=== PATIENT | male | born 1985 | race Caucasian/White ===

== ENCOUNTER → 2017-01-15 | Outpatient (CLI) | payer OTHER ==
[~2017-01-15] MED LIST: /MOXI40TA OR; /PANT40TA OR; IBUP600T OR; LEVO25TABR OR; LORA2TAB OR; NICO21DI4 TD; TUMS500C OR
[2017-01-15 19:06] LABS: BASO # 0.1 10^3/uL (0.0-0.2); BASO % 0.5 % (0.0-1.0); EOS # 0.1 10^3/uL (0.0-0.50); EOS % 0.6 % (0.0-3.0); IMMATURE GRANULOCYTE % 0.8 % (0-0); LYMPH # 3.1 10^3/uL (1.5-4.5); MEAN CORPUSCULAR HEMOGLOBIN 31.5 pg (27.0-33.0); MEAN CORPUSCULAR HGB CONC 33.8 g/dl (32.0-36.5); MEAN CORPUSCULAR VOLUME 93.2 fl (80.0-96.0); MONO % 7.2 % (0.0-5.0); NEUTROPHILS # 9.6 10^3/uL (1.8-7.7); NEUTROPHILS % 68.9 % (36.0-66.0); PLATELET COUNT, AUTOMATED 272 10^3/uL (150-450); RED CELL DISTRIBUTION WIDTH 13.1 % (11.5-14.5)
[2017-01-15 21:06] LABS: ALBUMIN 4.2 GM/DL (3.2-5.2); ALBUMIN/GLOBULIN RATIO 1.11 (1.00-1.93); ALKALINE PHOSPHATASE 78 U/L (45-117); ALT/SGPT 65 U/L (12-78); ANION GAP 7 MEQ/L (8-16); AST/SGOT 39 U/L (15-37); BILIRUBIN,TOTAL 0.3 MG/DL (0.2-1.0); BLOOD UREA NITROGEN 15 MG/DL (7-18); CALCIUM LEVEL 9.7 MG/DL (8.5-10.1); CARBON DIOXIDE LEVEL 31 MEQ/L (21-32); CHLORIDE LEVEL 100 MEQ/L (98-107); CREATININE FOR GFR 0.66 MG/DL (0.70-1.30); GLOMERULAR FILTRATION RATE > 60.0 (>60); GLUCOSE, FASTING 79 MG/DL (70-105); POTASSIUM SERUM 5.1 MEQ/L (3.5-5.1); SODIUM LEVEL 138 MEQ/L (136-145)
== END ==
LOC: M SMT 15:23
PROVIDERS: ATTEND Physician Assistant Medical
DX: Z13.0 Encounter for screening for diseases of the blood and blood-forming organs and certain disorders involving the immune mechanism (principal); Z13.29 Encounter for screening for other suspected endocrine disorder; F41.1 Generalized anxiety disorder

== ENCOUNTER 2017-08-29 17:10 | Emergency (ER) | payer OTHER | END 2017-08-29 20:15 | disposition left against medical advice (07) | LOC: M ED 17:10 | DX: R07.9 Chest pain, unspecified (principal); Z53.29 Procedure and treatment not carried out because of patient's decision for other reasons (principal); F41.9 Anxiety disorder, unspecified ==

== ENCOUNTER 2017-10-22 11:48 | Emergency (ER) | payer OTHER ==
[2017-10-22 14:22] LABS: BASO # 0.1 10^3/uL (0.0-0.2); BASO % 0.6 % (0.0-1.0); EOS # 0.1 10^3/uL (0.0-0.50); EOS % 0.5 % (0.0-3.0); HEMOGLOBIN 18.7 g/dl (13.5-17.5); IMMATURE GRANULOCYTE % 0.6 % (0-3.0); LYMPH # 2.4 10^3/uL (1.5-4.5); LYMPH % 22.8 % (24.0-44.0); MEAN CORPUSCULAR HEMOGLOBIN 32.7 pg (27.0-33.0); MEAN CORPUSCULAR VOLUME 91.1 fl (80.0-96.0); MONO # 0.7 10^3/uL (0.0-0.8); MONO % 6.9 % (0.0-5.0); NEUTROPHILS # 7.3 10^3/uL (1.8-7.7); NEUTROPHILS % 68.6 % (36.0-66.0); PLATELET COUNT, AUTOMATED 235 10^3/uL (150-450); RED BLOOD COUNT 5.71 10^6/uL (4.30-6.10); WHITE BLOOD COUNT 10.7 10^3/uL (4.0-10.0)
[2017-10-22 15:03] LABS: ALBUMIN 4.1 GM/DL (3.2-5.2); ALBUMIN/GLOBULIN RATIO 1.14 (1.00-1.93); ALKALINE PHOSPHATASE 71 U/L (45-117); ALT/SGPT 61 U/L (12-78); ANION GAP 9 MEQ/L (8-16); AST/SGOT 62 U/L (7-37); BILIRUBIN,DIRECT 0.3 MG/DL (0.0-0.2); BILIRUBIN,TOTAL 0.8 MG/DL (0.2-1.0); BLOOD UREA NITROGEN 9 MG/DL (7-18); CALCIUM LEVEL 9.6 MG/DL (8.5-10.1); CARBON DIOXIDE LEVEL 29 MEQ/L (21-32); CHLORIDE LEVEL 97 MEQ/L (98-107); CPK CREATINE PHOSPHOKINASE 201 U/L (39-308); CREATININE FOR GFR 0.79 MG/DL (0.70-1.30); FREE T4 0.95 NG/DL (0.76-1.46); GLOMERULAR FILTRATION RATE > 60.0 (>60); GLUCOSE, FASTING 90 MG/DL (70-100); POTASSIUM SERUM 4.2 MEQ/L (3.5-5.1); SODIUM LEVEL 135 MEQ/L (136-145); TOTAL PROTEIN 7.7 GM/DL (6.4-8.2); TROPONIN I < 0.02 NG/ML (< 0.10)
[2017-10-22 15:09] LABS: CK-MB VALUE MASS 1.5 NG/ML (<3.6); MB/CK RELATIVE INDEX 0.74 (< OR =4)
[2017-10-22] MEDS ORDERED: ISOVUE-370 76% 100ML VIAL (Q9967) As Ordered (15:10)
== END 2017-10-22 16:58 | disposition home or self-care (01) ==
LOC: M ED 11:48
DX: F41.9 Anxiety disorder, unspecified (principal); R07.9 Chest pain, unspecified; R06.02 Shortness of breath; R53.1 Weakness; I10 Essential (primary) hypertension; F17.210 Nicotine dependence, cigarettes, uncomplicated; Z79.899 Other long term (current) drug therapy
CPT/HCPCS: Q9967

== ENCOUNTER → 2017-10-24 | Outpatient (REF) | payer OTHER | LOC: M LAB REF 16:46 | DX: F41.1 Generalized anxiety disorder (principal) ==

== ENCOUNTER 2017-11-03 14:13 | Emergency (ER) | payer OTHER, BC ==
[2017-11-03 15:48] LABS: BASO # 0.1 10^3/uL (0.0-0.2); BASO % 0.7 % (0.0-1.0); EOS % 0.3 % (0.0-3.0); HEMATOCRIT 56.3 % (42.0-52.0); HEMOGLOBIN 19.8 g/dl (13.5-17.5); IMMATURE GRANULOCYTE % 0.6 % (0-3.0); LYMPH # 2.6 10^3/uL (1.5-4.5); LYMPH % 21.8 % (24.0-44.0); MEAN CORPUSCULAR HEMOGLOBIN 32.7 pg (27.0-33.0); MEAN CORPUSCULAR HGB CONC 35.2 g/dl (32.0-36.5); MEAN CORPUSCULAR VOLUME 92.9 fl (80.0-96.0); MONO # 0.9 10^3/uL (0.0-0.8); MONO % 7.4 % (0.0-5.0); NEUTROPHILS # 8.2 10^3/uL (1.8-7.7); NEUTROPHILS % 69.2 % (36.0-66.0); PLATELET COUNT, AUTOMATED 246 10^3/uL (150-450); RED BLOOD COUNT 6.06 10^6/uL (4.30-6.10); RED CELL DISTRIBUTION WIDTH 13.4 % (11.5-14.5); WHITE BLOOD COUNT 11.8 10^3/uL (4.0-10.0)
[2017-11-03 16:06] LABS: ALBUMIN 4.2 GM/DL (3.2-5.2); ALBUMIN/GLOBULIN RATIO 1.17 (1.00-1.93); ALKALINE PHOSPHATASE 72 U/L (45-117); ALT/SGPT 52 U/L (12-78); ANION GAP 9 MEQ/L (8-16); AST/SGOT 49 U/L (7-37); BILIRUBIN,DIRECT 0.2 MG/DL (0.0-0.2); BILIRUBIN,TOTAL 0.8 MG/DL (0.2-1.0); BLOOD UREA NITROGEN 10 MG/DL (7-18); CALCIUM LEVEL 9.6 MG/DL (8.5-10.1); CARBON DIOXIDE LEVEL 26 MEQ/L (21-32); CHLORIDE LEVEL 101 MEQ/L (98-107); CPK CREATINE PHOSPHOKINASE 103 U/L (39-308); CREATININE FOR GFR 0.77 MG/DL (0.70-1.30); GLOMERULAR FILTRATION RATE > 60.0 (>60); GLUCOSE, FASTING 91 MG/DL (70-100); LIPASE 196 U/L (73-393); POTASSIUM SERUM 4.1 MEQ/L (3.5-5.1); SODIUM LEVEL 136 MEQ/L (136-145); TOTAL PROTEIN 7.8 GM/DL (6.4-8.2); TROPONIN I < 0.02 NG/ML (< 0.10)
[2017-11-03 16:12] LABS: CK-MB VALUE MASS < 1.0 NG/ML (<3.6); MB/CK RELATIVE INDEX 0.97 (< OR =4)
[2017-11-05 11:09] LABS: VITAMIN B12 LEVEL 320 PG/ML (247-911)
[2017-11-05 11:09] LABS: FOLATE 9.3 NG/ML (>5.4)
== END 2017-11-03 17:10 | disposition home or self-care (01) ==
LOC: M ED 14:13
DX: F10.10 Alcohol abuse, uncomplicated (principal); F43.9 Reaction to severe stress, unspecified; I10 Essential (primary) hypertension; Z79.899 Other long term (current) drug therapy; F17.210 Nicotine dependence, cigarettes, uncomplicated
CPT/HCPCS: 93005

== ENCOUNTER → 2017-12-18 | Outpatient (REF) | payer OTHER ==
[2017-12-18 14:21] LABS: BASO # 0.1 10^3/uL (0.0-0.2); BASO % 0.7 % (0.0-1.0); EOS # 0.1 10^3/uL (0.0-0.50); EOS % 1.1 % (0.0-3.0); HEMATOCRIT 51.6 % (42.0-52.0); HEMOGLOBIN 17.4 g/dl (13.5-17.5); IMMATURE GRANULOCYTE % 0.5 % (0-3.0); LYMPH # 2.4 10^3/uL (1.5-4.5); LYMPH % 27.1 % (24.0-44.0); MEAN CORPUSCULAR HEMOGLOBIN 32.8 pg (27.0-33.0); MEAN CORPUSCULAR HGB CONC 33.7 g/dl (32.0-36.5); MEAN CORPUSCULAR VOLUME 97.4 fl (80.0-96.0); MONO # 0.7 10^3/uL (0.0-0.8); MONO % 8.3 % (0.0-5.0); NEUTROPHILS # 5.5 10^3/uL (1.8-7.7); NEUTROPHILS % 62.3 % (36.0-66.0); PLATELET COUNT, AUTOMATED 245 10^3/uL (150-450); RED CELL DISTRIBUTION WIDTH 13.6 % (11.5-14.5); WHITE BLOOD COUNT 8.8 10^3/uL (4.0-10.0)
[2017-12-18 14:47] LABS: ERYTHROCYTE SEDIMENTATION RATE 1 mm/hr (0-15)
[2017-12-18 15:02] LABS: ALBUMIN 3.8 GM/DL (3.2-5.2); ALBUMIN/GLOBULIN RATIO 0.97 (1.00-1.93); ALKALINE PHOSPHATASE 77 U/L (45-117); ALT/SGPT 37 U/L (12-78); ANION GAP 10 MEQ/L (8-16); AST/SGOT 47 U/L (7-37); BILIRUBIN,TOTAL 0.6 MG/DL (0.2-1.0); BLOOD UREA NITROGEN 19 MG/DL (7-18); CALCIUM LEVEL 10.4 MG/DL (8.5-10.1); CARBON DIOXIDE LEVEL 27 MEQ/L (21-32); CHLORIDE LEVEL 99 MEQ/L (98-107); CREATININE FOR GFR 1.51 MG/DL (0.70-1.30); FOLATE 4.9 NG/ML; FREE T4 0.87 NG/DL (0.76-1.46); GLOMERULAR FILTRATION RATE 56.6 (>60); GLUCOSE, FASTING 85 MG/DL (70-100); POTASSIUM SERUM 5.4 MEQ/L (3.5-5.1); RHEUMATOID FACTOR QUANT < 10.0 IU/ML (<15.0); SODIUM LEVEL 136 MEQ/L (136-145); TOTAL PROTEIN 7.7 GM/DL (6.4-8.2)
== END ==
LOC: M LABNEURO 13:20
DX: R41.82 Altered mental status, unspecified (principal); E07.9 Disorder of thyroid, unspecified

== ENCOUNTER → 2017-12-21 | Outpatient (REF) | payer OTHER | LOC: M LABNEURO 10:58 | DX: E07.9 Disorder of thyroid, unspecified (principal); R20.0 Anesthesia of skin; R41.82 Altered mental status, unspecified ==

== ENCOUNTER → 2018-02-07 | Outpatient (CLI) | payer OTHER | LOC: M WUC 17:22 | DX: M79.671 Pain in right foot (principal) | CPT/HCPCS: 73630 ==

== ENCOUNTER 2018-02-12 10:25 | Emergency (ER) | payer OTHER ==
[2018-02-12 11:27] LABS: BASO # 0.1 10^3/uL (0.0-0.2); BASO % 0.9 % (0.0-1.0); EOS # 0.1 10^3/uL (0.0-0.50); EOS % 0.8 % (0.0-3.0); HEMATOCRIT 49.3 % (42.0-52.0); HEMOGLOBIN 17.2 g/dl (13.5-17.5); IMMATURE GRANULOCYTE % 0.5 % (0-3.0); LYMPH # 1.7 10^3/uL (1.5-4.5); LYMPH % 21.8 % (24.0-44.0); MEAN CORPUSCULAR HEMOGLOBIN 32.5 pg (27.0-33.0); MEAN CORPUSCULAR HGB CONC 34.9 g/dl (32.0-36.5); MONO # 0.6 10^3/uL (0.0-0.8); MONO % 7.2 % (0.0-5.0); NEUTROPHILS # 5.5 10^3/uL (1.8-7.7); NEUTROPHILS % 68.8 % (36.0-66.0); WHITE BLOOD COUNT 7.9 10^3/uL (4.0-10.0)
[2018-02-12 11:47] LABS: POS COUNT POS FLAG
[2018-02-12 11:58] LABS: AMPHETAMINES LEVEL URINE NEGATIVE (NEGATIVE); BARBITURATES URINE NEGATIVE (NEGATIVE); BENZODIAZEPINES URINE NEGATIVE (NEGATIVE); CANNABINOIDS URINE NEGATIVE (NEGATIVE); COCAINE METABOLITE URINE NEGATIVE (NEGATIVE); METHADONE URINE NEGATIVE (NEGATIVE); OPIATES URINE NEGATIVE (NEGATIVE); PHENCYCLIDINE URINE NEGATIVE (NEGATIVE)
[2018-02-12 13:02] LABS: ALBUMIN 4.2 GM/DL (3.2-5.2); ALBUMIN/GLOBULIN RATIO 1.31 (1.00-1.93); ALKALINE PHOSPHATASE 72 U/L (45-117); ALT/SGPT 40 U/L (12-78); ANION GAP 7 MEQ/L (8-16); AST/SGOT 45 U/L (7-37); BILIRUBIN,TOTAL 0.5 MG/DL (0.2-1.0); BLOOD UREA NITROGEN 13 MG/DL (7-18); CALCIUM LEVEL 9.7 MG/DL (8.5-10.1); CARBON DIOXIDE LEVEL 30 MEQ/L (21-32); CHLORIDE LEVEL 97 MEQ/L (98-107); CK-MB VALUE MASS < 1.0 NG/ML (<3.6); CPK CREATINE PHOSPHOKINASE 144 U/L (39-308); ETHYL ALCOHOL (ETHANOL) < 0.003 % (0.000-0.010); GLOMERULAR FILTRATION RATE > 60.0 (>60); GLUCOSE, FASTING 99 MG/DL (70-100); LIPASE 315 U/L (73-393); MAGNESIUM LEVEL 1.9 MG/DL (1.8-2.4); MB/CK RELATIVE INDEX 0.69 (< OR =4); POTASSIUM SERUM 4.4 MEQ/L (3.5-5.1); SODIUM LEVEL 134 MEQ/L (136-145); TOTAL PROTEIN 7.4 GM/DL (6.4-8.2); TROPONIN I < 0.02 NG/ML (< 0.10)
[2018-02-12 13:04] LABS: AMMONIA 29 uMOL/L (<32)
[2018-02-12 14:42] LABS: BEDSIDE GLUCOSE 99 MG/DL (70-105)
== END 2018-02-12 13:49 | disposition home or self-care (01) ==
LOC: M ED 10:25
DX: F41.9 Anxiety disorder, unspecified (principal); R42 Dizziness and giddiness; H53.8 Other visual disturbances; I10 Essential (primary) hypertension; F10.10 Alcohol abuse, uncomplicated; Z87.442 Personal history of urinary calculi; Z79.899 Other long term (current) drug therapy
CPT/HCPCS: 71046

== ENCOUNTER 2018-08-26 20:51 | Emergency (ER) | payer OTHER ==
[~2018-08-26] VITALS: Ht 172.7 cm; Wt 81.8 kg
[~2018-08-26 20:51] MED LIST changes: -/MOXI40TA OR; -/PANT40TA OR; +AVEL1TAB2 OR; +CLON1TAB8 PO; +GABA-843; +LISI20TA PO; +POTA1TAB23; +PROT1TAB2 OR
[2018-08-26 22:02] LABS: AMPHETAMINES LEVEL URINE NEGATIVE (NEGATIVE); BARBITURATES URINE NEGATIVE (NEGATIVE); BENZODIAZEPINES URINE NEGATIVE (NEGATIVE); CANNABINOIDS URINE NEGATIVE (NEGATIVE); COCAINE METABOLITE URINE NEGATIVE (NEGATIVE); METHADONE URINE NEGATIVE (NEGATIVE); OPIATES URINE NEGATIVE (NEGATIVE); PHENCYCLIDINE URINE NEGATIVE (NEGATIVE)
[2018-08-26 22:05] LABS: HEMATOCRIT 51.4 % (42.0-52.0); HEMOGLOBIN 17.8 g/dl (13.5-17.5); MEAN CORPUSCULAR HGB CONC 34.6 g/dl (32.0-36.5); MEAN CORPUSCULAR VOLUME 98.1 fl (80.0-96.0); PLATELET COUNT, AUTOMATED 230 10^3/uL (150-450); RED BLOOD COUNT 5.24 10^6/uL (4.30-6.10); WHITE BLOOD COUNT 10.4 10^3/uL (4.0-10.0)
[2018-08-26] MEDS ORDERED: NICOTINE 21MG/24HR 1 EA TRANSDERMAL TD ONE (22:30)
[2018-08-26 22:46] LABS: ACETAMINOPHEN LEVEL < 2.0 UG/ML (10.0-30.0); ALT/SGPT 33 U/L (12-78); BILIRUBIN,DIRECT < 0.1 MG/DL (0.0-0.2); BILIRUBIN,TOTAL 0.3 MG/DL (0.2-1.0); BLOOD UREA NITROGEN 29 MG/DL (7-18); CALCIUM LEVEL 9.2 MG/DL (8.5-10.1); CARBON DIOXIDE LEVEL 24 MEQ/L (21-32); CHLORIDE LEVEL 102 MEQ/L (98-107); CREATININE FOR GFR 1.69 MG/DL (0.70-1.30); ETHYL ALCOHOL (ETHANOL) 0.371 % (0.000-0.010); GLOMERULAR FILTRATION RATE 49.4 (>60); GLUCOSE, FASTING 93 MG/DL (70-100); POTASSIUM SERUM 4.1 MEQ/L (3.5-5.1); SALICYLATE LEVEL 2.4 MG/DL (5.0-30.0); SODIUM LEVEL 135 MEQ/L (136-145); TOTAL PROTEIN 7.7 GM/DL (6.4-8.2)
[2018-08-26] MEDS ORDERED: LORazepam 2 MG TAB PO PRN (23:00)
[2018-08-26] MEDS: THIAMINE 100 MG TAB PO SCH (23:19)
[2018-08-26] MEDS ORDERED: NS 2,450 ML in APPROPRIATE DILUENT 1 EA IV ONE (23:45)
[2018-08-27 06:53] LABS: BLOOD UREA NITROGEN 24 MG/DL (7-18); CALCIUM LEVEL 7.7 MG/DL (8.5-10.1); CARBON DIOXIDE LEVEL 24 MEQ/L (21-32); CHLORIDE LEVEL 107 MEQ/L (98-107); CREATININE FOR GFR 1.41 MG/DL (0.70-1.30); GLOMERULAR FILTRATION RATE > 60.0 (>60); GLUCOSE, FASTING 87 MG/DL (70-100); POTASSIUM SERUM 4.5 MEQ/L (3.5-5.1); SODIUM LEVEL 141 MEQ/L (136-145)
[2018-08-27] MEDS ORDERED: NS 1,000 ML IV ONE (08:30)
[2018-08-27] MEDS ORDERED: MULTIVITAMINS/MINERALS THERAP 1 TAB PO SCH (09:00)
[2018-08-27] MEDS ORDERED: FOLIC ACID 1 MG TAB PO SCH (09:00)
[2018-08-27] MEDS: THIAMINE 100 MG TAB PO SCH (09:55)
[2018-08-27 12:22] VITALS: BP 113/77
== END 2018-08-27 12:28 | disposition home or self-care (01) ==
LOC: M ED 20:51
DX: F10.229 Alcohol dependence with intoxication, unspecified (principal); S00.81XA Abrasion of other part of head, initial encounter; W26.8XXA Contact with other sharp object(s), not elsewhere classified, initial encounter; Y92.89 Other specified places as the place of occurrence of the external cause; I10 Essential (primary) hypertension; F41.1 Generalized anxiety disorder; Z79.899 Other long term (current) drug therapy; F17.210 Nicotine dependence, cigarettes, uncomplicated
CPT/HCPCS: 36415; 80048; 80076; 80307; 84443; 85027; 99285; G0480

== ENCOUNTER 2019-10-13 15:05 | Inpatient (IN) | payer OTHER ==
[~2019-10-13] VITALS: Ht 172.7 cm; Wt 97.3 kg
[2019-10-13] MEDS: predniSONE 20 MG TAB PO SCH (09:00)
[~2019-10-13 15:05] MED LIST changes: -LISI20TA PO; +LISI20TA35 PO
[2019-10-13] MEDS ORDERED: MULTIVITAMIN -ADULT INJECTION 10 ML, THIAMINE INJection 100 MG, FOLIC ACID 1 MG in NS 1... IV ONE (16:00)
[2019-10-13] MEDS ORDERED: NS 1,000 ML IV ONE (16:30)
[2019-10-13 16:54] LABS: ACETAMINOPHEN LEVEL < 2.0 UG/ML (10.0-30.0); ALBUMIN 2.3 GM/DL (3.2-5.2); ALT/SGPT 56 U/L (12-78); BILIRUBIN,DIRECT 20.8 MG/DL (0.0-0.2); BILIRUBIN,TOTAL 24.5 MG/DL (0.2-1.0); BLOOD UREA NITROGEN 10 MG/DL (7-18); CALCIUM LEVEL 8.3 MG/DL (8.5-10.1); CARBON DIOXIDE LEVEL 32 MEQ/L (21-32); CHLORIDE LEVEL 85 MEQ/L (98-107); CREATININE FOR GFR 1.12 MG/DL (0.70-1.30); ETHYL ALCOHOL (ETHANOL) 0.067 % (0.000-0.010); GLOMERULAR FILTRATION RATE > 60.0 (>60); GLUCOSE, FASTING 108 MG/DL (70-100); POTASSIUM SERUM 2.1 MEQ/L (3.5-5.1); SALICYLATE LEVEL < 1.7 MG/DL (5.0-30.0); SODIUM LEVEL 131 MEQ/L (136-145); TOTAL PROTEIN 6.5 GM/DL (6.4-8.2)
[2019-10-13 16:57] LABS: HEMATOCRIT 38.6 % (42.0-52.0); HEMOGLOBIN 14.2 g/dl (13.5-17.5); MEAN CORPUSCULAR HEMOGLOBIN 35.8 pg (27.0-33.0); MEAN CORPUSCULAR HGB CONC 36.8 g/dl (32.0-36.5); MEAN CORPUSCULAR VOLUME 97.2 fl (80.0-96.0); PLATELET COUNT, AUTOMATED 138 10^3/uL (150-450); RED BLOOD COUNT 3.97 10^6/uL (4.30-6.10)
[2019-10-13 16:58] LABS: WHITE BLOOD COUNT 13.2 10^3/uL (4.0-10.0)
[2019-10-13] MEDS ORDERED: KCL 10MEQ/100ML SWI (KRUN) 10 MEQ in IV 1 EA IV ONE (17:00)
[2019-10-13 17:06] LABS: MAGNESIUM LEVEL 1.5 MG/DL (1.8-2.4)
[2019-10-13 17:18] LABS: LIPASE 851 U/L (73-393)
[2019-10-13] MEDS ORDERED: MAG SULF 1GM/100ML (MAG RUN) 1 GM in IV 1 EA IV ONE ×3 (17:30→23:30)
[2019-10-13 17:41] LABS: INR 1.41
[2019-10-13] MEDS ORDERED: MAGNESIUM CHLORIDE 64 MG TABCR (SLO MAG) PO ONE (18:15)
[2019-10-13] MEDS: POTASSIUM CHLORIDE 10 MEQ SR TABLET PO SCH ×2 (18:15→19:15)
[2019-10-13] MEDS: LORazepam 2 MG TAB PO PRN (18:28)
--- NOTE | 2019-10-13 18:50 | REPVR ---
PROCEDURE INFORMATION: Exam: US Abdomen, Limited; Right Upper Quadrant Exam date and time: 10/13/2019 5:58 PM Age: 34 years old Clinical indication: Abdominal tenderness and bloating; Additional info: Obstructive jaundice TECHNIQUE: Imaging protocol: US abdomen. Real time ultrasound with image documentation. Limited exam focused on the right upper quadrant. COMPARISON: No relevant prior studies available. FINDINGS: Liver: There is increased echogenicity of the liver consistent with moderate fatty infiltration. Gallbladder: There is a moderate amount of echogenic sludge in the dependent portion of the gallbladder. There is a small amount of fluid along the margin of the gallbladder and there may be some edema of the gallbladder wall. Common bile duct: There is no evidence of intrahepatic biliary dilatation. Common bile duct measures 6 mm and top-normal in size. Pancreas: The pancreas is obscured by bowel gas and cannot be evaluated Right kidney: The right kidney measures 13 cm in length with no evidence of hydronephrosis. Other findings: If there are continued symptoms suggest correlation with a HIDA scan and CT. IMPRESSION: 1. Moderate fatty infiltration of the liver. 2. There is a moderate amount of sludge in the dependent portion of the gallbladder. 3. Small amount of fluid along the margin of the gallbladder or within the gallbladder wall. If there are continued symptoms suggest correlation with a HIDA scan and CT. Electronically signed by: Abhijit Nuno On 10/13/2019 18:50:10 PM
[2019-10-13] MEDS: NS 1,000 ML IV SCH (19:00)
[2019-10-13] MEDS ORDERED: NICOTINE POLACRILEX 2 MG GUM PO ONE (19:45)
[2019-10-13] MEDS ORDERED: NICOTINE POLACRILEX 2 MG GUM PO PRN (19:45)
[2019-10-13] MEDS ORDERED: NS 1,000 ML IV SCH (19:45)
[2019-10-13] MEDS: OXAZEPAM 10 MG CAP PO PRN (20:14)
[2019-10-13 20:37] VITALS: BP 142/84
[2019-10-13 20:44] LABS: BLOOD UREA NITROGEN 9 MG/DL (7-18); CALCIUM LEVEL 7.1 MG/DL (8.5-10.1); CARBON DIOXIDE LEVEL 28 MEQ/L (21-32); CHLORIDE LEVEL 90 MEQ/L (98-107); CREATININE FOR GFR 0.94 MG/DL (0.70-1.30); GLOMERULAR FILTRATION RATE > 60.0 (>60); GLUCOSE, FASTING 108 MG/DL (70-100); MAGNESIUM LEVEL 1.7 MG/DL (1.8-2.4); POTASSIUM SERUM 2.4 MEQ/L (3.5-5.1); SODIUM LEVEL 133 MEQ/L (136-145)
[2019-10-13 21:02] LABS: IRON (FE) 86 UG/DL (65-175); PERCENT SATURATION 81.1 % (19.7-50.0); TOTAL IRON BINDING CAPACITY 106 UG/DL (250-450)
[2019-10-13 22:00] VITALS: BP 142/84
[2019-10-13] MEDS: PIPERACILLIN/TAZOBACTAM SOD 3.375 GM in D5W MINI-BAG PLUS 50 ML IV SCH (22:06)
[2019-10-13] MEDS: PANTOPRAZOLE SODIUM 40 MG in D5W 50 ML IV SCH (22:06)
[2019-10-13] MEDS: NICOTINE 14 MG/24 HR TRANSDERMAL TD SCH (22:07)
[2019-10-13] MEDS ORDERED: POTASSIUM CHLORIDE 10 MEQ SR TABLET PO ONE (23:30)
[2019-10-14] VITALS (10 sets, daily range): BP systolic 111–138; BP diastolic 70–92
[2019-10-14] MEDS: THIAMINE 100 MG TAB PO SCH ×3 (01:57→22:43)
[2019-10-14 02:55] LABS: MAGNESIUM LEVEL 1.9 MG/DL (1.8-2.4); POTASSIUM SERUM 2.2 MEQ/L (3.5-5.1)
[2019-10-14] MEDS ORDERED: POTASSIUM CHLORIDE 10 MEQ SR TABLET PO ONE (03:45)
[2019-10-14] MEDS: KCL 40MEQ in NS 1000ML 1,000 ML IV SCH ×4 (04:07→18:40)
[2019-10-14] MEDS: PIPERACILLIN/TAZOBACTAM SOD 3.375 GM in D5W MINI-BAG PLUS 50 ML IV SCH ×4 (04:07→22:42)
[2019-10-14] MEDS: PANTOPRAZOLE SODIUM 40 MG in D5W 50 ML IV SCH ×2 (05:24→05:45)
[2019-10-14 06:16] LABS: BASO # 0.1 10^3/uL (0.0-0.2); BASO % 0.6 % (0.0-1.0); EOS % 0.4 % (0.0-3.0); HEMATOCRIT 34.6 % (42.0-52.0); HEMOGLOBIN 12.6 g/dl (13.5-17.5); LYMPH # 1.5 10^3/uL (1.5-5.0); MEAN CORPUSCULAR HEMOGLOBIN 35.6 pg (27.0-33.0); MEAN CORPUSCULAR HGB CONC 36.4 g/dl (32.0-36.5); MEAN CORPUSCULAR VOLUME 97.7 fl (80.0-96.0); MONO # 0.9 10^3/uL (0.0-0.8); MONO % 7.7 % (0.0-5.0); NEUTROPHILS # 8.7 10^3/uL (1.5-8.5); NEUTROPHILS % 77.3 % (36.0-66.0); PLATELET COUNT, AUTOMATED 113 10^3/uL (150-450); RED BLOOD COUNT 3.54 10^6/uL (4.30-6.10); WHITE BLOOD COUNT 11.2 10^3/uL (4.0-10.0)
[2019-10-14 06:30] LABS: INR 1.62
[2019-10-14 06:31] LABS: PARTIAL THROMBOPLASTIN TIME 51.7 SECONDS (25.0-38.4)
[2019-10-14 06:37] LABS: ALBUMIN 1.9 GM/DL (3.2-5.2); ALT/SGPT 45 U/L (12-78); BILIRUBIN,TOTAL 21.8 MG/DL (0.2-1.0); BLOOD UREA NITROGEN 8 MG/DL (7-18); CARBON DIOXIDE LEVEL 30 MEQ/L (21-32); CHLORIDE LEVEL 92 MEQ/L (98-107); CREATININE FOR GFR 0.92 MG/DL (0.70-1.30); GLOMERULAR FILTRATION RATE > 60.0 (>60); GLUCOSE, FASTING 91 MG/DL (70-100); MAGNESIUM LEVEL 2.3 MG/DL (1.8-2.4); POTASSIUM SERUM 2.7 MEQ/L (3.5-5.1); SODIUM LEVEL 132 MEQ/L (136-145); TOTAL PROTEIN 5.4 GM/DL (6.4-8.2)
--- NOTE | 2019-10-14 08:15 | ECGEPIP ---
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
[2019-10-14] MEDS: MULTIVITAMINS/MINERALS THERAP 1 TAB PO SCH (08:52)
[2019-10-14] MEDS: NICOTINE 14 MG/24 HR TRANSDERMAL TD SCH (08:52)
[2019-10-14] MEDS: FOLIC ACID 1 MG TAB PO SCH (08:53)
[2019-10-14] MEDS: predniSONE 20 MG TAB PO SCH (08:53)
[2019-10-14] MEDS ORDERED: PANTOPRAZOLE 40MG TAB (PROTONIX) PO SCH (09:00)
[2019-10-14] MEDS: OXAZEPAM 10 MG CAP PO PRN ×4 (09:04→22:43)
[2019-10-14] MEDS ORDERED: IPRATROPIUM 0.5MG/ALBUTEROL 2.5MG INH SOL UD 3ML (DUONEB) NEB PRN (09:15)
[2019-10-14] MEDS ORDERED: PANTOPRAZOLE 40MG VIAL (C9113 PER 1) IV SCH (10:00)
--- NOTE | 2019-10-14 12:14 | HPE ---
DATE OF ADMISSION: 10/13/2019 CHIEF COMPLAINT: Abdominal pain, jaundice. HISTORY OF PRESENT ILLNESS: This is a 34-year-old male with history of alcohol abuse dating back since the age of 13. He usually drinks hard liquor with Vodka, four to five beers, a day. He presented to the emergency room with three day history of worsening jaundice, abdominal distention and pain with one episode of hematemesis without bright red blood per rectum, melena or black tarry stools. He complained of dizziness without shortness of breath, palpitations or chest pain. He had been burping significantly. He decided to come into the hospital for evaluation with stopping his alcohol use yesterday. The patient denies any Tylenol use or NSAID use recently. He has had some nausea without vomiting. No prior episode in the past. He has a known history of heavy alcohol abuse, hepatic steatosis, fatty liver, Benadryl overdose and suicide attempt in the past. He does have a history of chronic obstructive pulmonary disease (COPD) and depression. In the emergency room (ER), he was noted to be overtly jaundiced with bilirubin level of 24.5, discriminant function of 22 with persistent hypokalemia and hypomagnesemia. The patient complains of generalized weakness, paresthesias and admitted for alcoholic hepatitis. His abdominal pain is diffuse, no rebound or guarding, worse when he was vomiting, currently resolved. No Tylenol use or any other medication use for pain or vomiting at home. PAST MEDICAL HISTORY: 1. Alcohol abuse. 2. Chronic obstructive pulmonary disease. 3. Depression. 4. Suicidal ideation. 5. Fatty liver. 6. No history of cirrhosis or esophageal varices documented. PAST SURGICAL HISTORY: None. ALLERGIES: No known drug allergies. SOCIAL HISTORY: Smokes a half a pack a day since the age of 13. 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 Uses hard liquor such as Vodka, four to five beers every day. Health care proxy is his chel Carreno, phone number . The patient is a full code. FAMILY HISTORY: Father alcoholic. Mother at age 45. Two brothers, one 32 years of age and another 36 years of age. REVIEW OF SYSTEMS: Per history of present illness (HPI). 12 point system otherwise negative. PHYSICAL EXAMINATION: Temperature 99.7, pulse 136, sinus rhythm, with PACs, respiratory rate 17, blood pressure 115/80, 98% on room air. Generally, the patient is overtly jaundiced and icteric. No pallor. No jugular venous distention or thyromegaly. The patient answers questions appropriately. Awake, alert and oriented times three. No lethargy or obtundation. No jugular venous distention or thyromegaly. Lungs are clear to auscultation. No wheezing, rales or rhonchi. Heart: S1, S2. Tachycardiac. Irregular. Abdomen is distended. Tender right upper quadrant. No rebound or guarding. Positive hepatosplenomegaly. No fluid wave. Extremities: Positive edema. Multiple tattoos bilateral upper and lower extremities. LABORATORY DATA: White count 13.2, hemoglobin 14, hematocrit 38 and platelet count 138. Sodium 131, potassium 2.1, chloride 85, bicarbonate 32, BUN 10, creatinine 1.12, glucose 108, lactic acid 6.6, magnesium 1.7, lipase 851, direct bilirubin 20.8, total bilirubin 24.5, AST 46, ALT 56, alkaline phosphatase 262. Hepatitis serology is pending. KRISTINA anti-centromere, anti-mitochondrial and anti-smooth muscle antibodies are pending. Acetaminophen is less than 2. Blood cultures are negative. Urinalysis is still pending. Ultrasound of the gallbladder - liver is consistent with moderate fatty infiltration, moderate amount of echogenic sludge dependent portion of the gallbladder, small amount of fluid along the margin. There may be some edema of gallbladder wall. No evidence of intrahepatic biliary dilatation. Common bile duct 6 mm, top normal size. Pancreas is obscured and cannot be evaluated. Right kidney measures 13 cm. No evidence of hydronephrosis. Moderately fatty liver. Moderate amount of sludge in dependent portion of the gallbladder. Small amount of fluid along the margin of the gallbladder within the gallbladder wall. ASSESSMENT AND PLAN: This is a 34-year-old male with history of alcohol abuse who presented with abdominal pain, nausea, vomiting, hematemesis and three day history of worsening jaundice found to have bilirubin of 24. Ultrasound shows moderate sludge in the dependent portion of the gallbladder and fatty liver. IMPRESSION: 1. Alcoholic hepatitis with nonobstructive jaundice. At this time, the patient is still awake, alert and oriented times three. He is not lethargic or obtunded with no signs of encephalopathy. The patient's jaundice is thought to be secondary to alcoholic hepatitis and therefore he has been given prednisone. Due to lactic acidosis he has been given a banana bag. IV fluids are continued and patient had been given boluses of normal saline. He is given Zosyn 3.375 grams intravenously every 6 hours with full supportive care, multivitamin, thiamine, folate, and Protonix drip due to recent hematemesis. Upholstery Sewer has been consulted, Dr. Richmond, who agrees with current management for now. Gallbladder ultrasound showed sludging, but no significant dilatation of the duct. 2. Alcohol withdrawal. The patient is currently on oxazepam 10 mg every 4, CIWA protocol. He is kept on thiamine, multivitamin and folate. IV fluids are continued. 3. Tobacco abuse. Tobacco cessation counseling has been provided. He has been given nicotine gum along with nicotine patch. 4. History of depression with suicidal attempt. Currently has no homicidal or suicidal tendency. 5. Abnormal EKG due to tachycardia with PACs. Continue on telemetry monitoring. 6. Code status. Full code.
[2019-10-14 16:55] LABS: BLOOD UREA NITROGEN 9 MG/DL (7-18); CALCIUM LEVEL 6.9 MG/DL (8.5-10.1); CARBON DIOXIDE LEVEL 27 MEQ/L (21-32); CHLORIDE LEVEL 98 MEQ/L (98-107); CREATININE FOR GFR 0.98 MG/DL (0.70-1.30); GLOMERULAR FILTRATION RATE > 60.0 (>60); GLUCOSE, FASTING 140 MG/DL (70-100); POTASSIUM SERUM 3.3 MEQ/L (3.5-5.1); SODIUM LEVEL 134 MEQ/L (136-145)
--- NOTE | 2019-10-14 17:40 | CR.PDOC ---
General Date of Consultation: Oct 14, 2019 Referring Provider: LAZARUS KINGSTON MD Attending Physician: FILIPPO RIVERA MD Consultation Primary physician/ hospitalist: Dr. Kingston Reason for consult: Abnormal liver panel. HPI: 34-year-old male patient with COPD, depression, history of heavy alcohol use for a long time, (drinks hard liquor with Vodka, four to five beers, a day), presented to ER for worsening jaundice, abdominal distention and pain with one episode of vomiting. Patient was noted to have abnormal liver tests and GI was consulted for the same. When examined patient is alert and awake and able to answer questions appropriately. He reports drinking heavily for the past few months and for the past few days noticing jaundice and abdominal bloating. He also have few episodes of vomiting of darker material and dark stools. He denies any Tylenol use or NSAID use recently. He has had some nausea without vomiting. He also complains of generalized weakness, and some tremulousness. He reports getting withdrawal symptoms of shaking if he stops alcohol for even 1 day. He denies any fever, chest pain, cough or burning micturition.. Pertinent negative GI symptoms: Patient denies fever, sick contacts, recent travel, loss of appetite, early s atiety or unintentional weight loss. No history of hematemesis, melena or hematochezia. Patient reports regular bowel movements. Review of Systems: GI: as stated above CVS: No chest pain, No palpitations, No leg swelling. RS: No Shortness of breath, No Wheezing, no cough SUPERVISOR BAKING: No dizziness, No motor weakness, No sensory problems Hematology: No bruising, No gum bleeding, Musculoskeletal: No joint pain, ambulating well. Skin: No rash : No hematuria, No burning sensation of the urine ENT: No ear discharge/ pain, No dysphagia. Eyes: No photophobia. Jaundice Home medications: reviewed. Antithrombotic agents - None Medical h/o: As above. Surgical h/o: None on abdomen. Social h/o: Alcohol : as above. , smoking : active smoker , IVDA/ drugs - no other drug use. . Family h/o of GI cancers - None Prior Endoscopies: None Prior GI evaluations: none Exam: Vitals: reviewed General: Alert and oriented x 3, not in distress HEENT: NO pallor, no icterus. Normal oropharynx, NO cervical lymph nodes. Chest: symmetric with bilateral clear air entry, CVS: S1, S2 heard, normal, no murmurs . Abdomen: non-distended, no surgical scars, soft, non-tender, no palpable masses, normal bowel sounds heard. Rectal exam: Patient refused / Deferred at this time in view of scheduled colonoscopy. Extremities: no pedal edema, pulses palpable. SUPERVISOR BAKING: no focal motor or sensory deficits. Moves all extremities Skin: no rash. Labs: reviewed. Imaging: reviewed. Impression: - Abdominal bloating, nausea and vomiting with Abnormal liver panel in patient with heavy alcohol use and ultrasound abdomen showing fatty liver with no gallstones and normal CBD -- DDx-- Alcoholic hepatitis vs liver cirrhosis vs r/o acute viral hepatitis. Nausea and vomiting could be related to alcohol use it self. No Overt active bleeding at this time. Recommendations: - Patient educated about the test results, possible differential diagnoses and All questions answered. - Septic work up. - Steroid therapy for alcoholic hepatitis. discussed the risks , benefits and a lternatives with patient. ( prefer prednisolone). - Monitor for alcohol withdrawal / DT. - Alcohol rehabilitation if patient agrees. - Prognosis guarded educated patient. - Continue with Thiamine and folic acid - Supportive care and high protein diet. - Recall GI if any acute change in status. - As there is no evidence of active Gi bleeding and also considering the risks and benefits of endoscopic evaluation in active alcholic hepatitis, as per discussion with patient, no endoscopic procedures planned at this time. - Patient to follow up with PCP upon discharge and if persistent GI symptoms then to follow with GI. Plan of care discussed with patient and primary team. Patient verbalized un derstanding and agreed with the plan. Vital Signs/I&O Vital Signs Date Time Temp Pulse Resp B/P (MAP) Pulse Ox O2 Delivery O2 Flow Rate FiO2 10/14/19 16:00 97.6 99 22 111/78 (89) 96 Room Air I&O- Last 24 Hours up to 6 AM 10/14/19 05:59 Intake Total 2860 ml Output Total 0 ml Balance 2860 ml Laboratory Data Labs 24H Laboratory Tests 2 10/13/19 19:55: Anion Gap 15, Glomerular Filtration Rate > 60.0, Calcium Level 7.1L, Magnesium Level 1.7L, Iron Level 86, Total Iron Binding Capacity 106L, Transferrin % Saturation 81.1H 10/13/19 22:55: Lactic Acid Followup at 4 Hours 5.1*H 10/14/19 02:05: Magnesium Level 1.9 10/14/19 05:50: Anion Gap 10, Glomerular Filtration Rate > 60.0, Calcium Level 7.0L, Magnesium Level 2.3, Immature Granulocyte % (Auto) 1.0, Neutrophils (%) (Auto) 77.3H, Lymphocytes (%) (Auto) 13.0L, Monocytes (%) (Auto) 7.7H, Eosinophils (%) (Auto) 0.4, Basophils (%) (Auto) 0.6, Neutrophils # (Auto) 8.7H, Lymphocytes # (Auto) 1.5, Monocytes # (Auto) 0.9H, Eosinophils # (Auto) 0.0, Basophils # (Auto) 0.1, Nucleated Red Blood Cells % (auto) 0.2H, Prothrombin Time 19.0H, Prothromb Time International Ratio 1.62, Activated Partial Thromboplast Time 51.7H, Total Bilirubin 21.8*H, Aspartate Amino Transf (AST/SGOT) 397H, Alanine Aminotransferase (ALT/SGPT) 45, Alkaline Phosphatase 201H, Total Protein 5.4L, Albumin 1.9L, Albumin/Globulin Ratio 0.5 10/14/19 09:36: Lactic Acid Level 4.1*H 10/14/19 14:44: Lactic Acid Followup at 4 Hours 4.2*H 10/14/19 16:13: Lactic Acid Level 3.8*H, Anion Gap 9, Glomerular Filtration Rate > 60.0, Calcium Level 6.9L CBC/BMP Laboratory Tests 10/13/19 19:55 10/14/19 02:05 10/14/19 05:50 10/14/19 16:13 Microbiology Microbiology 10/13/19 Blood Culture, Received Pending 10/13/19 Blood Culture, Received Pending Allergies Coded Allergies: No Known Drug Allergies (Verified Allergy, Unknown, 08/26/18) Home Medications No Active Prescriptions or Reported Meds FILIPPO RIVERA MD Oct 14, 2019 17:40
--- NOTE | 2019-10-14 18:23 | IPNPDOC ---
Date Seen The patient was seen on 10/14/19. Progress Note 34 y/o M with h/o alcohol abuse initially came c/o abdominal pain, one episode of ? hemetemesis; was admitted for suspected alcoholic hepatitis. Pt was seen and examined at bedside. Pt c/o generalized weakness. Denied any other associated symptom. PHYSICAL EXAMINATION: GENERAL: comfortable HEENT: oral mucosa moist CARDIOVASCULAR: regular rate and rhythm RESPIRATORY: clear to auscultation, ABDOMINAL: soft,non tender EXTREMITIES: no edema NEUROLOGICAL: no focal deficit PSYCHOLOGICAL: mood normal LABORATORY DATA, IMAGING STUDIES, MICROBIOLOGY: reviewed ASSESSMENT AND PLAN: 1. Suspected alcoholic hepatitis with non obstructive jaundice will continue prednisone will f/u hepatitis panel GI recommendations appreciated 2. h/o alcohol abuse will monitor for withdrawal 3. Lactic acid acidosis improving ivf 4. Hypokalemia will replete as needed VS, I&O, 24H, Fishbone Vital Signs/I&O Vital Signs Date Time Temp Pulse Resp B/P (MAP) Pulse Ox O2 Delivery O2 Flow Rate FiO2 10/14/19 16:00 97.6 99 22 111/78 (89) 96 Room Air I&O- Last 24 Hours up to 6 AM 10/14/19 06:00 Intake Total 2860 ml Output Total 0 ml Balance 2860 ml Laboratory Data 24H LABS Laboratory Tests 2 10/13/19 19:55: Anion Gap 15, Glomerular Filtration Rate > 60.0, Calcium Level 7.1L, Magnesium Level 1.7L, Iron Level 86, Total Iron Binding Capacity 106L, Transferrin % Saturation 81.1H 10/13/19 22:55: Lactic Acid Followup at 4 Hours 5.1*H 10/14/19 02:05: Magnesium Level 1.9 10/14/19 05:50: Anion Gap 10, Glomerular Filtration Rate > 60.0, Calcium Level 7.0L, Magnesium Level 2.3, Immature Granulocyte % (Auto) 1.0, Neutrophils (%) (Auto) 77.3H, Lymphocytes (%) (Auto) 13.0L, Monocytes (%) (Auto) 7.7H, Eosinophils (%) (Auto) 0.4, Basophils (%) (Auto) 0.6, Neutrophils # (Auto) 8.7H, Lymphocytes # (Auto) 1.5, Monocytes # (Auto) 0.9H, Eosinophils # (Auto) 0.0, Basophils # (Auto) 0.1, Nucleated Red Blood Cells % (auto) 0.2H, Prothrombin Time 19.0H, Prothromb Time International Ratio 1.62, Activated Partial Thromboplast Time 51.7H, Total Bilirubin 21.8*H, Aspartate Amino Transf (AST/SGOT) 397H, Alanine Aminotransferase (ALT/SGPT) 45, Alkaline Phosphatase 201H, Total Protein 5.4L, Albumin 1.9L, Albumin/Globulin Ratio 0.5 10/14/19 09:36: Lactic Acid Level 4.1*H 10/14/19 14:44: Lactic Acid Followup at 4 Hours 4.2*H 10/14/19 16:13: Lactic Acid Level 3.8*H, Anion Gap 9, Glomerular Filtration Rate > 60.0, Calcium Level 6.9L CBC/BMP Laboratory Tests 10/13/19 19:55 10/14/19 02:05 10/14/19 05:50 10/14/19 16:13 Microbiology Microbiology 10/13/19 Blood Culture, Received Pending 10/13/19 Blood Culture, Received Pending MARILEE RUELAS MD Oct 14, 2019 18:23
[2019-10-14] MEDS: NS 1,000 ML IV SCH (18:41)
[2019-10-15] VITALS (10 sets, daily range): BP systolic 103–142; BP diastolic 67–92
[2019-10-15] MEDS: KCL 40MEQ in NS 1000ML 1,000 ML IV SCH (02:42)
[2019-10-15] MEDS: PIPERACILLIN/TAZOBACTAM SOD 3.375 GM in D5W MINI-BAG PLUS 50 ML IV SCH (04:10)
[2019-10-15 05:55] LABS: BASO % 0.3 % (0.0-1.0); EOS % 0.1 % (0.0-3.0); HEMATOCRIT 36.8 % (42.0-52.0); HEMOGLOBIN 13.1 g/dl (13.5-17.5); LYMPH # 1.1 10^3/uL (1.5-5.0); MEAN CORPUSCULAR HEMOGLOBIN 35.9 pg (27.0-33.0); MEAN CORPUSCULAR HGB CONC 35.6 g/dl (32.0-36.5); MEAN CORPUSCULAR VOLUME 100.8 fl (80.0-96.0); MONO # 0.9 10^3/uL (0.0-0.8); MONO % 6.9 % (0.0-5.0); NEUTROPHILS # 10.9 10^3/uL (1.5-8.5); NEUTROPHILS % 82.4 % (36.0-66.0); PLATELET COUNT, AUTOMATED 115 10^3/uL (150-450); RED BLOOD COUNT 3.65 10^6/uL (4.30-6.10); WHITE BLOOD COUNT 13.3 10^3/uL (4.0-10.0)
[2019-10-15 06:21] LABS: ALBUMIN 1.9 GM/DL (3.2-5.2); ALT/SGPT 42 U/L (12-78); BILIRUBIN,TOTAL 23.3 MG/DL (0.2-1.0); BLOOD UREA NITROGEN 7 MG/DL (7-18); CALCIUM LEVEL 6.9 MG/DL (8.5-10.1); CARBON DIOXIDE LEVEL 25 MEQ/L (21-32); CHLORIDE LEVEL 102 MEQ/L (98-107); CREATININE FOR GFR 0.83 MG/DL (0.70-1.30); GLOMERULAR FILTRATION RATE > 60.0 (>60); GLUCOSE, FASTING 89 MG/DL (70-100); MAGNESIUM LEVEL 2.2 MG/DL (1.8-2.4); POTASSIUM SERUM 3.5 MEQ/L (3.5-5.1); SODIUM LEVEL 135 MEQ/L (136-145); TOTAL PROTEIN 5.2 GM/DL (6.4-8.2)
[2019-10-15] MEDS ORDERED: KCL 10MEQ/100ML SWI (KRUN) 10 MEQ in IV 1 EA IV ONE (08:00)
[2019-10-15] MEDS: NICOTINE 14 MG/24 HR TRANSDERMAL TD SCH (09:12)
[2019-10-15] MEDS: FOLIC ACID 1 MG TAB PO SCH (09:13)
[2019-10-15] MEDS: predniSONE 20 MG TAB PO SCH (09:13)
[2019-10-15] MEDS: PANTOPRAZOLE 40MG VIAL (C9113 PER 1) IV SCH (09:13)
[2019-10-15] MEDS: THIAMINE 100 MG TAB PO SCH ×2 (09:13→20:29)
[2019-10-15] MEDS: MULTIVITAMINS/MINERALS THERAP 1 TAB PO SCH (09:13)
[2019-10-15] MEDS: OXAZEPAM 10 MG CAP PO PRN ×2 (09:14→23:28)
[2019-10-15 11:24] LABS: HEPATITIS B SURFACE ANTIGEN NEGATIVE (NEGATIVE)
[2019-10-15 11:51] LABS: HEPATITIS C VIRUS ABY INDEX 0.1 INDEX (<0.8)
[2019-10-15 11:52] LABS: HEPATITIS B CORE ANTIBODY IGM NEGATIVE (NEGATIVE)
[2019-10-15 11:53] LABS: HEPATITIS A ANTIBODY IGM NEGATIVE (NEGATIVE)
[2019-10-15 13:03] LABS: FERRITIN 15208 NG/ML (26-388)
[2019-10-15] MEDS: LORazepam 2 MG TAB PO PRN ×2 (14:28→21:49)
--- NOTE | 2019-10-15 15:49 | IPNPDOC ---
Date Seen The patient was seen on 10/15/19. Progress Note 34 y/o M with h/o alcohol abuse initially came c/o abdominal pain, one episode of ? hemetemesis; was admitted for suspected alcoholic hepatitis. Pt was seen and examined at bedside. Over the night pt required iv ativan Pt c/o generalized weakness. Denied any other associated symptom. No new complaint PHYSICAL EXAMINATION: GENERAL: comfortable HEENT: oral mucosa moist CARDIOVASCULAR: regular rate and rhythm RESPIRATORY: clear to auscultation, ABDOMINAL: soft,non tender EXTREMITIES: mild b/l lower extremities pitting pedal edema NEUROLOGICAL: no focal deficit PSYCHOLOGICAL: mood normal LABORATORY DATA, IMAGING STUDIES, MICROBIOLOGY: reviewed ASSESSMENT AND PLAN: 1. Suspected alcoholic hepatitis with non obstructive jaundice will continue prednisone will f/u hepatitis panel GI recommendations appreciated LFTs has mildly worsened compared to yesterday iv zosyn was discontinued There are no sign and symptoms suggestive of active infection 2. h/o alcohol abuse will monitor for withdrawal 3. Lactic acid acidosis improved lactic acid might not come back to normal limit completely in view of liver pathology. Pt started to develop edema so IV fluids were discontinued. 4. Hypokalemia resolved 5. leg edema will get ECHO to eval for ? alcoholic cardiomyopathy VS, I&O, 24H, Fishbone Vital Signs/I&O Vital Signs Date Time Temp Pulse Resp B/P (MAP) Pulse Ox O2 Delivery O2 Flow Rate FiO2 10/15/19 12:00 111 117/85 10/15/19 12:00 98.0 16 100 Room Air I&O- Last 24 Hours up to 6 AM 10/15/19 06:00 Intake Total 1810 ml Output Total 0 ml Balance 1810 ml Laboratory Data 24H LABS Laboratory Tests 2 10/14/19 16:13: Anion Gap 9, Glomerular Filtration Rate > 60.0, Lactic Acid Level 3.8*H, Calcium Level 6.9L 10/14/19 21:05: Lactic Acid Followup at 4 Hours 3.0*H 10/14/19 22:51: Magnesium Level 2.1 10/15/19 00:47: Lactic Acid Level 2.2*H 10/15/19 05:16: Immature Granulocyte % (Auto) 2.3, Neutrophils (%) (Auto) 82.4H, Lymphocytes (%) (Auto) 8.0L, Monocytes (%) (Auto) 6.9H, Eosinophils (%) (Auto) 0.1, Basophils (%) (Auto) 0.3, Neutrophils # (Auto) 10.9H, Lymphocytes # (Auto) 1.1L, Monocytes # (Auto) 0.9H, Eosinophils # (Auto) 0.0, Basophils # (Auto) 0.0, Nucleated Red Blood Cells % (auto) 0.3H, Anion Gap 8, Glomerular Filtration Rate > 60.0, Lactic Acid Followup at 4 Hours 2.1*H, Calcium Level 6.9L, Magnesium Level 2.2, Total Bilirubin 23.3*H, Aspartate Amino Transf (AST/SGOT) 328H, Alanine Aminotransferase (ALT/SGPT) 42, Alkaline Phosphatase 199H, Total Protein 5.2L, Albumin 1.9L, Albumin/Globulin Ratio 0.6 10/15/19 09:36: Methicillin-Resist S.aureus DNA PCR NOT DETECTED CBC/BMP Laboratory Tests 10/14/19 16:13 10/15/19 05:16 Microbiology Microbiology 10/13/19 Blood Culture - Preliminary, Resulted No growth after 24 hours . All specim... 10/13/19 Blood Culture - Preliminary, Resulted No growth after 24 hours . All specim... MARILEE RUELAS MD Oct 15, 2019 15:49
[2019-10-16] MEDS ORDERED: SLF 3 ML SYR IV PRN (01:45)
[2019-10-16] MEDS: LORazepam 2 MG TAB PO PRN ×6 (02:47→17:24)
[2019-10-16 05:00] VITALS: BP 126/94
[2019-10-16] MEDS: SLF 3 ML SYR IV SCH ×3 (05:22→20:36)
[2019-10-16] MEDS: OXAZEPAM 10 MG CAP PO PRN ×3 (05:22→15:28)
[2019-10-16 05:52] LABS: BASO # 0.1 10^3/uL (0.0-0.2); BASO % 0.4 % (0.0-1.0); EOS % 0.1 % (0.0-3.0); HEMATOCRIT 37.9 % (42.0-52.0); HEMOGLOBIN 13.4 g/dl (13.5-17.5); LYMPH # 1.6 10^3/uL (1.5-5.0); MEAN CORPUSCULAR HEMOGLOBIN 36.1 pg (27.0-33.0); MEAN CORPUSCULAR HGB CONC 35.4 g/dl (32.0-36.5); MEAN CORPUSCULAR VOLUME 102.2 fl (80.0-96.0); MONO # 0.7 10^3/uL (0.0-0.8); MONO % 5.1 % (0.0-5.0); NEUTROPHILS # 11.4 10^3/uL (1.5-8.5); NEUTROPHILS % 78.8 % (36.0-66.0); PLATELET COUNT, AUTOMATED 133 10^3/uL (150-450); RED BLOOD COUNT 3.71 10^6/uL (4.30-6.10); WHITE BLOOD COUNT 14.5 10^3/uL (4.0-10.0)
[2019-10-16 06:28] LABS: ALBUMIN 1.9 GM/DL (3.2-5.2); ALT/SGPT 45 U/L (12-78); BILIRUBIN,TOTAL 22.5 MG/DL (0.2-1.0); BLOOD UREA NITROGEN 8 MG/DL (7-18); CALCIUM LEVEL 7.2 MG/DL (8.5-10.1); CARBON DIOXIDE LEVEL 25 MEQ/L (21-32); CHLORIDE LEVEL 103 MEQ/L (98-107); CREATININE FOR GFR 0.86 MG/DL (0.70-1.30); GLOMERULAR FILTRATION RATE > 60.0 (>60); GLUCOSE, FASTING 94 MG/DL (70-100); POTASSIUM SERUM 3.8 MEQ/L (3.5-5.1); SODIUM LEVEL 134 MEQ/L (136-145); TOTAL PROTEIN 5.4 GM/DL (6.4-8.2)
[2019-10-16] MEDS: NICOTINE 14 MG/24 HR TRANSDERMAL TD SCH (06:34)
[2019-10-16 08:00] VITALS: BP 113/80
[2019-10-16 08:12] LABS: ANTI CENTROMERE ANTIBODY <0.2 AI (0.0-0.9); ANTI-MITOCHONDRIAL ANTIBODY <20.0 Units (0.0-20.0); ANTI-SMOOTH MUSCLE ANTIBODY 5 Units (0-19); ANTINUCLEAR ANTIBODIES DIRECT Negative (Negative); CERULOPLASMIN 23.7 mg/dL (16.0-31.0)
[2019-10-16] MEDS: prednisoLONE (PRELONE) 15MG/5ML SYRUP UDC PO SCH (09:23)
[2019-10-16] MEDS: MULTIVITAMINS/MINERALS THERAP 1 TAB PO SCH (09:23)
[2019-10-16] MEDS: PANTOPRAZOLE 40MG VIAL (C9113 PER 1) IV SCH (09:23)
[2019-10-16] MEDS: THIAMINE 100 MG TAB PO SCH ×2 (09:23→20:36)
[2019-10-16] MEDS: FOLIC ACID 1 MG TAB PO SCH (09:23)
--- NOTE | 2019-10-16 09:31 | ECHO ---
DATE OF SERVICE: 10/15/2019 REFERRING PROVIDER: Sydnie Kingston MD PATIENT LOCATION: Room 3229. REASON FOR THE STUDY: Edema. 2D MEASUREMENTS: IVS: 0.9 cm LV: 5.2 cm LVPW: 1.1 cm LA: 4.3 Aorta: 3.4 cm DOPPLER MEASUREMENTS: Peak velocity across the aortic valve: 0.93 m/s Peak velocity across the LVOT: 0.54 m/s Mitral E: 0.78 Mitral A: 0.54 with a ratio of 1.5 2D COMMENTS: 1. Normal left ventricular size, wall thickness, and low normal global left ventricular systolic function. The estimated left ventricular systolic ejection fraction is 50% to 55%. 2. Mildly enlarged left atrium. Normal right atrium and right ventricle. 3. The atrial septum appeared to be normal without evidence of defect or shunt. 4. Normal aortic root. 5. No pericardial effusion seen. 6. Aortic valve, mitral valve, and tricuspid valve appear to be normal. The pulmonic valve and proximal pulmonary artery branches were not well visualized. 7. The inferior vena cava was not well visualized. DOPPLER: It detects trace mitral regurgitation. Abnormal relaxation pattern was noted across the mitral valve annulus consistent with features of grade 2 left ventricular diastolic dysfunction, left ventricular end-diastolic pressure might be elevated. IMPRESSION: 1. Low normal global left ventricular systolic function. There are some features of grade 2 left ventricular diastolic dysfunction. 2. Mildly enlarged left atrium with trace mitral regurgitation. 3. The study was technically limited due to poor acoustic window. 4. The patient during the test was noted to be mildly tachycardiac with a heart rate around 110 beats per minute. [facility]
[2019-10-16 12:00] VITALS: BP 124/82
--- NOTE | 2019-10-16 12:41 | IPNPDOC ---
Date Seen The patient was seen on 10/16/19. Progress Note 34 y/o M with h/o alcohol abuse initially came c/o abdominal pain, one episode of ? hemetemesis; was admitted for suspected alcoholic hepatitis. Pt was seen and examined at bedside. Over the night pt required iv ativan Pt c/o generalized weakness. No new complaint PHYSICAL EXAMINATION: GENERAL: comfortable HEENT: oral mucosa moist CARDIOVASCULAR: regular rate and rhythm RESPIRATORY: clear to auscultation, ABDOMINAL: soft,non tender EXTREMITIES: mild b/l lower extremities pitting pedal edema NEUROLOGICAL: no focal deficit, mild b/l hand tremors PSYCHOLOGICAL: mood normal LABORATORY DATA, IMAGING STUDIES, MICROBIOLOGY: reviewed ASSESSMENT AND PLAN: 1. Suspected alcoholic hepatitis with non obstructive jaundice will continue prednisone will f/u hepatitis panel LFTs has mildly worsened compared to yesterday iv zosyn was discontinued There are no sign and symptoms suggestive of active infection GI recommendations appreciated 2. h/o alcohol abuse requiring IV ativan will continue to monitor for withdrawal 3. Lactic acid acidosis improved lactic acid might not come back to normal limit completely in view of liver pathology. Pt started to develop edema so IV fluids were discontinued. 4. Hypokalemia resolved 5. leg edema will get ECHO to eval for ? alcoholic cardiomyopathy 6. Weakness PT eval VS, I&O, 24H, Fishbone Vital Signs/I&O Vital Signs Date Time Temp Pulse Resp B/P (MAP) Pulse Ox O2 Delivery O2 Flow Rate FiO2 10/16/19 08:00 98.4 112 18 113/80 (91) 99 Room Air I&O- Last 24 Hours up to 6 AM 10/16/19 06:00 Intake Total 1080 ml Balance 1080 ml Laboratory Data 24H LABS Laboratory Tests 2 10/16/19 05:25: Immature Granulocyte % (Auto) 4.6H, Neutrophils (%) (Auto) 78.8H, Lymphocytes (%) (Auto) 11.0L, Monocytes (%) (Auto) 5.1H, Eosinophils (%) (Auto) 0.1, Basophils (%) (Auto) 0.4, Neutrophils # (Auto) 11.4H, Lymphocytes # (Auto) 1.6, Monocytes # (Auto) 0.7, Eosinophils # (Auto) 0.0, Basophils # (Auto) 0.1, Nucleated Red Blood Cells % (auto) 0.5H, Anion Gap 6L, Glomerular Filtration Rate > 60.0, Calcium Level 7.2L, Magnesium Level 2.0, Total Bilirubin 22.5*H, Aspartate Amino Transf (AST/SGOT) 263H, Alanine Aminotransferase (ALT/SGPT) 45, Alkaline Phosphatase 203H, Total Protein 5.4L, Albumin 1.9L, Albumin/Globulin Ratio 0.5 CBC/BMP Laboratory Tests 10/16/19 05:25 Microbiology Microbiology 10/13/19 Blood Culture - Preliminary, Resulted No Growth after 48 hours. All Specime... 10/13/19 Blood Culture - Preliminary, Resulted No Growth after 48 hours. All Specime... MARILEE RUELAS MD Oct 16, 2019 12:41
[2019-10-16 16:00] VITALS: BP 124/86
[2019-10-16] MEDS ORDERED: OXAZEPAM 15 MG CAP PO SCH (18:00)
[2019-10-16] MEDS ORDERED: LORazepam 2 MG/ML VIAL IV PRN (18:30)
[2019-10-16] MEDS: LORazepam 2 MG/ML VIAL IV PRN ×3 (18:35→23:46)
--- NOTE | 2019-10-16 18:44 | IPNPDOC ---
Date Seen The patient was seen on 10/16/19. Progress Note SUBJECTIVE: I was called to evaluate patient today, after patient's attending had already left for the day. Patient was actively withdrawing throughout the day, requiring 2 mg PO ativan Q1-3 hrs along with having serax PRN. Patient's nurse stated that he had been increasingly agitated, at times not knowing where he was and trying to get out of bed throughout the day. 1:1 sitter was asked to be assigned;however, nursing staff was unable to find anyone who could come in to sit with him. On evaluation, patient was hemodynamically stable, had tremoring but was able to tell me where he was, was unable to tell me what for. He was obviously jaundiced (not new). I asked ICU if they could take the patient or had suggestions on management for the floor, given that the room the patient was in did not have capability of doing Q1hr VS per CIWA protocol. They suggested switching to room with monitor where VS could be cycled. Decision was made to keep on floor with trying to still get someone in for sitter. I changed serax to 15 mg PO Q6hrs and switched ativan to 2mg IV per CIWA protocol. This will be passed on to team to be aware of this evening in the event that he worsens and may need ICU care. VS, I&O, 24H, Lamine Vital Signs/I&O Vital Signs Date Time Temp Pulse Resp B/P (MAP) Pulse Ox O2 Delivery O2 Flow Rate FiO2 10/16/19 12:00 98.7 111 18 124/82 (96) 99 Room Air I&O- Last 24 Hours up to 6 AM 10/16/19 06:00 Intake Total 1080 ml Balance 1080 ml Laboratory Data 24H LABS Laboratory Tests 2 10/16/19 05:25: Immature Granulocyte % (Auto) 4.6H, Neutrophils (%) (Auto) 78.8H, Lymphocytes (%) (Auto) 11.0L, Monocytes (%) (Auto) 5.1H, Eosinophils (%) (Auto) 0.1, Basophils (%) (Auto) 0.4, Neutrophils # (Auto) 11.4H, Lymphocytes # (Auto) 1.6, Monocytes # (Auto) 0.7, Eosinophils # (Auto) 0.0, Basophils # (Auto) 0.1, Nucleated Red Blood Cells % (auto) 0.5H, Anion Gap 6L, Glomerular Filtration Rate > 60.0, Calcium Level 7.2L, Magnesium Level 2.0, Total Bilirubin 22.5*H, Aspartate Amino Transf (AST/SGOT) 263H, Alanine Aminotransferase (ALT/SGPT) 45, Alkaline Phosphatase 203H, Total Protein 5.4L, Albumin 1.9L, Albumin/Globulin Ratio 0.5 CBC/BMP Laboratory Tests 10/16/19 05:25 Microbiology Microbiology 10/13/19 Blood Culture - Preliminary, Resulted No Growth after 48 hours. All Specime... 10/13/19 Blood Culture - Preliminary, Resulted No Growth after 48 hours. All Specime... Margo Zambrano MD Oct 16, 2019 18:43
[2019-10-16] MEDS: OXAZEPAM 15 MG CAP PO SCH ×2 (20:00→21:17)
[2019-10-16 21:09] VITALS: BP 129/96
[2019-10-16 23:40] VITALS: BP 119/85
[2019-10-17] VITALS (15 sets, daily range): BP systolic 100–124; BP diastolic 60–92
[2019-10-17] MEDS: OXAZEPAM 15 MG CAP PO SCH ×4 (05:00→23:14)
[2019-10-17] MEDS: SLF 3 ML SYR IV SCH ×3 (05:06→23:15)
[2019-10-17 06:10] LABS: BASO % 0.3 % (0.0-1.0); EOS % 0.1 % (0.0-3.0); HEMATOCRIT 34.7 % (42.0-52.0); HEMOGLOBIN 12.3 g/dl (13.5-17.5); LYMPH # 1.9 10^3/uL (1.5-5.0); LYMPH % 12.4 % (24.0-44.0); MEAN CORPUSCULAR HEMOGLOBIN 35.9 pg (27.0-33.0); MEAN CORPUSCULAR HGB CONC 35.4 g/dl (32.0-36.5); MEAN CORPUSCULAR VOLUME 101.2 fl (80.0-96.0); MONO # 1.2 10^3/uL (0.0-0.8); MONO % 7.9 % (0.0-5.0); NEUTROPHILS # 11.2 10^3/uL (1.5-8.5); PLATELET COUNT, AUTOMATED 125 10^3/uL (150-450); RED BLOOD COUNT 3.43 10^6/uL (4.30-6.10); WHITE BLOOD COUNT 14.9 10^3/uL (4.0-10.0)
[2019-10-17] MEDS: LORazepam 2 MG/ML VIAL IV PRN ×7 (06:44→23:15)
[2019-10-17 07:01] LABS: ALBUMIN 1.7 GM/DL (3.2-5.2); ALT/SGPT 41 U/L (12-78); BILIRUBIN,TOTAL 22.2 MG/DL (0.2-1.0); BLOOD UREA NITROGEN 11 MG/DL (7-18); CALCIUM LEVEL 7.1 MG/DL (8.5-10.1); CARBON DIOXIDE LEVEL 26 MEQ/L (21-32); CHLORIDE LEVEL 102 MEQ/L (98-107); CREATININE FOR GFR 0.69 MG/DL (0.70-1.30); GLOMERULAR FILTRATION RATE > 60.0 (>60); GLUCOSE, FASTING 72 MG/DL (70-100); MAGNESIUM LEVEL 1.9 MG/DL (1.8-2.4); POTASSIUM SERUM 3.9 MEQ/L (3.5-5.1); SODIUM LEVEL 136 MEQ/L (136-145); TOTAL PROTEIN 4.8 GM/DL (6.4-8.2)
[2019-10-17] MEDS: PANTOPRAZOLE 40MG VIAL (C9113 PER 1) IV SCH (08:01)
[2019-10-17] MEDS: prednisoLONE (PRELONE) 15MG/5ML SYRUP UDC PO SCH (08:01)
[2019-10-17] MEDS: THIAMINE 100 MG TAB PO SCH ×2 (08:02→23:14)
[2019-10-17] MEDS: NICOTINE 14 MG/24 HR TRANSDERMAL TD SCH (08:02)
[2019-10-17] MEDS: MULTIVITAMINS/MINERALS THERAP 1 TAB PO SCH (08:02)
[2019-10-17] MEDS: FOLIC ACID 1 MG TAB PO SCH (08:02)
[2019-10-17] MEDS ORDERED: OXAZEPAM 10 MG CAP PO ONE (08:30)
[2019-10-17 08:40] LABS: C REACTIVE PROTEIN QUANTITATIV 2.98 MG/DL (0.00-0.30)
[2019-10-17 09:14] LABS: ERYTHROCYTE SEDIMENTATION RATE 11 mm/hr (0-15)
[2019-10-17 09:36] LABS: BILIRUBIN, URINE MANUAL OBSCURED (NEGATIVE); GLUCOSE, URINE (UA) MANUAL OBSCURED mg/dL (NEGATIVE); KETONE, URINE MANUAL OBSCURED mg/dL (NEGATIVE); UROBILINOGEN, URINE MANUAL OBSCURED mg/dl (NORMAL)
[2019-10-17 09:54] LABS: OTHER CRYSTALS, URINE BILIRUBIN /hpf
[2019-10-17 09:56] LABS: AMORPHOUS SEDIMENT, URINE SMALL AMOUNT (NEGATIVE); BACTERIA, URINE NONE SEEN; HYALINE CAST, URINE NONE SEEN /lpf (0-1); RBC, URINE 0-1 /hpf (0-3); RENAL EPITHELIAL CELLS, URINE SMALL AMOUNT /hpf; SQUAMOUS EPITHELIAL CELL URINE SMALL AMOUNT /hpf (SMALL AMT)
[2019-10-17 10:31] LABS: PROLACTIN 6.7 NG/ML (2.1-17.7)
[2019-10-17] MEDS ORDERED: OXAZEPAM 10 MG CAP PO SCH (12:00)
--- NOTE | 2019-10-17 12:27 | IPN ---
DATE OF SERVICE: 10/17/2019 SUBJECTIVE: Patient is currently being fed by nursing staff. He continues to be tremulous undergoing alcohol withdrawal on Serax every 6 hours as needed. He remains tachycardic, overtly jaundiced. He denies any nausea, vomiting or abdominal pain. Patient says that he is at [facility], the date today is 2019. Appears to be appropriate. Patient has no complaints of nausea or vomiting. No recurrent episodes of gastrointestinal (GI) bleed. He had acholic small loose stools yesterday montano in color. White count is increasing to 14.9. Remains tachycardic, sinus rhythm. PHYSICAL EXAMINATION: Vital Signs: Temperature 97.4, pulse 126, sinus tachycardic, respiratory rate 20, blood pressure 113/67, 97% on room air. Generally, patient is awake, alert, oriented to person, place and time. Able to speak in full sentenced. He has resting tremors, currently with mitts. He is overtly jaundiced with significant icterus. No jugular venous distention (JVD) or thyromegaly. Lungs: Diminished but clear to auscultation. No wheezing or rales. Heart: S1, S2. Sinus tachycardia. No murmurs, rubs or gallops. Abdomen is distended, dull in appearance. Positive bowel sounds times four quadrants. No abdominal bruit. No hepatosplenomegaly. Extremities: 1+ pitting edema bilateral lower extremities. Multiple tattoos. LABORATORY DATA: White count 14.9, hemoglobin 12, hematocrit 34, platelet count of 125, previous platelet count of 133. Sodium 136, potassium 3.9, chloride 102, bicarbonate 26, BUN 11, creatinine 0.69, glucose of 72, total bilirubin of 22.2, AST 211, ALT 41, alkaline phosphatase 186, albumin of 4.7. Serology: Hepatitis serology is negative. MRSA is negative. KRISTINA negative. Anti-mitochondrial and anti-smooth muscle antibody and anti-centromere are all negative. Salicylate negative. Alcohol is 0.067 on arrival. Blood culture two sets are negative. Gallbladder Ultrasound: Gallbladder sludging. Pancreas is obscured. Consider HIDA scan. ASSESSMENT AND PLAN: This is a 34-year-old male alcoholic dating back to the age of 13 drinks hard liquor with vodka, 4-5 beers a day, hepatic steatosis, suicide attempt in the past, history of chronic obstructive pulmonary disease (COPD) and depression presented due to jaundice found to have a bilirubin of 24.5. Patient was admitted for alcoholic hepatitis with nonobstructing jaundice. CURRENT ISSUES: 1. Alcoholic hepatitis with nonobstructive jaundice. The patient has been seen Dr. Richmond, who agreed with prednisone for now, supportive care. No other acute indication for intervention. 2. Alcohol withdrawal. Currently on Serax, clinical institute withdrawal assessment for alcohol (CIWA) protolcol, thiamine, multivitamin, and folate. 3. Gallbladder sludging. Rule out obstruction. Obtain an magnetic resonance cholangiopancreatography (MRCP) today off telemetry. 4. Tobacco abuse. Tobacco cessation counseling has been provided. 5. Debility. Currently two person max assist to the bedside commode. Needs a sitter. Currently with mitts. 6. History of depression with suicide attempt. No homicidal or suicidal tendency. 7. Abnormal EKG. Sinus tachycardia with premature atrial contractions (PACs). MTDD
[2019-10-17] MEDS ORDERED: NS 500 ML IV ONE (19:30)
[2019-10-18] VITALS (9 sets, daily range): BP systolic 100–134; BP diastolic 62–87
[2019-10-18] MEDS: OXAZEPAM 15 MG CAP PO SCH (05:13)
[2019-10-18] MEDS: LORazepam 2 MG/ML VIAL IV PRN ×5 (05:13→19:58)
[2019-10-18] MEDS: SLF 3 ML SYR IV SCH ×3 (05:13→22:00)
[2019-10-18 05:44] LABS: BASO # 0.1 10^3/uL (0.0-0.2); BASO % 0.4 % (0.0-1.0); EOS % 0.2 % (0.0-3.0); HEMATOCRIT 36.6 % (42.0-52.0); HEMOGLOBIN 12.7 g/dl (13.5-17.5); LYMPH # 2.7 10^3/uL (1.5-5.0); MEAN CORPUSCULAR HGB CONC 34.7 g/dl (32.0-36.5); MEAN CORPUSCULAR VOLUME 103.7 fl (80.0-96.0); MONO # 1.3 10^3/uL (0.0-0.8); MONO % 7.3 % (0.0-5.0); NEUTROPHILS % 72.5 % (36.0-66.0); PLATELET COUNT, AUTOMATED 128 10^3/uL (150-450); RED BLOOD COUNT 3.53 10^6/uL (4.30-6.10); WHITE BLOOD COUNT 17.8 10^3/uL (4.0-10.0)
[2019-10-18 06:11] LABS: ALBUMIN 1.7 GM/DL (3.2-5.2); ALT/SGPT 45 U/L (12-78); BILIRUBIN,TOTAL 23.4 MG/DL (0.2-1.0); BLOOD UREA NITROGEN 14 MG/DL (7-18); CALCIUM LEVEL 7.3 MG/DL (8.5-10.1); CARBON DIOXIDE LEVEL 26 MEQ/L (21-32); CHLORIDE LEVEL 104 MEQ/L (98-107); CREATININE FOR GFR 0.73 MG/DL (0.70-1.30); GLOMERULAR FILTRATION RATE > 60.0 (>60); GLUCOSE, FASTING 66 MG/DL (70-100); MAGNESIUM LEVEL 2.2 MG/DL (1.8-2.4); POTASSIUM SERUM 4.5 MEQ/L (3.5-5.1); SODIUM LEVEL 136 MEQ/L (136-145)
[2019-10-18] MEDS: PANTOPRAZOLE 40MG VIAL (C9113 PER 1) IV SCH (08:15)
[2019-10-18] MEDS: NICOTINE 14 MG/24 HR TRANSDERMAL TD SCH (08:16)
[2019-10-18] MEDS: MULTIVITAMINS/MINERALS THERAP 1 TAB PO SCH (08:18)
[2019-10-18] MEDS: THIAMINE 100 MG TAB PO SCH (08:18)
[2019-10-18] MEDS: FOLIC ACID 1 MG TAB PO SCH (08:18)
[2019-10-18] MEDS: prednisoLONE (PRELONE) 15MG/5ML SYRUP UDC PO SCH (08:18)
[2019-10-18] MEDS ORDERED: methylPREDNISolone 40MG 1ML VIAL IV SCH (09:00)
[2019-10-18] MEDS ORDERED: DEXTROSE 50% 50 ML SYRINGE IV STA (09:43)
[2019-10-18] MEDS: THIAMINE 200MG/2ML VIAL (J3411 PER 100MG) IV SCH ×2 (09:51→20:11)
[2019-10-18] MEDS: cefTRIAXone SOD 1 GM in D5W MINI-BAG PLUS 50 ML IV SCH (11:22)
[2019-10-18] MEDS ORDERED: FOLIC ACID 1 MG in NS 50 ML IV SCH (12:00)
[2019-10-18] MEDS: diazePAM 10MG/2ML SYRINGE (J3360 PER 5MG) IV SCH ×2 (12:18→22:06)
[2019-10-18] MEDS ORDERED: DEXTROSE 50% 50 ML SYRINGE IV PRN ×2 (13:15→16:30)
[2019-10-18] MEDS ORDERED: GLUCAGON INJ 1MG VIAL SC PRN (13:15)
[2019-10-18] MEDS ORDERED: GLUCOSE 4GM CHEW TABLET PO PRN (13:15)
--- NOTE | 2019-10-18 14:33 | CR ---
DATE OF CONSULTATION: 10/18/2019 CHIEF COMPLAINT: Alcohol withdrawal. HISTORY OF PRESENT ILLNESS: History was obtained from the chart and from other collateral information, as the patient is altered and unable to write a history. The patient is a 34-year-old male with a past medical history of chronic obstructive pulmonary disease (COPD), depression, alcohol abuse with previous history of alcohol withdrawal, who presented to the emergency room with worsening abdominal distension, pain, as well as a jaundice. The patient reports a heavy drinking history of hard liquor, usually vodka as well as beer, four or five a day. He reportedly had a last drink on Sunday, the day prior to his presentation to the hospital, on October 12. The patient was noted on this admission to have significantly elevated liver function tests (LFTs) with some transaminitis but very significantly elevated bilirubin. He was thought to have possible alcoholic hepatitis or possible due to an underlying cirrhosis. The patient was started on prednisone by gastrointestinal (GI) for alcoholic hepatitis. He did have an elevated Maddrey discriminate function score. The patient was also started on thiamine and folate supplementation as well as Serax for alcohol withdrawal. Initially the patient had reported improvement in his nausea and vomiting. He had not had any further episodes and denied any significant abdominal pain. 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 Initially he was oriented, and he is now not oriented to person, place, or time. He has also been increasingly agitated as well. Overnight he had been spit up the dose of Serax that was given by his nurse; however, this morning he did take his 5 a.m. dose of Serax. He has also been continuing to get Ativan 2 mg every 3-4 hours. The patient initially had been tolerating some diet; however, with his worsening mental status, he has been nothing by mouth and not eating. This morning he is intermittently agitated and delirious and is not following commands or responding appropriately. The patient is occasionally grunting or making other vocalization and occasionally speaking in somewhat garbled speech. PAST MEDICAL AND SURGICAL HISTORY: 1. Alcohol abuse. 2. COPD. 3. Depression. 4. Suicidal ideation with previous suicide attempt. 5. Hepatic steatosis. ALLERGIES: None listed. SOCIAL HISTORY: The patient smokes half pack a day since age of 13. Is a current active drinker. Drinks vodka and beers daily. 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 FAMILY HISTORY: Father has a history of alcoholism. REVIEW OF SYSTEMS: Unable to be obtained due to the patient's altered mental status. PHYSICAL EXAMINATION: Temperature 97.8, pulse 126, respirations 21, blood pressure 105/74, oxygen saturation 99% on room air. Input 920, output 555. GENERAL: The patient is lying in bed, intermittently agitated. He is delirious and is not oriented. HEENT: Normocephalic, atraumatic. Pupils are reactive to light bilaterally. There is scleral icterus noted. Neck is supple. Trachea is midline. There is no palpable cervical adenopathy. CARDIAC: Tachycardic, regular rate and rhythm with normal S1, S2. Unable appreciate any murmurs. PULMONARY: Some occasional rhonchi but no significant wheezing or rales noted. The patient is not using any accessory muscles for respiration. ABDOMEN: Appears distended. Is soft. Does not appear tender to palpation. There is questionable of fluid wave. EXTREMITIES: There is significant +2 pitting edema in the bilateral lower extremities, which is reportedly increased from admission. The patient is also clearly jaundiced on exam. LABORATORY DATA: WBC increased to 17.8, hemoglobin 12.7, platelets 128. Chemistry: Sodium is 136, potassium 4.5, chloride is 104, bicarbonate 26, BUN 14, creatinine 0.73, glucose is 66, lactate 2.1, calcium 7.3, magnesium 2.2. Total bilirubin 23.4, albumin 1.7, alkaline phosphatase 181, AST 216, ALT 45. Ammonia 52. INR increased to 1.62. KRISTINA smooth muscle antibodies negative. IMAGING STUDIES: Ultrasound gallbladder initially showed fatty liver and some gallbladder sludge. Echo on admission showed a low normal ejection fraction (EF) with grade 2 diastolic dysfunction and some a mild mitral regurgitation (MR) ASSESSMENT AND PLAN: The patient is a 34-year-old male with a history of COPD, depression, and alcohol abuse, who presented with abdominal pain, nausea, vomiting, and worsening jaundice. The patient was thought to have possible alcoholic hepatitis initially with his elevated transaminitis and bilirubin. He was evaluated by gastrointestinal (GI) and started on prednisolone. The patient's transaminitis has improved; however, his bilirubin remains persistently elevated. He also was started on Serax for alcohol withdrawal protocol as well as thiamine and folate but has continued to have worsening mental status and delirium with periods of agitation. - The patient's last drink was about a week ago. He is likely in worsening alcohol withdrawal and possible delirium tremens (DTs). He had has been having difficulty taking oral intake and taking his oral meds with the Serax. Will switch and then to IV Valium 10 mg every 6 and continue with Ativan as needed based on the Clinical [place] Withdrawal Assessment (CIWA) score. - Would consider discontinuing his steroids, as it has been almost a week now and has not appeared to have significant improvement in his Maddrey discriminate function score. Would consider reconsulting GI for further recommendations. His initial ultrasound did show some biliary sludge, and so would repeat imaging perhaps with an magnetic resonance cholangiopancreatography (MRCP). - Continue with thiamine and folate for repletion. - The patient has increased and leukocytosis as well as lower extremity edema. It is unclear if he may have increased abdominal distension and ascites. Given concern for infection as well, would start him on ceftriaxone for spontaneous bacterial peritonitis (SBP) prophylaxis. - Patient's glucose on the chemistry was 66. He has been nothing by mouth due to his altered mental status. Would start fingerstick glucose every 6 hours and will give D50 as needed. If he is persistently hypoglycemic, then he may require D5 fluids but would be cautious about fluid overload. May need to consider gentle diuresis at some point. Suspect he does have third spacing, given his hypoalbuminemia. - The patient has some mild thrombocytopenia, likely in the setting of his chronic alcohol abuse but no signs of active bleeding. Will continue to monitor to him. Deep vein thrombosis (DVT) prophylaxis. Will start heparin. GI prophylaxis. Pantoprazole CODE STATUS: Full code. Total critical care time spent, not including procedures, approximately 1 hour and 45 minutes.
--- NOTE | 2019-10-18 15:20 | IPN ---
DATE: 10/18/2019 Patient has been increasingly agitated, requiring every 1 hour redirection and Ativan per Clinical [place] Withdrawal Assessment (CIWA) protocol. Patient has been refusing to take his oral medications, including his prednisone and Serax. This morning he is awake, alert, oriented to himself. Refused to open his eyes. Appeared to be more lethargic. He did have Ativan at 7:30 in the morning. Exam was performed at 9 a.m. Per nursing, patient has had no fevers. Has been refusing to take his medications. Temperature 97.8, pulse 126, respiratory rate 20, blood pressure 105/74, 99% on room air. GENERAL: Patient has icterus, jaundice. Awake, alert, oriented to himself only, not following commands. Mitts on. Does not appear to be tremulous. LUNGS: Diminished but clear to auscultation bilaterally. HEART: S1, S2, sinus tachycardia. No murmurs, rubs, or gallops. ABDOMEN: Distended. Positive bowel sounds. Jaundice with negative rebound or guarding. EXTREMITIES: Positive trace edema. Emmanuel catheter with concentrated brownish urine. White count 17.8, hemoglobin 12, hematocrit 36, platelet count 128, previous platelet count of 125. Sodium 135, potassium 4.5, chloride 104, bicarbonate 26, BUN 14, creatinine 0.73, glucose of 66, calcium 7.3. Total bilirubin 23.4, AST 216, ALT 45, alkaline phosphatase 181. Ammonia level 35. Albumin of 1.7. Two sets of blood cultures negative after 72 hours. Urine culture is pending. ASSESSMENT AND PLAN: This is a 34-year-old male with a history of heavy alcohol abuse who presented with one episode of hematemesis, found to have alcoholic hepatitis with nonobstructive jaundice. CURRENT ISSUES: 1. Alcohol withdrawal. Patient is requiring multiple doses of Ativan. Currently aspiration risk with altered mental status. Patient is currently given intravenous (IV) Ativan via Clinical [place] Withdrawal Assessment (CIWA) protocol with sitter and frequent reorientation. No signs of acute infection despite elevated white count. Has remained afebrile. Urinalysis (UA) has been sent. Unable to obtain a review of systems. Blood culture ordered. Chest x-ray unremarkable. Unable to perform magnetic resonance cholangiopancreatography (MRCP) due to altered mental status and restlessness. 2. Alcoholic hepatitis. Unable to take his oral prednisone. Changed to Solu-Medrol 40 IV daily. Most likely with subsequent leukocytosis due to steroids. No acute infectious process has been noted. 3. Acute metabolic encephalopathy due to alcohol withdrawal. Patient has had elevated ammonia level, possible hepatic encephalopathy but returned with 37 this morning without any intervention. Full supportive care for now. Rule out infection. No empiric antibiotics. Continue with steroids for alcoholic pancreatitis. 4. Acute gastrointestinal (GI) bleed, resolved. Had one episode of hematemesis at home but none since. Hemoglobin and hematocrit remain stable. Continue on proton pump inhibitor (PPI). Unable to give orally, therefore will change to Protonix 40 IV twice a day. Unable to give Carafate due to altered mental status and risk of aspiration. 5. Gallbladder sludging with no improvement in the bilirubin level. Thought to be secondary to alcoholic hepatitis. Despite prednisone, patient has had no significant improvement. Unable to obtain an MRCP due to patient's altered mental status. 6. Tobacco abuse. Cessation counseling was provided. 7. History of depression with suicide attempt. No active issues. 8. Abnormal EKG with premature atrial contractions (PACs), stable. MTDD
--- NOTE | 2019-10-18 16:21 | IPNPDOC ---
Date Seen The patient was seen on 10/18/19. Progress Note Per GI, Dr. Richmond: -orogastric tube for tube feedings. -continue steroids for 6weeks, bili expected to improve after one week -xifaxan bid -lactulose x1 -repeat us abdomen to rule out ascites. -no concern for varices and ok to put orogastric tube in. -not a candidate for liver transplant due to active etoh use. -poor overall prognosis since no response to steroids. -monitor for hepatorenal syndrome and seizures. -supportive care VS, I&O, 24H, Fishbone Vital Signs/I&O Vital Signs Date Time Temp Pulse Resp B/P (MAP) Pulse Ox O2 Delivery O2 Flow Rate FiO2 10/18/19 12:00 129 100/62 10/18/19 08:00 97.8 20 Room Air 10/18/19 04:00 99 I&O- Last 24 Hours up to 6 AM 10/18/19 05:59 Intake Total 980 ml Output Total 555 ml Balance 425 ml Laboratory Data 24H LABS Laboratory Tests 2 10/18/19 05:10: Immature Granulocyte % (Auto) 4.6H, Neutrophils (%) (Auto) 72.5H, Lymphocytes (%) (Auto) 15.0L, Monocytes (%) (Auto) 7.3H, Eosinophils (%) (Auto) 0.2, Basophils (%) (Auto) 0.4, Neutrophils # (Auto) 13.0H, Lymphocytes # (Auto) 2.7, Monocytes # (Auto) 1.3H, Eosinophils # (Auto) 0.0, Basophils # (Auto) 0.1, Nucleated Red Blood Cells % (auto) 0.7H, Anion Gap 6L, Glomerular Filtration Rate > 60.0, Calcium Level 7.3L, Magnesium Level 2.2, Total Bilirubin 23.4*H, Aspartate Amino Transf (AST/SGOT) 216H, Alanine Aminotransferase (ALT/SGPT) 45, Alkaline Phosphatase 181H, Total Protein 5.0L, Albumin 1.7L, Albumin/Globulin Ratio 0.5 10/18/19 09:47: Ammonia 35H 10/18/19 12:30: Bedside Glucose (Misc Panel) 94 CBC/BMP Laboratory Tests 10/18/19 05:10 Microbiology Microbiology 10/17/19 Urine Culture, Received Pending 10/13/19 Blood Culture - Preliminary, Resulted No Growth after 72 hours. All specime... 10/13/19 Blood Culture - Preliminary, Resulted No Growth after 72 hours. All specime... LAZARUS EMMANUEL MD Oct 18, 2019 16:21
[2019-10-18] MEDS ORDERED: D5W/0.45% SODIUM CHLORIDE 1,000 ML IV SCH (17:00)
[2019-10-18] MEDS: HEPARIN SOD (PORCINE) 5000UNITS/ML 1ML VIAL/SYRINGE SQ SCH (21:00)
[2019-10-18] MEDS ORDERED: PANTOPRAZOLE 40MG VIAL (C9113 PER 1) IV SCH (21:00)
[2019-10-18] MEDS: D5W 1,000 ML IV SCH (22:06)
[2019-10-19] VITALS (10 sets, daily range): BP systolic 112–140; BP diastolic 64–94; O2SAT 92–96
[2019-10-19] MEDS: diazePAM 10MG/2ML SYRINGE (J3360 PER 5MG) IV SCH ×4 (00:04→18:28)
[2019-10-19] MEDS: LORazepam 2 MG/ML VIAL IV PRN ×4 (00:55→16:20)
[2019-10-19] MEDS: SLF 3 ML SYR IV SCH ×3 (05:31→20:50)
[2019-10-19] MEDS: NICOTINE 14 MG/24 HR TRANSDERMAL TD SCH (08:33)
[2019-10-19] MEDS: HEPARIN SOD (PORCINE) 5000UNITS/ML 1ML VIAL/SYRINGE SQ SCH ×2 (08:34→20:49)
[2019-10-19 08:35] LABS: HEMATOCRIT 39.1 % (42.0-52.0); HEMOGLOBIN 13.4 g/dl (13.5-17.5); MEAN CORPUSCULAR HEMOGLOBIN 36.1 pg (27.0-33.0); MEAN CORPUSCULAR HGB CONC 34.3 g/dl (32.0-36.5); MEAN CORPUSCULAR VOLUME 105.4 fl (80.0-96.0); PLATELET COUNT, AUTOMATED 104 10^3/uL (150-450); RED BLOOD COUNT 3.71 10^6/uL (4.30-6.10); WHITE BLOOD COUNT 16.4 10^3/uL (4.0-10.0)
[2019-10-19] MEDS: FOLIC ACID 1 MG TAB NG SCH (08:36)
[2019-10-19] MEDS: PANTOPRAZOLE 40MG TAB (PROTONIX) PO SCH ×2 (08:36→20:49)
[2019-10-19] MEDS: MULTIVITAMINS/MINERALS THERAP 1 TAB NG SCH (08:36)
[2019-10-19] MEDS: predniSONE 20 MG TAB NG SCH (08:36)
[2019-10-19] MEDS: THIAMINE 100 MG TAB NG SCH ×2 (08:37→20:50)
[2019-10-19 08:58] LABS: ATYPICAL LYMPH 1 % (0-5); LYMPHOCYTES 16 % (16-44); METAMYELOCYTES 3 % (0-0); MONOCYTES 5 % (0-5); MYELOCYTES 1 % (0-0); NEUTROPHILS 66 % (28-66); PLATELET ESTIMATE DECREASED (NORMAL)
[2019-10-19 08:59] LABS: TARGET CELLS 1+
[2019-10-19 09:08] LABS: ALBUMIN 1.7 GM/DL (3.2-5.2); ALT/SGPT 54 U/L (12-78); BILIRUBIN,TOTAL 23.5 MG/DL (0.2-1.0); BLOOD UREA NITROGEN 17 MG/DL (7-18); CALCIUM LEVEL 7.8 MG/DL (8.5-10.1); CARBON DIOXIDE LEVEL 27 MEQ/L (21-32); CHLORIDE LEVEL 104 MEQ/L (98-107); CREATININE FOR GFR 0.78 MG/DL (0.70-1.30); GLOMERULAR FILTRATION RATE > 60.0 (>60); GLUCOSE, FASTING 76 MG/DL (70-100); MAGNESIUM LEVEL 2.3 MG/DL (1.8-2.4); NT-PRO BNP 1142 PG/ML (<125); POTASSIUM SERUM 3.8 MEQ/L (3.5-5.1); SODIUM LEVEL 139 MEQ/L (136-145); TOTAL PROTEIN 5.2 GM/DL (6.4-8.2)
[2019-10-19 09:20] LABS: ERYTHROCYTE SEDIMENTATION RATE 19 mm/hr (0-15)
--- NOTE | 2019-10-19 09:25 | REP ---
FOUR QUADRANT ULTRASOUND: REASON: Assess for ascites. Ascites is seen in all four quadrants. Electronically Signed by Anthony Hernandez DO 10/19/2019 09:38 A
--- NOTE | 2019-10-19 09:47 | REP ---
REASON: Assess tip of a recently placed nasogastric tube. A single semiupright portable AP view of the lower chest and upper abdomen was obtained for the purpose stated above. The distal aspect of a nasogastric tube is seen, the tip of which is beyond the diaphragmatic surface of the left lung in the left upper quadrant, presumably within the stomach fundal region. Electronically Signed by Anthony Hernandez DO 10/19/2019 09:51 A
[2019-10-19] MEDS: cefTRIAXone SOD 1 GM in D5W MINI-BAG PLUS 50 ML IV SCH (11:20)
[2019-10-19] MEDS: FUROSEMIDE 20 MG TAB PO SCH (12:39)
[2019-10-19] MEDS: SPIRONOLACTONE 12.5MG PER 1/2 TABLET PO SCH (12:39)
--- NOTE | 2019-10-19 14:31 | CCN ---
DATE: 10/19/2019 The patient was seen and examined this morning during bedside rounds. Yesterday, the patient was changed from Serax to IV Valium 10 mg every 6 hours. With the Valium, he did have improvement in his tachycardia as well as in the previous agitation and alcohol withdrawal symptoms. He has also required less frequent Ativan p.r.n. and has been more responsive and cooperative. Overnight, he was able to state his name and where he was, but was not oriented to time. This is an improvement from previous, however, when he was not oriented at all. The patient had an NG tube placed yesterday and was attempted to be started on tube feeds; however, he was not tolerating due to residuals. He was started on IV fluids initially with D5 1/2 NS which were discontinued and he was placed on D5W instead for some mild hypoglycemia. The patient has had some improved urine output noted overnight. He was also started on rifaximin via his NG tube. PHYSICAL EXAMINATION: Temperature 97.5, pulse 97, respirations 20, blood pressure 137/84, O2 sat 95% on room air. Ins 450, outs approximately 450. General: The patient is lying in bed, is sleeping currently. He does appear to be more responsive and cooperative today. He is not answering questions currently, but previously was following commands. HEENT: Normocephalic, atraumatic. Pupils are reactive to light bilaterally. There is scleral icterus noted. Neck is supple. Trachea is midline. There is no palpable cervical adenopathy. Cardiac: Regular rate and rhythm. Normal S1, S2. Unable to appreciate any murmurs. Pulmonary: There are some coarse breath sounds bilaterally and possible decreased breath sounds at the bases, but no significant wheezing or rhonchi noted. Abdomen appears distended and soft. It does not appear tender to palpation with a possible fluid wave. Extremities: There is significant +2 pitting edema in the bilateral lower extremities which has increased from his initial on admission. The patient is also clearly jaundiced on exam. LABORATORY DATA: WBC 16.4, hemoglobin 13.4, and platelets are 104. Chemistry: Sodium is 139, potassium 3.8, chloride is 104, bicarb 27, BUN 17, creatinine 0.78, glucose is 76, total bilirubin 23.5. Magnesium 2.3, AST and ALT 235 and 54, albumin is 1.7, ammonia level is less than 10. IMAGING STUDIES: Abdominal ultrasound yesterday showed ascites in all four quadrants. ASSESSMENT/PLAN: The patient is a 34-year-old male with a history of chronic obstructive pulmonary disease (COPD), depression and alcohol abuse who presented with abdominal pain, nausea, vomiting and worsening jaundice. The patient was thought to have possible alcoholic hepatitis with his elevated transaminitis and bilirubin. He was evaluated by GI and initially started on prednisolone. The patient's transaminitis has improved. However, his bilirubin remains persistently elevated. The patient was also started on Serax protocol initially for alcohol withdrawal as well as thiamine and folate, but was noted to have worsening mental status and delirium concerning for possible delirium tremens (DTs). - The patient was changed from Serax to IV Valium 10 mg every 6 hours for possible DTs. He has had improvement with the Valium in his mental status as well as with his vital signs. He is also on Ativan as needed based on his CIWA score. Would continue with the Valium IV 10 mg every 6 today and consider weaning to every 8 hours tomorrow if he is continuing to improve. - GI has been consulted. They recommend continuing with his IV steroids, although he has not had an improvement in almost a week now of being on steroids in his Maddrey discriminant function score which will tend for a worse prognosis. There is possibility for liver transplant, however, given his ongoing alcohol use the patient may not be a possible candidate. Can consider consultation with [facility] and their liver department for possible transfer. - The patient is ordered for MRCP which was on hold given his agitation. Would plan for MRCP with followup as he did have some biliary sludge noted initially. - The patient had increased leukocytosis and increased lower extremity edema. There was concern for ascites with his abdominal distention and he was start ceftriaxone for subacute bacterial peritonitis (SBP) prophylaxis. His ultrasound did confirm ascites in all four quadrants. - The patient's blood pressure has improved and given his ascites and lower extremity edema would start him with gentle diuresis with Lasix 20 mg by mouth and Aldactone 12.5 mg daily. - The patient was started on rifaximin for hepatic encephalopathy. His ammonia level has improved. - Continue with thiamine and folate for repletion. - The patient was started on D5W for hypoglycemia. Will increase D5 fluids to 50 mL an hour and continue monitoring ins and outs. He does have some third spacing and fluid overload with possible contribution from his hypoalbuminemia. The patient has mild thrombocytopenia likely in setting of chronic alcohol abuse. Does not appear to have any active signs of bleeding. Will continue monitor his hemoglobin/hematocrit (H/H) and transfuse as needed. Deep vein thrombosis (DVT) prophylaxis. Heparin twice a day. Gastrointestinal (GI) prophylaxis. Pantoprazole Code Status: Full code. Total critical care time spent not including procedures approximately 35 minutes. Please do not hesitate to call if any further questions or concerns MTDD
[2019-10-20] VITALS (21 sets, daily range): BP systolic 107–134; BP diastolic 63–95; O2SAT 91–97
[2019-10-20] MEDS: diazePAM 10MG/2ML SYRINGE (J3360 PER 5MG) IV SCH ×4 (00:43→18:37)
[2019-10-20] MEDS: D5W 1,000 ML IV SCH ×2 (00:43→18:38)
[2019-10-20] MEDS: SLF 3 ML SYR IV SCH ×3 (06:10→21:56)
[2019-10-20 06:40] LABS: HEMOGLOBIN 13.5 g/dl (13.5-17.5); MEAN CORPUSCULAR HEMOGLOBIN 36.4 pg (27.0-33.0); MEAN CORPUSCULAR HGB CONC 35.5 g/dl (32.0-36.5); MEAN CORPUSCULAR VOLUME 102.4 fl (80.0-96.0); PLATELET COUNT, AUTOMATED 114 10^3/uL (150-450); RED BLOOD COUNT 3.71 10^6/uL (4.30-6.10); WHITE BLOOD COUNT 14.7 10^3/uL (4.0-10.0)
[2019-10-20 07:02] LABS: ALBUMIN 1.7 GM/DL (3.2-5.2); ALT/SGPT 58 U/L (12-78); BILIRUBIN,TOTAL 22.6 MG/DL (0.2-1.0); BLOOD UREA NITROGEN 14 MG/DL (7-18); CARBON DIOXIDE LEVEL 27 MEQ/L (21-32); CHLORIDE LEVEL 102 MEQ/L (98-107); CREATININE FOR GFR 0.69 MG/DL (0.70-1.30); GLOMERULAR FILTRATION RATE > 60.0 (>60); GLUCOSE, FASTING 74 MG/DL (70-100); MAGNESIUM LEVEL 2.3 MG/DL (1.8-2.4); POTASSIUM SERUM 3.5 MEQ/L (3.5-5.1); SODIUM LEVEL 135 MEQ/L (136-145); TOTAL PROTEIN 5.4 GM/DL (6.4-8.2)
[2019-10-20 07:08] LABS: ATYPICAL LYMPH 1 % (0-5); LYMPHOCYTES 12 % (16-44); MONOCYTES 11 % (0-5); MYELOCYTES 2 % (0-0); NEUTROPHILS 73 % (28-66)
[2019-10-20 07:09] LABS: PLATELET ESTIMATE DECREASED (NORMAL); SMUDGE CELLS 1+; TARGET CELLS 1+
--- NOTE | 2019-10-20 08:43 | IPN ---
DATE: 10/19/2019 The patient remains obtunded. Received Valium 10 mg IV at 6 a.m. On scheduled Valium every 6 hours. Patient is at risk of aspiration. Nasogastric tube has been placed for medications yesterday, as well as feedings did not tolerate with 20 mL residual. IV fluids have been decreased due to third spacing. Bread Room Hand consulted for the morning. Despite steroids, patient's liver function tests remain unchanged. Ultrasound of the abdomen yesterday shows ascites in all four quadrants. Paracentesis in the morning for diagnostic purposes. Patient remained tachycardic, started on Cardizem. PHYSICAL EXAMINATION: Vital signs: Temperature 96.8, pulse 106, respiratory rate 17, blood pressure 116/74, 94% on room air. Generally: Patient is obtunded, not arousable, no purposeful movements, mittens on. Overtly jaundiced. Positive icterus. No jugular venous distention (JVD), thyromegaly, or cervical lymphadenopathy. Lungs: Diminished with bibasilar crackles. Heart: S1, S2, sinus tachycardia. Abdomen: Distended, positive fluid wave, jaundice. Multiple tattoos bilateral upper and lower extremities. Has 3+ pitting edema to the sacrum. LABORATORY DATA: White count 16.4, hemoglobin 13, hematocrit 39, platelet count 104, sodium 139, potassium 3.8, chloride 104, bicarbonate 27, BUN 17, creatinine 0.78, glucose of 79, magnesium 2.3, total bilirubin 23.5, AST 233, ALT 54, alkaline phosphatase 195, ammonia less than 10, BNP 1142. Urine culture negative. Blood cultures negative. Chest x-ray: Nasogastric tube at the tip presumably in the stomach fundus. Abdominal ultrasound: Ascites in all four quadrants. ASSESSMENT AND PLAN: This is a 34-year-old male with history of heavy alcohol abuse presented with one episode of hematemesis at home, presented with jaundice, admitted for the followin. Alcoholic hepatitis with nonobstructive jaundice. Unable to take oral prednisone. Nasogastric tube placed yesterday. Had one dose of IV Solu-Medrol. Patient has not had any improvement after 1 week of steroids. Gastroenterology says that there is no change in management. 2. Nonobstructive jaundice secondary to alcoholic hepatitis. Hepatitis serology has been negative. Other etiologies have been checked and so far negative. Per Dr. Richmond, continue with prednisone for now. Nasogastric tube has been placed yesterday for nutrition and medication administration. The patient is sedated. Will obtain an MRCP on Sunday to rule out obstructive cause for patient's jaundice. 3. Acute metabolic encephalopathy due to alcohol withdrawal. Ammonia level is normal. He is currently on IV Valium every [address] Schmitt. 4. Fluid overload. Currently third spacing. Tube feedings have been held by aquatics coordinator and IV fluids decreased. Bread Room Hand in the morning. Currently on IV ceftriaxone. Obtain a paracentesis in the morning to rule out spontaneous bacterial peritonitis but patient has been on antibiotics for three days. 5. Gallbladder sludging. No improvement bilirubin level. Thought to be secondary to alcoholic hepatitis. Despite penicillin no significant improvement. Patient had altered mental status and was thrashing about on Sunday, unable to obtain an MRCP. MRCP in the morning since the patient is sedated on IV Valium. 6. Abnormal EKG with premature atrial contractions (PACs). No acute issues. 7. History of depression with suicide attempt. No active issues. 8. Tobacco abuse. Cessation counseling has been provided.
[2019-10-20] MEDS: THIAMINE 100 MG TAB NG SCH ×2 (08:51→21:56)
[2019-10-20] MEDS: PANTOPRAZOLE 40MG TAB (PROTONIX) PO SCH ×2 (08:51→21:56)
[2019-10-20] MEDS: FOLIC ACID 1 MG TAB NG SCH (08:51)
[2019-10-20] MEDS: predniSONE 20 MG TAB NG SCH (08:51)
[2019-10-20] MEDS: SPIRONOLACTONE 12.5MG PER 1/2 TABLET PO SCH (08:52)
[2019-10-20] MEDS: MULTIVITAMINS/MINERALS THERAP 1 TAB NG SCH (08:52)
[2019-10-20] MEDS: FUROSEMIDE 20 MG TAB PO SCH (08:52)
[2019-10-20] MEDS: NICOTINE 14 MG/24 HR TRANSDERMAL TD SCH (08:53)
[2019-10-20 08:54] LABS: INR 1.36; PROTHROMBIN TIME 16.5 SECONDS (11.8-14.0)
[2019-10-20 08:55] LABS: PARTIAL THROMBOPLASTIN TIME 39.8 SECONDS (25.0-38.4)
[2019-10-20] MEDS: HEPARIN SOD (PORCINE) 5000UNITS/ML 1ML VIAL/SYRINGE SQ SCH ×2 (09:00→21:56)
[2019-10-20] MEDS: cefTRIAXone SOD 1 GM in D5W MINI-BAG PLUS 50 ML IV SCH (11:39)
--- NOTE | 2019-10-20 11:55 | IPN ---
DATE: 10/20/2019 SUBJECTIVE: Per nursing overnight, the patient awoke around midnight, asked to go to the bathroom, was able to say his name, and date of . He thought that it was Jono Lilly that was the president. He then asked the sitter if he could go to [employer] to eat, [facility] withdrawal assessment (CIWA) was due at 11. He did receive his scheduled doses of valium. Patient's glucose was 77. Tube feedings have been held due to fluid retention and third spacing, currently on Lasix 20 mg daily and spironolactone 12.5 daily. Still on D5 at 50 mL/hour awaiting MRCP to be done. Patient has significant ascites in the abdomen with decreasing white count on ceftriaxone and prednisone via nasogastric tube. Patient's bilirubin has been slowly decreasing to 22 today from up a peak bilirubin of 24.5 on admission. He remains encephalopathic. PHYSICAL EXAMINATION: Vital Signs: Temperature 97.3, pulse 107, respiratory 16, blood pressure 117/76, 97% on room air. Generally, patient is sedated, not following commands, not responsive still with mitts on, overtly jaundice and icteric, dilated pupils. No jugular venous distention (JVD) or thyromegaly. Lungs: Diminished with basilar crackles. Heart: S1, S2, sinus tachycardia. Abdomen is distended. Positive fluid wave. Extremities: 2+ pitting edema to the sacrum. LABORATORY DATA: Reviewed. ASSESSMENT/PLAN: This is a 34-year-old male with alcohol abuse, had one episode of hematemesis prior to admission. Presented due to nonobstructive jaundice and alcoholic hepatitis. IMPRESSION: 1. Jaundice: MRCP is pending. Patient was unable to get this done due to agitation and restlessness, currently on valium IV every 6 hours. He had initially been treated with antibiotics, discontinues as the patient did not appear to have any infection. However, with increasing white count, patient had been placed back on ceftriaxone for possible peritonitis. 2. Alcohol withdrawal: CIWA is still 11, so on valium every 6 hours, will time MRCP to rule out obstructive cause for patient's jaundice. 3. Acute encephalopathy secondary to alcohol withdrawal, possible peritonitis, no fever but with white count and tachycardia and sepsis. Will obtain paracentesis today is possible. However, INR is increased. May need to transfuse fresh frozen plasma (FFP) if needed. 4. Acute gastrointestinal bleed as outpatient. Resolved. No recurrent episodes during this admission. Most likely the etiology of patient's acute decompensation . 5. Gallbladder sludging: MRCP is to be done today while the patient is on valium and sedated. 6. Tobacco abuse: Cessation counseling has bee provided. 7. Depression and suicide attempt in the past: No active issues. 8. Abnormal EKG with PACS: Stable time spent: 40minutes of this time, >50% was spent on speaking with family, coordinating care, and counselling family on supportive care, recommending outpatient alcohol rehab. MTDD
[2019-10-20] MEDS ORDERED: SODIUM BICARBONATE 8.4% INJ 50MEQ 50 ML VIAL As Ordered ONE (13:02)
[2019-10-20 14:25] LABS: SPEC. GRAVITY BODY FLUIDS 1.008 (NOT ESTABLISHED)
[2019-10-20 14:32] LABS: APPEARANCE, BODY FLUID CLEAR (CLEAR); PERITONEAL FL COLOR YELLOW (COLORLESS); SOURCE, BODY FLUID PERITONEAL
[2019-10-20 14:48] LABS: SOURCE, BODY FLUID ALBUMIN PERITONEAL; SOURCE, BODY FLUID GLUCOSE PERITONEAL; SOURCE, BODY FLUID TOT PROTEIN PERITONEAL; TOTAL PROTEIN, BODY FLUID 0.6 G/DL (NOT ESTABLISHED)
[2019-10-20] MEDS ORDERED: oxyCODONE 5MG TAB PO ONE (16:15)
[2019-10-20] MEDS ORDERED: oxyCODONE 5MG TAB PO PRN (16:15)
[2019-10-20] MEDS: LORazepam 2 MG/ML VIAL IV PRN (16:20)
--- NOTE | 2019-10-20 18:42 | REP ---
Ultrasound-guided paracentesis The procedure was performed by MEAGAN Mas, under the direct supervision of Dr. Gupta. The risks and benefits of the procedure were explained to the patient and informed consent was obtained both verbally and written. Directly prior to the start of the procedure, a formal timeout was completed in the procedure room. Under ultrasound guidance, the largest pocket of fluid in the right flank was localized and skin was marked. The skin was then prepped and draped in a sterile fashion. 11 ml of buffered lidocaine 10 mg/ml was used as a local anesthetic. Using ultrasound guidance, an 8-Georgian multi side-hole catheter was inserted using trocar technique. 400 mL of dark yellow colored fluid was withdrawn, 200 ml were to the lab for further analysis, and the rest was discarded. The patient tolerated the procedure well and there were no immediate complications. After the appropriate monitored convalescence the patient was discharged from the department. Reviewed by MEAGAN Rivas 10/20/2019 05:08 P Electronically Signed by Ian Gupta MD 10/20/2019 06:34 P
[2019-10-20] MEDS ORDERED: FUROSEMIDE 20MG/2ML VIAL (J1940) IV ONE (19:00)
[2019-10-21] VITALS (25 sets, daily range): BP systolic 96–127; BP diastolic 59–82; O2SAT 89–99
[2019-10-21 05:59] LABS: HEMATOCRIT 35.9 % (42.0-52.0); HEMOGLOBIN 12.7 g/dl (13.5-17.5); MEAN CORPUSCULAR HGB CONC 35.4 g/dl (32.0-36.5); MEAN CORPUSCULAR VOLUME 101.7 fl (80.0-96.0); RED BLOOD COUNT 3.53 10^6/uL (4.30-6.10); WHITE BLOOD COUNT 13.7 10^3/uL (4.0-10.0)
[2019-10-21] MEDS: diazePAM 10MG/2ML SYRINGE (J3360 PER 5MG) IV SCH ×4 (06:00→17:42)
[2019-10-21] MEDS: SLF 3 ML SYR IV SCH ×3 (06:02→20:42)
[2019-10-21 06:05] LABS: PLATELET COUNT, AUTOMATED 91 10^3/uL (150-450)
[2019-10-21 06:26] LABS: ALBUMIN 1.5 GM/DL (3.2-5.2); ALT/SGPT 65 U/L (12-78); BLOOD UREA NITROGEN 15 MG/DL (7-18); CALCIUM LEVEL 7.8 MG/DL (8.5-10.1); CARBON DIOXIDE LEVEL 28 MEQ/L (21-32); CHLORIDE LEVEL 100 MEQ/L (98-107); CREATININE FOR GFR 0.69 MG/DL (0.70-1.30); GLOMERULAR FILTRATION RATE > 60.0 (>60); GLUCOSE, FASTING 105 MG/DL (70-100); LIPASE 1292 U/L (73-393); MAGNESIUM LEVEL 2.1 MG/DL (1.8-2.4); POTASSIUM SERUM 3.5 MEQ/L (3.5-5.1); SODIUM LEVEL 136 MEQ/L (136-145); TOTAL PROTEIN 4.8 GM/DL (6.4-8.2)
[2019-10-21 06:36] LABS: ANISOCYTOSIS 1+; LYMPHOCYTES 21 % (16-44); MONOCYTES 4 % (0-5); NEUTROPHILS 74 % (28-66); PLATELET ESTIMATE DECREASED (NORMAL); POLYCHROMASIA 1+; TARGET CELLS 1+
[2019-10-21] MEDS ORDERED: LACTULOSE 20 GM/30 ML SYRUP UD PO ONE (08:00)
[2019-10-21] MEDS ORDERED: FUROSEMIDE 20MG/2ML VIAL (J1940) IV ONE (08:00)
[2019-10-21] MEDS: NICOTINE 14 MG/24 HR TRANSDERMAL TD SCH (08:11)
[2019-10-21] MEDS: predniSONE 20 MG TAB NG SCH (08:12)
[2019-10-21] MEDS: HEPARIN SOD (PORCINE) 5000UNITS/ML 1ML VIAL/SYRINGE SQ SCH (08:12)
[2019-10-21] MEDS: MULTIVITAMINS/MINERALS THERAP 1 TAB NG SCH (08:12)
[2019-10-21] MEDS: FOLIC ACID 1 MG TAB NG SCH (08:12)
[2019-10-21] MEDS: THIAMINE 100 MG TAB NG SCH ×2 (08:13→20:41)
[2019-10-21] MEDS: SPIRONOLACTONE 12.5MG PER 1/2 TABLET PO SCH (08:13)
[2019-10-21] MEDS: PANTOPRAZOLE 40MG TAB (PROTONIX) PO SCH (08:14)
[2019-10-21] MEDS: cefTRIAXone SOD 1 GM in D5W MINI-BAG PLUS 50 ML IV SCH (10:34)
[2019-10-21] MEDS: PANTOPRAZOLE 40MG VIAL (C9113 PER 1) IV SCH ×2 (10:34→20:41)
[2019-10-21] MEDS: D5W 1,000 ML IV SCH (12:31)
--- NOTE | 2019-10-21 17:33 | IPN ---
DATE: 10/21/2019 SUBJECTIVE: Patient remains afebrile overnight, no chills, remains encephalopathic without any purposeful conversations, movements, or actions. He remains on Valium intravenously. Patient's bilirubin is slowly declining from a peak of 24.5 to 20. OBJECTIVE: PHYSICAL EXAMINATION: Vital signs: Temperature 97.5, pulse 95, respiratory rate 16, blood pressure 112/79, 99% on room air. Generally: Jaundice, encephalopathic, unresponsive, no purposeful movement, mittens on. Opens his eyes but closes and does not interact. Icterus, dry mucous membranes. No jugular venous distention (JVD) or thyromegaly. Lungs: Diminished basilar crackles. Heart: S1, S2, sinus tachycardia. Abdomen: Distended. Positive bowel sounds times four quadrants. Extremities: Trace edema bilaterally. LABORATORY DATA: White count 13.7, hemoglobin 12, hematocrit 35, platelet count of 91, sodium 136, potassium 3.5, chloride 100, bicarbonate 28, BUN 15, creatinine 0.69, glucose of 105. Ethyl alcohol on 10/13/2019 - 0.067. KRISTINA, anticentromere, antimitochondrial, anti-Smooth muscle antibody negative. Hepatitis serology negative. Hepatitis antibody index 0.1. Microbiology: Blood culture, urine culture negative. Gram stain 10/20/2019 - No organism seen. Paracentesis 10/20/2019, 400 mL of dark yellow fluid, 200 mL sent to the lab, rest was discarded. CURRENT MEDICATIONS: - lactulose - Protonix - oxycodone - folic acid - multivitamin - thiamine - prednisone - spironolactone - dextrose 5% in water (D5W) - heparin subcutaneous - AtivanTRIXIEWA protocol - nicotine patch - nicotine gum - Oxy IR as needed - rifaximin 400 twice a day ASSESSMENT AND PLAN: This is a 34-year-old alcoholic with history of pancreatitis presented with one episode of hematemesis prior to admission at home, was found to be overtly jaundiced and presented to the emergency room with jaundice and abdominal distention. IMPRESSION: 1. Alcoholic hepatitis. Currently on prednisone with decreasing bilirubin from 24.[address] Richmond, to continue on Xifaxan and lactulose and prednisone. 2. Jaundice, thought to be secondary to alcoholic hepatitis but patient did have gallbladder sludging with an elevated white count when he presented, therefore he is currently on antibiotics, awaiting MRCP to be done to rule out obstructive causes of jaundice. 3. Alcohol withdrawal requiring Valium every 6 hours at 10 mg. Currently nothing by mouth status with tube feedings managed by baker apprentice which has been restarted today. 4. Acute encephalopathy secondary to alcohol withdrawal, alcoholic hepatitis, peritonitis. Patient is covered with IV antibiotics. Nasogastric tube feeding. Is still extremely encephalopathic and given lactulose for elevated ammonia level. 5. Gallbladder sludging with jaundice. Rule out obstruction. Obtain MRCP if possible. 6. Tobacco abuse. Nicotine patch given. 7. History of depression and suicide attempt. Patient is currently encephalopathic. 8. Abnormal EKG with premature atrial contractions (PACs). No acute issues. 9. Diet. Patient is on nasogastric tube feedings per baker apprentice. Jevity 1.5, goal of 70 mL/hour with free water through the nasogastric tube. Monitor for fluid overload and as needed Lasix to keep fluid balance. Avoid acute kidney injury by overdiuresis. 10. Thrombocytopenia. In light of significant decrease, most likely due to sepsis, from 138 on arrival to 91, heparin subcutaneous has been discontinued. We will provide with compression stockings. Patient's INR was elevated due to liver disease. Will also check liver ultrasound with Doppler to rule out portal vein thrombosis. Hold tube feedings overnight. Nothing by mouth after midnight. MTDD
--- NOTE | 2019-10-21 19:51 | REPVR ---
PROCEDURE INFORMATION: Exam: MR Abdomen Without Contrast, MRCP Exam date and time: 10/20/2019 5:20 PM Age: 34 years old Clinical indication: Jaundice, R/O biliary obstruction TECHNIQUE: Imaging protocol: MR of the abdomen without contrast. Exam focused on the bile ducts and pancreatic ducts. 3D MRCP images were acquired and processed without radiologist supervision. 3D rendering (Not supervised by radiologist): MIP and/or 3D reconstructed images were created by the technologist. COMPARISON: 1. PARACENTESIS NEEDLE PLACE US 10/20/2019 1:06 PM 2. GALLBLADDER US 10/13/2019 5:40:27 PM 3. [facility] CT ANGIO CHEST 10/22/2017 3:10:06 PM FINDINGS: Limitations: Motion artifact degrades the image quality of several sequences obtained. Liver: The liver is enlarged and measures 16.6 cm in craniocaudal dimension at the level of the right midclavicular line. No liver lesion is identified. The contour of the liver is smooth. Gallbladder and bile ducts: There is biliary sludge in the gallbladder, thickening of the wall of the gallbladder, and pericholecystic fluid. No gallstones are seen in the gallbladder. No intrahepatic or extrahepatic biliary ductal dilation is noted. The common bile duct measures 3 mm in diameter at the level of the jonah hepatis and head of the pancreas. There is no choledocholithiasis. Pancreas: Normal. No mass. No dilation of the main pancreatic duct is noted. Spleen: Normal. No splenomegaly is noted. The spleen measures 12.2 cm in length. Adrenals: Normal. No adrenal mass is noted. Kidneys and ureters: There is an 8 mm benign-appearing cyst in the medial aspect of the midpole of the left kidney for which follow-up is not necessary. There is no hydronephrosis. Stomach and bowel: No bowel obstruction is noted. The bowel was not fully imaged. Retroperitoneal space: No fluid collection. No mass. Intraperitoneal space: There is a small amount of ascites in the upper abdomen. Arteries: The abdominal aorta is normal in caliber. Lymph nodes: No lymphadenopathy. Bones/joints: Unremarkable. Soft tissues: Unremarkable. IMPRESSION: 1. No evidence for a biliary tract obstruction. No intrahepatic or extrahepatic biliary ductal dilation. No choledocholithiasis. 2. Biliary sludge in the gallbladder, thickening of the wall of the gallbladder, and pericholecystic fluid. 3. Hepatomegaly. 4. Small amount of ascites. COMMENTS: Consistent with the [employer]'s Incidental Findings Committee white paper (J Am Christiano Radiol 2018): Any incidental renal lesion less than 1.0 cm or classified as too small to characterize, or any incidental cystic renal lesion characterized as simple-appearing, is likely benign. No follow-up imaging is recommended for these lesions per consensus recommendations based on imaging criteria. Electronically signed by: Venkatesh Cisneros On 10/21/2019 19:51:07 PM
[2019-10-21] MEDS: LACTULOSE 20 GM/30 ML SYRUP UD NG SCH (20:41)
[2019-10-22] VITALS (24 sets, daily range): BP systolic 101–121; BP diastolic 66–82; O2SAT 89–99
[2019-10-22] MEDS: SLF 3 ML SYR IV SCH ×3 (05:52→22:25)
[2019-10-22] MEDS: diazePAM 10MG/2ML SYRINGE (J3360 PER 5MG) IV SCH ×4 (05:52→16:37)
[2019-10-22 06:25] LABS: HEMATOCRIT 34.4 % (42.0-52.0); HEMOGLOBIN 12.2 g/dl (13.5-17.5); MEAN CORPUSCULAR HGB CONC 35.5 g/dl (32.0-36.5); MEAN CORPUSCULAR VOLUME 101.5 fl (80.0-96.0); RED BLOOD COUNT 3.39 10^6/uL (4.30-6.10); WHITE BLOOD COUNT 13.6 10^3/uL (4.0-10.0)
[2019-10-22 06:33] LABS: INR 1.39; PROTHROMBIN TIME 16.8 SECONDS (11.8-14.0)
[2019-10-22 06:34] LABS: FIBRINOGEN 198 MG/DL (221-452); PARTIAL THROMBOPLASTIN TIME 40.9 SECONDS (25.0-38.4)
[2019-10-22 06:40] LABS: ALBUMIN 1.5 GM/DL (3.2-5.2); ALT/SGPT 64 U/L (12-78); BILIRUBIN,TOTAL 17.5 MG/DL (0.2-1.0); BLOOD UREA NITROGEN 13 MG/DL (7-18); CALCIUM LEVEL 7.7 MG/DL (8.5-10.1); CARBON DIOXIDE LEVEL 31 MEQ/L (21-32); CHLORIDE LEVEL 98 MEQ/L (98-107); CREATININE FOR GFR 0.62 MG/DL (0.70-1.30); GLOMERULAR FILTRATION RATE > 60.0 (>60); GLUCOSE, FASTING 87 MG/DL (70-100); LIPASE 1211 U/L (73-393); MAGNESIUM LEVEL 2.2 MG/DL (1.8-2.4); POTASSIUM SERUM 2.9 MEQ/L (3.5-5.1); SODIUM LEVEL 133 MEQ/L (136-145); TOTAL PROTEIN 4.9 GM/DL (6.4-8.2)
[2019-10-22 07:01] LABS: PLATELET COUNT, AUTOMATED 82 10^3/uL (150-450)
[2019-10-22 07:04] LABS: ANISOCYTOSIS 2+; ATYPICAL LYMPH 1 % (0-5); LYMPHOCYTES 15 % (16-44); METAMYELOCYTES 1 % (0-0); MONOCYTES 6 % (0-5); NEUTROPHILS 75 % (28-66); PLATELET ESTIMATE DECREASED (NORMAL)
[2019-10-22 07:05] LABS: TARGET CELLS 1+
[2019-10-22 07:13] LABS: D-DIMER QUANT > 4000 ng/ml (<500)
[2019-10-22] MEDS: POTASSIUM CHLORIDE 10% LIQ 20 MEQ/15 ML UDC NG SCH ×4 (09:00→11:28)
[2019-10-22] MEDS ORDERED: POTASSIUM CHLORIDE 10% LIQ 20 MEQ/15 ML UDC PO SCH (09:00)
[2019-10-22] MEDS: FOLIC ACID 1 MG TAB NG SCH (09:15)
[2019-10-22] MEDS: NICOTINE 14 MG/24 HR TRANSDERMAL TD SCH (09:15)
[2019-10-22] MEDS: PANTOPRAZOLE 40MG VIAL (C9113 PER 1) IV SCH ×2 (09:15→22:24)
[2019-10-22] MEDS: KCL 10MEQ/100ML SWI (KRUN) 10 MEQ in IV 1 EA IV SCH ×3 (09:15→11:28)
[2019-10-22] MEDS: predniSONE 20 MG TAB NG SCH (09:16)
[2019-10-22] MEDS: SPIRONOLACTONE 12.5MG PER 1/2 TABLET PO SCH (09:16)
[2019-10-22] MEDS: THIAMINE 100 MG TAB NG SCH ×2 (09:16→22:24)
[2019-10-22] MEDS: MULTIVITAMINS/MINERALS THERAP 1 TAB NG SCH (09:16)
[2019-10-22] MEDS: LACTULOSE 20 GM/30 ML SYRUP UD NG SCH ×2 (09:17→22:24)
[2019-10-22] MEDS: D5W 1,000 ML IV SCH (09:18)
--- NOTE | 2019-10-22 09:28 | REP ---
COMPLETE ABDOMINAL SONOGRAPHY WITH HEPATIC DOPPLER: HISTORY: Question portal thrombosis. SONOGRAPHIC FINDINGS: Exam quality is quite limited due to inability to breath hold. Scanning of the right upper quadrant of the abdomen demonstrates thickening of the gallbladder wall up to 4.9 mm. Some sludge is seen in the gallbladder. No stone is seen. Common bile duct is normal measuring 0.5 cm in greatest diameter. There is evidence of fatty infiltration of the liver with poor insonation of the hepatic parenchyma. Main portal vein is 16 mm in diameter which is near the upper range of normal. It is patent. No focal liver mass lesion is seen. The spleen is of borderline enlarged measuring 12.4 x 12.5 x 3.4 cm. No focal splenic lesion is seen. Renal cortical echogenicity pattern is normal and contours are smooth bilaterally. Right kidney measures 13.7 x 5.4 x 5.1 cm left renal dimensions of 13.0 x 4.5 x 6.7 cm. No evidence of hydronephrosis or renal mass lesion is seen on either side. There is a trace of ascites in the right upper and left upper quadrants of the abdomen. Portal venous Doppler assessment demonstrates very poor insonation in the region of the portal vein. We were unable to confirm portal venous flow in the extrahepatic segment portal vein. Partial flow visualization was seen in the portal vein at its bifurcation into left and right main portal vein segments. 6 cm/s flow velocity was observed here. 8.2 cm/s flow velocity was visualized and recorded in the left main portal vein. The right portal venous radicles could not be assessed. The central splenic vein could not be assessed. The peripheral splenic vein near the splenic hilus showed 20.5 cm/s. The superior mesenteric vein could not be seen. IMPRESSION: There is a trace of ascites. There is gallbladder wall thickening and sludge. There is evidence of fatty infiltration of the liver and a mildly enlarged spleen. The sonographic visualization is less than optimal and quite limited in regard to portal venous Doppler. I cannot exclude thrombosis in the extrahepatic segment of the portal vein by ultrasound. Electronically Signed by Ian Gupta MD 10/22/2019 12:49 P
[2019-10-22] MEDS: cefTRIAXone SOD 1 GM in D5W MINI-BAG PLUS 50 ML IV SCH (12:36)
--- NOTE | 2019-10-22 15:22 | IPN ---
DATE OF SERVICE: 10/22/2019 Generally, patient is jaundiced. He is a little bit more alert, able to say his name but does not converse appropriately and often times with garbled speech. He remains icteric and jaundiced. No fever or chills overnight. Patient remains on IV Valium for withdrawal and nasogastric tube feedings due to nothing by mouth status from risk of aspiration due to mental status changes. PHYSICAL EXAMINATION: Temperature 97.4, pulse 82, respiratory rate 18, blood pressure 13241, 96% on room air. Generally, patient is awake, alert, oriented to himself only. He does not answer or follow commands. He has garbled speech most of the time. He is icteric with overt jaundice. Nasogastric tube in place with mitts on bilaterally. No jugular venous distention (JVD) or thyromegaly. Lungs: Diminished but clear to auscultation. No wheezing or rales. Heart: S1, S2, sinus tachycardia. Abdomen is distended. Positive bowel sounds. No rebound, guarding. Extremities: Warm, dry, well perfused. LABORATORY DATA: White count 13. Hemoglobin 12. Hematocrit 34. Platelet count of 82, prior platelet count was 91 yesterday. Sodium 133. Potassium 2.9. Chloride 98. Bicarbonate 31. BUN 13, creatinine 0.62. Glucose of 87. Calcium 7.7. Magnesium 2.2. Total bilirubin 17.5. AST 186, ALT 64. Alkaline phosphatase 193. Ammonia level 54. Albumin of 1.5. MICROBIOLOGY: Body fluid cultures no growth, no organisms are seen. MRCP negative. ASSESSMENT AND PLAN: This is a 34-year-old male with history of heavy alcohol abuse had one episode of hematemesis at home presented with jaundice and altered mental status due to alcohol withdrawal. CURRENT ISSUES: 1. Alcoholic hepatitis. Currently on prednisone, decreasing bilirubin. Per Dr. Richmond, patient is to continue on Xifaxan and lactulose as well as prednisone for a total of 6 weeks. 2. Jaundice due to alcoholic hepatitis. MRCP was negative. No obstructive stones on imaging. 3. Alcohol withdrawal requiring Valium every 6 hours at 10 mg IV. Nothing by mouth status due to altered mental status and risk of aspiration. 4. Acute metabolic encephalopathy due to alcohol withdrawal, alcoholic hepatitis, sepsis, and possible peritonitis. Patient was empirically covered with IV antibiotics but fluid cultures remaining negative. 5. Gallbladder sludge. No obvious obstruction according to the MRCP done yesterday. 6. Tobacco abuse. Nicotine patch. 7. History of depression and suicide attempt. Currently encephalopathic, unable to provide review of systems. 8. Abnormal EKG with premature atrial contractions (PACs). No acute issues. 9. Diet. Nasogastric tube feedings per natural resources engineer. Jevity 1.5. Goal of 70 mL/h. Free water through the nasogastric tube. Patient had 100 mL residual and therefore, currently holding tube feedings due to risk of aspiration. 10. Thrombocytopenia due to alcoholic liver disease . Patient has no active signs of bleeding. Continue to monitor. Heparin subcu has been discontinued.
[2019-10-22 20:42] LABS: BLOOD UREA NITROGEN 12 MG/DL (7-18); CALCIUM LEVEL 7.9 MG/DL (8.5-10.1); CARBON DIOXIDE LEVEL 28 MEQ/L (21-32); CHLORIDE LEVEL 100 MEQ/L (98-107); GLOMERULAR FILTRATION RATE > 60.0 (>60); GLUCOSE, FASTING 126 MG/DL (70-100); MAGNESIUM LEVEL 2.3 MG/DL (1.8-2.4); POTASSIUM SERUM 5.1 MEQ/L (3.5-5.1); SODIUM LEVEL 133 MEQ/L (136-145)
[2019-10-23] VITALS (7 sets, daily range): BP systolic 104–135; BP diastolic 63–86; O2SAT 93–96
[2019-10-23] MEDS: D5W 1,000 ML IV SCH (05:30)
[2019-10-23 05:36] LABS: BASO # 0.1 10^3/uL (0.0-0.2); BASO % 0.4 % (0.0-1.0); EOS # 0.1 10^3/uL (0.0-0.5); EOS % 0.4 % (0.0-3.0); HEMATOCRIT 34.8 % (42.0-52.0); HEMOGLOBIN 12.3 g/dl (13.5-17.5); LYMPH # 1.9 10^3/uL (1.5-5.0); LYMPH % 12.3 % (24.0-44.0); MEAN CORPUSCULAR HEMOGLOBIN 36.2 pg (27.0-33.0); MEAN CORPUSCULAR HGB CONC 35.3 g/dl (32.0-36.5); MEAN CORPUSCULAR VOLUME 102.4 fl (80.0-96.0); MONO # 1.1 10^3/uL (0.0-0.8); MONO % 6.9 % (0.0-5.0); NEUTROPHILS # 11.7 10^3/uL (1.5-8.5); NEUTROPHILS % 75.1 % (36.0-66.0); WHITE BLOOD COUNT 15.6 10^3/uL (4.0-10.0)
[2019-10-23 05:37] LABS: PLATELET COUNT, AUTOMATED 77 10^3/uL (150-450)
[2019-10-23] MEDS: diazePAM 10MG/2ML SYRINGE (J3360 PER 5MG) IV SCH ×3 (06:00→11:34)
[2019-10-23 06:03] LABS: ALBUMIN 1.5 GM/DL (3.2-5.2); ALT/SGPT 61 U/L (12-78); BLOOD UREA NITROGEN 13 MG/DL (7-18); CALCIUM LEVEL 7.8 MG/DL (8.5-10.1); CARBON DIOXIDE LEVEL 29 MEQ/L (21-32); CHLORIDE LEVEL 99 MEQ/L (98-107); CREATININE FOR GFR 0.63 MG/DL (0.70-1.30); GLOMERULAR FILTRATION RATE > 60.0 (>60); GLUCOSE, FASTING 122 MG/DL (70-100); LIPASE 1173 U/L (73-393); MAGNESIUM LEVEL 2.3 MG/DL (1.8-2.4); POTASSIUM SERUM 4.4 MEQ/L (3.5-5.1); SODIUM LEVEL 130 MEQ/L (136-145); TOTAL PROTEIN 4.9 GM/DL (6.4-8.2)
[2019-10-23] MEDS: SLF 3 ML SYR IV SCH (06:49)
[2019-10-23] MEDS: LACTULOSE 20 GM/30 ML SYRUP UD NG SCH (09:47)
[2019-10-23] MEDS: FOLIC ACID 1 MG TAB NG SCH (09:48)
[2019-10-23] MEDS: THIAMINE 100 MG TAB NG SCH (09:48)
[2019-10-23] MEDS: SPIRONOLACTONE 12.5MG PER 1/2 TABLET PO SCH (09:48)
[2019-10-23] MEDS: predniSONE 20 MG TAB NG SCH (09:48)
[2019-10-23] MEDS: NICOTINE 14 MG/24 HR TRANSDERMAL TD SCH (09:48)
[2019-10-23] MEDS: MULTIVITAMINS/MINERALS THERAP 1 TAB NG SCH (09:48)
[2019-10-23] MEDS: PANTOPRAZOLE 40MG VIAL (C9113 PER 1) IV SCH (09:49)
[2019-10-23] MEDS: cefTRIAXone SOD 1 GM in D5W MINI-BAG PLUS 50 ML IV SCH (11:50)
[2019-10-25] MEDS ORDERED: FUROSEMIDE 20MG/2ML VIAL (J1940) ONE ×3 (05:44→21:36)
[2019-10-25] MEDS ORDERED: LACTULOSE 20 GM/30 ML SYRUP UD ONE ×2 (09:18→21:36)
[2019-10-25] MEDS ORDERED: PANTOPRAZOLE 40MG VIAL (C9113 PER 1) ONE ×2 (09:18→21:36)
[2019-10-25] MEDS ORDERED: SUCRALFATE 1 GM TAB ONE (09:19)
[2019-10-25] MEDS ORDERED: SUCRALFATE SUSP 1GM/10ML UD As Ordered ONE ×4 (09:19→21:36)
[2019-10-25] MEDS ORDERED: MULTIVITAMINS/MINERALS THERAP 1 TAB ONE (09:19)
[2019-10-25] MEDS ORDERED: NICOTINE 14 MG/24 HR TRANSDERMAL ONE (09:19)
[2019-10-25] MEDS ORDERED: SPIRONOLACTONE 12.5MG PER 1/2 TABLET ONE (09:19)
[2019-10-25] MEDS ORDERED: THIAMINE 100 MG TAB ONE ×2 (09:20→21:37)
[2019-10-25] MEDS ORDERED: predniSONE 20 MG TAB ONE (09:20)
[2019-10-25] MEDS ORDERED: FOLIC ACID 1 MG TAB ONE (09:20)
[2019-10-25] MEDS ORDERED: FUROSEMIDE 20MG/2ML VIAL (J1940) As Ordered ONE ×2 (12:50→21:36)
[2019-10-25] MEDS ORDERED: SUCRALFATE SUSP 1GM/10ML UD ONE ×3 (12:50→21:36)
[2019-10-26] MEDS ORDERED: FUROSEMIDE 20MG/2ML VIAL (J1940) As Ordered ONE ×4 (05:48→21:17)
[2019-10-26] MEDS ORDERED: NICOTINE 14 MG/24 HR TRANSDERMAL ONE (08:30)
[2019-10-26] MEDS ORDERED: MULTIVITAMINS/MINERALS THERAP 1 TAB ONE (08:30)
[2019-10-26] MEDS ORDERED: PANTOPRAZOLE 40MG VIAL (C9113 PER 1) ONE ×2 (08:30→21:16)
[2019-10-26] MEDS ORDERED: THIAMINE 100 MG TAB ONE ×2 (08:30→21:16)
[2019-10-26] MEDS ORDERED: FOLIC ACID 1 MG TAB ONE (08:30)
[2019-10-26] MEDS ORDERED: SPIRONOLACTONE 12.5MG PER 1/2 TABLET ONE (08:30)
[2019-10-26] MEDS ORDERED: predniSONE 20 MG TAB ONE (08:30)
[2019-10-26] MEDS ORDERED: LACTULOSE 20 GM/30 ML SYRUP UD ONE ×2 (08:30→21:16)
[2019-10-26] MEDS ORDERED: OXAZEPAM 15 MG CAP As Ordered ONE ×2 (11:18→18:10)
[2019-10-26] MEDS ORDERED: LORazepam 2 MG/ML VIAL As Ordered ONE ×2 (11:19→17:13)
[2019-10-26] MEDS ORDERED: cefTRIAXone SOD 1GM VIAL (J0696 PER 250MG) ONE (12:22)
[2019-10-26] MEDS ORDERED: SUCRALFATE SUSP 1GM/10ML UD As Ordered ONE ×3 (13:48→21:16)
[2019-10-27] MEDS ORDERED: OXAZEPAM 15 MG CAP As Ordered ONE (05:46)
[2019-10-27] MEDS ORDERED: FUROSEMIDE 20MG/2ML VIAL (J1940) As Ordered ONE (05:46)
[2019-10-27] MEDS ORDERED: FOLIC ACID 1 MG TAB ONE (08:46)
[2019-10-27] MEDS ORDERED: MULTIVITAMINS/MINERALS THERAP 1 TAB ONE (08:46)
[2019-10-27] MEDS ORDERED: LACTULOSE 20 GM/30 ML SYRUP UD ONE (08:46)
[2019-10-27] MEDS ORDERED: THIAMINE 100 MG TAB ONE ×2 (08:46→22:28)
[2019-10-27] MEDS ORDERED: SPIRONOLACTONE 12.5MG PER 1/2 TABLET ONE (08:46)
[2019-10-27] MEDS ORDERED: predniSONE 20 MG TAB ONE (08:46)
[2019-10-27] MEDS ORDERED: PANTOPRAZOLE 40MG VIAL (C9113 PER 1) ONE (08:46)
[2019-10-27] MEDS ORDERED: NICOTINE 14 MG/24 HR TRANSDERMAL ONE (08:46)
[2019-10-27] MEDS ORDERED: SUCRALFATE SUSP 1GM/10ML UD As Ordered ONE ×2 (13:01→18:05)
[2019-10-27] MEDS ORDERED: PANTOPRAZOLE 40MG TAB (PROTONIX) As Ordered ONE (22:44)
[2019-10-28] MEDS ORDERED: SUCRALFATE SUSP 1GM/10ML UD As Ordered ONE ×4 (00:17→21:22)
[2019-10-28] MEDS ORDERED: NICOTINE 14 MG/24 HR TRANSDERMAL ONE (08:49)
[2019-10-28] MEDS ORDERED: THIAMINE 100 MG TAB ONE ×2 (08:49→21:21)
[2019-10-28] MEDS ORDERED: SPIRONOLACTONE 12.5MG PER 1/2 TABLET ONE (08:49)
[2019-10-28] MEDS ORDERED: MULTIVITAMINS/MINERALS THERAP 1 TAB ONE (08:49)
[2019-10-28] MEDS ORDERED: LACTULOSE 20 GM/30 ML SYRUP UD ONE ×2 (08:49→21:21)
[2019-10-28] MEDS ORDERED: FOLIC ACID 1 MG TAB ONE (08:49)
[2019-10-28] MEDS ORDERED: predniSONE 20 MG TAB ONE (08:49)
[2019-10-28] MEDS ORDERED: PANTOPRAZOLE 40MG TAB (PROTONIX) As Ordered ONE (08:50)
[2019-10-28] MEDS ORDERED: FUROSEMIDE 40 MG TAB As Ordered ONE (08:51)
[2019-10-28] MEDS ORDERED: LORazepam 2 MG/ML VIAL As Ordered ONE (09:06)
[2019-10-28] MEDS ORDERED: PROPRANOLOL 10 MG TAB ONE (13:25)
[2019-10-28] MEDS ORDERED: rifAXIMin 550 MG TAB (XIFAXAN) ONE (13:25)
[2019-10-28] MEDS ORDERED: FUROSEMIDE 20 MG TAB As Ordered ONE (17:00)
[2019-10-28] MEDS ORDERED: PANTOPRAZOLE 40MG VIAL (C9113 PER 1) ONE (21:21)
[2019-10-28] MEDS ORDERED: PROPRANOLOL 20 MG TAB As Ordered ONE (21:22)
[2019-10-28] MEDS ORDERED: FUROSEMIDE 20MG/2ML VIAL (J1940) As Ordered ONE (21:22)
[2019-10-29] MEDS ORDERED: LACTULOSE 20 GM/30 ML SYRUP UD ONE ×2 (10:21→22:27)
[2019-10-29] MEDS ORDERED: MULTIVITAMINS/MINERALS THERAP 1 TAB ONE (10:21)
[2019-10-29] MEDS ORDERED: FOLIC ACID 1 MG TAB ONE (10:21)
[2019-10-29] MEDS ORDERED: THIAMINE 100 MG TAB ONE ×2 (10:21→22:27)
[2019-10-29] MEDS ORDERED: predniSONE 20 MG TAB ONE (10:21)
[2019-10-29] MEDS ORDERED: NICOTINE 14 MG/24 HR TRANSDERMAL ONE (10:21)
[2019-10-29] MEDS ORDERED: PANTOPRAZOLE 40MG TAB (PROTONIX) As Ordered ONE ×2 (10:22→22:38)
[2019-10-29] MEDS ORDERED: FUROSEMIDE 20 MG TAB As Ordered ONE (10:23)
[2019-10-29] MEDS ORDERED: SUCRALFATE 1 GM TAB As Ordered ONE (10:23)
[2019-10-29] MEDS ORDERED: PROPRANOLOL 20 MG TAB As Ordered ONE (10:23)
[2019-10-29] MEDS ORDERED: SUCRALFATE SUSP 1GM/10ML UD As Ordered ONE ×3 (11:36→22:27)
[2019-10-29] MEDS ORDERED: OXAZEPAM 15 MG CAP As Ordered ONE ×2 (11:36→17:15)
[2019-10-29] MEDS ORDERED: POTASSIUM CHLORIDE 10 MEQ SR TABLET As Ordered ONE (17:33)
[2019-10-29] MEDS ORDERED: MAGNESIUM SULFATE 1GM/100ML D5W BAG (10MG/ML) As Ordered ONE (17:33)
[2019-10-29] MEDS ORDERED: FUROSEMIDE 40MG/4ML VIAL (J1940) As Ordered ONE (22:32)
[2019-10-30] MEDS ORDERED: OXAZEPAM 15 MG CAP As Ordered ONE ×4 (00:55→18:02)
[2019-10-30] MEDS ORDERED: SUCRALFATE SUSP 1GM/10ML UD As Ordered ONE ×4 (08:32→21:04)
[2019-10-30] MEDS ORDERED: MULTIVITAMINS/MINERALS THERAP 1 TAB ONE (08:32)
[2019-10-30] MEDS ORDERED: LACTULOSE 20 GM/30 ML SYRUP UD ONE ×2 (08:32→14:04)
[2019-10-30] MEDS ORDERED: THIAMINE 100 MG TAB ONE ×2 (08:32→21:04)
[2019-10-30] MEDS ORDERED: NICOTINE 14 MG/24 HR TRANSDERMAL ONE (08:32)
[2019-10-30] MEDS ORDERED: SPIRONOLACTONE 12.5MG PER 1/2 TABLET ONE (08:32)
[2019-10-30] MEDS ORDERED: FOLIC ACID 1 MG TAB ONE (08:32)
[2019-10-30] MEDS ORDERED: predniSONE 20 MG TAB ONE (08:32)
[2019-10-30] MEDS ORDERED: PROPRANOLOL 20 MG TAB As Ordered ONE (08:33)
[2019-10-30] MEDS ORDERED: PANTOPRAZOLE 40MG TAB (PROTONIX) As Ordered ONE (08:33)
[2019-10-30] MEDS ORDERED: FUROSEMIDE 40MG/4ML VIAL (J1940) As Ordered ONE ×2 (08:34→18:02)
[2019-10-30] MEDS ORDERED: MEROPENEM 1GM IN NACL 0.9% 50ML IVBAG (J2185 PER 100MG) As Ordered ONE ×2 (13:26→21:59)
[2019-10-30] MEDS ORDERED: POTASSIUM CHLORIDE 10 MEQ SR TABLET As Ordered ONE (13:26)
[2019-10-30] MEDS ORDERED: PANTOPRAZOLE 40MG VIAL (C9113 PER 1) ONE ×2 (21:02→21:04)
[2019-10-31] MEDS ORDERED: FUROSEMIDE 40MG/4ML VIAL (J1940) As Ordered ONE ×2 (00:29→16:32)
[2019-10-31] MEDS ORDERED: OXAZEPAM 15 MG CAP As Ordered ONE ×4 (00:29→16:47)
[2019-10-31] MEDS ORDERED: LACTULOSE 20 GM/30 ML SYRUP UD ONE ×4 (03:09→20:49)
[2019-10-31] MEDS ORDERED: MEROPENEM 1GM IN NACL 0.9% 50ML IVBAG (J2185 PER 100MG) As Ordered ONE ×3 (06:04→21:43)
[2019-10-31] MEDS ORDERED: predniSONE 20 MG TAB ONE (10:10)
[2019-10-31] MEDS ORDERED: MULTIVITAMINS/MINERALS THERAP 1 TAB ONE (10:10)
[2019-10-31] MEDS ORDERED: THIAMINE 100 MG TAB ONE ×2 (10:10→20:49)
[2019-10-31] MEDS ORDERED: SPIRONOLACTONE 12.5MG PER 1/2 TABLET ONE (10:10)
[2019-10-31] MEDS ORDERED: FOLIC ACID 1 MG TAB ONE (10:10)
[2019-10-31] MEDS ORDERED: PANTOPRAZOLE 40MG VIAL (C9113 PER 1) ONE (10:10)
[2019-10-31] MEDS ORDERED: NICOTINE 14 MG/24 HR TRANSDERMAL ONE (10:10)
[2019-10-31] MEDS ORDERED: SUCRALFATE SUSP 1GM/10ML UD As Ordered ONE ×4 (10:11→20:49)
[2019-10-31] MEDS ORDERED: FUROSEMIDE 20MG/2ML VIAL (J1940) As Ordered ONE (10:11)
[2019-10-31] MEDS ORDERED: POTASSIUM CHLORIDE 10 MEQ SR TABLET As Ordered ONE (13:26)
[2019-10-31] MEDS ORDERED: PANTOPRAZOLE 40MG TAB (PROTONIX) As Ordered ONE (20:49)
[2019-11-01] MEDS ORDERED: FUROSEMIDE 40MG/4ML VIAL (J1940) As Ordered ONE ×3 (00:48→17:07)
[2019-11-01] MEDS ORDERED: OXAZEPAM 15 MG CAP As Ordered ONE ×4 (00:48→18:04)
[2019-11-01] MEDS ORDERED: LACTULOSE 20 GM/30 ML SYRUP UD ONE ×2 (03:49→08:22)
[2019-11-01] MEDS ORDERED: MEROPENEM 1GM IN NACL 0.9% 50ML IVBAG (J2185 PER 100MG) As Ordered ONE ×3 (05:44→21:07)
[2019-11-01] MEDS ORDERED: NICOTINE 14 MG/24 HR TRANSDERMAL ONE (08:22)
[2019-11-01] MEDS ORDERED: MULTIVITAMINS/MINERALS THERAP 1 TAB ONE (08:22)
[2019-11-01] MEDS ORDERED: SPIRONOLACTONE 12.5MG PER 1/2 TABLET ONE (08:22)
[2019-11-01] MEDS ORDERED: SUCRALFATE SUSP 1GM/10ML UD As Ordered ONE ×4 (08:22→21:07)
[2019-11-01] MEDS ORDERED: FOLIC ACID 1 MG TAB ONE (08:22)
[2019-11-01] MEDS ORDERED: predniSONE 20 MG TAB ONE (08:22)
[2019-11-01] MEDS ORDERED: THIAMINE 100 MG TAB ONE ×2 (08:22→21:07)
[2019-11-01] MEDS ORDERED: PANTOPRAZOLE 40MG TAB (PROTONIX) As Ordered ONE ×2 (08:23→21:07)
[2019-11-01] MEDS ORDERED: POTASSIUM CHLORIDE 10 MEQ SR TABLET As Ordered ONE (14:12)
[2019-11-01] MEDS ORDERED: MAGNESIUM SULFATE 1GM/100ML D5W BAG (10MG/ML) As Ordered ONE (18:47)
[2019-11-02] MEDS ORDERED: OXAZEPAM 15 MG CAP As Ordered ONE ×4 (00:09→21:46)
[2019-11-02] MEDS ORDERED: FUROSEMIDE 40MG/4ML VIAL (J1940) As Ordered ONE ×3 (00:09→17:17)
[2019-11-02] MEDS ORDERED: LACTULOSE 20 GM/30 ML SYRUP UD ONE (03:22)
[2019-11-02] MEDS ORDERED: MEROPENEM 1GM IN NACL 0.9% 50ML IVBAG (J2185 PER 100MG) As Ordered ONE ×2 (05:57→14:23)
[2019-11-02] MEDS ORDERED: FOLIC ACID 1 MG TAB ONE (08:43)
[2019-11-02] MEDS ORDERED: SUCRALFATE SUSP 1GM/10ML UD As Ordered ONE ×4 (08:43→21:47)
[2019-11-02] MEDS ORDERED: MULTIVITAMINS/MINERALS THERAP 1 TAB ONE (08:43)
[2019-11-02] MEDS ORDERED: predniSONE 20 MG TAB ONE (08:43)
[2019-11-02] MEDS ORDERED: THIAMINE 100 MG TAB ONE (08:43)
[2019-11-02] MEDS ORDERED: NICOTINE 14 MG/24 HR TRANSDERMAL ONE (08:43)
[2019-11-02] MEDS ORDERED: SPIRONOLACTONE 12.5MG PER 1/2 TABLET ONE (08:43)
[2019-11-02] MEDS ORDERED: PANTOPRAZOLE 40MG TAB (PROTONIX) As Ordered ONE (08:44)
[2019-11-02] MEDS ORDERED: PANTOPRAZOLE 40MG VIAL (C9113 PER 1) ONE (21:47)
[2019-11-02] MEDS ORDERED: MOXIFLOXACIN 400 MG TAB As Ordered ONE (21:47)
[2019-11-03] MEDS ORDERED: FUROSEMIDE 40MG/4ML VIAL (J1940) As Ordered ONE ×3 (01:06→16:28)
[2019-11-03] MEDS ORDERED: LACTULOSE 20 GM/30 ML SYRUP UD ONE ×3 (03:09→14:31)
[2019-11-03] MEDS ORDERED: OXAZEPAM 15 MG CAP As Ordered ONE ×3 (06:08→21:47)
[2019-11-03] MEDS ORDERED: SUCRALFATE SUSP 1GM/10ML UD As Ordered ONE ×4 (07:42→21:43)
[2019-11-03] MEDS ORDERED: predniSONE 20 MG TAB ONE (09:15)
[2019-11-03] MEDS ORDERED: FOLIC ACID 1 MG TAB ONE (09:15)
[2019-11-03] MEDS ORDERED: MULTIVITAMINS/MINERALS THERAP 1 TAB ONE (09:15)
[2019-11-03] MEDS ORDERED: THIAMINE 100 MG TAB ONE ×2 (09:15→21:43)
[2019-11-03] MEDS ORDERED: NICOTINE 14 MG/24 HR TRANSDERMAL ONE (09:15)
[2019-11-03] MEDS ORDERED: SPIRONOLACTONE 12.5MG PER 1/2 TABLET ONE (09:15)
[2019-11-03] MEDS ORDERED: PANTOPRAZOLE 40MG TAB (PROTONIX) As Ordered ONE (09:19)
[2019-11-03] MEDS ORDERED: COMBIVENT RESPIMAT 100-20MCG INHALER 4GM ONE (10:00)
[2019-11-03] MEDS ORDERED: POTASSIUM CHLORIDE 10 MEQ SR TABLET As Ordered ONE (11:33)
[2019-11-03] MEDS ORDERED: PANTOPRAZOLE 40MG VIAL (C9113 PER 1) ONE (21:43)
[2019-11-03] MEDS ORDERED: MOXIFLOXACIN 400 MG TAB As Ordered ONE (21:47)
[2019-11-04] MEDS ORDERED: FUROSEMIDE 40MG/4ML VIAL (J1940) As Ordered ONE ×3 (01:14→16:52)
[2019-11-04] MEDS ORDERED: LACTULOSE 20 GM/30 ML SYRUP UD ONE ×4 (03:55→20:47)
[2019-11-04] MEDS ORDERED: OXAZEPAM 15 MG CAP As Ordered ONE ×2 (05:49→14:46)
[2019-11-04] MEDS ORDERED: SUCRALFATE SUSP 1GM/10ML UD As Ordered ONE ×4 (07:31→20:47)
[2019-11-04] MEDS ORDERED: NICOTINE 14 MG/24 HR TRANSDERMAL ONE (08:44)
[2019-11-04] MEDS ORDERED: MULTIVITAMINS/MINERALS THERAP 1 TAB ONE (08:44)
[2019-11-04] MEDS ORDERED: predniSONE 20 MG TAB ONE (08:44)
[2019-11-04] MEDS ORDERED: THIAMINE 100 MG TAB ONE ×2 (08:44→20:47)
[2019-11-04] MEDS ORDERED: SPIRONOLACTONE 12.5MG PER 1/2 TABLET ONE (08:44)
[2019-11-04] MEDS ORDERED: FOLIC ACID 1 MG TAB ONE (08:44)
[2019-11-04] MEDS ORDERED: PANTOPRAZOLE 40MG TAB (PROTONIX) As Ordered ONE ×2 (08:45→20:47)
[2019-11-04] MEDS ORDERED: COMBIVENT RESPIMAT 100-20MCG INHALER 4GM ONE (10:00)
[2019-11-04] MEDS ORDERED: MOXIFLOXACIN 400 MG TAB As Ordered ONE (20:47)
[2019-11-05] MEDS ORDERED: FUROSEMIDE 40MG/4ML VIAL (J1940) As Ordered ONE ×3 (02:35→17:06)
[2019-11-05] MEDS ORDERED: LACTULOSE 20 GM/30 ML SYRUP UD ONE ×4 (02:35→20:31)
[2019-11-05] MEDS ORDERED: OXAZEPAM 15 MG CAP As Ordered ONE ×2 (02:38→13:20)
[2019-11-05] MEDS ORDERED: HEPARIN SOD (PORCINE) 5000UNITS/ML 1ML VIAL/SYRINGE As Ordered ONE (06:13)
[2019-11-05] MEDS ORDERED: COMBIVENT RESPIMAT 100-20MCG INHALER 4GM ONE (10:00)
[2019-11-05] MEDS ORDERED: MULTIVITAMINS/MINERALS THERAP 1 TAB ONE (10:01)
[2019-11-05] MEDS ORDERED: THIAMINE 100 MG TAB ONE (10:01)
[2019-11-05] MEDS ORDERED: FOLIC ACID 1 MG TAB ONE (10:01)
[2019-11-05] MEDS ORDERED: predniSONE 20 MG TAB ONE (10:01)
[2019-11-05] MEDS ORDERED: SPIRONOLACTONE 12.5MG PER 1/2 TABLET ONE (10:01)
[2019-11-05] MEDS ORDERED: NICOTINE 14 MG/24 HR TRANSDERMAL ONE (10:01)
[2019-11-05] MEDS ORDERED: PANTOPRAZOLE 40MG TAB (PROTONIX) As Ordered ONE ×2 (10:14→20:32)
[2019-11-05] MEDS ORDERED: SUCRALFATE SUSP 1GM/10ML UD As Ordered ONE ×2 (13:20→20:31)
[2019-11-05] MEDS ORDERED: MAGNESIUM SULFATE 1GM/100ML D5W BAG (10MG/ML) As Ordered ONE ×2 (16:19→17:29)
[2019-11-05] MEDS ORDERED: MOXIFLOXACIN 400 MG TAB As Ordered ONE (20:32)
[2019-11-06] MEDS ORDERED: FUROSEMIDE 40MG/4ML VIAL (J1940) As Ordered ONE ×3 (00:33→17:53)
[2019-11-06] MEDS ORDERED: LACTULOSE 20 GM/30 ML SYRUP UD ONE ×3 (02:40→21:07)
[2019-11-06] MEDS ORDERED: OXAZEPAM 15 MG CAP As Ordered ONE ×2 (02:40→21:07)
[2019-11-06] MEDS ORDERED: THIAMINE 100 MG TAB ONE ×3 (03:24→21:07)
[2019-11-06] MEDS ORDERED: predniSONE 20 MG TAB ONE (08:22)
[2019-11-06] MEDS ORDERED: SUCRALFATE SUSP 1GM/10ML UD As Ordered ONE ×4 (08:22→21:07)
[2019-11-06] MEDS ORDERED: FOLIC ACID 1 MG TAB ONE (08:22)
[2019-11-06] MEDS ORDERED: NICOTINE 14 MG/24 HR TRANSDERMAL ONE (08:22)
[2019-11-06] MEDS ORDERED: SPIRONOLACTONE 12.5MG PER 1/2 TABLET ONE (08:22)
[2019-11-06] MEDS ORDERED: MULTIVITAMINS/MINERALS THERAP 1 TAB ONE (08:22)
[2019-11-06] MEDS ORDERED: PANTOPRAZOLE 40MG TAB (PROTONIX) As Ordered ONE ×2 (08:23→21:08)
[2019-11-06] MEDS ORDERED: COMBIVENT RESPIMAT 100-20MCG INHALER 4GM ONE (10:00)
[2019-11-06] MEDS ORDERED: MOXIFLOXACIN 400 MG TAB As Ordered ONE (21:08)
[2019-11-07] MEDS ORDERED: FUROSEMIDE 40MG/4ML VIAL (J1940) As Ordered ONE ×2 (01:50→09:01)
[2019-11-07] MEDS ORDERED: COMBIVENT RESPIMAT 100-20MCG INHALER 4GM ONE (07:00)
[2019-11-07] MEDS ORDERED: NICOTINE 14 MG/24 HR TRANSDERMAL ONE (08:58)
[2019-11-07] MEDS ORDERED: oxyCODONE 5MG TAB ONE (08:58)
[2019-11-07] MEDS ORDERED: LACTULOSE 20 GM/30 ML SYRUP UD ONE (08:58)
[2019-11-07] MEDS ORDERED: PANTOPRAZOLE 40MG TAB (PROTONIX) As Ordered ONE (08:58)
[2019-11-07] MEDS ORDERED: MULTIVITAMINS/MINERALS THERAP 1 TAB ONE (08:58)
[2019-11-07] MEDS ORDERED: FOLIC ACID 1 MG TAB ONE (08:58)
[2019-11-07] MEDS ORDERED: SPIRONOLACTONE 12.5MG PER 1/2 TABLET ONE (08:58)
[2019-11-07] MEDS ORDERED: SUCRALFATE SUSP 1GM/10ML UD As Ordered ONE ×2 (08:58→11:43)
[2019-11-07] MEDS ORDERED: THIAMINE 100 MG TAB ONE (08:58)
[2019-11-07] MEDS ORDERED: MOXIFLOXACIN 400 MG TAB As Ordered ONE (09:00)
[2019-11-07] MEDS ORDERED: predniSONE 10 MG TAB As Ordered ONE (09:00)
[2019-12-03 11:50] LABS: BASO # 0.1 10^3/uL (0.0-0.2); BASO % 0.3 % (0.0-1.0); EOS % 0.2 % (0.0-3.0); HEMATOCRIT 39.6 % (42.0-52.0); HEMOGLOBIN 13.6 g/dl (13.5-17.5); LYMPH # 2.8 10^3/uL (1.5-5.0); LYMPH % 13.7 % (24.0-44.0); MEAN CORPUSCULAR HGB CONC 34.3 g/dl (32.0-36.5); MEAN CORPUSCULAR VOLUME 104.8 fl (80.0-96.0); MONO % 4.8 % (0.0-5.0); NEUTROPHILS # 15.4 10^3/uL (1.5-8.5); NEUTROPHILS % 76.3 % (36.0-66.0); PLATELET COUNT, AUTOMATED 92 10^3/uL (150-450); RED BLOOD COUNT 3.78 10^6/uL (4.30-6.10); WHITE BLOOD COUNT 20.2 10^3/uL (4.0-10.0)
[2019-12-04 06:50] LABS: BASO % 0.2 % (0.0-1.0); EOS # 0.1 10^3/uL (0.0-0.5); EOS % 0.3 % (0.0-3.0); HEMATOCRIT 37.7 % (42.0-52.0); LYMPH # 2.4 10^3/uL (1.5-5.0); LYMPH % 11.1 % (24.0-44.0); MEAN CORPUSCULAR HEMOGLOBIN 36.1 pg (27.0-33.0); MEAN CORPUSCULAR HGB CONC 34.5 g/dl (32.0-36.5); MEAN CORPUSCULAR VOLUME 104.7 fl (80.0-96.0); MONO % 4.7 % (0.0-5.0); NEUTROPHILS # 17.6 10^3/uL (1.5-8.5); NEUTROPHILS % 80.1 % (36.0-66.0); PLATELET COUNT, AUTOMATED 114 10^3/uL (150-450); WHITE BLOOD COUNT 21.9 10^3/uL (4.0-10.0)
[2019-12-09 00:04] LABS: INR 1.11; PARTIAL THROMBOPLASTIN TIME 35.8 SECONDS (25.0-38.4); PROTHROMBIN TIME 14.5 SECONDS (11.8-14.0)
[2019-12-09 00:07] LABS: BASO % 0.1 % (0.0-1.0); EOS % 0.2 % (0.0-3.0); HEMATOCRIT 35.3 % (42.0-52.0); LYMPH # 1.8 10^3/uL (1.5-5.0); LYMPH % 8.8 % (24.0-44.0); MEAN CORPUSCULAR HEMOGLOBIN 35.7 pg (27.0-33.0); MEAN CORPUSCULAR VOLUME 105.1 fl (80.0-96.0); NEUTROPHILS % 83.1 % (36.0-66.0); PLATELET COUNT, AUTOMATED 116 10^3/uL (150-450); RED BLOOD COUNT 3.36 10^6/uL (4.30-6.10); WHITE BLOOD COUNT 20.5 10^3/uL (4.0-10.0)
[2019-12-09 00:09] LABS: HEMATOCRIT 37.2 % (42.0-52.0); HEMOGLOBIN 12.6 g/dl (13.5-17.5); MEAN CORPUSCULAR HEMOGLOBIN 36.1 pg (27.0-33.0); MEAN CORPUSCULAR HGB CONC 33.9 g/dl (32.0-36.5); MEAN CORPUSCULAR VOLUME 106.6 fl (80.0-96.0); PLATELET COUNT, AUTOMATED 121 10^3/uL (150-450); RED BLOOD COUNT 3.49 10^6/uL (4.30-6.10); WHITE BLOOD COUNT 19.5 10^3/uL (4.0-10.0)
[2019-12-09 13:06] LABS: BLOOD UREA NITROGEN 18 MG/DL (7-18); GLOMERULAR FILTRATION RATE > 60.0 (>60); GLUCOSE, FASTING 82 MG/DL (70-100); SODIUM LEVEL 135 MEQ/L (136-145)
[2019-12-09 13:07] LABS: CARBON DIOXIDE LEVEL 34 mmol/L (20-29); CHLORIDE LEVEL 93 MEQ/L (98-107); POTASSIUM SERUM 3.1 MEQ/L (3.5-5.1)
[2019-12-11 19:07] LABS: ALBUMIN 1.7 GM/DL (3.2-5.2); ALT/SGPT 71 U/L (12-78); BILIRUBIN,TOTAL 5.8 MG/DL (0.2-1.0); BLOOD UREA NITROGEN 19 MG/DL (7-18); C REACTIVE PROTEIN QUANTITATIV 2.15 MG/DL (0.00-0.30); CALCIUM LEVEL 8.1 MG/DL (8.5-10.1); CARBON DIOXIDE LEVEL 33 MEQ/L (21-32); CHLORIDE LEVEL 96 MEQ/L (98-107); CREATININE FOR GFR 0.62 MG/DL (0.70-1.30); GLOMERULAR FILTRATION RATE > 60.0 (>60); GLUCOSE, FASTING 103 MG/DL (70-100); MAGNESIUM LEVEL 1.8 MG/DL (1.8-2.4); NT-PRO BNP 360 PG/ML (<125); POTASSIUM SERUM 3.5 MEQ/L (3.5-5.1); SODIUM LEVEL 135 MEQ/L (136-145); TOTAL PROTEIN 5.2 GM/DL (6.4-8.2)
[2019-12-19 01:12] LABS: HEMATOCRIT 31.3 % (42.0-52.0); HEMOGLOBIN 10.8 g/dl (13.5-17.5); MEAN CORPUSCULAR HEMOGLOBIN 36.2 pg (27.0-33.0); MEAN CORPUSCULAR HGB CONC 34.5 g/dl (32.0-36.5); PLATELET COUNT, AUTOMATED 113 10^3/uL (150-450); RED BLOOD COUNT 2.98 10^6/uL (4.30-6.10); WHITE BLOOD COUNT 17.9 10^3/uL (4.0-10.0)
[2019-12-19 01:12] LABS: MEAN CORPUSCULAR HGB CONC 35.1 g/dl (32.0-36.5); MEAN CORPUSCULAR VOLUME 102.4 fl (80.0-96.0); RED BLOOD COUNT 5.78 10^6/uL (4.30-6.10); WHITE BLOOD COUNT 8.1 10^3/uL (4.0-10.0)
--- NOTE | 2019-12-19 11:51 | REP ---
ABDOMINAL ULTRASOUND: HISTORY: Rule out ascites. FINDINGS: Four quadrant abdominal survey sonography shows no evidence of abdominal ascites. Some edema of the abdominal wall soft tissues is noted. IMPRESSION: No evidence of abdominal ascites. MTDD
[2019-12-20 15:42] LABS: HEMATOCRIT 31.8 % (42.0-52.0); HEMOGLOBIN 10.8 g/dl (13.5-17.5); MEAN CORPUSCULAR HEMOGLOBIN 36.5 pg (27.0-33.0); MEAN CORPUSCULAR VOLUME 107.4 fl (80.0-96.0); PLATELET COUNT, AUTOMATED 124 10^3/uL (150-450); RED BLOOD COUNT 2.96 10^6/uL (4.30-6.10)
[2019-12-22 20:27] LABS: HEMATOCRIT 32.2 % (42.0-52.0); HEMOGLOBIN 10.7 g/dl (13.5-17.5); MEAN CORPUSCULAR HEMOGLOBIN 36.4 pg (27.0-33.0); MEAN CORPUSCULAR HGB CONC 33.2 g/dl (32.0-36.5); MEAN CORPUSCULAR VOLUME 109.5 fl (80.0-96.0); PLATELET COUNT, AUTOMATED 136 10^3/uL (150-450); RED BLOOD COUNT 2.94 10^6/uL (4.30-6.10); WHITE BLOOD COUNT 16.7 10^3/uL (4.0-10.0)
[2019-12-24 10:31] LABS: HEMATOCRIT 32.1 % (42.0-52.0); HEMOGLOBIN 10.9 g/dl (13.5-17.5); MEAN CORPUSCULAR HEMOGLOBIN 36.2 pg (27.0-33.0); MEAN CORPUSCULAR VOLUME 106.6 fl (80.0-96.0); PLATELET COUNT, AUTOMATED 131 10^3/uL (150-450); RED BLOOD COUNT 3.01 10^6/uL (4.30-6.10); WHITE BLOOD COUNT 15.5 10^3/uL (4.0-10.0)
[2019-12-24 10:59] LABS: HEMATOCRIT 31.2 % (42.0-52.0); HEMOGLOBIN 10.6 g/dl (13.5-17.5); MEAN CORPUSCULAR HEMOGLOBIN 36.2 pg (27.0-33.0); MEAN CORPUSCULAR VOLUME 106.5 fl (80.0-96.0); PLATELET COUNT, AUTOMATED 137 10^3/uL (150-450); RED BLOOD COUNT 2.93 10^6/uL (4.30-6.10); WHITE BLOOD COUNT 14.3 10^3/uL (4.0-10.0)
[2019-12-24 20:14] LABS: HEMATOCRIT 35.4 % (42.0-52.0); HEMOGLOBIN 11.7 g/dl (13.5-17.5); MEAN CORPUSCULAR HEMOGLOBIN 35.8 pg (27.0-33.0); MEAN CORPUSCULAR HGB CONC 33.1 g/dl (32.0-36.5); MEAN CORPUSCULAR VOLUME 108.3 fl (80.0-96.0); PLATELET COUNT, AUTOMATED 191 10^3/uL (150-450); RED BLOOD COUNT 3.27 10^6/uL (4.30-6.10); WHITE BLOOD COUNT 12.3 10^3/uL (4.0-10.0)
[2020-01-03 09:07] LABS: HEMATOCRIT 34.8 % (42.0-52.0); HEMOGLOBIN 11.5 g/dl (13.5-17.5); MEAN CORPUSCULAR HEMOGLOBIN 36.1 pg (27.0-33.0); MEAN CORPUSCULAR VOLUME 109.1 fl (80.0-96.0); PLATELET COUNT, AUTOMATED 174 10^3/uL (150-450); RED BLOOD COUNT 3.19 10^6/uL (4.30-6.10); WHITE BLOOD COUNT 14.6 10^3/uL (4.0-10.0)
[2020-01-03 11:11] LABS: HEMATOCRIT 35.2 % (42.0-52.0); HEMOGLOBIN 11.9 g/dl (13.5-17.5); MEAN CORPUSCULAR HEMOGLOBIN 37.4 pg (27.0-33.0); MEAN CORPUSCULAR HGB CONC 33.8 g/dl (32.0-36.5); MEAN CORPUSCULAR VOLUME 110.7 fl (80.0-96.0); PLATELET COUNT, AUTOMATED 165 10^3/uL (150-450); RED BLOOD COUNT 3.18 10^6/uL (4.30-6.10); WHITE BLOOD COUNT 13.4 10^3/uL (4.0-10.0)
[2020-01-11 14:09] LABS: HEMATOCRIT 34.6 % (42.0-52.0); HEMOGLOBIN 11.2 g/dl (13.5-17.5); MEAN CORPUSCULAR HEMOGLOBIN 35.4 pg (27.0-33.0); MEAN CORPUSCULAR HGB CONC 32.4 g/dl (32.0-36.5); MEAN CORPUSCULAR VOLUME 109.5 fl (80.0-96.0); PLATELET COUNT, AUTOMATED 146 10^3/uL (150-450); RED BLOOD COUNT 3.16 10^6/uL (4.30-6.10)
[2020-01-19 13:38] LABS: BLOOD UREA NITROGEN 18 MG/DL (7-18); CALCIUM LEVEL 7.9 MG/DL (8.5-10.1); CARBON DIOXIDE LEVEL 29 MEQ/L (21-32); CHLORIDE LEVEL 97 MEQ/L (98-107); CREATININE FOR GFR 0.66 MG/DL (0.70-1.30); GLOMERULAR FILTRATION RATE > 60.0 (>60); GLUCOSE, FASTING 136 MG/DL (70-100); MAGNESIUM LEVEL 1.6 MG/DL (1.8-2.4); POTASSIUM SERUM 3.4 MEQ/L (3.5-5.1); SODIUM LEVEL 134 MEQ/L (136-145)
[2020-01-19 13:40] LABS: ALBUMIN 1.7 GM/DL (3.2-5.2); ALT/SGPT 74 U/L (12-78); BILIRUBIN,TOTAL 4.9 MG/DL (0.2-1.0); BLOOD UREA NITROGEN 17 MG/DL (7-18); CALCIUM LEVEL 7.8 MG/DL (8.5-10.1); CARBON DIOXIDE LEVEL 30 MEQ/L (21-32); CHLORIDE LEVEL 97 MEQ/L (98-107); CREATININE FOR GFR 0.57 MG/DL (0.70-1.30); GLOMERULAR FILTRATION RATE > 60.0 (>60); GLUCOSE, FASTING 105 MG/DL (70-100); MAGNESIUM LEVEL 1.6 MG/DL (1.8-2.4); POTASSIUM SERUM 3.2 MEQ/L (3.5-5.1); SODIUM LEVEL 134 MEQ/L (136-145)
[2020-01-20 14:44] LABS: GLUCOSE, FASTING SEE SEPARATE REPORT
[2020-01-21 14:05] LABS: BLOOD UREA NITROGEN 18 MG/DL (7-18); CARBON DIOXIDE LEVEL 31 MEQ/L (21-32); CHLORIDE LEVEL 101 MEQ/L (98-107); CREATININE FOR GFR 0.68 MG/DL (0.70-1.30); GLOMERULAR FILTRATION RATE > 60.0 (>60); GLUCOSE, FASTING 96 MG/DL (70-100); MAGNESIUM LEVEL 1.9 MG/DL (1.8-2.4); POTASSIUM SERUM 3.4 MEQ/L (3.5-5.1); SODIUM LEVEL 136 MEQ/L (136-145)
[2020-01-25 06:48] LABS: ALBUMIN 2.5 GM/DL (3.2-5.2); ALT/SGPT 89 U/L (12-78); BLOOD UREA NITROGEN 18 MG/DL (7-18); CALCIUM LEVEL 8.3 MG/DL (8.5-10.1); CARBON DIOXIDE LEVEL 35 MEQ/L (21-32); CHLORIDE LEVEL 99 MEQ/L (98-107); CREATININE FOR GFR 0.69 MG/DL (0.70-1.30); GLOMERULAR FILTRATION RATE > 60.0 (>60); GLUCOSE, FASTING 81 MG/DL (70-100); POTASSIUM SERUM 3.1 MEQ/L (3.5-5.1); SODIUM LEVEL 139 MEQ/L (136-145); TOTAL PROTEIN 5.6 GM/DL (6.4-8.2)
[2020-01-26 10:22] LABS: ALBUMIN 2.7 GM/DL (3.2-5.2); ALT/SGPT 110 U/L (12-78); BILIRUBIN,TOTAL 2.5 MG/DL (0.2-1.0); BLOOD UREA NITROGEN 20 MG/DL (7-18); CALCIUM LEVEL 8.7 MG/DL (8.5-10.1); CARBON DIOXIDE LEVEL 32 MEQ/L (21-32); CHLORIDE LEVEL 101 MEQ/L (98-107); CREATININE FOR GFR 0.78 MG/DL (0.70-1.30); GLOMERULAR FILTRATION RATE > 60.0 (>60); GLUCOSE, FASTING 80 MG/DL (70-100); MAGNESIUM LEVEL 1.7 MG/DL (1.8-2.4); PHOSPHORUS LEVEL 4.3 MG/DL (2.5-4.9); POTASSIUM SERUM 3.3 MEQ/L (3.5-5.1); SODIUM LEVEL 140 MEQ/L (136-145)
[2020-01-26 16:42] LABS: BLOOD UREA NITROGEN 19 MG/DL (7-18); CALCIUM LEVEL 8.9 MG/DL (8.5-10.1); CARBON DIOXIDE LEVEL 32 MEQ/L (21-32); CHLORIDE LEVEL 100 MEQ/L (98-107); GLOMERULAR FILTRATION RATE > 60.0 (>60); GLUCOSE, FASTING 85 MG/DL (70-100); MAGNESIUM LEVEL 2.1 MG/DL (1.8-2.4); PHOSPHORUS LEVEL 4.3 MG/DL (2.5-4.9); POTASSIUM SERUM 3.6 MEQ/L (3.5-5.1); SODIUM LEVEL 139 MEQ/L (136-145)
[2020-01-27 03:32] LABS: ALBUMIN 2.5 GM/DL (3.2-5.2); ALT/SGPT 87 U/L (12-78); BILIRUBIN,TOTAL 3.5 MG/DL (0.2-1.0); BLOOD UREA NITROGEN 17 MG/DL (7-18); CALCIUM LEVEL 8.9 MG/DL (8.5-10.1); CARBON DIOXIDE LEVEL 36 MEQ/L (21-32); CHLORIDE LEVEL 100 MEQ/L (98-107); CREATININE FOR GFR 0.64 MG/DL (0.70-1.30); GLOMERULAR FILTRATION RATE > 60.0 (>60); GLUCOSE, FASTING 85 MG/DL (70-100); MAGNESIUM LEVEL 1.5 MG/DL (1.8-2.4); POTASSIUM SERUM 4.2 MEQ/L (3.5-5.1); SODIUM LEVEL 140 MEQ/L (136-145); TOTAL PROTEIN 5.4 GM/DL (6.4-8.2)
[2020-01-27 10:19] LABS: ALBUMIN 2.3 GM/DL (3.2-5.2); ALT/SGPT 87 U/L (12-78); BILIRUBIN,TOTAL 3.1 MG/DL (0.2-1.0); BLOOD UREA NITROGEN 20 MG/DL (7-18); CALCIUM LEVEL 8.3 MG/DL (8.5-10.1); CARBON DIOXIDE LEVEL 34 MEQ/L (21-32); CHLORIDE LEVEL 96 MEQ/L (98-107); CREATININE FOR GFR 0.56 MG/DL (0.70-1.30); GLOMERULAR FILTRATION RATE > 60.0 (>60); GLUCOSE, FASTING 87 MG/DL (70-100); MAGNESIUM LEVEL 1.8 MG/DL (1.8-2.4); POTASSIUM SERUM 3.4 MEQ/L (3.5-5.1); SODIUM LEVEL 134 MEQ/L (136-145); TOTAL PROTEIN 5.2 GM/DL (6.4-8.2)
[2020-01-27 11:48] LABS: CK-MB VALUE MASS < 1.0 NG/ML (<3.6); CPK CREATINE PHOSPHOKINASE 19 U/L (39-308); MAGNESIUM LEVEL 1.7 MG/DL (1.8-2.4); MB/CK RELATIVE INDEX 5.26 (< OR =4)
[2020-01-28 12:22] LABS: HEMATOCRIT 34.5 % (42.0-52.0); HEMOGLOBIN 11.4 g/dl (13.5-17.5); MEAN CORPUSCULAR HEMOGLOBIN 36.1 pg (27.0-33.0); MEAN CORPUSCULAR VOLUME 109.2 fl (80.0-96.0); PLATELET COUNT, AUTOMATED 141 10^3/uL (150-450); RED BLOOD COUNT 3.16 10^6/uL (4.30-6.10)
[2020-01-28 20:16] LABS: BLOOD UREA NITROGEN 20 MG/DL (7-18); CARBON DIOXIDE LEVEL 34 MEQ/L (21-32); CHLORIDE LEVEL 99 MEQ/L (98-107); CREATININE FOR GFR 0.71 MG/DL (0.70-1.30); GLOMERULAR FILTRATION RATE > 60.0 (>60); GLUCOSE, FASTING 83 MG/DL (70-100); MAGNESIUM LEVEL 1.6 MG/DL (1.8-2.4); PHOSPHORUS LEVEL 4.5 MG/DL (2.5-4.9); POTASSIUM SERUM 4.6 MEQ/L (3.5-5.1); SODIUM LEVEL 136 MEQ/L (136-145)
[2020-01-30 09:16] LABS: ALBUMIN 2.5 GM/DL (3.2-5.2); ALT/SGPT 91 U/L (12-78); BILIRUBIN,TOTAL 3.3 MG/DL (0.2-1.0); BLOOD UREA NITROGEN 18 MG/DL (7-18); CALCIUM LEVEL 8.6 MG/DL (8.5-10.1); CARBON DIOXIDE LEVEL 34 MEQ/L (21-32); CHLORIDE LEVEL 98 MEQ/L (98-107); CREATININE FOR GFR 0.65 MG/DL (0.70-1.30); GLOMERULAR FILTRATION RATE > 60.0 (>60); GLUCOSE, FASTING 101 MG/DL (70-100); MAGNESIUM LEVEL 1.9 MG/DL (1.8-2.4); POTASSIUM SERUM 3.7 MEQ/L (3.5-5.1); SODIUM LEVEL 137 MEQ/L (136-145); TOTAL PROTEIN 5.5 GM/DL (6.4-8.2)
== END 2019-11-07 08:00 | disposition home or self-care (01) | DRG 264 ==
LOC: M ED 15:05 → EEVIPCON 18:15 → M ED INP 18:15 → ENRESERV 18:54 → M PCU 20:37
PROVIDERS: ADMIT General Practice; ATTEND General Practice
PROC: 0W9G3ZX Drainage of Peritoneal Cavity, Percutaneous Approach, Diagnostic (ICD-10-PCS; principal; 2019-10-20 14:00)
PROC: 30233J1 Transfusion of Nonautologous Serum Albumin into Peripheral Vein, Percutaneous Approach (ICD-10-PCS; 2019-10-30)
DX: K70.31 Alcoholic cirrhosis of liver with ascites (principal); G93.41 Metabolic encephalopathy; E87.2 Acidosis; D69.6 Thrombocytopenia, unspecified; K70.11 Alcoholic hepatitis with ascites; J44.9 Chronic obstructive pulmonary disease, unspecified; F32.9 Major depressive disorder, single episode, unspecified; K76.0 Fatty (change of) liver, not elsewhere classified; F17.200 Nicotine dependence, unspecified, uncomplicated; E87.70 Fluid overload, unspecified; R53.81 Other malaise; F10.239 Alcohol dependence with withdrawal, unspecified; E87.6 Hypokalemia; R60.0 Localized edema; Z91.5 Personal history of self-harm; Z81.1 Family history of alcohol abuse and dependence

== ENCOUNTER 2019-12-25 12:01 | Inpatient (IN) | payer OTHER ==
[~2019-12-25] VITALS: Ht 172.7 cm; Wt 88.0 kg
[2019-12-25 13:03] LABS: VENOUS BASE EXCESS 8.2 (-2.0-2.0); VENOUS HCO3 33.2 MEQ/L (23.0-27.0); VENOUS O2 SATURATION 78.5 % (60.0-80.0); VENOUS PARTIAL PRESSURE CO2 45.5 mmHg (38.0-50.0); VENOUS PARTIAL PRESSURE O2 43.1 mmHg (30.0-50.0); VENOUS PH 7.481 UNITS (7.330-7.430); VENOUS STANDARD HCO3 31.4 MEQ/L; VENOUS TOTAL CO2 34.6 MEQ/L (24.0-28.0)
[2019-12-25] MEDS ORDERED: PANT40TA29 PO (13:06)
[2019-12-25] MEDS ORDERED: SPIR-10 PO (13:06)
[2019-12-25] MEDS ORDERED: LACT10SO (13:06)
[2019-12-25] MEDS ORDERED: FURO40TA2 PO (13:06)
[2019-12-25] MEDS ORDERED: PROP10TA56 PO (13:06)
--- NOTE | 2019-12-25 13:07 | REPVR ---
PROCEDURE INFORMATION: Exam: XR Chest, 1 View Exam date and time: 12/25/2019 12:59 PM Age: 34 years old Clinical indication: Chest pain TECHNIQUE: Imaging protocol: XR of the chest Views: 1 view. COMPARISON: [facility] - Chest, 2 view PA, Lat 02/12/2018 12:50:49 PM FINDINGS: Lungs: Unremarkable. No consolidation. Pleural space: Unremarkable. No pleural effusion. No pneumothorax. Heart/Mediastinum: Unremarkable. No cardiomegaly. Bones/joints: Unremarkable. IMPRESSION: No evidence for acute pulmonary disease. Electronically signed by: Anselmo Otero On 12/25/2019 13:07:16 PM
[2019-12-25 13:24] LABS: BASO # 0.1 10^3/uL (0.0-0.2); BASO % 0.9 % (0.0-1.0); EOS % 0.4 % (0.0-3.0); HEMATOCRIT 50.9 % (42.0-52.0); HEMOGLOBIN 17.8 g/dl (13.5-17.5); LYMPH # 1.5 10^3/uL (1.5-5.0); LYMPH % 19.7 % (24.0-44.0); MEAN CORPUSCULAR HEMOGLOBIN 33.1 pg (27.0-33.0); MEAN CORPUSCULAR VOLUME 94.8 fl (80.0-96.0); MONO # 0.7 10^3/uL (0.0-0.8); MONO % 8.8 % (0.0-5.0); NEUTROPHILS # 5.4 10^3/uL (1.5-8.5); NEUTROPHILS % 69.8 % (36.0-66.0); PLATELET COUNT, AUTOMATED 145 10^3/uL (150-450); RED BLOOD COUNT 5.37 10^6/uL (4.30-6.10); WHITE BLOOD COUNT 7.8 10^3/uL (4.0-10.0)
[2019-12-25 14:58] LABS: INR 1.12; PROTHROMBIN TIME 14.6 SECONDS (12.5-14.3)
[2019-12-25 15:13] LABS: ALBUMIN 3.4 GM/DL (3.2-5.2); ALT/SGPT 33 U/L (12-78); BILIRUBIN,DIRECT 0.5 MG/DL (0.0-0.2); BILIRUBIN,TOTAL 1.6 MG/DL (0.2-1.0); BLOOD UREA NITROGEN 10 MG/DL (7-18); CALCIUM LEVEL 8.8 MG/DL (8.5-10.1); CARBON DIOXIDE LEVEL 33 MEQ/L (21-32); CHLORIDE LEVEL 90 MEQ/L (98-107); CREATININE FOR GFR 0.94 MG/DL (0.70-1.30); ETHYL ALCOHOL (ETHANOL) < 0.003 % (0.000-0.010); GLOMERULAR FILTRATION RATE > 60.0 (>60); GLUCOSE, FASTING 124 MG/DL (70-100); LIPASE 353 U/L (73-393); MAGNESIUM LEVEL 1.3 MG/DL (1.8-2.4); NT-PRO BNP 161 PG/ML (<125); POTASSIUM SERUM 2.7 MEQ/L (3.5-5.1); SODIUM LEVEL 134 MEQ/L (136-145); TOTAL PROTEIN 7.3 GM/DL (6.4-8.2)
[2019-12-25] MEDS ORDERED: MAG SULF 1GM/100ML (MAG RUN) 1 GM in IV 1 EA IV ONE ×2 (15:15→17:15)
[2019-12-25] MEDS ORDERED: POTASSIUM CHLORIDE 10 MEQ SR TABLET PO ONE (15:15)
[2019-12-25] MEDS ORDERED: LACT10SO3 PO (16:06)
[2019-12-25] MEDS ORDERED: med rec comment (16:08)
[2019-12-25] MEDS ORDERED: KCL 10MEQ/100ML SWI (KRUN) 10 MEQ in IV 1 EA IV ONE ×2 (16:15→18:15)
[2019-12-25] MEDS ORDERED: NS 1,000 ML IV SCH (16:15)
--- NOTE | 2019-12-25 17:29 | HPEPDOC ---
General Date of Admission 12/25/19 Date of Service: Dec 25, 2019 Chief Complaint The patient is a 34-year-old male admitted with a reason for visit of Diff Breathing. History of Present Illness 34 year old male with cirrhosis of liver with recent h/o alcoholic hepatitis in October 2019, anxiety, depression , weakness whose last drink was 2 nights ago when he consumed 2 beers presented today for progressive onset of anxiety, SOB, extreme shakiness which started around 3 am associated with an abdominal pain and worsened form 8 am to 10 am when he felt he was going to collapse so called the ambulance. His abdominal pain was about 5/10 dull aching in the upper abdomen and he had some dry heaves. He also complains of blurring of vision which last all day and disbalance while walking and incoordination when he tries to reach for things he missess. He also reports that he is extremely weak and has in fact started using his walker again 2 weeks ago. He felt he was having a panic attack and he was going to collapse so came to ED. in the ED he was found to be mildly dehydrated with elevated Hb, and multiple electrolyte abnormalities including hypokalemia, hypomagnesemia. Home Medications Scheduled Furosemide (Furosemide) 40 Mg Tablet, 20 MG PO DAILY Oxazepam (Oxazepam) 10 Mg Capsule, 10 MG PO ASDIRECTED 1 cap twice a day for 1 day then 1 capsule daily at hs x 2 days then stop Pantoprazole Sodium (Pantoprazole Sodium) 40 Mg Tablet.dr, 40 MG PO BID, (Reported) Potassium Chloride (Potassium Chloride) 10 Meq Capsule.er, 1 CAP PO DAILY Propranolol HCl (Propranolol HCl) 10 Mg Tablet, 10 MG PO BID, (Reported) Spironolactone (Spironolactone) 25 Mg Tablet, 25 MG PO DAILY Scheduled PRN Lactulose (Lactulose) 10 Gm/15 Ml Solution, 30 ML PO Q6H PRN for CONSTIPATION, (Reported) Miscellaneous Medications [med rec comment] , (Reported) patient states doctor took him off one of his fluid medications,but doesnt know which one Allergies Coded Allergies: No Known Drug Allergies (Verified Allergy, Unknown, 08/26/18) Past Medical History Medical History Cirrhosis of liver, Ascitis, thrombocytopenia, COPD, depression, history of heavy alcohol use for a long time, GRADE 2 DIASTOLIC DYS, LOW NORMAL EF OF 50 tO 55%, alcoholic hepatitis in October 2019, Renal stone s/p lithotripsy on the left Family History Significant Family History: Cancer (lung cancer maternal grandfather, breast cancer mother and maternal aunt) Social History * Smoker: current smoker Alcohol: occationally Drugs: denies A-FIB/CHADSVASC A-FIB History Current/History of A-Fib/PAF?: No Review of Systems Constitutional: Reports: Weakness, Fatigue Eyes: Reports: Vision change (blurring of vision) ENT: Denies: Head Aches, Ear Pain, Dysphagia Skin: Denies: Rash, Lesions, Breakdown Pulmonary: Reports: Cough Cardiovascular: Denies: Chest Pain, Palpitations, Orthopnea, Paroxysmal Noc. Dyspnea, Lt Headedness Gastrointestinal: Reports: Nausea, Abdominal Pain Neurological: Reports: Weakness, Incoordination Psych: Reports: Anxiety Physical Examination General Exam: Positive: Alert, Cooperative, No Acute Distress, Other (very tremulous) Eye Exam: Positive: PERRLA, Conjunctiva & lids normal, EOMI; Negative: Sclera icteric ENT Exam: Positive: Atraumatic, Mucous membr. moist/pink, Pharynx Normal Neck Exam: Positive: Supple; Negative: JVD, thyromegaly Chest Exam: Positive: Normal air movement, Rhonchi Heart Exam: Positive: Tachycardic, Regular Rhythm, Normal S1, Normal S2; Negative: Rate Normal, Bradycardic, Irregular Rhythm, Gallops, Murmurs, Rubs Telemetry: Positive: No significant arrhythmia Abdomen Exam: Positive: Normal bowel sounds, Soft, Tenderness (in the epigastrium) Extremity Exam: Negative: Clubbing, Cyanosis, Edema Skin Exam: Positive: Nl turgor and temperature; Negative: Breakdown, Lesion Vital Signs Vital Signs Label Value Date Time Patient Temperature 99.0 degrees F 12/25/192016 Temperature Source Oral 12/25/192016 Pulse 92 12/25/192016 Respiratory Rate 21 bpm 12/25/192016 Blood Pressure Assessment 121/81 (94) 12/25/192016 Bedside Pulse Oximetry 98 % 12/25/19 2017 Laboratory Data Labs 24H Laboratory Tests 2 12/25/19 12:52: Immature Granulocyte % (Auto) 0.4, Neutrophils (%) (Auto) 69.8H, Lymphocytes (%) (Auto) 19.7L, Monocytes (%) (Auto) 8.8H, Eosinophils (%) (Auto) 0.4, Basophils (%) (Auto) 0.9, Neutrophils # (Auto) 5.4, Lymphocytes # (Auto) 1.5, Monocytes # (Auto) 0.7, Eosinophils # (Auto) 0.0, Basophils # (Auto) 0.1, Nucleated Red Blood Cells % (auto) 0.0, Blood Gas Bicarbonate Standard 31.4, Venous Blood pH 7.481H, Venous Blood Partial Pressure CO2 45.5, Venous Blood Partial Pressure O2 43.1, Venous Blood Total Carbon Dioxide 34.6H, Venous Blood HCO3 33.2H, Venous Blood Oxygen Saturation 78.5, Venous Blood Base Excess 8.2H, Anion Gap 11, Glomerular Filtration Rate > 60.0, Calcium Level 8.8, Magnesium Level 1.3L, Total Bilirubin 1.6H, Direct Bilirubin 0.5H, Aspartate Amino Transf (AST/SGOT) 99H, Alanine Aminotransferase (ALT/SGPT) 33, Alkaline Phosphatase 112, NT-Zyw-C-Type Natriuretic Peptide 161H, Total Protein 7.3, Albumin 3.4, Albumin/Globulin Ratio 0.9, Lipase 353, Thyroid Stimulating Hormone (TSH) 3.930H, Ethyl Alcohol Level < 0.003 12/25/19 13:19: POC Glucose (Misc Panel) 123H, POC Sodium (Misc Panel) 135L, POC Potassium (Misc Panel) 2.2*L, POC Chloride (Misc Panel) 84L, POC Total CO2 (Misc Panel) 32.0H, POC Blood Urea Nitrogen (Misc Panel 8, POC Ionized Calcium (Misc Panel) 3.6L, POC Creatinine (Misc Panel) 0.8, POC Hematocrit (Misc Panel) 54.0H 12/25/19 13:20: POC Troponin I (Misc) 0.00 12/25/19 13:23: Whole Blood Ionized Calcium 4.0L 12/25/19 14:26: Prothrombin Time 14.6H, Prothromb Time International Ratio 1.12 12/25/19 14:30: Urine Color YELLOW, Urine Appearance TURBIDH, Urine pH 6.0, Urine Specific [place] 1.024, Urine Protein 1+H, Urine Glucose (UA) NEGATIVE, Urine Ketones NEGATIVE, Urine Blood NEGATIVE, Urine Nitrite NEGATIVE, Urine Bilirubin 1+H, Urine Urobilinogen 2.0H, Urine Leukocyte Esterase NEGATIVE, Urine WBC (Auto) 4H, Urine RBC (Auto) 0, Urine Hyaline Casts (Auto) 0, Urine Bacteria (Auto) NEGATIVE, Urine Squamous Epithelial Cells 0, Urine Amorphous Sediment LARGEH, Urine Sperm (Auto) CBC/BMP Laboratory Tests 12/25/19 12:52 Assessment/Plan 34 year old male with alcoholic cirrhosis of liver with recent h/o alcoholic hepatitis in October 2019, anxiety;, depression , weakness whose last drink was 2 nights ago when he consumed 2 beers presented today for progressive onset of anxiety, SOB, extreme shakiness which started around 3 am associated with an abdominal pain and worsened form 8 am to 10 am when he felt he was going to collapse so called the ambulance. He also reports that he is extremely weak and has in fact started using his walker again 2 weeks ago. He felt he was having a panic attack and he was going to collapse so came to ED. in the ED he was found to be mildly dehydrated with elevated Hb, and multiple electrolyte abnormalities including hypokalemia, hypomagnesemia. Hypokalemia, hypomagnesemia will replace with IV magnesium and IV and oral potassium will check phosphorus level Calcium all mildly low will replace Cirrhosis of liver with ascites, hepatic encephalopthy most probably due to alcohol abuse however his ferritin is > 10624 so possibility of hemochromatosis is there will recheck ferritin, will discuss with Dr Richmond. will continue propanolol but hold diuretics for now. Alcoholic hepatitis in October 2019 with bilirubin as high as 24. now down to 1.6. Alcohol abuse continues to drink alcohol occasionally last drink was 2 nights ago will pace on CIWA protocol Has h/o DTs in last admission. Dehydration. due to diuresis will hold lasix and spironolactone patient reports he lost about 25 lbs. His Hb up to 17 from 11 in september. will give 1 liter of IVF. Plan / VTE VTE Prophylaxis Ordered?: Yes JEFFERY RUTH MD Dec 25, 2019 17:25
[2019-12-25 18:07] LABS: FERRITIN 1242 NG/ML (26-388); PHOSPHORUS LEVEL 3.3 MG/DL (2.5-4.9)
[2019-12-25] MEDS: THIAMINE 100 MG TAB PO SCH (18:11)
--- NOTE | 2019-12-25 20:56 | ECGEPIP ---
[facility] - ED Test Date: 2019-12-25 Pat Name: CHERYLE GARNETT Department: Room: - Gender: Male [employer] Clerk: [facility] : [id number] Requested By: Zarina Ayers Order Number: [id number] Reading MD: Zarina Ayers Measurements Intervals [place] Rate: 86 P: 54 NE: 168 QRS: 39 QRSD: 102 T: 39 QT: 430 QTc: 515 Interpretive Statements SINUS RHYTHM PROLONGED QT INTERVAL NSTTW abnormalities DECREASED RATE 10/13/19 Electronically Signed on 12-25-2019 20:55:30 EDT by Zarina Ayers
[2019-12-25 21:13] VITALS: BP 133/90
[2019-12-25] MEDS: PANTOPRAZOLE 40MG TAB (PROTONIX) PO SCH (21:54)
[2019-12-25] MEDS: POTASSIUM CHLORIDE 10 MEQ SR TABLET PO SCH (21:55)
[2019-12-25 22:00] VITALS: BP 133/90
[2019-12-26] VITALS (8 sets, daily range): BP systolic 117–140; BP diastolic 73–90
[2019-12-26] MEDS: PROPRANOLOL 10 MG TAB PO SCH ×3 (00:20→21:27)
[2019-12-26] MEDS: NICOTINE 21MG/24HR 1 EA TRANSDERMAL TD SCH ×2 (00:23→09:09)
[2019-12-26 01:14] LABS: BLOOD UREA NITROGEN 10 MG/DL (7-18); CALCIUM LEVEL 8.5 MG/DL (8.5-10.1); CARBON DIOXIDE LEVEL 32 MEQ/L (21-32); CHLORIDE LEVEL 94 MEQ/L (98-107); CREATININE FOR GFR 0.74 MG/DL (0.70-1.30); GLOMERULAR FILTRATION RATE > 60.0 (>60); GLUCOSE, FASTING 87 MG/DL (70-100); MAGNESIUM LEVEL 2.1 MG/DL (1.8-2.4); POTASSIUM SERUM 3.7 MEQ/L (3.5-5.1); SODIUM LEVEL 132 MEQ/L (136-145)
[2019-12-26 06:34] LABS: BASO % 0.4 % (0.0-1.0); EOS # 0.1 10^3/uL (0.0-0.5); EOS % 0.9 % (0.0-3.0); HEMATOCRIT 47.4 % (42.0-52.0); HEMOGLOBIN 16.3 g/dl (13.5-17.5); LYMPH # 2.1 10^3/uL (1.5-5.0); LYMPH % 28.2 % (24.0-44.0); MEAN CORPUSCULAR HEMOGLOBIN 33.7 pg (27.0-33.0); MEAN CORPUSCULAR HGB CONC 34.4 g/dl (32.0-36.5); MEAN CORPUSCULAR VOLUME 97.9 fl (80.0-96.0); MONO # 0.6 10^3/uL (0.0-0.8); MONO % 8.2 % (0.0-5.0); NEUTROPHILS # 4.7 10^3/uL (1.5-8.5); PLATELET COUNT, AUTOMATED 111 10^3/uL (150-450); RED BLOOD COUNT 4.84 10^6/uL (4.30-6.10); WHITE BLOOD COUNT 7.6 10^3/uL (4.0-10.0)
[2019-12-26 07:30] LABS: ALBUMIN 2.9 GM/DL (3.2-5.2); ALT/SGPT 26 U/L (12-78); BLOOD UREA NITROGEN 10 MG/DL (7-18); CALCIUM LEVEL 8.6 MG/DL (8.5-10.1); CARBON DIOXIDE LEVEL 32 MEQ/L (21-32); CHLORIDE LEVEL 95 MEQ/L (98-107); CREATININE FOR GFR 0.88 MG/DL (0.70-1.30); GLOMERULAR FILTRATION RATE > 60.0 (>60); GLUCOSE, FASTING 107 MG/DL (70-100); PHOSPHORUS LEVEL 3.1 MG/DL (2.5-4.9); SODIUM LEVEL 136 MEQ/L (136-145); TOTAL PROTEIN 6.4 GM/DL (6.4-8.2)
[2019-12-26 07:38] LABS: POTASSIUM SERUM 2.9 MEQ/L (3.5-5.1)
[2019-12-26] MEDS: PANTOPRAZOLE 40MG TAB (PROTONIX) PO SCH ×2 (09:10→21:26)
[2019-12-26] MEDS: MULTIVITAMINS/MINERALS THERAP 1 TAB PO SCH (09:10)
[2019-12-26] MEDS: POTASSIUM CHLORIDE 10 MEQ SR TABLET PO SCH (09:10)
[2019-12-26] MEDS: THIAMINE 100 MG TAB PO SCH ×2 (09:10→21:26)
[2019-12-26] MEDS: FOLIC ACID 1 MG TAB PO SCH (09:10)
--- NOTE | 2019-12-26 10:21 | IPNPDOC ---
Subjective Date Seen The patient was seen on 12/26/19. Subjective Chief Complaint/HPI Continues to complain of extreme leg weakness and difficulty even with walker. Has poor sensation in the legs. tremors less today but continues to have bouts of anxiety, insomnia at night but naps during days. Objective Physical Examination General Exam: Positive: Alert, Cooperative, No Acute Distress, Other (very tremulous) Eye Exam: Positive: PERRLA, Conjunctiva & lids normal, EOMI; Negative: Sclera icteric ENT Exam: Positive: Atraumatic, Mucous membr. moist/pink, Pharynx Normal Neck Exam: Positive: Supple; Negative: JVD, thyromegaly Chest Exam: Positive: Normal air movement, Rhonchi Heart Exam: Positive: Tachycardic, Regular Rhythm, Normal S1, Normal S2; Negative: Rate Normal, Bradycardic, Irregular Rhythm, Gallops, Murmurs, Rubs Telemetry: Positive: No significant arrhythmia Abdomen Exam: Positive: Normal bowel sounds, Soft, Tenderness (in the epigastrium) Extremity Exam: Negative: Clubbing, Cyanosis, Edema Skin Exam: Positive: Nl turgor and temperature; Negative: Breakdown, Lesion Assessment /Plan Assessment 34 year old male with alcoholic cirrhosis of liver with recent h/o alcoholic hepatitis in October 2019, anxiety;, depression , weakness whose last drink was 2 nights ago when he consumed 2 beers presented today for progressive onset of anxiety, SOB, extreme shakiness which started around 3 am associated with an abdominal pain and worsened form 8 am to 10 am when he felt he was going to collapse so called the ambulance. He also reports that he is extremely weak and has in fact started using his walker again 2 weeks ago. He felt he was having a panic attack and he was going to collapse so came to ED. in the ED he was found to be mildly dehydrated with elevated Hb, and multiple electrolyte abnormalities including hypokalemia, hypomagnesemia. Hypokalemia, hypomagnesemia will replace with IV magnesium and IV and oral potassium Phosphorus OK. Cirrhosis of liver with ascites, h/o hepatic encephalopathy most probably due to alcohol abuse however his ferritin is > 46264 before now only 1252. will continue propanolol but hold diuretics for now. Alcoholic hepatitis in October 2019 with bilirubin as high as 24. now down to 1.6. Alcohol abuse continues to drink alcohol occasionally last drink was 2 nights ago will pace on CIWA protocol Has h/o DTs in last admission. Dehydration. due to diuresis will hold lasix and spironolactone patient reports he lost about 25 lbs. His Hb up to 17 from in september. Now appears euvolemic. Peripheral neuropathy from alcohol abuse PT/OT Plan/VTE VTE Prophylaxis Ordered?: Yes VS, I&O, 24H, Fishbone Vital Signs/I&O Vital Signs Date Time Temp Pulse Resp B/P (MAP) Pulse Ox O2 Delivery O2 Flow Rate FiO2 12/26/19 09:10 79 121/77 12/26/19 08:00 97.4 17 95 Room Air I&O- Last 24 Hours up to 6 AM 12/26/19 05:59 Intake Total 1100 ml Output Total 175 ml Balance 925 ml Laboratory Data 24H LABS Laboratory Tests 2 12/25/19 12:52: Immature Granulocyte % (Auto) 0.4, Neutrophils (%) (Auto) 69.8H, Lymphocytes (%) (Auto) 19.7L, Monocytes (%) (Auto) 8.8H, Eosinophils (%) (Auto) 0.4, Basophils (%) (Auto) 0.9, Neutrophils # (Auto) 5.4, Lymphocytes # (Auto) 1.5, Monocytes # (Auto) 0.7, Eosinophils # (Auto) 0.0, Basophils # (Auto) 0.1, Nucleated Red Blood Cells % (auto) 0.0, Blood Gas Bicarbonate Standard 31.4, Venous Blood pH 7.481H, Venous Blood Partial Pressure CO2 45.5, Venous Blood Partial Pressure O2 43.1, Venous Blood Total Carbon Dioxide 34.6H, Venous Blood HCO3 33.2H, Venous Blood Oxygen Saturation 78.5, Venous Blood Base Excess 8.2H, Anion Gap 11, Glomerular Filtration Rate > 60.0, Calcium Level 8.8, Phosphorus Level 3.3, Magnesium Level 1.3L, Ferritin 1242H, Total Bilirubin 1.6H, Direct Bilirubin 0.5H, Aspartate Amino Transf (AST/SGOT) 99H, Alanine Aminotransferase (ALT/SGPT) 33, Alkaline Phosphatase 112, DE-Zsu-Z-Type Natriuretic Peptide 161H, Total Protein 7.3, Albumin 3.4, Albumin/Globulin Ratio 0.9, Lipase 353, Thyroid Stimulating Hormone (TSH) 3.930H, Ethyl Alcohol Level < 0.003 12/25/19 13:19: POC Glucose (Misc Panel) 123H, POC Sodium (Misc Panel) 135L, POC Potassium (Misc Panel) 2.2*L, POC Chloride (Misc Panel) 84L, POC Total CO2 (Misc Panel) 32.0H, POC Blood Urea Nitrogen (Misc Panel 8, POC Ionized Calcium (Misc Panel) 3.6L, POC Creatinine (Misc Panel) 0.8, POC Hematocrit (Misc Panel) 54.0H 12/25/19 13:20: POC Troponin I (Misc) 0.00 12/25/19 13:23: Whole Blood Ionized Calcium 4.0L 12/25/19 14:26: Prothrombin Time 14.6H, Prothromb Time International Ratio 1.12 12/25/19 14:30: Urine Color YELLOW, Urine Appearance TURBIDH, Urine pH 6.0, Urine Specific [place] 1.024, Urine Protein 1+H, Urine Glucose (UA) NEGATIVE, Urine Ketones NEGATIVE, Urine Blood NEGATIVE, Urine Nitrite NEGATIVE, Urine Bilirubin 1+H, Urine Urobilinogen 2.0H, Urine Leukocyte Esterase NEGATIVE, Urine WBC (Auto) 4H, Urine RBC (Auto) 0, Urine Hyaline Casts (Auto) 0, Urine Bacteria (Auto) NEGATIVE, Urine Squamous Epithelial Cells 0, Urine Amorphous Sediment LARGEH, Ur ine Sperm (Auto) 12/26/19 00:10: Anion Gap 6L, Glomerular Filtration Rate > 60.0, Calcium Level 8.5, Magnesium Level 2.1 12/26/19 06:20: Anion Gap 9, Glomerular Filtration Rate > 60.0, Calcium Level 8.6, Magnesium Level 2.0, Immature Granulocyte % (Auto) 0.3, Neutrophils (%) (Auto) 62.0, Lymphocytes (%) (Auto) 28.2, Monocytes (%) (Auto) 8.2H, Eosinophils (%) (Auto) 0.9, Basophils (%) (Auto) 0.4, Neutrophils # (Auto) 4.7, Lymphocytes # (Auto) 2.1, Monocytes # (Auto) 0.6, Eosinophils # (Auto) 0.1, Basophils # (Auto) 0.0, Nucleated Red Blood Cells % (auto) 0.0, Phosphorus Level 3.1, Total Bilirubin 2.0H, Aspartate Amino Transf (AST/SGOT) 70H, Alanine Aminotransferase (ALT/SGPT) 26, Alkaline Phosphatase 98, Total Protein 6.4, Albumin 2.9L, Albumin/Globulin Ratio 0.8 CBC/BMP Laboratory Tests 12/25/19 12:52 12/26/19 00:10 12/26/19 06:20 JEFFERY RUTH MD Dec 26, 2019 10:21
[2019-12-26] MEDS: KCL 10MEQ/100ML SWI (KRUN) 10 MEQ in IV 1 EA IV SCH ×4 (10:32→15:04)
[2019-12-26 10:47] LABS: VITAMIN B12 LEVEL 332 PG/ML (247-911)
[2019-12-26] MEDS: LORazepam 2 MG TAB PO PRN (13:55)
[2019-12-26] MEDS: POTASSIUM CHLORIDE 10% LIQ 20 MEQ/15 ML UDC PO SCH (21:26)
[2019-12-27] VITALS (16 sets, daily range): BP systolic 119–155; BP diastolic 70–105
[2019-12-27] MEDS: LORazepam 2 MG TAB PO PRN ×4 (04:58→13:11)
[2019-12-27 08:21] LABS: BASO % 0.5 % (0.0-1.0); EOS # 0.2 10^3/uL (0.0-0.5); EOS % 2.4 % (0.0-3.0); HEMATOCRIT 49.9 % (42.0-52.0); HEMOGLOBIN 16.8 g/dl (13.5-17.5); LYMPH # 2.3 10^3/uL (1.5-5.0); LYMPH % 27.8 % (24.0-44.0); MEAN CORPUSCULAR HEMOGLOBIN 33.3 pg (27.0-33.0); MEAN CORPUSCULAR HGB CONC 33.7 g/dl (32.0-36.5); MONO # 0.6 10^3/uL (0.0-0.8); MONO % 7.2 % (0.0-5.0); NEUTROPHILS # 5.1 10^3/uL (1.5-8.5); NEUTROPHILS % 61.7 % (36.0-66.0); PLATELET COUNT, AUTOMATED 109 10^3/uL (150-450); RED BLOOD COUNT 5.04 10^6/uL (4.30-6.10); WHITE BLOOD COUNT 8.3 10^3/uL (4.0-10.0)
[2019-12-27 08:39] LABS: ALBUMIN 3.3 GM/DL (3.2-5.2); ALT/SGPT 29 U/L (12-78); BILIRUBIN,TOTAL 1.8 MG/DL (0.2-1.0); BLOOD UREA NITROGEN 9 MG/DL (7-18); CARBON DIOXIDE LEVEL 30 MEQ/L (21-32); CHLORIDE LEVEL 100 MEQ/L (98-107); GLOMERULAR FILTRATION RATE > 60.0 (>60); GLUCOSE, FASTING 89 MG/DL (70-100); POTASSIUM SERUM 3.3 MEQ/L (3.5-5.1); SODIUM LEVEL 138 MEQ/L (136-145)
[2019-12-27] MEDS: MULTIVITAMINS/MINERALS THERAP 1 TAB PO SCH (08:45)
[2019-12-27] MEDS: PROPRANOLOL 10 MG TAB PO SCH ×2 (08:45→21:00)
[2019-12-27] MEDS: PANTOPRAZOLE 40MG TAB (PROTONIX) PO SCH ×2 (08:45→20:59)
[2019-12-27] MEDS ORDERED: KCL 10MEQ/100ML SWI (KRUN) 10 MEQ in IV 1 EA IV SCH (08:45)
[2019-12-27] MEDS: THIAMINE 100 MG TAB PO SCH ×2 (08:45→20:59)
[2019-12-27] MEDS: FOLIC ACID 1 MG TAB PO SCH (08:45)
[2019-12-27] MEDS: NICOTINE 21MG/24HR 1 EA TRANSDERMAL TD SCH (08:46)
[2019-12-27] MEDS: POTASSIUM CHLORIDE 10% LIQ 20 MEQ/15 ML UDC PO SCH ×2 (08:46→20:58)
[2019-12-27] MEDS ORDERED: LORazepam 2 MG/ML VIAL IV ONE (09:58)
--- NOTE | 2019-12-27 11:07 | IPNPDOC ---
Subjective Date Seen The patient was seen on 12/27/19. Subjective Chief Complaint/HPI Agitated and restless and hallucinating overnight so has a sitter now. He seems to be rambling about different things and sometimes as per nurses he seems to be talking to someone and shouting one or two words. He is walking around in his room without walker. His pulse is about 80 to 100, he is mildly hypertensive at 150/105 last but mostly ehe is in 130s to 140s/ 80s. He prabably is having some withdrawal going on . Unsure if he has underlying psychiatric issues or not. Objective Physical Examination General Exam: Positive: Alert, Cooperative, No Acute Distress, Other (very tremulous) Eye Exam: Positive: PERRLA, Conjunctiva & lids normal, EOMI; Negative: Sclera icteric ENT Exam: Positive: Atraumatic, Mucous membr. moist/pink, Pharynx Normal Neck Exam: Positive: Supple; Negative: JVD, thyromegaly Chest Exam: Positive: Normal air movement, Rhonchi Heart Exam: Positive: Tachycardic, Regular Rhythm, Normal S1, Normal S2; Negative: Rate Normal, Bradycardic, Irregular Rhythm, Gallops, Murmurs, Rubs Telemetry: Positive: No significant arrhythmia Abdomen Exam: Positive: Normal bowel sounds, Soft, Tenderness (in the epigastrium) Extremity Exam: Negative: Clubbing, Cyanosis, Edema Skin Exam: Positive: Nl turgor and temperature; Negative: Breakdown, Lesion Assessment /Plan Assessment 34 year old male with alcoholic cirrhosis of liver with recent h/o alcoholic hepatitis in October 2019, anxiety;, depression , weakness whose last drink was 2 nights ago when he consumed 2 beers presented today for progressive onset of anxiety, SOB, extreme shakiness which started around 3 am associated with an abdominal pain and worsened form 8 am to 10 am when he felt he was going to collapse so called the ambulance. He also reports that he is extremely weak and has in fact started using his walker again 2 weeks ago. He felt he was having a panic attack and he was going to collapse so came to ED. in the ED he was found to be mildly dehydrated with elevated Hb, and multiple electrolyte abnormalities including hypokalemia, hypomagnesemia. Alcohol abuse continues to drink alcohol occasionally last drink was on 12/22/19 Now with restlessness, rambling talk, auditory/ visual hallucination , walking out to the nursing statin and standing by the nurses computer. Seemed to be talking to people not there int the room. No tremors noted. Ammonia normal. possible withdrawal however cannot rule out underlying psychiatric issues will give olanzapine and see if that helps on CIWA protocol serax qid. Has h/o DTs in last admission. Hypokalemia, hypomagnesemia will replace with IV magnesium and IV and oral potassium Phosphorus OK. Cirrhosis of liver with ascites, h/o hepatic encephalopathy most probably due to alcohol abuse however his ferritin is > 07677 before now only 1252. will continue propranolol but hold diuretics for now. Alcoholic hepatitis in October 2019 with bilirubin as high as 24. now down to 1.6. Dehydration. due to diuresis will hold lasix and spironolactone patient reports he lost about 25 lbs. His Hb up to 17 from 11 in september. Now appears euvolemic. Peripheral neuropathy from alcohol abuse PT/OT Plan/VTE VTE Prophylaxis Ordered?: Yes VS, I&O, 24H, Fishbone Vital Signs/I&O Vital Signs Date Time Temp Pulse Resp B/P (MAP) Pulse Ox O2 Delivery O2 Flow Rate FiO2 12/27/19 10:10 90 155/105 (122) 98 12/27/19 08:00 97.0 Room Air 12/27/19 04:00 18 I&O- Last 24 Hours up to 6 AM 12/27/19 06:00 Intake Total 2200 ml Output Total 450 ml Balance 1750 ml Laboratory Data 24H LABS Laboratory Tests 2 12/27/19 08:02: Immature Granulocyte % (Auto) 0.4, Neutrophils (%) (Auto) 61.7, Lymphocytes (%) (Auto) 27.8, Monocytes (%) (Auto) 7.2H, Eosinophils (%) (Auto) 2.4, Basophils (%) (Auto) 0.5, Neutrophils # (Auto) 5.1, Lymphocytes # (Auto) 2.3, Monocytes # (Auto) 0.6, Eosinophils # (Auto) 0.2, Basophils # (Auto) 0.0, Nucleated Red Blood Cells % (auto) 0.0, Anion Gap 8, Glomerular Filtration Rate > 60.0, Calcium Level 9.0, Total Bilirubin 1.8H, Aspartate Amino Transf (AST/SGOT) 84H, Alanine Aminotransferase (ALT/SGPT) 29, Alkaline Phosphatase 115, Ammonia 28, Total Protein 7.0, Albumin 3.3, Albumin/Globulin Ratio 0.9 CBC/BMP Laboratory Tests 12/27/19 08:02 JEFFERY RUTH MD Dec 27, 2019 11:07
[2019-12-27 11:31] LABS: MAGNESIUM LEVEL 1.9 MG/DL (1.8-2.4)
[2019-12-27] MEDS: OXAZEPAM 15 MG CAP PO SCH ×2 (11:57→18:00)
[2019-12-27] MEDS ORDERED: POTASSIUM CHLORIDE 10% LIQ 20 MEQ/15 ML UDC PO ONE (12:00)
[2019-12-27] MEDS ORDERED: OLANZapine INTRAMUSCULAR 10MG VIAL IM ONE (12:00)
[2019-12-27] MEDS ORDERED: diazePAM 10MG/2ML SYRINGE (J3360 PER 5MG) IV PRN (13:45)
[2019-12-27] MEDS ORDERED: diazePAM 10MG/2ML SYRINGE (J3360 PER 5MG) IV ONE ×2 (13:45→14:00)
[2019-12-27] MEDS: RAMELTEON 8 MG TAB (ROZEREM) PO SCH (21:00)
[2019-12-28] VITALS: BP 129/83
[2019-12-28] MEDS: OXAZEPAM 15 MG CAP PO SCH ×2 (00:45→05:28)
[2019-12-28 04:00] VITALS: BP 126/82
[2019-12-28 06:29] LABS: BASO % 0.5 % (0.0-1.0); EOS # 0.2 10^3/uL (0.0-0.5); EOS % 2.5 % (0.0-3.0); HEMATOCRIT 48.9 % (42.0-52.0); HEMOGLOBIN 15.9 g/dl (13.5-17.5); LYMPH # 2.2 10^3/uL (1.5-5.0); LYMPH % 26.8 % (24.0-44.0); MEAN CORPUSCULAR HEMOGLOBIN 33.3 pg (27.0-33.0); MEAN CORPUSCULAR HGB CONC 32.5 g/dl (32.0-36.5); MEAN CORPUSCULAR VOLUME 102.5 fl (80.0-96.0); MONO # 0.6 10^3/uL (0.0-0.8); MONO % 6.8 % (0.0-5.0); NEUTROPHILS # 5.3 10^3/uL (1.5-8.5); PLATELET COUNT, AUTOMATED 103 10^3/uL (150-450); RED BLOOD COUNT 4.77 10^6/uL (4.30-6.10); WHITE BLOOD COUNT 8.4 10^3/uL (4.0-10.0)
[2019-12-28 06:55] LABS: ALBUMIN 2.8 GM/DL (3.2-5.2); ALT/SGPT 25 U/L (12-78); BILIRUBIN,TOTAL 1.2 MG/DL (0.2-1.0); BLOOD UREA NITROGEN 8 MG/DL (7-18); CARBON DIOXIDE LEVEL 31 MEQ/L (21-32); CHLORIDE LEVEL 107 MEQ/L (98-107); CREATININE FOR GFR 0.77 MG/DL (0.70-1.30); GLOMERULAR FILTRATION RATE > 60.0 (>60); GLUCOSE, FASTING 100 MG/DL (70-100); MAGNESIUM LEVEL 1.9 MG/DL (1.8-2.4); POTASSIUM SERUM 4.4 MEQ/L (3.5-5.1); SODIUM LEVEL 140 MEQ/L (136-145); TOTAL PROTEIN 6.2 GM/DL (6.4-8.2)
[2019-12-28] MEDS ORDERED: OLANZapine 5 MG TAB PO PRN (07:30)
[2019-12-28 08:00] VITALS: BP 136/86
[2019-12-28] MEDS: FOLIC ACID 1 MG TAB PO SCH (08:24)
[2019-12-28] MEDS: PANTOPRAZOLE 40MG TAB (PROTONIX) PO SCH ×2 (08:24→20:22)
[2019-12-28] MEDS: MULTIVITAMINS/MINERALS THERAP 1 TAB PO SCH (08:24)
[2019-12-28] MEDS: THIAMINE 100 MG TAB PO SCH (08:24)
[2019-12-28] MEDS: NICOTINE 21MG/24HR 1 EA TRANSDERMAL TD SCH (08:25)
[2019-12-28] MEDS: PROPRANOLOL 10 MG TAB PO SCH ×2 (08:25→20:23)
[2019-12-28] MEDS ORDERED: POTASSIUM CHLORIDE 10% LIQ 20 MEQ/15 ML UDC PO SCH (09:00)
--- NOTE | 2019-12-28 10:50 | IPNPDOC ---
Subjective Date Seen The patient was seen on 12/28/19. Subjective Chief Complaint/HPI Responded well to combination of Olanzapine and Serax. He calmed down and went to sleep. Overnight no further agitation/ anxiety/ hallucinations. Yesterday was walking around the room and out in the corridors with steady gait. Now he is alert and oriented and calm and cooperative. Objective Physical Examination General Exam: Positive: Alert, Cooperative, No Acute Distress, Other (very tremulous) Eye Exam: Positive: PERRLA, Conjunctiva & lids normal, EOMI; Negative: Sclera icteric ENT Exam: Positive: Atraumatic, Mucous membr. moist/pink, Pharynx Normal Neck Exam: Positive: Supple; Negative: JVD, thyromegaly Chest Exam: Positive: Normal air movement, Rhonchi Heart Exam: Positive: Tachycardic, Regular Rhythm, Normal S1, Normal S2; Negative: Rate Normal, Bradycardic, Irregular Rhythm, Gallops, Murmurs, Rubs Telemetry: Positive: No significant arrhythmia Abdomen Exam: Positive: Normal bowel sounds, Soft, Tenderness (in the epigast rium) Extremity Exam: Negative: Clubbing, Cyanosis, Edema Skin Exam: Positive: Nl turgor and temperature; Negative: Breakdown, Lesion Assessment /Plan Assessment 34 year old male with alcoholic cirrhosis of liver with recent h/o alcoholic hepatitis in October 2019, anxiety;, depression , weakness whose last drink was 2 nights ago when he consumed 2 beers presented today for progressive onset of anxiety, SOB, extreme shakiness which started around 3 am associated with an abdominal pain and worsened form 8 am to 10 am when he felt he was going to collapse so called the ambulance. He also reports that he is extremely weak and has in fact started using his walker again 2 weeks ago. He felt he was having a panic attack and he was going to collapse so came to ED. in the ED he was found to be mildly dehydrated with elevated Hb, and multiple electrolyte abnormalities including hypokalemia, hypomagnesemia. Alcohol abuse with possible alcohol withdrawal and acute metabolic encephalopathy continues to drink alcohol occasionally last drink was on 12/22/19. 2 beers. He is adamant that in the 5 weeks after last discharge he had 1 hard liquor and 4 beers Ammonia normal. Seemed to be having auditory and visual hallucinations also. possible withdrawal however cannot rule out underlying psychiatric disease vitals do not support acute withdrawal except for mildly elevate BP however he was very agitated and anxious trying to leave the floor to smoke. on [facility] protocol serax qid. Olanzepine prn Has h/o DTs in last admission. Hypokalemia, hypomagnesemia replaced Phosphorus OK. Cirrhosis of liver with ascites, h/o hepatic encephalopathy most probably due to alcohol abuse however his ferritin is > 11485 before now only 1252. will continue propranolol but hold diuretics for now. Alcoholic hepatitis in October 2019 with bilirubin as high as 24. now down to 1.6. Dehydration. due to diuresis will hold lasix and spironolactone patient reports he lost about 25 lbs. His Hb up to 17 from 11 in september. Now appears euvolemic. Peripheral neuropathy from alcohol abuse PT/OT Plan/VTE VTE Prophylaxis Ordered?: Yes VS, I&O, 24H, Fishbone Vital Signs/I&O Vital Signs Date Time Temp Pulse Resp B/P (MAP) Pulse Ox O2 Delivery O2 Flow Rate FiO2 12/28/19 04:00 78 126/82 12/28/19 04:00 97.4 16 95 Room Air I&O- Last 24 Hours up to 6 AM 12/28/19 06:59 Intake Total 450 ml Output Total 650 ml Balance -200 ml Laboratory Data 24H LABS Laboratory Tests 2 12/28/19 06:03: Immature Granulocyte % (Auto) 0.4, Neutrophils (%) (Auto) 63.0, Lymphocytes (%) (Auto) 26.8, Monocytes (%) (Auto) 6.8H, Eosinophils (%) (Auto) 2.5, Basophils (%) (Auto) 0.5, Neutrophils # (Auto) 5.3, Lymphocytes # (Auto) 2.2, Monocytes # (Auto) 0.6, Eosinophils # (Auto) 0.2, Basophils # (Auto) 0.0, Nucleated Red Blood Cells % (auto) 0.0, Anion Gap 2L, Glomerular Filtration Rate > 60.0, Calcium Level 9.0, Phosphorus Level 4.0#, Magnesium Level 1.9, Total Bilirubin 1.2H, Aspartate Amino Transf (AST/SGOT) 69H, Alanine Aminotransferase (ALT/SGPT) 25, Alkaline Phosphatase 91, Total Protein 6.2L, Albumin 2.8L, Albumin/Globulin Ratio 0.8 CBC/BMP Laboratory Tests 12/28/19 06:03 JEFFERY RUTH MD Dec 28, 2019 08:09
[2019-12-28 12:00] VITALS: BP 126/86
[2019-12-28] MEDS ORDERED: OXAZEPAM 15 MG CAP PO SCH (14:00)
[2019-12-28 16:00] VITALS: BP 130/92
[2019-12-28 20:00] VITALS: BP 126/77
[2019-12-28] MEDS: RAMELTEON 8 MG TAB (ROZEREM) PO SCH (20:22)
[2019-12-29] VITALS: BP 132/87
[2019-12-29 04:00] VITALS: BP 120/90
[2019-12-29 05:17] LABS: BASO % 0.5 % (0.0-1.0); EOS # 0.2 10^3/uL (0.0-0.5); HEMATOCRIT 47.9 % (42.0-52.0); HEMOGLOBIN 15.7 g/dl (13.5-17.5); LYMPH % 25.9 % (24.0-44.0); MEAN CORPUSCULAR HEMOGLOBIN 33.4 pg (27.0-33.0); MEAN CORPUSCULAR HGB CONC 32.8 g/dl (32.0-36.5); MEAN CORPUSCULAR VOLUME 101.9 fl (80.0-96.0); MONO # 0.6 10^3/uL (0.0-0.8); MONO % 7.2 % (0.0-5.0); NEUTROPHILS # 4.9 10^3/uL (1.5-8.5); NEUTROPHILS % 63.1 % (36.0-66.0); WHITE BLOOD COUNT 7.7 10^3/uL (4.0-10.0)
[2019-12-29 05:30] LABS: PLATELET COUNT, AUTOMATED 95 10^3/uL (150-450)
[2019-12-29 05:34] LABS: ALBUMIN 2.6 GM/DL (3.2-5.2); ALT/SGPT 27 U/L (12-78); BILIRUBIN,TOTAL 0.8 MG/DL (0.2-1.0); BLOOD UREA NITROGEN 8 MG/DL (7-18); CALCIUM LEVEL 8.6 MG/DL (8.5-10.1); CARBON DIOXIDE LEVEL 25 MEQ/L (21-32); CHLORIDE LEVEL 111 MEQ/L (98-107); CREATININE FOR GFR 0.66 MG/DL (0.70-1.30); GLOMERULAR FILTRATION RATE > 60.0 (>60); GLUCOSE, FASTING 94 MG/DL (70-100); MAGNESIUM LEVEL 1.8 MG/DL (1.8-2.4); SODIUM LEVEL 142 MEQ/L (136-145); TOTAL PROTEIN 5.9 GM/DL (6.4-8.2)
[2019-12-29 08:00] VITALS: BP 153/97
[2019-12-29] MEDS: FOLIC ACID 1 MG TAB PO SCH (08:43)
[2019-12-29] MEDS: PANTOPRAZOLE 40MG TAB (PROTONIX) PO SCH (08:43)
[2019-12-29] MEDS: MULTIVITAMINS/MINERALS THERAP 1 TAB PO SCH (08:43)
[2019-12-29 08:44] VITALS: BP 153/97
[2019-12-29] MEDS: NICOTINE 21MG/24HR 1 EA TRANSDERMAL TD SCH (08:44)
[2019-12-29] MEDS: PROPRANOLOL 10 MG TAB PO SCH (08:44)
[2019-12-29] MEDS ORDERED: SPIR-10 PO (10:26)
[2019-12-29] MEDS ORDERED: FURO40TA2 PO (10:26)
[2019-12-29] MEDS ORDERED: POTA10CA32 PO (10:26)
[2019-12-29] MEDS ORDERED: OXAZ10CA3 PO (10:26)
--- NOTE | 2019-12-29 12:17 | DS.PDOC ---
Discharge Summary General Date of Admission Dec 25, 2019 at 17:12 Date of Discharge 12/29/19 Discharge Summary PROCEDURES PERFORMED DURING STAY: [None]. DISCHARGE DIAGNOSES: Alcohol use disorder with acute Alcohol withdrawal Acute metabolic encephalopathy due to alcohol withdrawal Hypokalemia Hypomagnesemia Dehydration Peripheral neuropathy Cirrhosis of Liver H/O Alcoholic Hepatitis COMPLICATIONS/CHIEF COMPLAINT: Hypocalcemia. HOSPITAL COURSE: 34 year old male with alcoholic cirrhosis of liver with recent h/o alcoholic hepatitis in October 2019, anxiety;, depression , weakness whose last drink was 2 nights ago when he consumed 2 beers presented today for progressive onset of anxiety, SOB, extreme shakiness which started around 3 am associated with an abdominal pain and worsened form 8 am to 10 am when he felt he was going to collapse so called the ambulance. He also reports that he is extremely weak and has in fact started using his walker again 2 weeks ago. He felt he was having a panic attack and he was going to collapse so came to ED. in the ED he was found to be mildly dehydrated with elevated Hb, and multiple electrolyte abnormalities including hypokalemia, hypomagnesemia. Alcohol abuse with alcohol withdrawal caused acute encephalopathy with auditory and visual hallucinations, agitation. continues to drink alcohol occasionally last drink was on 12/22/19. 2 beers. He is adamant that in the 5 weeks after last discharge he had 1 hard liquor and 4 beers now resolved. Hypokalemia, hypomagnesemia replaced Phosphorus OK. Cirrhosis of liver with ascites, h/o hepatic encephalopathy most probably due to alcohol abuse however his ferritin is > 66864 before now only 1252. will continue propranolol, lasix and spironolactone. Alcoholic hepatitis in October 2019 with bilirubin as high as 24. Now resolved Dehydration. patient reports he lost about 25 lbs. His Hb up to 17 from 11 in september. Now appears euvolemic. will restart lower dose of diuretics Peripheral neuropathy from alcohol abuse DISCHARGE MEDICATIONS: Please see below. ALLERGIES: Please see below. PHYSICAL EXAMINATION ON DISCHARGE: VITAL SIGNS: Please see below. General Exam: Positive: Alert, Cooperative, No Acute Distress, Other (very tremulous) Eye Exam: Positive: PERRLA, Conjunctiva & lids normal, EOMI; Negative: Sclera icteric ENT Exam: Positive: Atraumatic, Mucous membr. moist/pink, Pharynx Normal Neck Exam: Positive: Supple; Negative: JVD, thyromegaly Chest Exam: Positive: Normal air movement, Rhonchi Heart Exam: Positive: Tachycardic, Regular Rhythm, Normal S1, Normal S2; Negative: Rate Normal, Bradycardic, Irregular Rhythm, Gallops, Murmurs, Rubs Telemetry: Positive: No significant arrhythmia Abdomen Exam: Positive: Normal bowel sounds, Soft, Tenderness (in the epigast rium) Extremity Exam: Negative: Clubbing, Cyanosis, Edema Skin Exam: Positive: Nl turgor and temperature; Negative: Breakdown, Lesion LABORATORY DATA: Please see below. ACTIVITY: [As tolerated]. DIET: Regular DISCHARGE PLAN: Home DISPOSITION: Home DISCHARGE INSTRUCTIONS: PMD in 1 week DISCHARGE CONDITION: [Stable]. TIME SPENT ON DISCHARGE: 35 minutes. Vital Signs/I&Os Vital Signs Date Time Temp Pulse Resp B/P (MAP) Pulse Ox O2 Delivery O2 Flow Rate FiO2 12/29/19 08:44 70 153/97 12/29/19 08:00 97.2 16 99 Room Air I&O- Last 24 Hours up to 6 AM 12/29/19 06:00 Intake Total 1610 ml Output Total 420 ml Balance 1190 ml Laboratory Data Labs 24H Laboratory Tests 2 12/29/19 04:30: Immature Granulocyte % (Auto) 0.3, Neutrophils (%) (Auto) 63.1, Lymphocytes (%) (Auto) 25.9, Monocytes (%) (Auto) 7.2H, Eosinophils (%) (Auto) 3.0, Basophils (%) (Auto) 0.5, Neutrophils # (Auto) 4.9, Lymphocytes # (Auto) 2.0, Monocytes # (Auto) 0.6, Eosinophils # (Auto) 0.2, Basophils # (Auto) 0.0, Nucleated Red Blood Cells % (auto) 0.0, Immature Platelet Fraction 2.3, Anion Gap 6L, Glomerular Filtration Rate > 60.0, Calcium Level 8.6, Magnesium Level 1.8, Total Bilirubin 0.8, Aspartate Amino Transf (AST/SGOT) 72H, Alanine Aminotransferase (ALT/SGPT) 27, Alkaline Phosphatase 111, Total Protein 5.9L, Albumin 2.6L, Albumin/Globulin Ratio 0.8 CBC/BMP Laboratory Tests 12/29/19 04:30 Discharge Medications Scheduled Furosemide (Furosemide) 40 Mg Tablet, 20 MG PO DAILY Oxazepam (Oxazepam) 10 Mg Capsule, 10 MG PO ASDIRECTED 1 cap twice a day for 1 day then 1 capsule daily at hs x 2 days then stop Pantoprazole Sodium (Pantoprazole Sodium) 40 Mg Tablet.dr, 40 MG PO BID, (Reported) Potassium Chloride (Potassium Chloride) 10 Meq Capsule.er, 1 CAP PO DAILY Propranolol HCl (Propranolol HCl) 10 Mg Tablet, 10 MG PO BID, (Reported) Spironolactone (Spironolactone) 25 Mg Tablet, 25 MG PO DAILY Scheduled PRN Lactulose (Lactulose) 10 Gm/15 Ml Solution, 30 ML PO Q6H PRN for CONSTIPATION, (Reported) Miscellaneous Medications [med rec comment] , (Reported) patient states doctor took him off one of his fluid medications,but doesnt know which one Allergies Coded Allergies: No Known Drug Allergies (Verified Allergy, Unknown, 08/26/18) JEFFERY RUTH MD Dec 29, 2019 12:17
== END 2019-12-29 12:57 | disposition home or self-care (01) | DRG 775 ==
LOC: EDBD 12:01 → M ED 12:01 → M ED INP 17:12 → ENRESERV 18:57 → M PCU 21:07
PROVIDERS: ADMIT Internal Medicine Nephrology; ATTEND Internal Medicine Nephrology
DX: F10.251 Alcohol dependence with alcohol-induced psychotic disorder with hallucinations (principal); E83.42 Hypomagnesemia; K70.31 Alcoholic cirrhosis of liver with ascites; K70.10 Alcoholic hepatitis without ascites; G62.9 Polyneuropathy, unspecified; E87.6 Hypokalemia; E86.0 Dehydration; F41.9 Anxiety disorder, unspecified; F32.9 Major depressive disorder, single episode, unspecified; Z79.899 Other long term (current) drug therapy

== ENCOUNTER → 2020-04-22 | Outpatient (CLI) | payer OTHER ==
[~2020-04-22] MED LIST changes: +FURO40TA2 PO; +GABA-282; -GABA-843; +LACT10SO; +LACT10SO3 PO; +OXAZ10CA3 PO; +PANT40TA29 PO; +POTA10CA32 PO; +PROP10TA56 PO; +SPIR-10 PO; +med rec comment
== END ==
LOC: M LABSMTC 12:21
PROVIDERS: ATTEND Pediatrics
DX: Z20.822 Contact with and (suspected) exposure to COVID-19 (principal)

== ENCOUNTER → 2020-06-02 | Outpatient (REF) | payer OTHER ==
[2020-06-02 13:42] LABS: BASO # 0.1 10^3/uL (0.0-0.2); BASO % 0.9 % (0.0-1.0); EOS # 0.2 10^3/uL (0.0-0.5); EOS % 2.1 % (0.0-3.0); HEMATOCRIT 47.7 % (42.0-52.0); HEMOGLOBIN 15.7 g/dl (13.5-17.5); LYMPH # 3.6 10^3/uL (1.5-5.0); LYMPH % 35.6 % (24.0-44.0); MEAN CORPUSCULAR HGB CONC 32.9 g/dl (32.0-36.5); MEAN CORPUSCULAR VOLUME 94.1 fl (80.0-96.0); MONO # 0.8 10^3/uL (0.0-0.8); MONO % 8.1 % (2.0-8.0); NEUTROPHILS # 5.3 10^3/uL (1.5-8.5); NEUTROPHILS % 52.3 % (36.0-66.0); PLATELET COUNT, AUTOMATED 288 10^3/uL (150-450); RED BLOOD COUNT 5.07 10^6/uL (4.30-6.10)
[2020-06-02 13:50] LABS: INR 0.94; PROTHROMBIN TIME 12.8 SECONDS (12.5-14.3)
[2020-06-02 13:51] LABS: PARTIAL THROMBOPLASTIN TIME 32.2 SECONDS (24.2-38.5)
[2020-06-02 14:06] LABS: ALBUMIN 4.3 GM/DL (3.2-5.2); ALT/SGPT 27 U/L (12-78); BILIRUBIN,DIRECT 0.2 MG/DL (0.0-0.2); BILIRUBIN,TOTAL 0.4 MG/DL (0.2-1.0); NT-PRO BNP 177 PG/ML (<125); PREALBUMIN 26.2 MG/DL (20.0-40.0); TOTAL PROTEIN 8.2 GM/DL (6.4-8.2)
[2020-06-02 14:23] LABS: HEPATITIS B SURFACE ANTIGEN NEGATIVE (NEGATIVE)
[2020-06-02 14:51] LABS: HEPATITIS B CORE ANTIBODY IGM NEGATIVE (NEGATIVE); HEPATITIS C VIRUS ABY INDEX < 0.0 INDEX (<0.8)
[2020-06-02 14:53] LABS: HEPATITIS A ANTIBODY IGM NEGATIVE (NEGATIVE)
== END ==
LOC: M LAB REF 13:14
PROVIDERS: ATTEND Pediatrics
DX: K70.11 Alcoholic hepatitis with ascites (principal); R06.00 Dyspnea, unspecified

== ENCOUNTER → 2020-06-28 | Outpatient (CLI) | payer OTHER ==
[2020-06-28 13:36] LABS: ALBUMIN 3.8 GM/DL (3.2-5.2); ALT/SGPT 24 U/L (12-78); BILIRUBIN,TOTAL 0.3 MG/DL (0.2-1.0); BLOOD UREA NITROGEN 17 MG/DL (7-18); CALCIUM LEVEL 9.8 MG/DL (8.5-10.1); CARBON DIOXIDE LEVEL 33 MEQ/L (21-32); CHLORIDE LEVEL 103 MEQ/L (98-107); CREATININE FOR GFR 0.98 MG/DL (0.70-1.30); GLOMERULAR FILTRATION RATE > 60.0 (>60); GLUCOSE, FASTING 112 MG/DL (70-100); POTASSIUM SERUM 4.2 MEQ/L (3.5-5.1); SODIUM LEVEL 139 MEQ/L (136-145); TOTAL PROTEIN 7.6 GM/DL (6.4-8.2)
== END ==
LOC: M WUC 11:51
PROVIDERS: ATTEND Family Medicine Addiction Medicine
DX: K70.11 Alcoholic hepatitis with ascites (principal)

== ENCOUNTER → 2020-07-06 | Outpatient (CLI) | payer OTHER ==
[2020-07-06 18:39] LABS: HEMATOCRIT 49.3 % (42.0-52.0); MEAN CORPUSCULAR HEMOGLOBIN 29.4 pg (27.0-33.0); MEAN CORPUSCULAR HGB CONC 32.5 g/dl (32.0-36.5); MEAN CORPUSCULAR VOLUME 90.6 fl (80.0-96.0); PLATELET COUNT, AUTOMATED 280 10^3/uL (150-450); RED BLOOD COUNT 5.44 10^6/uL (4.30-6.10); WHITE BLOOD COUNT 10.4 10^3/uL (4.0-10.0)
[2020-07-06 18:48] LABS: INR 0.9; PROTHROMBIN TIME 12.4 SECONDS (12.5-14.3)
[2020-07-06 19:03] LABS: ALBUMIN 4.4 GM/DL (3.2-5.2); ALT/SGPT 32 U/L (12-78); BILIRUBIN,TOTAL 0.3 MG/DL (0.2-1.0); BLOOD UREA NITROGEN 19 MG/DL (7-18); CALCIUM LEVEL 10.1 MG/DL (8.5-10.1); CARBON DIOXIDE LEVEL 33 MEQ/L (21-32); CHLORIDE LEVEL 101 MEQ/L (98-107); CREATININE FOR GFR 1.17 MG/DL (0.70-1.30); GLOMERULAR FILTRATION RATE > 60.0 (>60); GLUCOSE, FASTING 125 MG/DL (70-100); POTASSIUM SERUM 4.6 MEQ/L (3.5-5.1); SODIUM LEVEL 138 MEQ/L (136-145); TOTAL PROTEIN 8.3 GM/DL (6.4-8.2)
== END ==
LOC: M LAB 16:30
PROVIDERS: ATTEND Internal Medicine Gastroenterology
DX: K70.11 Alcoholic hepatitis with ascites (principal)

== ENCOUNTER → 2021-04-05 | Outpatient (REF) | payer OTHER | LOC: M LAB REF 21:27 | PROVIDERS: ATTEND Physician Assistant Medical | DX: R50.9 Fever, unspecified (principal); R19.7 Diarrhea, unspecified ==

== ENCOUNTER → 2021-05-05 | Outpatient (CLI) | payer OTHER ==
[2021-05-05 15:36] LABS: BASO # 0.1 10^3/uL (0.0-0.2); BASO % 0.6 % (0.0-1.0); EOS % 0.2 % (0.0-3.0); HEMATOCRIT 45.3 % (42.0-52.0); LYMPH # 3.1 10^3/uL (1.5-5.0); LYMPH % 18.1 % (24.0-44.0); MEAN CORPUSCULAR HEMOGLOBIN 32.6 pg (27.0-33.0); MEAN CORPUSCULAR HGB CONC 35.3 g/dl (32.0-36.5); MEAN CORPUSCULAR VOLUME 92.3 fl (80.0-96.0); MONO # 0.8 10^3/uL (0.0-0.8); MONO % 4.8 % (2.0-8.0); NEUTROPHILS # 12.8 10^3/uL (1.5-8.5); PLATELET COUNT, AUTOMATED 237 10^3/uL (150-450); RED BLOOD COUNT 4.91 10^6/uL (4.30-6.10)
[2021-05-05 15:49] LABS: PARTIAL THROMBOPLASTIN TIME 27.7 SECONDS (25.9-37.0); PROTHROMBIN TIME 13.6 SECONDS (12.7-14.5)
[2021-05-05 16:30] LABS: ALBUMIN 3.4 GM/DL (3.2-5.2); ALT/SGPT 104 U/L (12-78); BILIRUBIN,TOTAL 1.4 MG/DL (0.2-1.0); BLOOD UREA NITROGEN 11 MG/DL (7-18); CALCIUM LEVEL 8.8 MG/DL (8.5-10.1); CARBON DIOXIDE LEVEL 37 MEQ/L (21-32); CHLORIDE LEVEL 88 MEQ/L (98-107); GLOMERULAR FILTRATION RATE > 60.0 (>60); GLUCOSE, FASTING 110 MG/DL (70-100); POTASSIUM SERUM 2.9 MEQ/L (3.5-5.1); SODIUM LEVEL 134 MEQ/L (136-145); TOTAL PROTEIN 7.8 GM/DL (6.4-8.2)
== END ==
LOC: M RAD 14:45
PROVIDERS: ATTEND Physician Assistant
DX: K70.11 Alcoholic hepatitis with ascites (principal)

== ENCOUNTER → 2021-05-27 | Outpatient (CLI) | payer OTHER | LOC: M RAD 09:30 | PROVIDERS: ATTEND Physician Assistant | DX: K70.11 Alcoholic hepatitis with ascites (principal); R16.2 Hepatomegaly with splenomegaly, not elsewhere classified; K76.0 Fatty (change of) liver, not elsewhere classified; K80.20 Calculus of gallbladder without cholecystitis without obstruction ==

== ENCOUNTER 2021-07-23 10:44 | Inpatient (IN) | payer OTHER ==
[~2021-07-23] VITALS: Ht 172.7 cm; Wt 106.6 kg
[2021-07-23 11:31] LABS: INR 1.04
[2021-07-23 11:32] LABS: PARTIAL THROMBOPLASTIN TIME 34.7 SECONDS (25.9-37.0)
[2021-07-23 11:41] LABS: BASO # 0.1 10^3/uL (0.0-0.2); BASO % 0.4 % (0.0-1.0); EOS # 0.1 10^3/uL (0.0-0.5); EOS % 0.2 % (0.0-3.0); HEMATOCRIT 37.6 % (42.0-52.0); LYMPH # 2.1 10^3/uL (1.5-5.0); LYMPH % 8.4 % (24.0-44.0); MEAN CORPUSCULAR HEMOGLOBIN 34.8 pg (27.0-33.0); MEAN CORPUSCULAR VOLUME 93.5 fl (80.0-96.0); MONO # 0.9 10^3/uL (0.0-0.8); MONO % 3.7 % (2.0-8.0); NEUTROPHILS # 20.5 10^3/uL (1.5-8.5); NEUTROPHILS % 83.8 % (36.0-66.0); PLATELET COUNT, AUTOMATED 208 10^3/uL (150-450); RED BLOOD COUNT 4.02 10^6/uL (4.30-6.10); WHITE BLOOD COUNT 24.5 10^3/uL (4.0-10.0)
[2021-07-23 11:43] LABS: CK-MB VALUE MASS 1.8 NG/ML (<3.6)
[2021-07-23 11:45] LABS: MEAN CORPUSCULAR HGB CONC 37.2 g/dl (32.0-36.5)
[2021-07-23 11:55] LABS: ALBUMIN 2.2 GM/DL (3.2-5.2); BILIRUBIN,DIRECT 18.9 MG/DL (0.0-0.2); BILIRUBIN,TOTAL 22.5 MG/DL (0.2-1.0); CALCIUM LEVEL 7.6 MG/DL (8.5-10.1); CREATININE FOR GFR 2.55 MG/DL (0.70-1.30); GLOMERULAR FILTRATION RATE 30.2 (>60); MAGNESIUM LEVEL 1.5 MG/DL (1.8-2.4); POTASSIUM SERUM 3.3 MEQ/L (3.5-5.1); TOTAL PROTEIN 6.3 GM/DL (6.4-8.2)
[2021-07-23] MEDS ORDERED: NS 1,000 ML IV ONE ×2 (12:20→16:55)
[2021-07-23 13:00] LABS: RSV AMPLIFICATION NEGATIVE (NEGATIVE)
[2021-07-23] MEDS ORDERED: MORPHINE 4 MG/ML 1ML VIAL/SYRINGE IV ONE (13:15)
[2021-07-23] MEDS ORDERED: ONDANSETRON 4MG/2ML VIAL IV ONE ×2 (13:15→22:00)
[2021-07-23] MEDS ORDERED: NICOTINE 21MG/24HR 1 EA TRANSDERMAL TD ONE (13:25)
[2021-07-23 13:45] LABS: BILIRUBIN, URINE MANUAL 3+ (NEGATIVE); GLUCOSE, URINE (UA) MANUAL NEGATIVE (NEGATIVE); KETONE, URINE MANUAL NEGATIVE (NEGATIVE); UROBILINOGEN, URINE MANUAL OBSCURED mg/dl (NORMAL)
[2021-07-23 13:53] LABS: BACTERIA, URINE MOD AMOUNT; SQUAMOUS EPITHELIAL CELL URINE SMALL AMOUNT /hpf (SMALL AMT); TRANSITIONAL EPI CELLS, URINE SMALL AMOUNT /hpf
[2021-07-23] MEDS ORDERED: PIPERACILLIN/TAZOBACTAM SOD 3.375 GM in D5W MINI-BAG PLUS 50 ML IV ONE (14:05)
[2021-07-23] MEDS ORDERED: SPIR-10 PO (14:09)
[2021-07-23] MEDS ORDERED: FURO40TA2 PO (14:09)
[2021-07-23] MEDS ORDERED: ALBU8.5H INH (14:09)
[2021-07-23] MEDS ORDERED: POTA10TA67 PO (14:09)
[2021-07-23] MEDS ORDERED: MAALOX 30 ML SUSP *UDC PO PRN (14:40)
[2021-07-23] MEDS ORDERED: NS 1,000 ML IV SCH ×4 (14:40→19:00)
[2021-07-23] MEDS ORDERED: MOM 30ML SUSPENSION UDC PO PRN (14:40)
[2021-07-23] MEDS ORDERED: ACETAMINOPHEN TAB 650MG DOSE (2X325MG) PO PRN (14:40)
[2021-07-23] MEDS ORDERED: LORazepam 2 MG TAB PO PRN (15:10)
[2021-07-23] MEDS ORDERED: ALBUTEROL 90 MCG/ACT 8GM HFA INHALER INH PRN (15:25)
[2021-07-23] MEDS ORDERED: GASTROGRAFIN SOLUTION 30ML (Q9963) As Ordered ONE (15:27)
[2021-07-23] MEDS ORDERED: HOME MED LIST COMPLETE! XX SCH (15:30)
[2021-07-23] MEDS ORDERED: POTASSIUM CHLORIDE 10MEQ SR TABLET PO ONE (15:30)
[2021-07-23] MEDS: LEVALBUTEROL HFA 45MCG/ACT 15 GM INHALER INH SCH ×2 (15:44→23:29)
[2021-07-23 15:50] VITALS: BP 127/83
[2021-07-23] MEDS: GASTROGRAFIN SOLUTION 30ML PO SCH ×2 (15:50→16:20)
[2021-07-23] MEDS: MAG SULF 1GM/100ML (MAG RUN) 1 GM in IV 1 EA IV SCH ×2 (16:00→17:09)
[2021-07-23 16:44] LABS: ETHYL ALCOHOL (ETHANOL) < 0.003 % (0.000-0.010)
[2021-07-23] MEDS ORDERED: NS 500 ML IV ONE (16:55)
[2021-07-23 17:00] VITALS: O2SAT 97
[2021-07-23] MEDS: OXAZEPAM 15MG CAP PO SCH ×2 (17:09→21:11)
[2021-07-23] MEDS ORDERED: BENZONATATE 100MG CAPSULE PO PRN (17:30)
[2021-07-23 18:00] VITALS: O2SAT 95
[2021-07-23] MEDS: THIAMINE INJection 500 MG in NS 100 ML IV SCH (19:44)
[2021-07-23 20:00] VITALS: BP 117/77; O2SAT 95
[2021-07-23] MEDS: PANTOPRAZOLE 40MG TAB (PROTONIX) PO SCH (20:27)
[2021-07-23] MEDS: DOCUSATE SODIUM 100MG CAPSULE PO SCH (20:27)
[2021-07-23] MEDS: SCOPOLAMINE 1MG TRANSDERMAL PATCH TOP SCH (20:28)
[2021-07-23] MEDS: MORPHINE 2 MG/ML 1ML VIAL IV PRN (20:31)
[2021-07-23] MEDS ORDERED: PROPRANOLOL 10 MG TAB PO SCH (21:00)
[2021-07-23] MEDS ORDERED: THIAMINE 100 MG TAB PO SCH (21:00)
[2021-07-23] MEDS ORDERED: FIDAXOMICIN 200 MG TAB (DIFICID) PO SCH (21:00)
[2021-07-23] MEDS: PIPERACILLIN/TAZOBACTAM SOD 3.375 GM in D5W MINI-BAG PLUS 50 ML IV SCH (21:11)
[2021-07-23] MEDS: HEPARIN SOD (PORCINE) 5000UNITS/ML 1ML VIAL/SYRINGE SC SCH (21:12)
[2021-07-23] MEDS ORDERED: NS 0.45% 1,000 ML IV SCH (23:20)
[2021-07-23] MEDS: BUDESONIDE 180MCG INHALER (PULMICORT FLEXHALER) INH SCH (23:29)
[2021-07-24] VITALS (16 sets, daily range): BP systolic 118–133; BP diastolic 67–88; O2SAT 96–100
[2021-07-24 00:15] LABS: ALBUMIN 1.9 GM/DL (3.2-5.2); BILIRUBIN,TOTAL 20.6 MG/DL (0.2-1.0); CREATININE FOR GFR 1.76 MG/DL (0.70-1.30); GLOMERULAR FILTRATION RATE 46.4 (>60); POTASSIUM SERUM 2.5 MEQ/L (3.5-5.1); TOTAL PROTEIN 5.9 GM/DL (6.4-8.2)
[2021-07-24] MEDS: KCL 20MEQ in NS 1000ML 1,000 ML IV SCH ×2 (00:49→15:32)
[2021-07-24] MEDS ORDERED: POTASSIUM CHLORIDE 10% LIQ 20 MEQ/15 ML UDC PO ONE ×2 (01:00→05:00)
[2021-07-24] MEDS: THIAMINE INJection 500 MG in NS 100 ML IV SCH ×3 (01:05→18:14)
[2021-07-24] MEDS: LEVALBUTEROL HFA 45MCG/ACT 15 GM INHALER INH SCH ×2 (01:36→07:11)
[2021-07-24] MEDS: PIPERACILLIN/TAZOBACTAM SOD 3.375 GM in D5W MINI-BAG PLUS 50 ML IV SCH ×4 (03:59→22:07)
[2021-07-24 04:35] LABS: BASO # 0.1 10^3/uL (0.0-0.2); BASO % 0.4 % (0.0-1.0); EOS # 0.1 10^3/uL (0.0-0.5); EOS % 0.5 % (0.0-3.0); HEMOGLOBIN 12.3 g/dl (13.5-17.5); LYMPH # 1.8 10^3/uL (1.5-5.0); MEAN CORPUSCULAR HEMOGLOBIN 34.7 pg (27.0-33.0); MEAN CORPUSCULAR VOLUME 93.2 fl (80.0-96.0); MONO # 0.6 10^3/uL (0.0-0.8); MONO % 3.8 % (2.0-8.0); NEUTROPHILS # 13.7 10^3/uL (1.5-8.5); NEUTROPHILS % 82.1 % (36.0-66.0); PLATELET COUNT, AUTOMATED 131 10^3/uL (150-450); RED BLOOD COUNT 3.54 10^6/uL (4.30-6.10); WHITE BLOOD COUNT 16.7 10^3/uL (4.0-10.0)
[2021-07-24 04:36] LABS: MEAN CORPUSCULAR HGB CONC 37.3 g/dl (32.0-36.5)
[2021-07-24 04:42] LABS: ALBUMIN 1.9 GM/DL (3.2-5.2); BILIRUBIN,TOTAL 20.9 MG/DL (0.2-1.0); CALCIUM LEVEL 7.4 MG/DL (8.5-10.1); CREATININE FOR GFR 1.49 MG/DL (0.70-1.30); GLOMERULAR FILTRATION RATE 56.2 (>60); MAGNESIUM LEVEL 1.8 MG/DL (1.8-2.4); PHOSPHORUS LEVEL 1.7 MG/DL (2.5-4.9); POTASSIUM SERUM 2.4 MEQ/L (3.5-5.1); TOTAL PROTEIN 5.9 GM/DL (6.4-8.2)
[2021-07-24] MEDS: HEPARIN SOD (PORCINE) 5000UNITS/ML 1ML VIAL/SYRINGE SC SCH ×3 (06:12→22:00)
[2021-07-24] MEDS: OXAZEPAM 15MG CAP PO SCH ×3 (06:12→22:08)
[2021-07-24] MEDS: BUDESONIDE 180MCG INHALER (PULMICORT FLEXHALER) INH SCH ×2 (07:12→19:37)
[2021-07-24] MEDS: KCL 10MEQ/100ML SWI (KRUN) 10 MEQ in IV 1 EA IV SCH ×2 (08:18→09:58)
[2021-07-24] MEDS: PANTOPRAZOLE 40MG TAB (PROTONIX) PO SCH ×2 (08:18→20:10)
[2021-07-24] MEDS: NICOTINE 21MG/24HR 1 EA TRANSDERMAL TD SCH (08:18)
[2021-07-24] MEDS: FOLIC ACID 1 MG TAB PO SCH (08:18)
[2021-07-24] MEDS: MULTIVITAMINS/MINERALS THERAP 1 TAB PO SCH (08:18)
[2021-07-24] MEDS: DOCUSATE SODIUM 100MG CAPSULE PO SCH ×2 (08:19→20:10)
[2021-07-24 09:03] LABS: INR 1.18; PARTIAL THROMBOPLASTIN TIME 37.2 SECONDS (25.9-37.0); PROTHROMBIN TIME 15.4 SECONDS (12.7-14.5)
[2021-07-24] MEDS ORDERED: POTASSIUM PHOSPHATE INJ 20 MMOL in D5W 250 ML IV ONE (10:00)
[2021-07-24] MEDS: MORPHINE 2 MG/ML 1ML VIAL IV PRN ×2 (10:37→20:14)
[2021-07-24] MEDS: IPRATROPIUM 0.5MG/ALBUTEROL 2.5MG INH SOL UD 3ML (DUONEB) NEB SCH ×2 (13:10→19:36)
[2021-07-24 13:49] LABS: CREATININE FOR GFR 1.5 MG/DL (0.70-1.30); GLOMERULAR FILTRATION RATE 55.8 (>60); POTASSIUM SERUM 3.8 MEQ/L (3.5-5.1)
[2021-07-24] MEDS: PENTOXIFYLLINE 400 MG TAB PO SCH ×2 (15:31→20:10)
[2021-07-24 17:10] LABS: CALCIUM LEVEL 7.4 MG/DL (8.5-10.1); CREATININE FOR GFR 1.52 MG/DL (0.70-1.30); GLOMERULAR FILTRATION RATE 54.9 (>60); POTASSIUM SERUM 3.9 MEQ/L (3.5-5.1)
[2021-07-24 21:08] LABS: BLOOD UREA NITROGEN 15 MG/DL (7-18); CALCIUM LEVEL 7.6 MG/DL (8.5-10.1); CARBON DIOXIDE LEVEL 29 MEQ/L (21-32); CHLORIDE LEVEL 88 MEQ/L (98-107); CREATININE FOR GFR 1.21 MG/DL (0.70-1.30); GLOMERULAR FILTRATION RATE > 60.0 (>60); GLUCOSE, FASTING 130 MG/DL (70-100); POTASSIUM SERUM 3.6 MEQ/L (3.5-5.1); SODIUM LEVEL 127 MEQ/L (136-145)
[2021-07-25] VITALS (24 sets, daily range): BP systolic 113–144; BP diastolic 61–86; O2SAT 94–98
[2021-07-25 01:42] LABS: BLOOD UREA NITROGEN 14 MG/DL (7-18); CALCIUM LEVEL 7.3 MG/DL (8.5-10.1); CARBON DIOXIDE LEVEL 28 MEQ/L (21-32); CHLORIDE LEVEL 88 MEQ/L (98-107); CREATININE FOR GFR 1.23 MG/DL (0.70-1.30); GLOMERULAR FILTRATION RATE > 60.0 (>60); GLUCOSE, FASTING 107 MG/DL (70-100); POTASSIUM SERUM 2.9 MEQ/L (3.5-5.1); SODIUM LEVEL 126 MEQ/L (136-145)
[2021-07-25] MEDS: THIAMINE INJection 500 MG in NS 100 ML IV SCH ×3 (01:54→20:17)
[2021-07-25] MEDS: POTASSIUM CHLORIDE 10% LIQ 20 MEQ/15 ML UDC PO SCH ×2 (01:54→03:24)
[2021-07-25 01:57] LABS: MAGNESIUM LEVEL 1.9 MG/DL (1.8-2.4)
[2021-07-25] MEDS: IPRATROPIUM 0.5MG/ALBUTEROL 2.5MG INH SOL UD 3ML (DUONEB) NEB SCH ×4 (02:00→19:58)
[2021-07-25] MEDS: PIPERACILLIN/TAZOBACTAM SOD 3.375 GM in D5W MINI-BAG PLUS 50 ML IV SCH ×2 (03:24→09:37)
[2021-07-25] MEDS: MORPHINE 2 MG/ML 1ML VIAL IV PRN (04:24)
[2021-07-25] MEDS: OXAZEPAM 15MG CAP PO SCH ×3 (05:23→21:27)
[2021-07-25] MEDS: HEPARIN SOD (PORCINE) 5000UNITS/ML 1ML VIAL/SYRINGE SC SCH ×3 (05:23→21:27)
[2021-07-25 05:37] LABS: BASO # 0.1 10^3/uL (0.0-0.2); BASO % 0.3 % (0.0-1.0); EOS # 0.1 10^3/uL (0.0-0.5); EOS % 0.3 % (0.0-3.0); HEMATOCRIT 32.3 % (42.0-52.0); HEMOGLOBIN 11.7 g/dl (13.5-17.5); LYMPH # 1.6 10^3/uL (1.5-5.0); LYMPH % 8.9 % (24.0-44.0); MEAN CORPUSCULAR HEMOGLOBIN 34.3 pg (27.0-33.0); MEAN CORPUSCULAR HGB CONC 36.2 g/dl (32.0-36.5); MEAN CORPUSCULAR VOLUME 94.7 fl (80.0-96.0); MONO # 0.7 10^3/uL (0.0-0.8); MONO % 3.8 % (2.0-8.0); NEUTROPHILS # 14.5 10^3/uL (1.5-8.5); NEUTROPHILS % 82.8 % (36.0-66.0); PLATELET COUNT, AUTOMATED 119 10^3/uL (150-450); RED BLOOD COUNT 3.41 10^6/uL (4.30-6.10); WHITE BLOOD COUNT 17.5 10^3/uL (4.0-10.0)
[2021-07-25 05:48] LABS: INR 1.21; PROTHROMBIN TIME 15.7 SECONDS (12.7-14.5)
[2021-07-25 05:49] LABS: PARTIAL THROMBOPLASTIN TIME 38.7 SECONDS (25.9-37.0)
[2021-07-25] MEDS ORDERED: MAGNESIUM OXIDE 400MG TAB (MAG-OX) PO SCH (06:00)
[2021-07-25 06:18] LABS: ALBUMIN 1.9 GM/DL (3.2-5.2); ALT/SGPT 48 U/L (12-78); BILIRUBIN,TOTAL 22.1 MG/DL (0.2-1.0); BLOOD UREA NITROGEN 12 MG/DL (7-18); CALCIUM LEVEL 7.3 MG/DL (8.5-10.1); CARBON DIOXIDE LEVEL 28 MEQ/L (21-32); CHLORIDE LEVEL 91 MEQ/L (98-107); CREATININE FOR GFR 1.08 MG/DL (0.70-1.30); GLOMERULAR FILTRATION RATE > 60.0 (>60); GLUCOSE, FASTING 121 MG/DL (70-100); MAGNESIUM LEVEL 1.8 MG/DL (1.8-2.4); PHOSPHORUS LEVEL 0.9 MG/DL (2.5-4.9); POTASSIUM SERUM 3.5 MEQ/L (3.5-5.1); SODIUM LEVEL 126 MEQ/L (136-145); TOTAL PROTEIN 5.8 GM/DL (6.4-8.2)
[2021-07-25] MEDS: BUDESONIDE 180MCG INHALER (PULMICORT FLEXHALER) INH SCH ×2 (07:21→19:58)
[2021-07-25] MEDS: DOCUSATE SODIUM 100MG CAPSULE PO SCH (09:00)
[2021-07-25] MEDS: KCL 20MEQ in NS 1000ML 1,000 ML IV SCH ×2 (09:26→12:00)
[2021-07-25] MEDS: PENTOXIFYLLINE 400 MG TAB PO SCH (09:37)
[2021-07-25] MEDS: FOLIC ACID 1 MG TAB PO SCH (09:37)
[2021-07-25] MEDS: MULTIVITAMINS/MINERALS THERAP 1 TAB PO SCH (09:37)
[2021-07-25] MEDS: PANTOPRAZOLE 40MG TAB (PROTONIX) PO SCH ×2 (09:37→20:17)
[2021-07-25] MEDS: NICOTINE 21MG/24HR 1 EA TRANSDERMAL TD SCH (09:37)
[2021-07-25] MEDS ORDERED: POTASSIUM PHOSPHATE INJ 30 MMOL in D5W 500 ML IV ONE (10:00)
[2021-07-25 10:07] LABS: PTH INTACT 73.7 PG/ML (18.5-88.0); TOTAL 25(OH) VITAMIN D 16.6 NG/ML (30.0-100.0)
[2021-07-25] MEDS: predniSONE 20 MG TAB PO SCH (10:48)
[2021-07-25] MEDS: SODIUM CHLORIDE 1 GM TAB PO SCH ×3 (12:33→20:17)
[2021-07-26] VITALS (12 sets, daily range): BP systolic 114–132; BP diastolic 70–93; O2SAT 96–99
[2021-07-26] MEDS: KCL 20MEQ in NS 1000ML 1,000 ML IV SCH (02:07)
[2021-07-26] MEDS: THIAMINE INJection 500 MG in NS 100 ML IV SCH ×3 (02:08→18:00)
[2021-07-26] MEDS: MORPHINE 2 MG/ML 1ML VIAL IV PRN ×2 (02:13→12:12)
[2021-07-26] MEDS: IPRATROPIUM 0.5MG/ALBUTEROL 2.5MG INH SOL UD 3ML (DUONEB) NEB SCH ×4 (02:16→20:00)
[2021-07-26 03:59] LABS: BASO # 0.1 10^3/uL (0.0-0.2); BASO % 0.3 % (0.0-1.0); EOS % 0.1 % (0.0-3.0); HEMATOCRIT 31.1 % (42.0-52.0); HEMOGLOBIN 11.3 g/dl (13.5-17.5); LYMPH # 1.9 10^3/uL (1.5-5.0); LYMPH % 9.9 % (24.0-44.0); MEAN CORPUSCULAR HEMOGLOBIN 35.2 pg (27.0-33.0); MEAN CORPUSCULAR HGB CONC 36.3 g/dl (32.0-36.5); MEAN CORPUSCULAR VOLUME 96.9 fl (80.0-96.0); MONO # 0.8 10^3/uL (0.0-0.8); MONO % 4.3 % (2.0-8.0); NEUTROPHILS # 15.1 10^3/uL (1.5-8.5); NEUTROPHILS % 80.4 % (36.0-66.0); PLATELET COUNT, AUTOMATED 143 10^3/uL (150-450); RED BLOOD COUNT 3.21 10^6/uL (4.30-6.10); WHITE BLOOD COUNT 18.7 10^3/uL (4.0-10.0)
[2021-07-26 04:09] LABS: INR 1.22; PROTHROMBIN TIME 15.8 SECONDS (12.7-14.5)
[2021-07-26 04:10] LABS: PARTIAL THROMBOPLASTIN TIME 44.6 SECONDS (25.9-37.0)
[2021-07-26 04:27] LABS: ALBUMIN 1.9 GM/DL (3.2-5.2); ALT/SGPT 48 U/L (12-78); BILIRUBIN,TOTAL 23.9 MG/DL (0.2-1.0); BLOOD UREA NITROGEN 9 MG/DL (7-18); CALCIUM LEVEL 7.3 MG/DL (8.5-10.1); CARBON DIOXIDE LEVEL 27 MEQ/L (21-32); CHLORIDE LEVEL 95 MEQ/L (98-107); GLOMERULAR FILTRATION RATE > 60.0 (>60); GLUCOSE, FASTING 104 MG/DL (70-100); POTASSIUM SERUM 4.5 MEQ/L (3.5-5.1); SODIUM LEVEL 129 MEQ/L (136-145); TOTAL PROTEIN 5.2 GM/DL (6.4-8.2)
[2021-07-26] MEDS: OXAZEPAM 15MG CAP PO SCH ×3 (05:58→22:28)
[2021-07-26] MEDS: HEPARIN SOD (PORCINE) 5000UNITS/ML 1ML VIAL/SYRINGE SC SCH ×3 (05:58→22:29)
[2021-07-26] MEDS: BUDESONIDE 180MCG INHALER (PULMICORT FLEXHALER) INH SCH ×2 (07:14→20:00)
[2021-07-26] MEDS: predniSONE 20 MG TAB PO SCH (08:18)
[2021-07-26] MEDS: FOLIC ACID 1 MG TAB PO SCH (08:18)
[2021-07-26] MEDS: PANTOPRAZOLE 40MG TAB (PROTONIX) PO SCH ×2 (08:18→20:28)
[2021-07-26] MEDS: SODIUM CHLORIDE 1 GM TAB PO SCH ×3 (08:18→20:28)
[2021-07-26] MEDS: NICOTINE 21MG/24HR 1 EA TRANSDERMAL TD SCH (08:19)
[2021-07-26] MEDS: MULTIVITAMINS/MINERALS THERAP 1 TAB PO SCH (08:19)
[2021-07-26] MEDS: SCOPOLAMINE 1MG TRANSDERMAL PATCH TOP SCH (20:29)
[2021-07-27] MEDS: IPRATROPIUM 0.5MG/ALBUTEROL 2.5MG INH SOL UD 3ML (DUONEB) NEB SCH ×4 (01:09→19:00)
[2021-07-27] MEDS: THIAMINE INJection 500 MG in NS 100 ML IV SCH (02:22)
[2021-07-27 04:00] VITALS: BP 124/90
[2021-07-27] MEDS ORDERED: LORazepam 2 MG/ML VIAL IV STA (04:33)
[2021-07-27] MEDS: HEPARIN SOD (PORCINE) 5000UNITS/ML 1ML VIAL/SYRINGE SC SCH ×3 (05:55→21:31)
[2021-07-27] MEDS: OXAZEPAM 15MG CAP PO SCH ×3 (05:55→21:30)
[2021-07-27 06:00] VITALS: BP 124/90
[2021-07-27] MEDS ORDERED: metroNIDAZOLE (FLAGYL) 500MG TABLET PO SCH (06:00)
[2021-07-27] MEDS ORDERED: CIPROFLOXACIN 500MG TABLET PO SCH (06:00)
[2021-07-27 06:08] LABS: HEMATOCRIT 31.7 % (42.0-52.0); HEMOGLOBIN 11.3 g/dl (13.5-17.5); MEAN CORPUSCULAR HEMOGLOBIN 35.3 pg (27.0-33.0); MEAN CORPUSCULAR HGB CONC 35.6 g/dl (32.0-36.5); MEAN CORPUSCULAR VOLUME 99.1 fl (80.0-96.0); PLATELET COUNT, AUTOMATED 149 10^3/uL (150-450); WHITE BLOOD COUNT 22.7 10^3/uL (4.0-10.0)
[2021-07-27] MEDS: MORPHINE 2 MG/ML 1ML VIAL IV PRN (06:29)
[2021-07-27 06:36] LABS: ALBUMIN 1.9 GM/DL (3.2-5.2); ALT/SGPT 46 U/L (12-78); BILIRUBIN,TOTAL 22.8 MG/DL (0.2-1.0); BLOOD UREA NITROGEN 10 MG/DL (7-18); CALCIUM LEVEL 7.6 MG/DL (8.5-10.1); CARBON DIOXIDE LEVEL 29 MEQ/L (21-32); CHLORIDE LEVEL 96 MEQ/L (98-107); CREATININE FOR GFR 0.96 MG/DL (0.70-1.30); GLOMERULAR FILTRATION RATE > 60.0 (>60); GLUCOSE, FASTING 105 MG/DL (70-100); POTASSIUM SERUM 5.1 MEQ/L (3.5-5.1); SODIUM LEVEL 129 MEQ/L (136-145); TOTAL PROTEIN 5.8 GM/DL (6.4-8.2)
[2021-07-27 06:45] LABS: ANISOCYTOSIS 2+; LYMPHOCYTES 15 % (16-44); METAMYELOCYTES 1 % (0-0); MONOCYTES 2 % (0-5); MYELOCYTES 1 % (0-0); NEUTROPHILS 81 % (28-66); PLATELET ESTIMATE NORMAL (NORMAL)
[2021-07-27] MEDS: BUDESONIDE 180MCG INHALER (PULMICORT FLEXHALER) INH SCH ×2 (07:19→19:00)
[2021-07-27 08:12] VITALS: BP 121/88
[2021-07-27] MEDS ORDERED: MOM 30ML SUSPENSION UDC PO ONE (08:40)
[2021-07-27] MEDS ORDERED: BISACODYL 5 MG TAB PO ONE (08:40)
[2021-07-27] MEDS ORDERED: PANTOPRAZOLE 40MG VIAL IV SCH (09:00)
[2021-07-27] MEDS: predniSONE 20 MG TAB PO SCH (09:24)
[2021-07-27] MEDS: MULTIVITAMINS/MINERALS THERAP 1 TAB PO SCH (09:24)
[2021-07-27] MEDS: SODIUM CHLORIDE 1 GM TAB PO SCH ×3 (09:24→20:51)
[2021-07-27] MEDS: THIAMINE 100 MG TAB PO SCH ×3 (09:24→20:51)
[2021-07-27] MEDS: PANTOPRAZOLE 40MG TAB (PROTONIX) PO SCH (09:24)
[2021-07-27] MEDS: FOLIC ACID 1 MG TAB PO SCH (09:24)
[2021-07-27] MEDS: NICOTINE 21MG/24HR 1 EA TRANSDERMAL TD SCH (09:24)
[2021-07-27] MEDS ORDERED: FUROSEMIDE 40MG/4ML VIAL (J1940) IV ONE (10:35)
[2021-07-27] MEDS: SPIRONOLACTONE 25 MG TAB PO SCH ×3 (11:19→23:39)
[2021-07-27] MEDS ORDERED: ONDANSETRON 4MG/2ML VIAL IV PRN (11:55)
[2021-07-27] MEDS ORDERED: ONDANSETRON 4MG/2ML VIAL IV ONE (11:55)
[2021-07-27] MEDS ORDERED: BISACODYL 10 MG SUPP PR ONE (11:55)
[2021-07-27 12:50] VITALS: BP 135/105
[2021-07-27 13:54] LABS: HEMATOCRIT 33.9 % (42.0-52.0); HEMOGLOBIN 12.1 g/dl (13.5-17.5)
[2021-07-27 14:05] LABS: INR 1.18; PROTHROMBIN TIME 15.4 SECONDS (12.7-14.5)
[2021-07-27 14:06] LABS: PARTIAL THROMBOPLASTIN TIME 43.9 SECONDS (25.9-37.0)
[2021-07-27] MEDS: SODIUM CHLORIDE 0.9% NASAL GEL 15GM (AYR) SCH ×3 (14:44→20:51)
[2021-07-27] MEDS ORDERED: OCTREOTIDE ACETATE 1,200 MCG in NS 238.8 ML IV SCH (15:00)
[2021-07-27 16:07] VITALS: BP 125/76
[2021-07-27 18:10] LABS: HEMATOCRIT 34.8 % (42.0-52.0); HEMOGLOBIN 12.4 g/dl (13.5-17.5)
[2021-07-27 18:34] LABS: BLOOD UREA NITROGEN 10 MG/DL (7-18); CALCIUM LEVEL 7.9 MG/DL (8.5-10.1); CARBON DIOXIDE LEVEL 26 MEQ/L (21-32); CHLORIDE LEVEL 94 MEQ/L (98-107); CREATININE FOR GFR 1.02 MG/DL (0.70-1.30); GLOMERULAR FILTRATION RATE > 60.0 (>60); GLUCOSE, FASTING 127 MG/DL (70-100); POTASSIUM SERUM 4.1 MEQ/L (3.5-5.1); SODIUM LEVEL 127 MEQ/L (136-145)
[2021-07-27 20:00] VITALS: BP 125/76
[2021-07-27] MEDS: PANTOPRAZOLE 40MG VIAL IV SCH (20:51)
[2021-07-27] MEDS ORDERED: FUROSEMIDE injection 250 MG in D5W 225 ML IV SCH (21:00)
[2021-07-28] VITALS: BP 112/70
[2021-07-28 00:22] LABS: HEMATOCRIT 32.9 % (42.0-52.0); HEMOGLOBIN 11.9 g/dl (13.5-17.5)
[2021-07-28] MEDS: IPRATROPIUM 0.5MG/ALBUTEROL 2.5MG INH SOL UD 3ML (DUONEB) NEB SCH ×4 (02:31→19:45)
[2021-07-28 04:21] LABS: HEMOGLOBIN 11.5 g/dl (13.5-17.5); MEAN CORPUSCULAR HEMOGLOBIN 35.1 pg (27.0-33.0); MEAN CORPUSCULAR HGB CONC 35.9 g/dl (32.0-36.5); MEAN CORPUSCULAR VOLUME 97.6 fl (80.0-96.0); PLATELET COUNT, AUTOMATED 149 10^3/uL (150-450); RED BLOOD COUNT 3.28 10^6/uL (4.30-6.10)
[2021-07-28 04:43] LABS: ATYPICAL LYMPH 2 % (0-5); LYMPHOCYTES 10 % (16-44); METAMYELOCYTES 1 % (0-0); MONOCYTES 3 % (0-5); MYELOCYTES 2 % (0-0); NEUTROPHILS 82 % (28-66)
[2021-07-28 04:44] LABS: ANISOCYTOSIS 2+; PLATELET ESTIMATE NORMAL (NORMAL)
[2021-07-28 04:46] LABS: TARGET CELLS 1+
[2021-07-28 04:52] LABS: ALBUMIN 2.1 GM/DL (3.2-5.2); ALT/SGPT 48 U/L (12-78); BILIRUBIN,TOTAL 23.2 MG/DL (0.2-1.0); BLOOD UREA NITROGEN 10 MG/DL (7-18); CALCIUM LEVEL 7.7 MG/DL (8.5-10.1); CARBON DIOXIDE LEVEL 28 MEQ/L (21-32); CHLORIDE LEVEL 92 MEQ/L (98-107); CREATININE FOR GFR 0.97 MG/DL (0.70-1.30); GLOMERULAR FILTRATION RATE > 60.0 (>60); GLUCOSE, FASTING 116 MG/DL (70-100); POTASSIUM SERUM 3.5 MEQ/L (3.5-5.1); SODIUM LEVEL 130 MEQ/L (136-145); TOTAL PROTEIN 5.6 GM/DL (6.4-8.2)
[2021-07-28] MEDS: HEPARIN SOD (PORCINE) 5000UNITS/ML 1ML VIAL/SYRINGE SC SCH ×3 (06:20→21:50)
[2021-07-28] MEDS: SPIRONOLACTONE 25 MG TAB PO SCH ×3 (06:21→17:29)
[2021-07-28] MEDS: OXAZEPAM 15MG CAP PO SCH ×3 (06:21→21:48)
[2021-07-28] MEDS: MORPHINE 2 MG/ML 1ML VIAL IV PRN ×2 (06:22→11:14)
[2021-07-28] MEDS: BUDESONIDE 180MCG INHALER (PULMICORT FLEXHALER) INH SCH ×2 (07:39→19:44)
[2021-07-28 08:00] VITALS: BP 102/77
[2021-07-28 08:49] LABS: HEMATOCRIT 34.1 % (42.0-52.0); HEMOGLOBIN 12.3 g/dl (13.5-17.5)
[2021-07-28] MEDS ORDERED: PIPERACILLIN/TAZOBACTAM SOD 3.375 GM in D5W MINI-BAG PLUS 50 ML IV SCH (09:50)
[2021-07-28] MEDS: PANTOPRAZOLE 40MG VIAL IV SCH ×2 (10:09→21:50)
[2021-07-28] MEDS: NICOTINE 21MG/24HR 1 EA TRANSDERMAL TD SCH (10:10)
[2021-07-28] MEDS: SODIUM CHLORIDE 1 GM TAB PO SCH ×3 (10:11→21:48)
[2021-07-28] MEDS: THIAMINE 100 MG TAB PO SCH ×3 (10:12→21:50)
[2021-07-28] MEDS: FOLIC ACID 1 MG TAB PO SCH (10:12)
[2021-07-28] MEDS: MULTIVITAMINS/MINERALS THERAP 1 TAB PO SCH (10:12)
[2021-07-28] MEDS: predniSONE 20 MG TAB PO SCH (10:12)
[2021-07-28] MEDS: POTASSIUM CHLORIDE 10MEQ SR TABLET PO SCH ×3 (10:13→21:49)
[2021-07-28] MEDS: SODIUM CHLORIDE 0.9% NASAL GEL 15GM (AYR) SCH ×4 (10:13→21:00)
[2021-07-28] MEDS: PIPERACILLIN/TAZOBACTAM SOD 4.5 GM in D5W MINI-BAG PLUS 50 ML IV SCH ×2 (12:00→17:30)
[2021-07-28] MEDS ORDERED: LIDOCAINE 1% MDV 20ML VIAL As Ordered ONE (15:40)
[2021-07-28 17:02] VITALS: BP 120/82
[2021-07-28] MEDS: SODIUM CHLORIDE 0.9% INJ 10 ML SYR IV SCH (18:19)
[2021-07-28 18:39] LABS: BLOOD UREA NITROGEN 10 MG/DL (7-18); CALCIUM LEVEL 7.4 MG/DL (8.5-10.1); CARBON DIOXIDE LEVEL 26 MEQ/L (21-32); CHLORIDE LEVEL 88 MEQ/L (98-107); CREATININE FOR GFR 1.15 MG/DL (0.70-1.30); GLOMERULAR FILTRATION RATE > 60.0 (>60); GLUCOSE, FASTING 165 MG/DL (70-100); POTASSIUM SERUM 3.1 MEQ/L (3.5-5.1); SODIUM LEVEL 124 MEQ/L (136-145)
[2021-07-28 19:45] VITALS: BP 119/75
[2021-07-28 20:06] VITALS: BP 137/83
[2021-07-28 20:50] VITALS: BP 122/80
[2021-07-28] MEDS ORDERED: POTASSIUM CHLORIDE 10MEQ SR TABLET PO ONE (20:55)
[2021-07-29] VITALS (9 sets, daily range): BP systolic 97–120; BP diastolic 54–90
[2021-07-29] MEDS: SPIRONOLACTONE 25 MG TAB PO SCH ×4 (01:05→18:31)
[2021-07-29] MEDS: PIPERACILLIN/TAZOBACTAM SOD 4.5 GM in D5W MINI-BAG PLUS 50 ML IV SCH ×2 (01:05→06:08)
[2021-07-29] MEDS: IPRATROPIUM 0.5MG/ALBUTEROL 2.5MG INH SOL UD 3ML (DUONEB) NEB SCH ×4 (01:16→19:44)
[2021-07-29] MEDS: MORPHINE 2 MG/ML 1ML VIAL IV PRN ×2 (03:30→09:50)
[2021-07-29] MEDS: HEPARIN SOD (PORCINE) 5000UNITS/ML 1ML VIAL/SYRINGE SC SCH ×3 (06:09→20:46)
[2021-07-29 06:13] LABS: ALBUMIN 2.2 GM/DL (3.2-5.2); ALT/SGPT 42 U/L (12-78); BILIRUBIN,TOTAL 20.6 MG/DL (0.2-1.0); BLOOD UREA NITROGEN 11 MG/DL (7-18); CALCIUM LEVEL 7.6 MG/DL (8.5-10.1); CARBON DIOXIDE LEVEL 28 MEQ/L (21-32); CHLORIDE LEVEL 93 MEQ/L (98-107); GLOMERULAR FILTRATION RATE > 60.0 (>60); GLUCOSE, FASTING 103 MG/DL (70-100); POTASSIUM SERUM 4.1 MEQ/L (3.5-5.1); SODIUM LEVEL 130 MEQ/L (136-145); TOTAL PROTEIN 5.4 GM/DL (6.4-8.2)
[2021-07-29] MEDS: OXAZEPAM 15MG CAP PO SCH ×3 (06:13→20:45)
[2021-07-29] MEDS: SODIUM CHLORIDE 0.9% INJ 10 ML SYR IV SCH ×2 (06:14→18:31)
[2021-07-29 06:45] LABS: MEAN CORPUSCULAR HEMOGLOBIN 35.4 pg (27.0-33.0); MEAN CORPUSCULAR HGB CONC 36.4 g/dl (32.0-36.5); MEAN CORPUSCULAR VOLUME 97.2 fl (80.0-96.0); PLATELET COUNT, AUTOMATED 152 10^3/uL (150-450); RED BLOOD COUNT 2.88 10^6/uL (4.30-6.10); WHITE BLOOD COUNT 25.7 10^3/uL (4.0-10.0)
[2021-07-29 06:58] LABS: HEMOGLOBIN 10.2 g/dl (13.5-17.5)
[2021-07-29 07:45] LABS: LYMPHOCYTES 11 % (16-44); METAMYELOCYTES 3 % (0-0); MONOCYTES 3 % (0-5); NEUTROPHILS 78 % (28-66)
[2021-07-29 07:46] LABS: STOMATOCYTES 1+; TARGET CELLS 4+
[2021-07-29 07:47] LABS: MICROCYTOSIS 1+; PLATELET ESTIMATE NORMAL (NORMAL)
[2021-07-29 07:49] LABS: POLYCHROMASIA 1+
[2021-07-29] MEDS: BUDESONIDE 180MCG INHALER (PULMICORT FLEXHALER) INH SCH ×2 (08:00→19:44)
[2021-07-29] MEDS: POTASSIUM CHLORIDE 10MEQ SR TABLET PO SCH (09:00)
[2021-07-29] MEDS: THIAMINE 100 MG TAB PO SCH ×3 (09:28→20:45)
[2021-07-29] MEDS: MULTIVITAMINS/MINERALS THERAP 1 TAB PO SCH (09:29)
[2021-07-29] MEDS: SODIUM CHLORIDE 1 GM TAB PO SCH ×3 (09:31→20:45)
[2021-07-29] MEDS: predniSONE 20 MG TAB PO SCH (09:32)
[2021-07-29] MEDS: FOLIC ACID 1 MG TAB PO SCH (09:32)
[2021-07-29] MEDS: NICOTINE 21MG/24HR 1 EA TRANSDERMAL TD SCH (09:33)
[2021-07-29] MEDS: PANTOPRAZOLE 40MG VIAL IV SCH ×2 (09:33→20:45)
[2021-07-29] MEDS: SODIUM CHLORIDE 0.9% NASAL GEL 15GM (AYR) SCH ×4 (09:34→20:45)
[2021-07-29] MEDS ORDERED: FUROSEMIDE 100MG/10ML VIAL (J1940) IV ONE (11:00)
[2021-07-29] MEDS: LIDOCAINE 5% (LIDODERM) PATCH TD SCH (12:53)
[2021-07-29] MEDS: **NOTE PATIENT COMMENT** MISC XX SCH (20:45)
[2021-07-29] MEDS: SCOPOLAMINE 1MG TRANSDERMAL PATCH TOP SCH (20:45)
[2021-07-30] VITALS (16 sets, daily range): BP systolic 103–132; BP diastolic 60–83
[2021-07-30] MEDS: SPIRONOLACTONE 25 MG TAB PO SCH ×4 (00:10→16:19)
[2021-07-30] MEDS: IPRATROPIUM 0.5MG/ALBUTEROL 2.5MG INH SOL UD 3ML (DUONEB) NEB SCH ×4 (01:14→19:44)
[2021-07-30] MEDS: HEPARIN SOD (PORCINE) 5000UNITS/ML 1ML VIAL/SYRINGE SC SCH ×3 (06:15→20:54)
[2021-07-30] MEDS: SODIUM CHLORIDE 0.9% INJ 10 ML SYR IV SCH ×2 (06:15→18:01)
[2021-07-30] MEDS: OXAZEPAM 15MG CAP PO SCH ×3 (06:16→20:54)
[2021-07-30] MEDS: MORPHINE 2 MG/ML 1ML VIAL IV PRN (06:41)
[2021-07-30] MEDS: BUDESONIDE 180MCG INHALER (PULMICORT FLEXHALER) INH SCH ×2 (07:23→19:44)
[2021-07-30 07:53] LABS: HEMATOCRIT 29.1 % (42.0-52.0); HEMOGLOBIN 10.3 g/dl (13.5-17.5); MEAN CORPUSCULAR HEMOGLOBIN 34.8 pg (27.0-33.0); MEAN CORPUSCULAR HGB CONC 35.4 g/dl (32.0-36.5); MEAN CORPUSCULAR VOLUME 98.3 fl (80.0-96.0); PLATELET COUNT, AUTOMATED 158 10^3/uL (150-450); RED BLOOD COUNT 2.96 10^6/uL (4.30-6.10)
[2021-07-30 08:24] LABS: ATYPICAL LYMPH 1 % (0-5); LYMPHOCYTES 11 % (16-44); MONOCYTES 5 % (0-5); NEUTROPHILS 76 % (28-66)
[2021-07-30 08:26] LABS: ANISOCYTOSIS 3+; PLATELET CLUMPS SMALL AMT; PLATELET ESTIMATE NORMAL (NORMAL)
[2021-07-30] MEDS: THIAMINE 100 MG TAB PO SCH ×3 (08:26→20:54)
[2021-07-30] MEDS: PANTOPRAZOLE 40MG VIAL IV SCH ×2 (08:26→20:53)
[2021-07-30 08:27] LABS: POLYCHROMASIA 1+; TARGET CELLS 1+
[2021-07-30] MEDS: SODIUM CHLORIDE 1 GM TAB PO SCH (08:27)
[2021-07-30] MEDS: SODIUM CHLORIDE 0.9% NASAL GEL 15GM (AYR) SCH ×4 (08:27→20:54)
[2021-07-30] MEDS: predniSONE 20 MG TAB PO SCH (08:27)
[2021-07-30] MEDS: MULTIVITAMINS/MINERALS THERAP 1 TAB PO SCH (08:27)
[2021-07-30] MEDS: POTASSIUM CHLORIDE 10MEQ SR TABLET PO SCH (08:27)
[2021-07-30] MEDS: FOLIC ACID 1 MG TAB PO SCH (08:27)
[2021-07-30] MEDS: LIDOCAINE 5% (LIDODERM) PATCH TD SCH (08:28)
[2021-07-30] MEDS: NICOTINE 21MG/24HR 1 EA TRANSDERMAL TD SCH (08:28)
[2021-07-30 08:35] LABS: ERYTHROCYTE SEDIMENTATION RATE 39 mm/hr (0-15)
[2021-07-30 08:37] LABS: ALBUMIN 2.7 GM/DL (3.2-5.2); ALT/SGPT 32 U/L (12-78); BILIRUBIN,TOTAL 18.8 MG/DL (0.2-1.0); BLOOD UREA NITROGEN 12 MG/DL (7-18); C REACTIVE PROTEIN QUANTITATIV 6.19 MG/DL (0.00-0.30); CALCIUM LEVEL 8.1 MG/DL (8.5-10.1); CARBON DIOXIDE LEVEL 29 MEQ/L (21-32); CHLORIDE LEVEL 92 MEQ/L (98-107); CREATININE FOR GFR 0.75 MG/DL (0.70-1.30); GLOMERULAR FILTRATION RATE > 60.0 (>60); GLUCOSE, FASTING 89 MG/DL (70-100); POTASSIUM SERUM 3.1 MEQ/L (3.5-5.1); SODIUM LEVEL 130 MEQ/L (136-145); TOTAL PROTEIN 6.2 GM/DL (6.4-8.2)
[2021-07-30] MEDS: FUROSEMIDE 20 MG TAB PO SCH ×2 (10:32→16:19)
[2021-07-30] MEDS ORDERED: POTASSIUM CHLORIDE 10MEQ SR TABLET PO ONE (15:00)
[2021-07-30] MEDS: **NOTE PATIENT COMMENT** MISC XX SCH (20:55)
[2021-07-31] MEDS: IPRATROPIUM 0.5MG/ALBUTEROL 2.5MG INH SOL UD 3ML (DUONEB) NEB SCH ×4 (01:23→20:00)
[2021-07-31] MEDS: MORPHINE 2 MG/ML 1ML VIAL IV PRN (01:42)
[2021-07-31] MEDS: OXAZEPAM 15MG CAP PO SCH ×3 (05:13→21:10)
[2021-07-31] MEDS: HEPARIN SOD (PORCINE) 5000UNITS/ML 1ML VIAL/SYRINGE SC SCH ×3 (05:13→21:11)
[2021-07-31] MEDS: SODIUM CHLORIDE 0.9% INJ 10 ML SYR IV SCH ×2 (05:14→16:33)
[2021-07-31 06:00] VITALS: BP 109/73
[2021-07-31] MEDS: BUDESONIDE 180MCG INHALER (PULMICORT FLEXHALER) INH SCH ×2 (07:54→20:04)
[2021-07-31] MEDS: NICOTINE 21MG/24HR 1 EA TRANSDERMAL TD SCH (08:34)
[2021-07-31] MEDS: LIDOCAINE 5% (LIDODERM) PATCH TD SCH (08:34)
[2021-07-31] MEDS: PANTOPRAZOLE 40MG VIAL IV SCH ×2 (08:35→21:09)
[2021-07-31] MEDS: FOLIC ACID 1 MG TAB PO SCH (08:35)
[2021-07-31] MEDS: predniSONE 20 MG TAB PO SCH (08:35)
[2021-07-31] MEDS: FUROSEMIDE 20 MG TAB PO SCH ×2 (08:35→16:32)
[2021-07-31] MEDS: SPIRONOLACTONE 25 MG TAB PO SCH ×2 (08:35→16:32)
[2021-07-31] MEDS: SODIUM CHLORIDE 0.9% NASAL GEL 15GM (AYR) SCH ×4 (08:36→21:11)
[2021-07-31] MEDS: MULTIVITAMINS/MINERALS THERAP 1 TAB PO SCH (08:36)
[2021-07-31] MEDS: POTASSIUM CHLORIDE 10MEQ SR TABLET PO SCH (08:36)
[2021-07-31] MEDS: THIAMINE 100 MG TAB PO SCH ×3 (08:36→21:09)
[2021-07-31 08:56] LABS: HEMATOCRIT 28.5 % (42.0-52.0); MEAN CORPUSCULAR HEMOGLOBIN 34.6 pg (27.0-33.0); MEAN CORPUSCULAR HGB CONC 35.1 g/dl (32.0-36.5); MEAN CORPUSCULAR VOLUME 98.6 fl (80.0-96.0); PLATELET COUNT, AUTOMATED 169 10^3/uL (150-450); RED BLOOD COUNT 2.89 10^6/uL (4.30-6.10); WHITE BLOOD COUNT 24.3 10^3/uL (4.0-10.0)
[2021-07-31 09:25] LABS: ALBUMIN 2.7 GM/DL (3.2-5.2); ALT/SGPT 36 U/L (12-78); BILIRUBIN,TOTAL 16.1 MG/DL (0.2-1.0); BLOOD UREA NITROGEN 14 MG/DL (7-18); CALCIUM LEVEL 8.3 MG/DL (8.5-10.1); CARBON DIOXIDE LEVEL 28 MEQ/L (21-32); CHLORIDE LEVEL 96 MEQ/L (98-107); GLOMERULAR FILTRATION RATE > 60.0 (>60); GLUCOSE, FASTING 78 MG/DL (70-100); SODIUM LEVEL 132 MEQ/L (136-145); TOTAL PROTEIN 5.5 GM/DL (6.4-8.2)
[2021-07-31 09:59] LABS: LYMPHOCYTES 13 % (16-44); METAMYELOCYTES 2 % (0-0); MONOCYTES 2 % (0-5); NEUTROPHILS 79 % (28-66)
[2021-07-31 10:01] LABS: ANISOCYTOSIS 3+; TARGET CELLS 1+
[2021-07-31 10:02] LABS: PLATELET CLUMPS SMALL AMT; PLATELET ESTIMATE NORMAL (NORMAL)
[2021-07-31 14:00] VITALS: BP 124/85
[2021-07-31] MEDS: **NOTE PATIENT COMMENT** MISC XX SCH (21:12)
[2021-07-31 22:00] VITALS: BP 119/82
[2021-08-01] MEDS: IPRATROPIUM 0.5MG/ALBUTEROL 2.5MG INH SOL UD 3ML (DUONEB) NEB SCH ×4 (00:46→19:19)
[2021-08-01] MEDS: SODIUM CHLORIDE 0.9% INJ 10 ML SYR IV SCH ×2 (05:05→16:11)
[2021-08-01] MEDS: OXAZEPAM 15MG CAP PO SCH ×2 (05:05→13:56)
[2021-08-01] MEDS: HEPARIN SOD (PORCINE) 5000UNITS/ML 1ML VIAL/SYRINGE SC SCH ×2 (05:05→13:57)
[2021-08-01 06:00] VITALS: BP 111/77
[2021-08-01 06:53] LABS: HEMATOCRIT 29.1 % (42.0-52.0); MEAN CORPUSCULAR HEMOGLOBIN 34.4 pg (27.0-33.0); MEAN CORPUSCULAR HGB CONC 34.4 g/dl (32.0-36.5); PLATELET COUNT, AUTOMATED 158 10^3/uL (150-450); RED BLOOD COUNT 2.91 10^6/uL (4.30-6.10); WHITE BLOOD COUNT 24.7 10^3/uL (4.0-10.0)
[2021-08-01 07:13] LABS: INR 1.16; PROTHROMBIN TIME 15.2 SECONDS (12.7-14.5)
[2021-08-01] MEDS: BUDESONIDE 180MCG INHALER (PULMICORT FLEXHALER) INH SCH ×2 (07:17→19:19)
[2021-08-01 07:23] LABS: ALBUMIN 2.4 GM/DL (3.2-5.2); ALT/SGPT 41 U/L (12-78); BLOOD UREA NITROGEN 15 MG/DL (7-18); CALCIUM LEVEL 8.4 MG/DL (8.5-10.1); CARBON DIOXIDE LEVEL 26 MEQ/L (21-32); CHLORIDE LEVEL 98 MEQ/L (98-107); CREATININE FOR GFR 0.76 MG/DL (0.70-1.30); GLOMERULAR FILTRATION RATE > 60.0 (>60); GLUCOSE, FASTING 91 MG/DL (70-100); POTASSIUM SERUM 4.3 MEQ/L (3.5-5.1); SODIUM LEVEL 133 MEQ/L (136-145); TOTAL PROTEIN 5.5 GM/DL (6.4-8.2)
[2021-08-01 07:25] LABS: ANISOCYTOSIS 4+; EOSINOPHILS 1 % (0-3); LYMPHOCYTES 13 % (16-44); METAMYELOCYTES 3 % (0-0); MONOCYTES 4 % (0-5); NEUTROPHILS 77 % (28-66); PLATELET ESTIMATE NORMAL (NORMAL)
[2021-08-01 07:27] LABS: TARGET CELLS 2+
[2021-08-01] MEDS: SPIRONOLACTONE 25 MG TAB PO SCH ×2 (08:51→16:10)
[2021-08-01] MEDS: FOLIC ACID 1 MG TAB PO SCH (08:51)
[2021-08-01] MEDS: MULTIVITAMINS/MINERALS THERAP 1 TAB PO SCH (08:51)
[2021-08-01] MEDS: predniSONE 20 MG TAB PO SCH (08:51)
[2021-08-01] MEDS: PANTOPRAZOLE 40MG VIAL IV SCH (08:51)
[2021-08-01] MEDS: NICOTINE 21MG/24HR 1 EA TRANSDERMAL TD SCH (08:52)
[2021-08-01] MEDS: LIDOCAINE 5% (LIDODERM) PATCH TD SCH (08:52)
[2021-08-01] MEDS: FUROSEMIDE 20 MG TAB PO SCH ×2 (08:52→16:10)
[2021-08-01] MEDS: THIAMINE 100 MG TAB PO SCH ×2 (08:52→16:11)
[2021-08-01] MEDS: SODIUM CHLORIDE 0.9% NASAL GEL 15GM (AYR) SCH ×3 (08:53→16:11)
[2021-08-01 14:00] VITALS: BP 125/87
[2021-08-01] MEDS ORDERED: OXAZEPAM 15MG CAP PO ONE (15:30)
[2021-08-01] MEDS: **NOTE PATIENT COMMENT** MISC XX SCH (21:00)
[2021-08-01 22:00] VITALS: BP 121/87
[2021-08-02] MEDS: SCOPOLAMINE 1MG TRANSDERMAL PATCH TOP SCH (00:58)
[2021-08-02] MEDS: PANTOPRAZOLE 40MG VIAL IV SCH ×3 (00:58→21:59)
[2021-08-02] MEDS: THIAMINE 100 MG TAB PO SCH ×4 (00:58→21:59)
[2021-08-02] MEDS: HEPARIN SOD (PORCINE) 5000UNITS/ML 1ML VIAL/SYRINGE SC SCH ×4 (00:59→21:59)
[2021-08-02] MEDS: OXAZEPAM 15MG CAP PO SCH ×5 (01:00→23:58)
[2021-08-02] MEDS: SODIUM CHLORIDE 0.9% NASAL GEL 15GM (AYR) SCH ×5 (01:01→21:58)
[2021-08-02] MEDS: IPRATROPIUM 0.5MG/ALBUTEROL 2.5MG INH SOL UD 3ML (DUONEB) NEB SCH ×4 (01:10→19:25)
[2021-08-02] MEDS: RAMELTEON 8 MG TAB (ROZEREM) PO PRN ×2 (01:12→21:59)
[2021-08-02 06:00] VITALS: BP 98/56
[2021-08-02] MEDS: SODIUM CHLORIDE 0.9% INJ 10 ML SYR IV SCH ×2 (06:15→17:02)
[2021-08-02 07:33] LABS: HEMATOCRIT 28.1 % (42.0-52.0); HEMOGLOBIN 9.7 g/dl (13.5-17.5); MEAN CORPUSCULAR HEMOGLOBIN 35.3 pg (27.0-33.0); MEAN CORPUSCULAR HGB CONC 34.5 g/dl (32.0-36.5); MEAN CORPUSCULAR VOLUME 102.2 fl (80.0-96.0); PLATELET COUNT, AUTOMATED 154 10^3/uL (150-450); RED BLOOD COUNT 2.75 10^6/uL (4.30-6.10); WHITE BLOOD COUNT 26.4 10^3/uL (4.0-10.0)
[2021-08-02] MEDS: BUDESONIDE 180MCG INHALER (PULMICORT FLEXHALER) INH SCH ×2 (07:58→19:25)
[2021-08-02 08:05] LABS: LYMPHOCYTES 15 % (16-44); MONOCYTES 1 % (0-5); NEUTROPHILS 83 % (28-66); PLATELET ESTIMATE NORMAL (NORMAL)
[2021-08-02 08:06] LABS: ALBUMIN 2.4 GM/DL (3.2-5.2); ALT/SGPT 45 U/L (12-78); BILIRUBIN,TOTAL 11.4 MG/DL (0.2-1.0); BLOOD UREA NITROGEN 16 MG/DL (7-18); CALCIUM LEVEL 8.4 MG/DL (8.5-10.1); CARBON DIOXIDE LEVEL 26 MEQ/L (21-32); CHLORIDE LEVEL 98 MEQ/L (98-107); CREATININE FOR GFR 0.67 MG/DL (0.70-1.30); GLOMERULAR FILTRATION RATE > 60.0 (>60); GLUCOSE, FASTING 83 MG/DL (70-100); POTASSIUM SERUM 4.4 MEQ/L (3.5-5.1); SODIUM LEVEL 133 MEQ/L (136-145); TOTAL PROTEIN 5.3 GM/DL (6.4-8.2)
[2021-08-02] MEDS: NICOTINE 21MG/24HR 1 EA TRANSDERMAL TD SCH (08:28)
[2021-08-02] MEDS: LIDOCAINE 5% (LIDODERM) PATCH TD SCH (08:31)
[2021-08-02] MEDS: SPIRONOLACTONE 25 MG TAB PO SCH (08:31)
[2021-08-02] MEDS: FOLIC ACID 1 MG TAB PO SCH (08:31)
[2021-08-02] MEDS: predniSONE 20 MG TAB PO SCH (08:31)
[2021-08-02] MEDS: MULTIVITAMINS/MINERALS THERAP 1 TAB PO SCH (08:31)
[2021-08-02] MEDS: FUROSEMIDE 20 MG TAB PO SCH (08:31)
[2021-08-02 08:32] VITALS: BP 118/76
[2021-08-02] MEDS ORDERED: ISOVUE-370 76% 100ML VIAL As Ordered ONE (13:10)
[2021-08-02 18:00] VITALS: BP 118/78
[2021-08-02] MEDS: **NOTE PATIENT COMMENT** MISC XX SCH (21:58)
[2021-08-02] MEDS: SODIUM CHLORIDE 0.9% INJ 10 ML SYR IV PRN (21:58)
[2021-08-02 22:00] VITALS: BP 118/79
[2021-08-03] MEDS: IPRATROPIUM 0.5MG/ALBUTEROL 2.5MG INH SOL UD 3ML (DUONEB) NEB SCH ×4 (03:14→19:32)
[2021-08-03] MEDS: HEPARIN SOD (PORCINE) 5000UNITS/ML 1ML VIAL/SYRINGE SC SCH (05:38)
[2021-08-03] MEDS: OXAZEPAM 15MG CAP PO SCH ×4 (05:38→23:04)
[2021-08-03] MEDS: SODIUM CHLORIDE 0.9% INJ 10 ML SYR IV SCH ×2 (05:39→17:23)
[2021-08-03] MEDS: BUDESONIDE 180MCG INHALER (PULMICORT FLEXHALER) INH SCH ×2 (06:59→19:32)
[2021-08-03 08:10] LABS: HEMOGLOBIN 10.3 g/dl (13.5-17.5); MEAN CORPUSCULAR HEMOGLOBIN 34.4 pg (27.0-33.0); MEAN CORPUSCULAR HGB CONC 33.2 g/dl (32.0-36.5); MEAN CORPUSCULAR VOLUME 103.7 fl (80.0-96.0); PLATELET COUNT, AUTOMATED 174 10^3/uL (150-450); RED BLOOD COUNT 2.99 10^6/uL (4.30-6.10); WHITE BLOOD COUNT 26.4 10^3/uL (4.0-10.0)
[2021-08-03] MEDS: FOLIC ACID 1 MG TAB PO SCH (08:14)
[2021-08-03] MEDS: LIDOCAINE 5% (LIDODERM) PATCH TD SCH (08:14)
[2021-08-03] MEDS: PANTOPRAZOLE 40MG VIAL IV SCH ×2 (08:14→23:03)
[2021-08-03] MEDS: THIAMINE 100 MG TAB PO SCH ×3 (08:14→23:04)
[2021-08-03] MEDS: MULTIVITAMINS/MINERALS THERAP 1 TAB PO SCH (08:14)
[2021-08-03] MEDS: NICOTINE 21MG/24HR 1 EA TRANSDERMAL TD SCH (08:14)
[2021-08-03] MEDS: SODIUM CHLORIDE 0.9% NASAL GEL 15GM (AYR) SCH ×4 (08:14→21:00)
[2021-08-03] MEDS: predniSONE 20 MG TAB PO SCH (08:15)
[2021-08-03 08:36] LABS: ALBUMIN 2.5 GM/DL (3.2-5.2); ALT/SGPT 58 U/L (12-78); BILIRUBIN,TOTAL 10.3 MG/DL (0.2-1.0); BLOOD UREA NITROGEN 16 MG/DL (7-18); CALCIUM LEVEL 8.9 MG/DL (8.5-10.1); CARBON DIOXIDE LEVEL 25 MEQ/L (21-32); CHLORIDE LEVEL 101 MEQ/L (98-107); GLOMERULAR FILTRATION RATE > 60.0 (>60); GLUCOSE, FASTING 77 MG/DL (70-100); POTASSIUM SERUM 4.3 MEQ/L (3.5-5.1); SODIUM LEVEL 134 MEQ/L (136-145); TOTAL PROTEIN 5.6 GM/DL (6.4-8.2)
[2021-08-03 08:52] LABS: LYMPHOCYTES 16 % (16-44); METAMYELOCYTES 2 % (0-0); MONOCYTES 3 % (0-5); MYELOCYTES 3 % (0-0); NEUTROPHILS 72 % (28-66)
[2021-08-03 08:53] LABS: ANISOCYTOSIS 2+; PLATELET ESTIMATE NORMAL (NORMAL); TARGET CELLS 1+
[2021-08-03] MEDS: ENOXAPARIN 40MG/0.4ML SYRINGE (J1650 PER 10MG) SC SCH (11:57)
[2021-08-03 13:56] VITALS: BP 111/79
[2021-08-03] MEDS: SPIRONOLACTONE 25 MG TAB PO SCH (17:23)
[2021-08-03] MEDS: FUROSEMIDE 20 MG TAB PO SCH (17:23)
[2021-08-03 19:56] VITALS: BP 117/83
[2021-08-03] MEDS: **NOTE PATIENT COMMENT** MISC XX SCH (21:00)
[2021-08-03] MEDS ORDERED: traZODone 25MG PER 1/2 TABLET PO ONE (21:00)
[2021-08-03] MEDS: SODIUM CHLORIDE 0.9% INJ 10 ML SYR IV PRN (23:03)
[2021-08-03] MEDS: RAMELTEON 8 MG TAB (ROZEREM) PO PRN (23:04)
[2021-08-04] MEDS: IPRATROPIUM 0.5MG/ALBUTEROL 2.5MG INH SOL UD 3ML (DUONEB) NEB SCH ×4 (01:36→20:00)
[2021-08-04] MEDS: OXAZEPAM 15MG CAP PO SCH ×4 (05:22→23:33)
[2021-08-04] MEDS: SODIUM CHLORIDE 0.9% INJ 10 ML SYR IV SCH ×2 (05:22→17:37)
[2021-08-04 05:23] VITALS: BP 115/81
[2021-08-04 06:39] LABS: HEMATOCRIT 28.3 % (42.0-52.0); HEMOGLOBIN 9.5 g/dl (13.5-17.5); MEAN CORPUSCULAR HEMOGLOBIN 34.7 pg (27.0-33.0); MEAN CORPUSCULAR HGB CONC 33.6 g/dl (32.0-36.5); MEAN CORPUSCULAR VOLUME 103.3 fl (80.0-96.0); PLATELET COUNT, AUTOMATED 155 10^3/uL (150-450); RED BLOOD COUNT 2.74 10^6/uL (4.30-6.10); WHITE BLOOD COUNT 22.6 10^3/uL (4.0-10.0)
[2021-08-04 07:05] LABS: ALBUMIN 2.1 GM/DL (3.2-5.2); ALT/SGPT 59 U/L (12-78); BILIRUBIN,TOTAL 8.2 MG/DL (0.2-1.0); BLOOD UREA NITROGEN 15 MG/DL (7-18); CALCIUM LEVEL 8.7 MG/DL (8.5-10.1); CARBON DIOXIDE LEVEL 22 MEQ/L (21-32); CHLORIDE LEVEL 103 MEQ/L (98-107); CREATININE FOR GFR 0.65 MG/DL (0.70-1.30); GLOMERULAR FILTRATION RATE > 60.0 (>60); GLUCOSE, FASTING 91 MG/DL (70-100); POTASSIUM SERUM 4.1 MEQ/L (3.5-5.1); SODIUM LEVEL 133 MEQ/L (136-145); TOTAL PROTEIN 5.6 GM/DL (6.4-8.2)
[2021-08-04] MEDS: BUDESONIDE 180MCG INHALER (PULMICORT FLEXHALER) INH SCH ×2 (07:28→20:10)
[2021-08-04 07:37] LABS: ANISOCYTOSIS 4+; ATYPICAL LYMPH 1 % (0-5); LYMPHOCYTES 14 % (16-44); METAMYELOCYTES 2 % (0-0); MONOCYTES 4 % (0-5); NEUTROPHILS 78 % (28-66); PLATELET ESTIMATE NORMAL (NORMAL)
[2021-08-04 07:38] LABS: TARGET CELLS 1+
[2021-08-04] MEDS: ENOXAPARIN 40MG/0.4ML SYRINGE (J1650 PER 10MG) SC SCH (08:25)
[2021-08-04] MEDS: NICOTINE 21MG/24HR 1 EA TRANSDERMAL TD SCH (08:25)
[2021-08-04] MEDS: PANTOPRAZOLE 40MG VIAL IV SCH ×2 (08:25→20:05)
[2021-08-04] MEDS: FOLIC ACID 1 MG TAB PO SCH (08:26)
[2021-08-04] MEDS: LIDOCAINE 5% (LIDODERM) PATCH TD SCH (08:26)
[2021-08-04] MEDS: MULTIVITAMINS/MINERALS THERAP 1 TAB PO SCH (08:26)
[2021-08-04] MEDS: predniSONE 20 MG TAB PO SCH (08:26)
[2021-08-04] MEDS: FUROSEMIDE 20 MG TAB PO SCH ×2 (08:26→16:03)
[2021-08-04] MEDS: THIAMINE 100 MG TAB PO SCH ×3 (08:26→20:04)
[2021-08-04] MEDS: SPIRONOLACTONE 25 MG TAB PO SCH ×2 (08:26→16:03)
[2021-08-04] MEDS: SODIUM CHLORIDE 0.9% NASAL GEL 15GM (AYR) SCH ×4 (08:30→20:06)
[2021-08-04 14:00] VITALS: BP 112/79
[2021-08-04 20:00] VITALS: BP 163/65
[2021-08-04] MEDS: SODIUM CHLORIDE 0.9% INJ 10 ML SYR IV PRN (20:05)
[2021-08-04] MEDS: SCOPOLAMINE 1MG TRANSDERMAL PATCH TOP SCH (20:05)
[2021-08-04] MEDS: **NOTE PATIENT COMMENT** MISC XX SCH (20:06)
[2021-08-04] MEDS: RAMELTEON 8 MG TAB (ROZEREM) PO PRN (23:32)
[2021-08-04] MEDS: traZODone 25MG PER 1/2 TABLET PO PRN (23:32)
[2021-08-05] MEDS: IPRATROPIUM 0.5MG/ALBUTEROL 2.5MG INH SOL UD 3ML (DUONEB) NEB SCH ×4 (00:41→19:40)
[2021-08-05] MEDS: OXAZEPAM 15MG CAP PO SCH ×4 (05:35→23:28)
[2021-08-05] MEDS: SODIUM CHLORIDE 0.9% INJ 10 ML SYR IV SCH ×2 (05:35→17:08)
[2021-08-05 05:52] VITALS: BP 110/78
[2021-08-05] MEDS: BUDESONIDE 180MCG INHALER (PULMICORT FLEXHALER) INH SCH ×2 (07:10→19:40)
[2021-08-05 07:11] LABS: HEMATOCRIT 28.9 % (42.0-52.0); HEMOGLOBIN 9.7 g/dl (13.5-17.5); MEAN CORPUSCULAR HEMOGLOBIN 35.4 pg (27.0-33.0); MEAN CORPUSCULAR HGB CONC 33.6 g/dl (32.0-36.5); MEAN CORPUSCULAR VOLUME 105.5 fl (80.0-96.0); PLATELET COUNT, AUTOMATED 153 10^3/uL (150-450); RED BLOOD COUNT 2.74 10^6/uL (4.30-6.10); WHITE BLOOD COUNT 21.3 10^3/uL (4.0-10.0)
[2021-08-05 07:32] LABS: ALBUMIN 2.1 GM/DL (3.2-5.2); ALT/SGPT 62 U/L (12-78); BILIRUBIN,TOTAL 7.4 MG/DL (0.2-1.0); BLOOD UREA NITROGEN 15 MG/DL (7-18); CALCIUM LEVEL 8.5 MG/DL (8.5-10.1); CARBON DIOXIDE LEVEL 23 MEQ/L (21-32); CHLORIDE LEVEL 102 MEQ/L (98-107); CREATININE FOR GFR 0.74 MG/DL (0.70-1.30); GLOMERULAR FILTRATION RATE > 60.0 (>60); GLUCOSE, FASTING 93 MG/DL (70-100); POTASSIUM SERUM 3.8 MEQ/L (3.5-5.1); SODIUM LEVEL 137 MEQ/L (136-145); TOTAL PROTEIN 5.3 GM/DL (6.4-8.2)
[2021-08-05 08:11] LABS: LYMPHOCYTES 13 % (16-44); NEUTROPHILS 85 % (28-66); PLATELET ESTIMATE NORMAL (NORMAL)
[2021-08-05] MEDS: LIDOCAINE 5% (LIDODERM) PATCH TD SCH (09:06)
[2021-08-05] MEDS: ENOXAPARIN 40MG/0.4ML SYRINGE (J1650 PER 10MG) SC SCH (09:07)
[2021-08-05] MEDS: PANTOPRAZOLE 40MG VIAL IV SCH ×2 (09:07→21:28)
[2021-08-05] MEDS: NICOTINE 21MG/24HR 1 EA TRANSDERMAL TD SCH (09:07)
[2021-08-05] MEDS: predniSONE 20 MG TAB PO SCH (09:07)
[2021-08-05] MEDS: MULTIVITAMINS/MINERALS THERAP 1 TAB PO SCH (09:07)
[2021-08-05] MEDS: FOLIC ACID 1 MG TAB PO SCH (09:08)
[2021-08-05] MEDS: SPIRONOLACTONE 25 MG TAB PO SCH ×2 (09:08→17:09)
[2021-08-05] MEDS: FUROSEMIDE 20 MG TAB PO SCH (09:08)
[2021-08-05] MEDS: SODIUM CHLORIDE 0.9% NASAL GEL 15GM (AYR) SCH ×4 (09:08→21:28)
[2021-08-05] MEDS: THIAMINE 100 MG TAB PO SCH ×3 (09:08→21:28)
[2021-08-05] MEDS ORDERED: FUROSEMIDE 20 MG TAB PO ONE (10:50)
[2021-08-05 14:21] VITALS: BP 111/78
[2021-08-05] MEDS: FUROSEMIDE 40 MG TAB PO SCH (17:09)
[2021-08-05 21:02] VITALS: BP 134/86
[2021-08-05] MEDS: RAMELTEON 8 MG TAB (ROZEREM) PO PRN (21:28)
[2021-08-05] MEDS: **NOTE PATIENT COMMENT** MISC XX SCH (21:29)
[2021-08-05] MEDS: SODIUM CHLORIDE 0.9% INJ 10 ML SYR IV PRN (21:32)
[2021-08-05] MEDS: traZODone 25MG PER 1/2 TABLET PO PRN (23:28)
[2021-08-06] MEDS: IPRATROPIUM 0.5MG/ALBUTEROL 2.5MG INH SOL UD 3ML (DUONEB) NEB SCH ×4 (01:07→19:45)
[2021-08-06] MEDS: OXAZEPAM 15MG CAP PO SCH ×4 (04:59→23:19)
[2021-08-06] MEDS: SODIUM CHLORIDE 0.9% INJ 10 ML SYR IV SCH ×3 (05:00→20:21)
[2021-08-06 05:43] VITALS: BP 130/85
[2021-08-06 06:29] LABS: HEMATOCRIT 28.6 % (42.0-52.0); HEMOGLOBIN 9.7 g/dl (13.5-17.5); MEAN CORPUSCULAR HEMOGLOBIN 35.4 pg (27.0-33.0); MEAN CORPUSCULAR HGB CONC 33.9 g/dl (32.0-36.5); MEAN CORPUSCULAR VOLUME 104.4 fl (80.0-96.0); PLATELET COUNT, AUTOMATED 151 10^3/uL (150-450); RED BLOOD COUNT 2.74 10^6/uL (4.30-6.10); WHITE BLOOD COUNT 20.6 10^3/uL (4.0-10.0)
[2021-08-06 06:40] LABS: INR 1.12; PARTIAL THROMBOPLASTIN TIME 40.9 SECONDS (25.9-37.0); PROTHROMBIN TIME 14.8 SECONDS (12.7-14.5)
[2021-08-06 06:55] LABS: ALBUMIN 2.2 GM/DL (3.2-5.2); ALT/SGPT 67 U/L (12-78); BILIRUBIN,TOTAL 6.7 MG/DL (0.2-1.0); BLOOD UREA NITROGEN 16 MG/DL (7-18); CALCIUM LEVEL 8.2 MG/DL (8.5-10.1); CARBON DIOXIDE LEVEL 25 MEQ/L (21-32); CHLORIDE LEVEL 102 MEQ/L (98-107); CREATININE FOR GFR 0.62 MG/DL (0.70-1.30); GLOMERULAR FILTRATION RATE > 60.0 (>60); GLUCOSE, FASTING 90 MG/DL (70-100); POTASSIUM SERUM 3.4 MEQ/L (3.5-5.1); SODIUM LEVEL 135 MEQ/L (136-145); TOTAL PROTEIN 5.4 GM/DL (6.4-8.2)
[2021-08-06 07:01] LABS: LYMPHOCYTES 5 % (16-44); MONOCYTES 3 % (0-5); MYELOCYTES 3 % (0-0); NEUTROPHILS 84 % (28-66)
[2021-08-06 07:02] LABS: ANISOCYTOSIS 3+; PLATELET CLUMPS SMALL AMT; PLATELET ESTIMATE NORMAL (NORMAL)
[2021-08-06 07:03] LABS: POLYCHROMASIA 1+; TARGET CELLS 1+
[2021-08-06 07:05] LABS: SCHISTOCYTES 1+; TEAR DROP CELLS 1+
[2021-08-06] MEDS ORDERED: POTASSIUM CHLORIDE 10MEQ SR TABLET PO ONE (07:25)
[2021-08-06] MEDS: BUDESONIDE 180MCG INHALER (PULMICORT FLEXHALER) INH SCH ×2 (07:29→19:45)
[2021-08-06 08:00] VITALS: BP 122/81
[2021-08-06] MEDS: PANTOPRAZOLE 40MG VIAL IV SCH ×2 (08:22→20:20)
[2021-08-06] MEDS: SPIRONOLACTONE 25 MG TAB PO SCH ×2 (08:22→17:21)
[2021-08-06] MEDS: SODIUM CHLORIDE 0.9% NASAL GEL 15GM (AYR) SCH ×4 (08:23→20:20)
[2021-08-06] MEDS: FUROSEMIDE 40 MG TAB PO SCH ×2 (08:23→17:20)
[2021-08-06] MEDS: THIAMINE 100 MG TAB PO SCH ×3 (08:23→20:20)
[2021-08-06] MEDS: predniSONE 20 MG TAB PO SCH (09:15)
[2021-08-06] MEDS: FOLIC ACID 1 MG TAB PO SCH (09:15)
[2021-08-06] MEDS: MULTIVITAMINS/MINERALS THERAP 1 TAB PO SCH (09:16)
[2021-08-06] MEDS: NICOTINE 21MG/24HR 1 EA TRANSDERMAL TD SCH (09:20)
[2021-08-06] MEDS: LIDOCAINE 5% (LIDODERM) PATCH TD SCH (09:24)
[2021-08-06 14:00] VITALS: BP 119/78
[2021-08-06] MEDS: RIVAROXABAN 10 MG TAB (XARELTO) PO SCH (17:21)
[2021-08-06] MEDS: RAMELTEON 8 MG TAB (ROZEREM) PO PRN (20:20)
[2021-08-06] MEDS: **NOTE PATIENT COMMENT** MISC XX SCH (20:21)
[2021-08-06 22:00] VITALS: BP 116/76
[2021-08-07] MEDS: IPRATROPIUM 0.5MG/ALBUTEROL 2.5MG INH SOL UD 3ML (DUONEB) NEB SCH ×2 (02:00→07:49)
[2021-08-07] MEDS: OXAZEPAM 15MG CAP PO SCH ×3 (05:36→20:36)
[2021-08-07 06:00] VITALS: BP 119/76
[2021-08-07] MEDS: BUDESONIDE 180MCG INHALER (PULMICORT FLEXHALER) INH SCH ×2 (07:50→20:25)
[2021-08-07] MEDS: NICOTINE 21MG/24HR 1 EA TRANSDERMAL TD SCH (08:49)
[2021-08-07] MEDS: THIAMINE 100 MG TAB PO SCH ×3 (08:49→20:36)
[2021-08-07] MEDS: predniSONE 20 MG TAB PO SCH (08:49)
[2021-08-07] MEDS: LIDOCAINE 5% (LIDODERM) PATCH TD SCH (08:49)
[2021-08-07] MEDS: PANTOPRAZOLE 40MG VIAL IV SCH ×2 (08:49→20:36)
[2021-08-07] MEDS: SODIUM CHLORIDE 0.9% NASAL GEL 15GM (AYR) SCH ×4 (08:50→20:38)
[2021-08-07] MEDS: FUROSEMIDE 40 MG TAB PO SCH ×2 (08:50→17:37)
[2021-08-07] MEDS: MULTIVITAMINS/MINERALS THERAP 1 TAB PO SCH (08:50)
[2021-08-07] MEDS: FOLIC ACID 1 MG TAB PO SCH (08:50)
[2021-08-07] MEDS: SPIRONOLACTONE 25 MG TAB PO SCH ×2 (08:50→17:38)
[2021-08-07 08:59] LABS: HEMATOCRIT 31.1 % (42.0-52.0); HEMOGLOBIN 10.5 g/dl (13.5-17.5); MEAN CORPUSCULAR HEMOGLOBIN 35.8 pg (27.0-33.0); MEAN CORPUSCULAR HGB CONC 33.8 g/dl (32.0-36.5); MEAN CORPUSCULAR VOLUME 106.1 fl (80.0-96.0); PLATELET COUNT, AUTOMATED 157 10^3/uL (150-450); RED BLOOD COUNT 2.93 10^6/uL (4.30-6.10); WHITE BLOOD COUNT 21.8 10^3/uL (4.0-10.0)
[2021-08-07 09:22] LABS: ALBUMIN 2.2 GM/DL (3.2-5.2); ALT/SGPT 76 U/L (12-78); BILIRUBIN,TOTAL 6.5 MG/DL (0.2-1.0); BLOOD UREA NITROGEN 17 MG/DL (7-18); CALCIUM LEVEL 8.8 MG/DL (8.5-10.1); CARBON DIOXIDE LEVEL 26 MEQ/L (21-32); CHLORIDE LEVEL 103 MEQ/L (98-107); CREATININE FOR GFR 0.65 MG/DL (0.70-1.30); GLOMERULAR FILTRATION RATE > 60.0 (>60); GLUCOSE, FASTING 88 MG/DL (70-100); POTASSIUM SERUM 3.7 MEQ/L (3.5-5.1); SODIUM LEVEL 136 MEQ/L (136-145); TOTAL PROTEIN 6.2 GM/DL (6.4-8.2)
[2021-08-07] MEDS: RIVAROXABAN 10 MG TAB (XARELTO) PO SCH (17:38)
[2021-08-07] MEDS: SODIUM CHLORIDE 0.9% INJ 10 ML SYR IV SCH ×2 (17:38→20:38)
[2021-08-07] MEDS: RAMELTEON 8 MG TAB (ROZEREM) PO PRN (20:36)
[2021-08-07] MEDS: **NOTE PATIENT COMMENT** MISC XX SCH (20:37)
[2021-08-07] MEDS: SCOPOLAMINE 1MG TRANSDERMAL PATCH TOP SCH (20:37)
[2021-08-07] MEDS: NYSTATIN 100,000 UNITS/GM TOPICAL PWD 15 GM TOP SCH (20:38)
[2021-08-07 22:00] VITALS: BP 125/84
[2021-08-08] MEDS: OXAZEPAM 15MG CAP PO SCH ×2 (05:33→13:55)
[2021-08-08 06:00] VITALS: BP 125/85
[2021-08-08] MEDS: BUDESONIDE 180MCG INHALER (PULMICORT FLEXHALER) INH SCH (07:32)
[2021-08-08 07:38] LABS: HEMATOCRIT 29.2 % (42.0-52.0); HEMOGLOBIN 9.8 g/dl (13.5-17.5); MEAN CORPUSCULAR HEMOGLOBIN 34.6 pg (27.0-33.0); MEAN CORPUSCULAR HGB CONC 33.6 g/dl (32.0-36.5); MEAN CORPUSCULAR VOLUME 103.2 fl (80.0-96.0); PLATELET COUNT, AUTOMATED 147 10^3/uL (150-450); RED BLOOD COUNT 2.83 10^6/uL (4.30-6.10); WHITE BLOOD COUNT 19.5 10^3/uL (4.0-10.0)
[2021-08-08 08:06] LABS: ALBUMIN 2.1 GM/DL (3.2-5.2); ALT/SGPT 75 U/L (12-78); BILIRUBIN,TOTAL 5.7 MG/DL (0.2-1.0); BLOOD UREA NITROGEN 17 MG/DL (7-18); CALCIUM LEVEL 8.7 MG/DL (8.5-10.1); CARBON DIOXIDE LEVEL 25 MEQ/L (21-32); CHLORIDE LEVEL 103 MEQ/L (98-107); CREATININE FOR GFR 0.75 MG/DL (0.70-1.30); GLOMERULAR FILTRATION RATE > 60.0 (>60); GLUCOSE, FASTING 83 MG/DL (70-100); POTASSIUM SERUM 3.6 MEQ/L (3.5-5.1); SODIUM LEVEL 136 MEQ/L (136-145); TOTAL PROTEIN 5.4 GM/DL (6.4-8.2)
[2021-08-08] MEDS: PANTOPRAZOLE 40MG VIAL IV SCH (08:08)
[2021-08-08] MEDS: LIDOCAINE 5% (LIDODERM) PATCH TD SCH (08:08)
[2021-08-08] MEDS: NICOTINE 21MG/24HR 1 EA TRANSDERMAL TD SCH (08:08)
[2021-08-08] MEDS: FOLIC ACID 1 MG TAB PO SCH (08:09)
[2021-08-08] MEDS: MULTIVITAMINS/MINERALS THERAP 1 TAB PO SCH (08:09)
[2021-08-08] MEDS: SPIRONOLACTONE 25 MG TAB PO SCH (08:09)
[2021-08-08] MEDS: SODIUM CHLORIDE 0.9% INJ 10 ML SYR IV PRN (08:09)
[2021-08-08] MEDS: THIAMINE 100 MG TAB PO SCH (08:09)
[2021-08-08] MEDS: FUROSEMIDE 40 MG TAB PO SCH (08:09)
[2021-08-08] MEDS: predniSONE 20 MG TAB PO SCH (08:09)
[2021-08-08] MEDS: NYSTATIN 100,000 UNITS/GM TOPICAL PWD 15 GM TOP SCH (08:09)
[2021-08-08] MEDS: SODIUM CHLORIDE 0.9% NASAL GEL 15GM (AYR) SCH ×2 (08:10→12:54)
[2021-08-08] MEDS ORDERED: PRED20TA PO (11:04)
[2021-08-08] MEDS ORDERED: PRED10TA2 PO (11:04)
[2021-08-08] MEDS ORDERED: OXAZ15CA4 PO (11:04)
[2021-08-08] MEDS ORDERED: FURO40TA2 PO (11:04)
[2021-08-08] MEDS ORDERED: ALDA25TA2 PO (11:04)
== END 2021-08-08 14:30 | disposition home or self-care (01) | DRG 720 ==
LOC: M ED 10:44 → M ED INP 15:18 → ENRESERV 15:33 → M PCU 17:42 → M MS5PR 07-30 22:14
PROVIDERS: ADMIT Internal Medicine; ATTEND Internal Medicine
PROC: 02HV33Z Insertion of Infusion Device into Superior Vena Cava, Percutaneous Approach (ICD-10-PCS; principal; 2021-07-28 14:51)
DX: A41.89 Other specified sepsis (principal); E87.2 Acidosis; I50.33 Acute on chronic diastolic (congestive) heart failure; A08.39 Other viral enteritis; D69.59 Other secondary thrombocytopenia; E87.1 Hypo-osmolality and hyponatremia; N17.9 Acute kidney failure, unspecified; E83.42 Hypomagnesemia; D64.9 Anemia, unspecified; E66.9 Obesity, unspecified; F10.239 Alcohol dependence with withdrawal, unspecified; J44.9 Chronic obstructive pulmonary disease, unspecified; J45.909 Unspecified asthma, uncomplicated; K21.9 Gastro-esophageal reflux disease without esophagitis; K70.10 Alcoholic hepatitis without ascites; K70.30 Alcoholic cirrhosis of liver without ascites; N18.9 Chronic kidney disease, unspecified; R04.0 Epistaxis; Z68.33 Body mass index [BMI] 33.0-33.9, adult; Z79.899 Other long term (current) drug therapy; Z87.442 Personal history of urinary calculi; F32.A Depression, unspecified; E83.39 Other disorders of phosphorus metabolism; F41.9 Anxiety disorder, unspecified

== ENCOUNTER → 2021-08-15 | Outpatient (CLI) | payer OTHER ==
[~2021-08-15] MED LIST changes: +ALBU8.5H INH; +ALDA25TA2 PO; +OXAZ15CA4 PO; +POTA10TA67 PO; +PRED10TA2 PO; +PRED20TA PO
[2021-08-15 17:51] LABS: BASO # 0.1 10^3/uL (0.0-0.2); BASO % 0.3 % (0.0-1.0); HEMATOCRIT 37.5 % (42.0-52.0); HEMOGLOBIN 12.5 g/dl (13.5-17.5); LYMPH # 1.5 10^3/uL (1.5-5.0); LYMPH % 6.3 % (24.0-44.0); MEAN CORPUSCULAR HEMOGLOBIN 35.2 pg (27.0-33.0); MEAN CORPUSCULAR HGB CONC 33.3 g/dl (32.0-36.5); MEAN CORPUSCULAR VOLUME 105.6 fl (80.0-96.0); MONO # 0.9 10^3/uL (0.0-0.8); MONO % 3.5 % (2.0-8.0); NEUTROPHILS # 21.2 10^3/uL (1.5-8.5); PLATELET COUNT, AUTOMATED 199 10^3/uL (150-450); RED BLOOD COUNT 3.55 10^6/uL (4.30-6.10); WHITE BLOOD COUNT 24.4 10^3/uL (4.0-10.0)
[2021-08-15 18:27] LABS: ALT/SGPT 122 U/L (12-78); BILIRUBIN,TOTAL 3.7 MG/DL (0.2-1.0); BLOOD UREA NITROGEN 25 MG/DL (7-18); CALCIUM LEVEL 9.5 MG/DL (8.5-10.1); CARBON DIOXIDE LEVEL 26 MEQ/L (21-32); CHLORIDE LEVEL 100 MEQ/L (98-107); CREATININE FOR GFR 0.82 MG/DL (0.70-1.30); GLOMERULAR FILTRATION RATE > 60.0 (>60); GLUCOSE, FASTING 97 MG/DL (70-100); MAGNESIUM LEVEL 2.2 MG/DL (1.8-2.4); POTASSIUM SERUM 4.1 MEQ/L (3.5-5.1); SODIUM LEVEL 134 MEQ/L (136-145); TOTAL PROTEIN 6.7 GM/DL (6.4-8.2)
== END ==
LOC: M LAB 16:06
PROVIDERS: ATTEND Physician Assistant
DX: K70.11 Alcoholic hepatitis with ascites (principal)

== ENCOUNTER 2021-10-10 18:00 | Emergency (ER) | payer OTHER ==
[~2021-10-10] VITALS: Ht 172.7 cm; Wt 100.0 kg
[2021-10-10] MEDS ORDERED: OXAZEPAM 10MG CAP PO ONE ×2 (19:30→23:35)
[2021-10-10] MEDS ORDERED: METOCLOPRAMIDE INJ 10MG/2ML VIAL (J2765 PER 1) IV ONE (19:30)
[2021-10-10] MEDS ORDERED: PANTOPRAZOLE 40MG VIAL IV ONE (19:30)
[2021-10-10] MEDS ORDERED: NS 1,000 ML IV ONE ×2 (19:30→21:10)
[2021-10-10 20:27] LABS: BASO # 0.1 10^3/uL (0.0-0.2); BASO % 0.5 % (0.0-1.0); HEMATOCRIT 41.3 % (42.0-52.0); HEMOGLOBIN 14.4 g/dl (13.5-17.5); LYMPH # 0.9 10^3/uL (1.5-5.0); LYMPH % 6.8 % (24.0-44.0); MEAN CORPUSCULAR HEMOGLOBIN 30.6 pg (27.0-33.0); MEAN CORPUSCULAR HGB CONC 34.9 g/dl (32.0-36.5); MEAN CORPUSCULAR VOLUME 87.9 fl (80.0-96.0); MONO % 7.2 % (2.0-8.0); NEUTROPHILS # 11.2 10^3/uL (1.5-8.5); NEUTROPHILS % 85.1 % (36.0-66.0); PLATELET COUNT, AUTOMATED 106 10^3/uL (150-450); WHITE BLOOD COUNT 13.1 10^3/uL (4.0-10.0)
[2021-10-10 20:39] LABS: INR 1.21; PROTHROMBIN TIME 15.7 SECONDS (12.7-14.5)
[2021-10-10 21:07] LABS: ALBUMIN 3.4 GM/DL (3.2-5.2); ALT/SGPT 56 U/L (12-78); AMYLASE 46 U/L (25-115); BILIRUBIN,DIRECT 3.3 MG/DL (0.0-0.2); BILIRUBIN,TOTAL 4.9 MG/DL (0.2-1.0); BLOOD UREA NITROGEN 6 MG/DL (7-18); CALCIUM LEVEL 7.6 MG/DL (8.5-10.1); CARBON DIOXIDE LEVEL 29 MEQ/L (21-32); CHLORIDE LEVEL 84 MEQ/L (98-107); CREATININE FOR GFR 1.26 MG/DL (0.70-1.30); GLOMERULAR FILTRATION RATE > 60.0 (>60); GLUCOSE, FASTING 115 MG/DL (70-100); LIPASE 720 U/L (73-393); POTASSIUM SERUM 2.8 MEQ/L (3.5-5.1); SODIUM LEVEL 127 MEQ/L (136-145); TOTAL PROTEIN 8.2 GM/DL (6.4-8.2)
[2021-10-10] MEDS ORDERED: POTASSIUM CHLORIDE 10MEQ SR TABLET PO ONE (21:10)
[2021-10-10] MEDS ORDERED: KCL 10MEQ/100ML SWI (KRUN) 10 MEQ in IV 1 EA IV ONE (21:10)
[2021-10-10 21:14] LABS: RSV AMPLIFICATION NEGATIVE (NEGATIVE)
[2021-10-11] MEDS ORDERED: LORazepam 2 MG/ML VIAL IV STA (00:51)
[2021-10-11 01:03] VITALS: BP 145/98
== END 2021-10-11 01:37 | disposition short-term general hospital (02) ==
LOC: M ED 18:00
DX: K92.0 Hematemesis (principal); F10.20 Alcohol dependence, uncomplicated; K72.90 Hepatic failure, unspecified without coma; E87.6 Hypokalemia; R00.0 Tachycardia, unspecified; I10 Essential (primary) hypertension; J44.9 Chronic obstructive pulmonary disease, unspecified; I51.9 Heart disease, unspecified; F17.200 Nicotine dependence, unspecified, uncomplicated; Z79.51 Long term (current) use of inhaled steroids; Z79.899 Other long term (current) drug therapy
CPT/HCPCS: 80048; 80076; 81001; 82077; 82140; 82150; 83690; 85025; 85610; 86850; 86900; 86901; 87631; 93005; 93041; 96365; 96375; 99285; C9113; J2060; J2765

== ENCOUNTER 2021-11-24 17:55 | Inpatient (IN) | payer OTHER ==
[~2021-11-24] VITALS: Ht 172.7 cm; Wt 100.1 kg
[~2021-11-24 17:55] MED LIST changes: +CIPR-249 PO; +MAGN400C PO; +OMEP40CA4 PO; +SFHIBU200 PO
[2021-11-24] MEDS ORDERED: MIDAZOLAM INJ 2MG/2ML VIAL (J2250 PER 1MG) IV ONE ×3 (20:20→23:35)
[2021-11-24] MEDS ORDERED: NS 1,000 ML IV ONE (20:40)
[2021-11-24] MEDS: THIAMINE 100 MG TAB PO SCH (21:00)
[2021-11-24 21:25] LABS: BASO # 0.1 10^3/uL (0.0-0.2); BASO % 0.4 % (0.0-1.0); EOS % 0.1 % (0.0-3.0); HEMATOCRIT 34.5 % (42.0-52.0); HEMOGLOBIN 11.9 g/dl (13.5-17.5); LYMPH # 1.3 10^3/uL (1.5-5.0); LYMPH % 10.3 % (24.0-44.0); MEAN CORPUSCULAR HEMOGLOBIN 30.7 pg (27.0-33.0); MEAN CORPUSCULAR HGB CONC 34.5 g/dl (32.0-36.5); MEAN CORPUSCULAR VOLUME 89.1 fl (80.0-96.0); MONO % 7.9 % (2.0-8.0); NEUTROPHILS # 9.9 10^3/uL (1.5-8.5); NEUTROPHILS % 80.9 % (36.0-66.0); RED BLOOD COUNT 3.87 10^6/uL (4.30-6.10); WHITE BLOOD COUNT 12.2 10^3/uL (4.0-10.0)
[2021-11-24 21:34] LABS: INR 1.2; PROTHROMBIN TIME 15.6 SECONDS (12.7-14.5)
[2021-11-24 21:35] LABS: PARTIAL THROMBOPLASTIN TIME 38.7 SECONDS (25.9-37.0)
[2021-11-24 22:09] LABS: ALBUMIN 3.6 GM/DL (3.2-5.2); ALT/SGPT 40 U/L (12-78); BILIRUBIN,DIRECT 3.9 MG/DL (0.0-0.2); BILIRUBIN,TOTAL 5.7 MG/DL (0.2-1.0); BLOOD UREA NITROGEN 7 MG/DL (7-18); CALCIUM LEVEL 8.6 MG/DL (8.5-10.1); CARBON DIOXIDE LEVEL 28 MEQ/L (21-32); CHLORIDE LEVEL 88 MEQ/L (98-107); CREATININE FOR GFR 1.33 MG/DL (0.70-1.30); GLOMERULAR FILTRATION RATE > 60.0 (>60); GLUCOSE, FASTING 133 MG/DL (70-100); LIPASE 1734 U/L (73-393); SODIUM LEVEL 129 MEQ/L (136-145); TOTAL PROTEIN 8.5 GM/DL (6.4-8.2)
[2021-11-24] MEDS ORDERED: LORazepam 2 MG TAB PO PRN (22:45)
[2021-11-24] MEDS ORDERED: diazePAM 10 MG TAB PO ONE (23:00)
[2021-11-24] MEDS ORDERED: POTASSIUM CHLORIDE 10MEQ SR TABLET PO ONE (23:00)
[2021-11-24] MEDS ORDERED: NS 2,730 ML in IV 1 EA IV ONE (23:35)
[2021-11-25] MEDS ORDERED: MORPHINE 4 MG/ML 1ML VIAL/SYRINGE IV PRN (00:05)
[2021-11-25] MEDS ORDERED: ONDANSETRON 4MG 2ML VIAL IV ONE ×2 (01:00→09:40)
[2021-11-25] MEDS ORDERED: OMEP40CA5 PO (01:13)
[2021-11-25] MEDS ORDERED: PROP10TA56 PO (01:13)
[2021-11-25] MEDS ORDERED: MAGN400T2 PO (01:13)
[2021-11-25] MEDS ORDERED: MULTCHW12 PO (01:13)
[2021-11-25] MEDS ORDERED: HOME MED LIST COMPLETE! XX SCH (01:15)
[2021-11-25] MEDS ORDERED: NICOTINE 21MG/24HR 1 EA TRANSDERMAL TD ONE (01:45)
[2021-11-25 02:10] LABS: AMPHETAMINES LEVEL URINE NEGATIVE (NEGATIVE); BARBITURATES URINE NEGATIVE (NEGATIVE); BENZODIAZEPINES URINE POSITIVE (NEGATIVE); CANNABINOIDS URINE POSITIVE (NEGATIVE); COCAINE METABOLITE URINE NEGATIVE (NEGATIVE); METHADONE URINE NEGATIVE (NEGATIVE); OPIATES URINE NEGATIVE (NEGATIVE); PHENCYCLIDINE URINE NEGATIVE (NEGATIVE)
[2021-11-25] MEDS: KCL 20MEQ in NS 1000ML 1,000 ML IV SCH ×2 (04:55→11:45)
[2021-11-25] MEDS ORDERED: MULTIVITAMINS/MINERALS THERAP 1 TAB PO SCH (09:00)
[2021-11-25] MEDS: THIAMINE 100 MG TAB PO SCH ×2 (09:00→22:16)
[2021-11-25] MEDS ORDERED: FOLIC ACID 1MG TAB PO SCH (09:00)
[2021-11-25 12:32] LABS: ALBUMIN 2.6 GM/DL (3.2-5.2); ALT/SGPT 32 U/L (12-78); BILIRUBIN,TOTAL 5.7 MG/DL (0.2-1.0); BLOOD UREA NITROGEN 7 MG/DL (7-18); CALCIUM LEVEL 7.3 MG/DL (8.5-10.1); CARBON DIOXIDE LEVEL 28 MEQ/L (21-32); CHLORIDE LEVEL 100 MEQ/L (98-107); CREATININE FOR GFR 1.14 MG/DL (0.70-1.30); GLOMERULAR FILTRATION RATE > 60.0 (>60); GLUCOSE, FASTING 96 MG/DL (70-100); LIPASE 1179 U/L (73-393); POTASSIUM SERUM 3.6 MEQ/L (3.5-5.1); SODIUM LEVEL 133 MEQ/L (136-145); TOTAL PROTEIN 6.9 GM/DL (6.4-8.2)
[2021-11-25] MEDS ORDERED: PIPERACILLIN/TAZOBACTAM SOD 4.5 GM in D5W MINI-BAG PLUS 50 ML IV ONE (15:10)
[2021-11-25] MEDS ORDERED: THIAMINE 200MG 2ML VIAL IV ONE (17:25)
[2021-11-25] MEDS ORDERED: ALBUTEROL 90 MCG/ACT 8GM HFA INHALER INH PRN (17:35)
[2021-11-25] MEDS ORDERED: MIDAZOLAM INJ 2MG/2ML VIAL (J2250 PER 1MG) IV PRN (17:35)
[2021-11-25] MEDS ORDERED: MORPHINE 2 MG/ML 1ML VIAL IV PRN (17:40)
[2021-11-25] MEDS: NS 1,000 ML IV SCH (19:15)
[2021-11-25] MEDS: SPIRONOLACTONE 25 MG TAB PO SCH (21:00)
[2021-11-25 21:10] VITALS: BP 125/86
[2021-11-25] MEDS: MAGNESIUM OXIDE 400MG TAB (MAG-OX) PO SCH (22:16)
[2021-11-25] MEDS: OXAZEPAM 10MG CAP PO SCH (22:16)
[2021-11-25] MEDS: PIPERACILLIN/TAZOBACTAM SOD 3.375 GM in D5W MINI-BAG PLUS 50 ML IV SCH (22:17)
[2021-11-25] MEDS: PANTOPRAZOLE 40MG VIAL IV SCH (22:17)
[2021-11-25] MEDS ORDERED: CALCIUM CARBONATE 500 MG CHEW U/D PO ONE (22:35)
[2021-11-25 23:00] VITALS: BP 132/88
[2021-11-25 23:47] VITALS: BP 132/88
[2021-11-26] VITALS (7 sets, daily range): BP systolic 100–132; BP diastolic 58–88
[2021-11-26] MEDS: OXAZEPAM 10MG CAP PO SCH ×3 (05:08→21:04)
[2021-11-26] MEDS: PIPERACILLIN/TAZOBACTAM SOD 3.375 GM in D5W MINI-BAG PLUS 50 ML IV SCH ×4 (05:08→21:03)
[2021-11-26 05:59] LABS: HEMATOCRIT 28.7 % (42.0-52.0); MEAN CORPUSCULAR HEMOGLOBIN 30.3 pg (27.0-33.0); MEAN CORPUSCULAR HGB CONC 32.1 g/dl (32.0-36.5); MEAN CORPUSCULAR VOLUME 94.4 fl (80.0-96.0); RED BLOOD COUNT 3.04 10^6/uL (4.30-6.10); WHITE BLOOD COUNT 8.8 10^3/uL (4.0-10.0)
[2021-11-26 06:43] LABS: ALBUMIN 2.6 GM/DL (3.2-5.2); ALT/SGPT 26 U/L (12-78); BILIRUBIN,TOTAL 5.8 MG/DL (0.2-1.0); BLOOD UREA NITROGEN 6 MG/DL (7-18); CALCIUM LEVEL 7.3 MG/DL (8.5-10.1); CARBON DIOXIDE LEVEL 22 MEQ/L (21-32); CHLORIDE LEVEL 102 MEQ/L (98-107); CREATININE FOR GFR 1.15 MG/DL (0.70-1.30); GLOMERULAR FILTRATION RATE > 60.0 (>60); GLUCOSE, FASTING 97 MG/DL (70-100); POTASSIUM SERUM 3.4 MEQ/L (3.5-5.1); SODIUM LEVEL 134 MEQ/L (136-145); TOTAL PROTEIN 6.2 GM/DL (6.4-8.2)
[2021-11-26 06:45] LABS: HEMOGLOBIN 9.2 g/dl (13.5-17.5); PLATELET COUNT, AUTOMATED 50 10^3/uL (150-450)
[2021-11-26] MEDS ORDERED: MAG SULF 1GM/100ML (MAG RUN) 1 GM in IV 1 EA IV ONE ×4 (07:40→10:00)
[2021-11-26] MEDS ORDERED: POTASSIUM CHLORIDE 10MEQ SR TABLET PO ONE ×2 (08:00→08:20)
[2021-11-26] MEDS: NS 1,000 ML IV SCH (08:53)
[2021-11-26] MEDS: NICOTINE 14 MG/24 HR TRANSDERMAL TD SCH (08:54)
[2021-11-26] MEDS: PANTOPRAZOLE 40MG VIAL IV SCH ×2 (08:55→21:04)
[2021-11-26] MEDS: MAGNESIUM OXIDE 400MG TAB (MAG-OX) PO SCH ×2 (08:55→21:04)
[2021-11-26] MEDS: SPIRONOLACTONE 25 MG TAB PO SCH ×2 (08:55→21:05)
[2021-11-26] MEDS: THIAMINE 100 MG TAB PO SCH ×2 (08:55→21:04)
[2021-11-26] MEDS ORDERED: ENOXAPARIN 40MG/0.4ML SYRINGE (J1650 PER 10MG) SC SCH (09:00)
[2021-11-26] MEDS: LACTULOSE 20 GM/30 ML SYRUP UD PO SCH ×3 (12:47→21:05)
[2021-11-26 13:21] LABS: HEMATOCRIT 28.3 % (42.0-52.0); HEMOGLOBIN 9.3 g/dl (13.5-17.5)
[2021-11-27] VITALS: BP 106/58
[2021-11-27] MEDS ORDERED: MIDAZOLAM INJ 2MG/2ML VIAL (J2250 PER 1MG) IV ONE (00:55)
[2021-11-27] MEDS ORDERED: SIMETHICONE 80MG CHEW TAB PO ONE (01:00)
[2021-11-27 03:56] LABS: MEAN CORPUSCULAR HEMOGLOBIN 31.1 pg (27.0-33.0); MEAN CORPUSCULAR HGB CONC 33.3 g/dl (32.0-36.5); MEAN CORPUSCULAR VOLUME 93.4 fl (80.0-96.0); RED BLOOD COUNT 2.89 10^6/uL (4.30-6.10); WHITE BLOOD COUNT 10.1 10^3/uL (4.0-10.0)
[2021-11-27 03:57] LABS: PLATELET COUNT, AUTOMATED 53 10^3/uL (150-450)
[2021-11-27 04:00] VITALS: BP 117/75
[2021-11-27] MEDS: PIPERACILLIN/TAZOBACTAM SOD 3.375 GM in D5W MINI-BAG PLUS 50 ML IV SCH ×4 (04:33→23:01)
[2021-11-27 04:35] LABS: ALBUMIN 2.7 GM/DL (3.2-5.2); ALT/SGPT 24 U/L (12-78); BILIRUBIN,TOTAL 5.8 MG/DL (0.2-1.0); BLOOD UREA NITROGEN 3 MG/DL (7-18); CALCIUM LEVEL 7.9 MG/DL (8.5-10.1); CARBON DIOXIDE LEVEL 23 MEQ/L (21-32); CHLORIDE LEVEL 101 MEQ/L (98-107); CREATININE FOR GFR 1.01 MG/DL (0.70-1.30); GLOMERULAR FILTRATION RATE > 60.0 (>60); GLUCOSE, FASTING 93 MG/DL (70-100); MAGNESIUM LEVEL 1.3 MG/DL (1.8-2.4); POTASSIUM SERUM 3.3 MEQ/L (3.5-5.1); SODIUM LEVEL 132 MEQ/L (136-145)
[2021-11-27] MEDS: OXAZEPAM 10MG CAP PO SCH ×4 (05:27→23:02)
[2021-11-27] MEDS ORDERED: POTASSIUM CHLORIDE 10MEQ SR TABLET PO ONE (06:00)
[2021-11-27 07:22] LABS: BACTERIA, URINE SMALL AMOUNT; HYALINE CAST, URINE NONE SEEN /lpf (0-1); RBC, URINE TNTC /hpf (0-3); SQUAMOUS EPITHELIAL CELL URINE SMALL AMOUNT /hpf (SMALL AMT)
[2021-11-27] MEDS ORDERED: MAG SULF 1GM/100ML (MAG RUN) 1 GM in IV 1 EA IV ONE (07:25)
[2021-11-27] MEDS: SPIRONOLACTONE 25 MG TAB PO SCH ×2 (08:54→20:27)
[2021-11-27] MEDS: PANTOPRAZOLE 40MG VIAL IV SCH ×2 (08:54→20:26)
[2021-11-27] MEDS: MAGNESIUM OXIDE 400MG TAB (MAG-OX) PO SCH ×2 (08:54→20:27)
[2021-11-27] MEDS: THIAMINE 100 MG TAB PO SCH (08:54)
[2021-11-27] MEDS: NICOTINE 14 MG/24 HR TRANSDERMAL TD SCH (08:55)
[2021-11-27] MEDS: FUROSEMIDE 40 MG TAB PO SCH ×2 (08:55→16:30)
[2021-11-27] MEDS: LACTULOSE 20 GM/30 ML SYRUP UD PO SCH ×3 (08:56→20:27)
[2021-11-27 12:35] VITALS: BP 128/85
[2021-11-27 16:00] VITALS: BP 119/68
[2021-11-27 20:00] VITALS: BP 103/61
[2021-11-27] MEDS ORDERED: diazePAM 10MG/2ML SYRINGE (J3360 PER 5MG) IV PRN (20:40)
[2021-11-28] VITALS (11 sets, daily range): BP systolic 105–135; BP diastolic 56–77
[2021-11-28] MEDS: PIPERACILLIN/TAZOBACTAM SOD 3.375 GM in D5W MINI-BAG PLUS 50 ML IV SCH ×4 (04:04→21:58)
[2021-11-28] MEDS: OXAZEPAM 10MG CAP PO SCH ×4 (05:52→23:39)
[2021-11-28] MEDS: ONDANSETRON 4MG 2ML VIAL IV PRN ×3 (06:06→21:57)
[2021-11-28 06:40] LABS: HEMATOCRIT 27.9 % (42.0-52.0); HEMOGLOBIN 9.5 g/dl (13.5-17.5); MEAN CORPUSCULAR HEMOGLOBIN 31.4 pg (27.0-33.0); MEAN CORPUSCULAR HGB CONC 34.1 g/dl (32.0-36.5); MEAN CORPUSCULAR VOLUME 92.1 fl (80.0-96.0); RED BLOOD COUNT 3.03 10^6/uL (4.30-6.10); WHITE BLOOD COUNT 9.1 10^3/uL (4.0-10.0)
[2021-11-28 06:42] LABS: PLATELET COUNT, AUTOMATED 66 10^3/uL (150-450)
[2021-11-28 07:11] LABS: ALBUMIN 2.7 GM/DL (3.2-5.2); ALT/SGPT 21 U/L (12-78); BILIRUBIN,TOTAL 4.9 MG/DL (0.2-1.0); BLOOD UREA NITROGEN 2 MG/DL (7-18); CALCIUM LEVEL 8.1 MG/DL (8.5-10.1); CARBON DIOXIDE LEVEL 25 MEQ/L (21-32); CHLORIDE LEVEL 98 MEQ/L (98-107); GLOMERULAR FILTRATION RATE > 60.0 (>60); GLUCOSE, FASTING 96 MG/DL (70-100); MAGNESIUM LEVEL 1.4 MG/DL (1.8-2.4); POTASSIUM SERUM 3.1 MEQ/L (3.5-5.1); SODIUM LEVEL 133 MEQ/L (136-145); TOTAL PROTEIN 6.5 GM/DL (6.4-8.2)
[2021-11-28] MEDS: PANTOPRAZOLE 40MG VIAL IV SCH (09:13)
[2021-11-28] MEDS: LACTULOSE 20 GM/30 ML SYRUP UD PO SCH ×3 (09:14→21:58)
[2021-11-28] MEDS: SPIRONOLACTONE 25 MG TAB PO SCH ×2 (09:14→21:58)
[2021-11-28] MEDS: FUROSEMIDE 40 MG TAB PO SCH ×2 (09:15→16:35)
[2021-11-28] MEDS: MAGNESIUM OXIDE 400MG TAB (MAG-OX) PO SCH ×2 (09:15→21:57)
[2021-11-28] MEDS: NICOTINE 14 MG/24 HR TRANSDERMAL TD SCH (09:17)
[2021-11-28] MEDS: PANTOPRAZOLE 40MG TAB (PROTONIX) PO SCH (21:58)
[2021-11-29] VITALS (12 sets, daily range): BP systolic 92–121; BP diastolic 54–70
[2021-11-29] MEDS: PIPERACILLIN/TAZOBACTAM SOD 3.375 GM in D5W MINI-BAG PLUS 50 ML IV SCH ×2 (04:01→10:47)
[2021-11-29] MEDS: OXAZEPAM 10MG CAP PO SCH (05:34)
[2021-11-29 07:25] LABS: HEMATOCRIT 27.5 % (42.0-52.0); HEMOGLOBIN 9.2 g/dl (13.5-17.5); MEAN CORPUSCULAR HEMOGLOBIN 31.4 pg (27.0-33.0); MEAN CORPUSCULAR HGB CONC 33.5 g/dl (32.0-36.5); MEAN CORPUSCULAR VOLUME 93.9 fl (80.0-96.0); RED BLOOD COUNT 2.93 10^6/uL (4.30-6.10); WHITE BLOOD COUNT 9.4 10^3/uL (4.0-10.0)
[2021-11-29 07:26] LABS: PLATELET COUNT, AUTOMATED 83 10^3/uL (150-450)
[2021-11-29 07:54] LABS: ALBUMIN 2.8 GM/DL (3.2-5.2); ALT/SGPT 17 U/L (12-78); BILIRUBIN,TOTAL 5.9 MG/DL (0.2-1.0); BLOOD UREA NITROGEN 2 MG/DL (7-18); CALCIUM LEVEL 8.2 MG/DL (8.5-10.1); CARBON DIOXIDE LEVEL 28 MEQ/L (21-32); CHLORIDE LEVEL 96 MEQ/L (98-107); CREATININE FOR GFR 0.85 MG/DL (0.70-1.30); GLOMERULAR FILTRATION RATE > 60.0 (>60); GLUCOSE, FASTING 98 MG/DL (70-100); MAGNESIUM LEVEL 1.3 MG/DL (1.8-2.4); POTASSIUM SERUM 3.1 MEQ/L (3.5-5.1); SODIUM LEVEL 134 MEQ/L (136-145); TOTAL PROTEIN 6.3 GM/DL (6.4-8.2)
[2021-11-29] MEDS: LACTULOSE 20 GM/30 ML SYRUP UD PO SCH ×3 (09:29→21:00)
[2021-11-29] MEDS: SPIRONOLACTONE 25 MG TAB PO SCH ×2 (09:29→21:10)
[2021-11-29] MEDS: MAG SULF 1GM/100ML (MAG RUN) 1 GM in IV 1 EA IV SCH ×2 (09:29→12:07)
[2021-11-29] MEDS: PANTOPRAZOLE 40MG TAB (PROTONIX) PO SCH ×2 (09:30→21:10)
[2021-11-29] MEDS: POTASSIUM CHLORIDE 10MEQ SR TABLET PO SCH ×2 (09:31→21:10)
[2021-11-29] MEDS: MAGNESIUM OXIDE 400MG TAB (MAG-OX) PO SCH ×2 (09:32→21:10)
[2021-11-29] MEDS: NICOTINE 14 MG/24 HR TRANSDERMAL TD SCH (09:33)
[2021-11-29] MEDS: FUROSEMIDE 40 MG TAB PO SCH ×2 (09:34→17:05)
[2021-11-29] MEDS: OXAZEPAM 15MG CAP PO SCH ×2 (12:21→17:05)
[2021-11-29] MEDS: LevoFLOXacin 750 MG TABLET PO SCH (15:02)
[2021-11-29 16:02] LABS: MAGNESIUM LEVEL 1.7 MG/DL (1.8-2.4); POTASSIUM SERUM 3.6 MEQ/L (3.5-5.1)
[2021-11-29] MEDS: metroNIDAZOLE (FLAGYL) 500MG TABLET PO SCH ×2 (17:04→21:10)
[2021-11-30] VITALS (7 sets, daily range): BP systolic 92–119; BP diastolic 54–68
[2021-11-30] MEDS: OXAZEPAM 15MG CAP PO SCH ×3 (00:10→12:09)
[2021-11-30 05:23] LABS: HEMATOCRIT 26.8 % (42.0-52.0); HEMOGLOBIN 9.1 g/dl (13.5-17.5); MEAN CORPUSCULAR HEMOGLOBIN 31.5 pg (27.0-33.0); MEAN CORPUSCULAR VOLUME 92.7 fl (80.0-96.0); PLATELET COUNT, AUTOMATED 104 10^3/uL (150-450); RED BLOOD COUNT 2.89 10^6/uL (4.30-6.10)
[2021-11-30] MEDS: LevoFLOXacin 750 MG TABLET PO SCH (05:26)
[2021-11-30 06:13] LABS: ALBUMIN 2.6 GM/DL (3.2-5.2); ALT/SGPT 15 U/L (12-78); BILIRUBIN,TOTAL 6.5 MG/DL (0.2-1.0); BLOOD UREA NITROGEN 1 MG/DL (7-18); CARBON DIOXIDE LEVEL 28 MEQ/L (21-32); CHLORIDE LEVEL 96 MEQ/L (98-107); GLOMERULAR FILTRATION RATE > 60.0 (>60); GLUCOSE, FASTING 119 MG/DL (70-100); MAGNESIUM LEVEL 1.5 MG/DL (1.8-2.4); POTASSIUM SERUM 2.8 MEQ/L (3.5-5.1); SODIUM LEVEL 133 MEQ/L (136-145); TOTAL PROTEIN 6.5 GM/DL (6.4-8.2)
[2021-11-30] MEDS ORDERED: MAG SULF 1GM/100ML (MAG RUN) 1 GM in IV 1 EA IV ONE (06:20)
[2021-11-30] MEDS ORDERED: POTASSIUM CHLORIDE 10MEQ SR TABLET PO ONE ×2 (06:20→07:30)
[2021-11-30] MEDS ORDERED: POTASSIUM CHLORIDE 10MEQ SR TABLET PO SCH ×3 (07:30→12:00)
[2021-11-30] MEDS: LACTULOSE 20 GM/30 ML SYRUP UD PO SCH ×2 (08:38→16:03)
[2021-11-30] MEDS: NICOTINE 14 MG/24 HR TRANSDERMAL TD SCH (08:40)
[2021-11-30] MEDS: SPIRONOLACTONE 25 MG TAB PO SCH (08:40)
[2021-11-30] MEDS: MAGNESIUM OXIDE 400MG TAB (MAG-OX) PO SCH (08:41)
[2021-11-30] MEDS: metroNIDAZOLE (FLAGYL) 500MG TABLET PO SCH ×2 (08:41→16:03)
[2021-11-30] MEDS: MIDODRINE 5 MG TAB PO SCH ×3 (08:41→16:04)
[2021-11-30] MEDS: FUROSEMIDE 40 MG TAB PO SCH ×2 (08:42→16:03)
[2021-11-30] MEDS: PANTOPRAZOLE 40MG TAB (PROTONIX) PO SCH (08:42)
[2021-11-30] MEDS ORDERED: MAGN400T2 PO (09:45)
[2021-11-30] MEDS ORDERED: LEVO1TAB40 PO (09:45)
[2021-11-30] MEDS ORDERED: NICO14PA TD (09:45)
[2021-11-30] MEDS ORDERED: METR-265 PO (09:45)
[2021-11-30] MEDS ORDERED: MIDO5TA PO (09:45)
[2021-11-30] MEDS ORDERED: OXAZ15CA4 PO (09:45)
[2021-11-30] MEDS ORDERED: LACT20EL PO (09:45)
[2021-11-30] MEDS ORDERED: POTA-136 PO (09:45)
[2021-11-30 10:32] LABS: MAGNESIUM LEVEL 1.9 MG/DL (1.8-2.4); POTASSIUM SERUM 2.9 MEQ/L (3.5-5.1)
[2021-11-30] MEDS: POTASSIUM CHLORIDE 10MEQ SR TABLET PO SCH ×3 (12:09→14:00)
[2021-11-30 15:34] LABS: MAGNESIUM LEVEL 1.8 MG/DL (1.8-2.4); POTASSIUM SERUM 4.1 MEQ/L (3.5-5.1)
== END 2021-11-30 17:27 | disposition home or self-care (01) | DRG 720 ==
LOC: M ED 17:55 → M ED INP 11-25 17:26 → ENRESERV 11-25 19:08 → M PCU 11-25 21:06
PROVIDERS: ADMIT Family Medicine; ATTEND Family Medicine
DX: A41.9 Sepsis, unspecified organism (principal); I85.00 Esophageal varices without bleeding; K76.6 Portal hypertension; K81.0 Acute cholecystitis; D69.6 Thrombocytopenia, unspecified; K70.30 Alcoholic cirrhosis of liver without ascites; E87.6 Hypokalemia; F17.210 Nicotine dependence, cigarettes, uncomplicated; R74.01 Elevation of levels of liver transaminase levels; F10.130 Alcohol abuse with withdrawal, uncomplicated; Z20.822 Contact with and (suspected) exposure to COVID-19; Z79.899 Other long term (current) drug therapy; Z71.41 Alcohol abuse counseling and surveillance of alcoholic; R26.89 Other abnormalities of gait and mobility

== ENCOUNTER 2022-02-28 19:24 | Inpatient (IN) | payer OTHER ==
[~2022-02-28] VITALS: Ht 172.7 cm; Wt 103.0 kg
[~2022-02-28 19:24] MED LIST changes: +CARA1TAB6 PO; +LACT20EL PO; +LEVO1TAB40 PO; +MAGN400T2 PO; +METR-265 PO; +MIDO10TA14 PO; +MIDO5TA PO; +MULTCHW12 PO; +NICO14PA TD; +OMEP40CA5 PO; +POTA-136 PO; +THIA100TA PO; +VITMTA PO
[2022-02-28] MEDS ORDERED: MAGN400T33 (19:43)
[2022-02-28] MEDS ORDERED: BACTDSTA (19:43)
[2022-02-28] MEDS ORDERED: SIME80TA16 (19:43)
[2022-02-28] MEDS ORDERED: PRED20TA (19:43)
[2022-02-28 21:11] LABS: BASO % 0.2 % (0.0-1.0); EOS # 0.1 10^3/uL (0.0-0.5); EOS % 0.4 % (0.0-3.0); HEMATOCRIT 24.6 % (42.0-52.0); HEMOGLOBIN 7.8 g/dl (13.5-17.5); LYMPH # 2.2 10^3/uL (1.5-5.0); LYMPH % 9.1 % (24.0-44.0); MEAN CORPUSCULAR HGB CONC 31.7 g/dl (32.0-36.5); MEAN CORPUSCULAR VOLUME 94.6 fl (80.0-96.0); MONO # 1.3 10^3/uL (0.0-0.8); MONO % 5.5 % (2.0-8.0); NEUTROPHILS # 19.9 10^3/uL (1.5-8.5); NEUTROPHILS % 82.2 % (36.0-66.0); PLATELET COUNT, AUTOMATED 158 10^3/uL (150-450); WHITE BLOOD COUNT 24.2 10^3/uL (4.0-10.0)
[2022-02-28 21:30] LABS: INR 1.36
[2022-02-28 21:31] LABS: CHLORIDE LEVEL 102 MMOL/L (98-107); PARTIAL THROMBOPLASTIN TIME 33.9 SECONDS (24.8-34.2); SODIUM LEVEL 136 MMOL/L (136-145)
[2022-02-28 21:32] LABS: CARBON DIOXIDE LEVEL 23 MMOL/L (20-31)
[2022-02-28 21:33] LABS: ALBUMIN 2.5 G/DL (3.2-5.2)
[2022-02-28 21:37] LABS: CALCIUM LEVEL 8.5 MG/DL (8.5-10.1); GLUCOSE, FASTING 132 MG/DL (60-100)
[2022-02-28 21:38] LABS: ALKALINE PHOSPHATASE 239 U/L (46-116)
[2022-02-28 21:39] LABS: BILIRUBIN,DIRECT 3.7 MG/DL (<0.4); BILIRUBIN,TOTAL 5.4 MG/DL (0.3-1.2); CREATININE FOR GFR 0.73 MG/DL (0.70-1.30); GLOMERULAR FILTRATION RATE > 60.0 (>60); TOTAL PROTEIN 6.7 G/DL (5.7-8.2)
[2022-02-28 21:40] LABS: AST/SGOT 266 U/L (<34)
[2022-02-28 21:48] LABS: ALT/SGPT 68 U/L (7.0-40); BLOOD UREA NITROGEN 16 MG/DL (9-23); CK-MB VALUE MASS < 1.0 NG/ML (<3.6); CPK CREATINE PHOSPHOKINASE 35 U/L (46-171); LIPASE 162 U/L (12-53); MB/CK RELATIVE INDEX 2.85 (< OR =4); POTASSIUM SERUM 4.3 MMOL/L (3.5-5.1)
[2022-02-28] MEDS ORDERED: ISOVUE-370 76% 100ML VIAL As Ordered ONE (21:50)
[2022-02-28] MEDS ORDERED: PIPERACILLIN/TAZOBACTAM SOD 3.375 GM in D5W MINI-BAG PLUS 50 ML IV ONE (23:40)
[2022-03-01] VITALS (8 sets, daily range): BP systolic 85–129; BP diastolic 50–71; O2SAT 98
[2022-03-01] MEDS ORDERED: BACT800T5 PO (02:20)
[2022-03-01] MEDS ORDERED: PRED20TA PO (02:20)
[2022-03-01] MEDS ORDERED: THIA100TA PO (02:20)
[2022-03-01] MEDS ORDERED: HOME MED LIST COMPLETE! XX SCH (02:20)
[2022-03-01] MEDS ORDERED: [UNRECOGNIZED DRUG - OTHER] PO (02:20)
[2022-03-01] MEDS ORDERED: NICO14DI6 TD (02:20)
[2022-03-01] MEDS ORDERED: NALT50TA4 PO (02:20)
[2022-03-01] MEDS ORDERED: ALBUTEROL 90 MCG/ACT 8GM HFA INHALER INH PRN (03:05)
[2022-03-01] MEDS ORDERED: NS 1,000 ML IV SCH (03:10)
[2022-03-01 04:21] LABS: BASO % 0.1 % (0.0-1.0); EOS # 0.1 10^3/uL (0.0-0.5); EOS % 0.5 % (0.0-3.0); HEMATOCRIT 21.7 % (42.0-52.0); LYMPH # 1.8 10^3/uL (1.5-5.0); LYMPH % 8.2 % (24.0-44.0); MEAN CORPUSCULAR HEMOGLOBIN 30.3 pg (27.0-33.0); MEAN CORPUSCULAR HGB CONC 32.3 g/dl (32.0-36.5); MEAN CORPUSCULAR VOLUME 93.9 fl (80.0-96.0); MONO # 1.1 10^3/uL (0.0-0.8); MONO % 4.9 % (2.0-8.0); NEUTROPHILS # 18.5 10^3/uL (1.5-8.5); NEUTROPHILS % 84.7 % (36.0-66.0); PLATELET COUNT, AUTOMATED 109 10^3/uL (150-450); RED BLOOD COUNT 2.31 10^6/uL (4.30-6.10); WHITE BLOOD COUNT 21.8 10^3/uL (4.0-10.0)
[2022-03-01 04:35] LABS: CHLORIDE LEVEL 104 MMOL/L (98-107); POTASSIUM SERUM 3.9 MMOL/L (3.5-5.1); SODIUM LEVEL 136 MMOL/L (136-145)
[2022-03-01 04:37] LABS: ALBUMIN 2.2 G/DL (3.2-5.2); CARBON DIOXIDE LEVEL 24 MMOL/L (20-31)
[2022-03-01 04:41] LABS: BLOOD UREA NITROGEN 16 MG/DL (9-23); CALCIUM LEVEL 8.3 MG/DL (8.5-10.1); GLUCOSE, FASTING 101 MG/DL (60-100)
[2022-03-01 04:42] LABS: ALKALINE PHOSPHATASE 224 U/L (46-116)
[2022-03-01 04:43] LABS: BILIRUBIN,TOTAL 4.9 MG/DL (0.3-1.2); CREATININE FOR GFR 0.66 MG/DL (0.70-1.30); GLOMERULAR FILTRATION RATE > 60.0 (>60)
[2022-03-01 04:44] LABS: ALT/SGPT 60 U/L (7.0-40); AST/SGOT 235 U/L (<34)
[2022-03-01] MEDS: PIPERACILLIN/TAZOBACTAM SOD 3.375 GM in D5W MINI-BAG PLUS 50 ML IV SCH ×4 (06:42→23:45)
[2022-03-01] MEDS: MIDODRINE 5 MG TAB PO SCH ×3 (08:00→17:48)
[2022-03-01] MEDS: IPRATROPIUM 0.02% SOLN 0.5MG 2.5ML NEB INH SCH ×3 (08:06→19:39)
[2022-03-01] MEDS: LEVALBUTEROL 1.25MG 0.5ML CONCENTRATE NEB INH SCH ×3 (08:06→19:39)
[2022-03-01] MEDS: MAGNESIUM OXIDE 400MG TAB (MAG-OX) PO SCH (08:11)
[2022-03-01] MEDS: LACTULOSE 20 GM/30 ML SYRUP UD PO SCH ×3 (08:11→20:59)
[2022-03-01] MEDS: THIAMINE 100 MG TAB PO SCH (08:11)
[2022-03-01] MEDS: MULTIVITAMINS/MINERALS THERAP 1 TAB PO SCH (08:11)
[2022-03-01] MEDS: FUROSEMIDE 40 MG TAB PO SCH ×2 (08:13→17:48)
[2022-03-01] MEDS: PANTOPRAZOLE 40MG TAB (PROTONIX) PO SCH ×2 (08:13→20:58)
[2022-03-01] MEDS: predniSONE 20 MG TAB PO SCH (08:13)
[2022-03-01] MEDS ORDERED: SPIRONOLACTONE 25 MG TAB PO SCH (09:00)
[2022-03-01] MEDS ORDERED: PROPRANOLOL 10 MG TAB PO SCH (09:00)
[2022-03-01] MEDS ORDERED: IPRATROPIUM 0.5MG/ALBUTEROL 2.5MG INH SOL UD 3ML (DUONEB) NEB SCH (14:00)
[2022-03-01 15:40] LABS: APPEARANCE, BODY FLUID CLEAR (CLEAR); ASCITES FL COLOR YELLOW (COLORLESS); SOURCE, BODY FLUID ASCITES
[2022-03-01 16:35] LABS: SOURCE, BODY FLUID ALBUMIN ASCITES
[2022-03-01 16:40] LABS: SOURCE, BODY FLUID GLUCOSE ASCITES
[2022-03-01 16:42] LABS: SOURCE, BODY FLUID TOT PROTEIN ASCITES; TOTAL PROTEIN, BODY FLUID < 2.0 G/DL (NOT ESTABLISHED)
[2022-03-01] MEDS: SIMETHICONE 80MG CHEW TAB PO PRN (20:58)
[2022-03-01 23:42] LABS: HEMATOCRIT 22.4 % (42.0-52.0); HEMOGLOBIN 7.4 g/dl (13.5-17.5)
[2022-03-01] MEDS: NICOTINE 21MG/24HR 1 EA TRANSDERMAL TD SCH (23:46)
[2022-03-02] MEDS: IPRATROPIUM 0.02% SOLN 0.5MG 2.5ML NEB INH SCH ×4 (01:11→19:31)
[2022-03-02] MEDS: LEVALBUTEROL 1.25MG 0.5ML CONCENTRATE NEB INH SCH ×4 (01:11→19:31)
[2022-03-02 04:00] VITALS: BP 94/53
[2022-03-02] MEDS: SIMETHICONE 80MG CHEW TAB PO PRN (04:19)
[2022-03-02] MEDS: PIPERACILLIN/TAZOBACTAM SOD 3.375 GM in D5W MINI-BAG PLUS 50 ML IV SCH (06:17)
[2022-03-02 07:30] LABS: BASO % 0.1 % (0.0-1.0); EOS # 0.1 10^3/uL (0.0-0.5); EOS % 0.4 % (0.0-3.0); HEMATOCRIT 22.6 % (42.0-52.0); HEMOGLOBIN 7.7 g/dl (13.5-17.5); LYMPH # 2.4 10^3/uL (1.5-5.0); LYMPH % 14.8 % (24.0-44.0); MEAN CORPUSCULAR HEMOGLOBIN 30.7 pg (27.0-33.0); MEAN CORPUSCULAR HGB CONC 34.1 g/dl (32.0-36.5); MONO % 6.1 % (2.0-8.0); NEUTROPHILS # 12.2 10^3/uL (1.5-8.5); NEUTROPHILS % 76.4 % (36.0-66.0); PLATELET COUNT, AUTOMATED 112 10^3/uL (150-450); RED BLOOD COUNT 2.51 10^6/uL (4.30-6.10)
[2022-03-02 07:56] LABS: ALBUMIN 2.2 G/DL (3.2-5.2); ALKALINE PHOSPHATASE 171 U/L (46-116); ALT/SGPT 50 U/L (7.0-40); AST/SGOT 155 U/L (<34); BILIRUBIN,TOTAL 4.8 MG/DL (0.3-1.2); BLOOD UREA NITROGEN 15 MG/DL (9-23); CALCIUM LEVEL 7.9 MG/DL (8.5-10.1); CARBON DIOXIDE LEVEL 23 MMOL/L (20-31); CHLORIDE LEVEL 101 MMOL/L (98-107); CREATININE FOR GFR 0.61 MG/DL (0.70-1.30); GLOMERULAR FILTRATION RATE > 60.0 (>60); GLUCOSE, FASTING 91 MG/DL (60-100); POTASSIUM SERUM 3.2 MMOL/L (3.5-5.1); SODIUM LEVEL 136 MMOL/L (136-145); TOTAL PROTEIN 5.9 G/DL (5.7-8.2)
[2022-03-02 08:00] VITALS: BP 101/56
[2022-03-02] MEDS ORDERED: ISOVUE-370 76% 100ML VIAL As Ordered ONE (08:12)
[2022-03-02] MEDS: LACTULOSE 20 GM/30 ML SYRUP UD PO SCH ×3 (08:42→21:45)
[2022-03-02] MEDS: PANTOPRAZOLE 40MG TAB (PROTONIX) PO SCH ×2 (08:42→21:45)
[2022-03-02] MEDS: MAGNESIUM OXIDE 400MG TAB (MAG-OX) PO SCH (08:43)
[2022-03-02] MEDS: FUROSEMIDE 40 MG TAB PO SCH (08:43)
[2022-03-02] MEDS: predniSONE 20 MG TAB PO SCH (08:43)
[2022-03-02] MEDS: MULTIVITAMINS/MINERALS THERAP 1 TAB PO SCH (08:43)
[2022-03-02] MEDS: THIAMINE 100 MG TAB PO SCH (08:43)
[2022-03-02] MEDS: MIDODRINE 5 MG TAB PO SCH ×3 (08:43→16:20)
[2022-03-02] MEDS ORDERED: SPIRONOLACTONE 50 MG TAB PO SCH (09:00)
[2022-03-02] MEDS ORDERED: NICOTINE 21MG/24HR 1 EA TRANSDERMAL TD SCH (09:00)
[2022-03-02 09:49] LABS: INR 1.4; PROTHROMBIN TIME 17.4 SECONDS (12.5-14.5)
[2022-03-02] MEDS: POTASSIUM CHLORIDE 10MEQ SR TABLET PO SCH ×2 (11:43→21:45)
[2022-03-02 12:00] VITALS: BP 108/62
[2022-03-02 16:00] VITALS: BP 112/61
[2022-03-02] MEDS: SPIRONOLACTONE 25 MG TAB PO SCH (16:19)
[2022-03-02] MEDS: FUROSEMIDE 40MG/4ML VIAL (J1940) IV SCH (16:20)
[2022-03-02] MEDS ORDERED: FUROSEMIDE 40 MG TAB PO SCH (17:00)
[2022-03-02 20:00] VITALS: BP 114/71
[2022-03-02] MEDS: NICOTINE 21MG/24HR 1 EA TRANSDERMAL TD SCH (21:44)
[2022-03-03] MEDS: IPRATROPIUM 0.02% SOLN 0.5MG 2.5ML NEB INH SCH ×4 (03:51→21:02)
[2022-03-03] MEDS: LEVALBUTEROL 1.25MG 0.5ML CONCENTRATE NEB INH SCH ×4 (03:51→21:01)
[2022-03-03 04:00] VITALS: BP 114/69
[2022-03-03 05:07] LABS: BASO % 0.1 % (0.0-1.0); EOS % 0.2 % (0.0-3.0); LYMPH # 1.9 10^3/uL (1.5-5.0); LYMPH % 12.6 % (24.0-44.0); MEAN CORPUSCULAR HGB CONC 33.3 g/dl (32.0-36.5); MEAN CORPUSCULAR VOLUME 89.9 fl (80.0-96.0); MONO # 0.9 10^3/uL (0.0-0.8); MONO % 5.9 % (2.0-8.0); NEUTROPHILS # 11.9 10^3/uL (1.5-8.5); NEUTROPHILS % 79.8 % (36.0-66.0); PLATELET COUNT, AUTOMATED 118 10^3/uL (150-450); RED BLOOD COUNT 2.67 10^6/uL (4.30-6.10)
[2022-03-03 06:05] LABS: BILIRUBIN,DIRECT 3.2 MG/DL (<0.4)
[2022-03-03 06:20] LABS: ALBUMIN 2.3 G/DL (3.2-5.2); ALKALINE PHOSPHATASE 180 U/L (46-116); ALT/SGPT 54 U/L (7.0-40); AST/SGOT 152 U/L (<34); BILIRUBIN,TOTAL 4.4 MG/DL (0.3-1.2); BLOOD UREA NITROGEN 15 MG/DL (9-23); CALCIUM LEVEL 8.1 MG/DL (8.5-10.1); CARBON DIOXIDE LEVEL 25 MMOL/L (20-31); CHLORIDE LEVEL 101 MMOL/L (98-107); CREATININE FOR GFR 0.62 MG/DL (0.70-1.30); GLOMERULAR FILTRATION RATE > 60.0 (>60); GLUCOSE, FASTING 87 MG/DL (60-100); POTASSIUM SERUM 3.9 MMOL/L (3.5-5.1); SODIUM LEVEL 136 MMOL/L (136-145)
[2022-03-03 07:45] VITALS: BP 105/63
[2022-03-03] MEDS: SPIRONOLACTONE 25 MG TAB PO SCH ×2 (08:06→17:41)
[2022-03-03] MEDS: LACTULOSE 20 GM/30 ML SYRUP UD PO SCH ×3 (08:06→20:36)
[2022-03-03] MEDS: FUROSEMIDE 40MG/4ML VIAL (J1940) IV SCH ×2 (08:06→17:41)
[2022-03-03] MEDS: MIDODRINE 5 MG TAB PO SCH ×3 (08:07→17:41)
[2022-03-03] MEDS: MAGNESIUM OXIDE 400MG TAB (MAG-OX) PO SCH (08:07)
[2022-03-03] MEDS: PANTOPRAZOLE 40MG TAB (PROTONIX) PO SCH ×2 (08:07→20:36)
[2022-03-03] MEDS: MULTIVITAMINS/MINERALS THERAP 1 TAB PO SCH (08:07)
[2022-03-03] MEDS: THIAMINE 100 MG TAB PO SCH (08:07)
[2022-03-03] MEDS ORDERED: prednisoLONE (PRELONE) 15MG/5ML SYRUP UDC PO SCH (09:00)
[2022-03-03 11:42] VITALS: BP 124/76
[2022-03-03] MEDS: ENOXAPARIN 40MG/0.4ML SYRINGE (J1650 PER 10MG) SC SCH (11:45)
[2022-03-03 15:55] VITALS: BP 116/73
[2022-03-03 20:00] VITALS: BP 104/61
[2022-03-03] MEDS: NICOTINE 21MG/24HR 1 EA TRANSDERMAL TD SCH (20:37)
[2022-03-04] MEDS: LEVALBUTEROL 1.25MG 0.5ML CONCENTRATE NEB INH SCH ×4 (03:00→19:47)
[2022-03-04] MEDS: IPRATROPIUM 0.02% SOLN 0.5MG 2.5ML NEB INH SCH ×4 (03:00→19:47)
[2022-03-04 04:00] VITALS: BP 105/69
[2022-03-04 07:10] LABS: BASO % 0.1 % (0.0-1.0); EOS # 0.1 10^3/uL (0.0-0.5); EOS % 0.4 % (0.0-3.0); HEMOGLOBIN 7.5 g/dl (13.5-17.5); LYMPH % 11.6 % (24.0-44.0); MEAN CORPUSCULAR HEMOGLOBIN 29.8 pg (27.0-33.0); MEAN CORPUSCULAR HGB CONC 32.6 g/dl (32.0-36.5); MEAN CORPUSCULAR VOLUME 91.3 fl (80.0-96.0); MONO # 1.1 10^3/uL (0.0-0.8); MONO % 6.5 % (2.0-8.0); NEUTROPHILS # 13.9 10^3/uL (1.5-8.5); NEUTROPHILS % 80.5 % (36.0-66.0); PLATELET COUNT, AUTOMATED 102 10^3/uL (150-450); RED BLOOD COUNT 2.52 10^6/uL (4.30-6.10); WHITE BLOOD COUNT 17.3 10^3/uL (4.0-10.0)
[2022-03-04 07:33] LABS: BILIRUBIN,DIRECT 3.2 MG/DL (<0.4)
[2022-03-04 07:49] LABS: ALBUMIN 2.2 G/DL (3.2-5.2); ALKALINE PHOSPHATASE 174 U/L (46-116); ALT/SGPT 56 U/L (7.0-40); AST/SGOT 198 U/L (<34); BILIRUBIN,TOTAL 4.7 MG/DL (0.3-1.2); BLOOD UREA NITROGEN 12 MG/DL (9-23); CALCIUM LEVEL 7.7 MG/DL (8.5-10.1); CARBON DIOXIDE LEVEL 23 MMOL/L (20-31); CHLORIDE LEVEL 100 MMOL/L (98-107); CREATININE FOR GFR 0.56 MG/DL (0.70-1.30); GLOMERULAR FILTRATION RATE > 60.0 (>60); GLUCOSE, FASTING 98 MG/DL (60-100); POTASSIUM SERUM 3.3 MMOL/L (3.5-5.1); SODIUM LEVEL 135 MMOL/L (136-145); TOTAL PROTEIN 5.5 G/DL (5.7-8.2)
[2022-03-04 09:00] VITALS: BP 105/68
[2022-03-04] MEDS: LACTULOSE 20 GM/30 ML SYRUP UD PO SCH ×3 (09:00→20:09)
[2022-03-04] MEDS: MIDODRINE 5 MG TAB PO SCH ×3 (09:21→17:10)
[2022-03-04] MEDS: SPIRONOLACTONE 25 MG TAB PO SCH ×2 (09:21→17:10)
[2022-03-04] MEDS: MAGNESIUM OXIDE 400MG TAB (MAG-OX) PO SCH (09:21)
[2022-03-04] MEDS: FUROSEMIDE 40MG/4ML VIAL (J1940) IV SCH ×2 (09:22→17:10)
[2022-03-04] MEDS: ENOXAPARIN 40MG/0.4ML SYRINGE (J1650 PER 10MG) SC SCH (09:22)
[2022-03-04] MEDS: THIAMINE 100 MG TAB PO SCH (09:22)
[2022-03-04] MEDS: MULTIVITAMINS/MINERALS THERAP 1 TAB PO SCH (09:22)
[2022-03-04] MEDS: PANTOPRAZOLE 40MG TAB (PROTONIX) PO SCH ×2 (09:22→20:08)
[2022-03-04 11:50] VITALS: BP 121/76
[2022-03-04 16:44] VITALS: BP 118/68
[2022-03-04 20:00] VITALS: BP 114/68
[2022-03-04] MEDS: NICOTINE 21MG/24HR 1 EA TRANSDERMAL TD SCH (20:09)
[2022-03-04] MEDS ORDERED: POTASSIUM CHLORIDE 10MEQ SR TABLET PO ONE (21:00)
[2022-03-05] MEDS: IPRATROPIUM 0.02% SOLN 0.5MG 2.5ML NEB INH SCH ×2 (01:46→07:12)
[2022-03-05] MEDS: LEVALBUTEROL 1.25MG 0.5ML CONCENTRATE NEB INH SCH ×2 (01:46→07:12)
[2022-03-05 03:59] VITALS: BP 108/64
[2022-03-05 07:19] LABS: BASO % 0.1 % (0.0-1.0); EOS # 0.1 10^3/uL (0.0-0.5); EOS % 0.6 % (0.0-3.0); HEMATOCRIT 24.4 % (42.0-52.0); LYMPH # 1.9 10^3/uL (1.5-5.0); LYMPH % 11.7 % (24.0-44.0); MEAN CORPUSCULAR HEMOGLOBIN 30.4 pg (27.0-33.0); MEAN CORPUSCULAR HGB CONC 32.8 g/dl (32.0-36.5); MEAN CORPUSCULAR VOLUME 92.8 fl (80.0-96.0); MONO % 6.2 % (2.0-8.0); NEUTROPHILS % 80.7 % (36.0-66.0); PLATELET COUNT, AUTOMATED 112 10^3/uL (150-450); RED BLOOD COUNT 2.63 10^6/uL (4.30-6.10); WHITE BLOOD COUNT 16.1 10^3/uL (4.0-10.0)
[2022-03-05 07:48] LABS: BILIRUBIN,DIRECT 3.5 MG/DL (<0.4)
[2022-03-05 08:04] VITALS: BP 116/74
[2022-03-05 08:08] LABS: ALBUMIN 2.3 G/DL (3.2-5.2); ALKALINE PHOSPHATASE 181 U/L (46-116); ALT/SGPT 54 U/L (7.0-40); AST/SGOT 164 U/L (<34); BILIRUBIN,TOTAL 5.1 MG/DL (0.3-1.2); BLOOD UREA NITROGEN 9 MG/DL (9-23); CARBON DIOXIDE LEVEL 25 MMOL/L (20-31); CHLORIDE LEVEL 97 MMOL/L (98-107); CREATININE FOR GFR 0.58 MG/DL (0.70-1.30); GLOMERULAR FILTRATION RATE > 60.0 (>60); GLUCOSE, FASTING 92 MG/DL (60-100); POTASSIUM SERUM 3.2 MMOL/L (3.5-5.1); SODIUM LEVEL 133 MMOL/L (136-145); TOTAL PROTEIN 5.9 G/DL (5.7-8.2)
[2022-03-05] MEDS: LACTULOSE 20 GM/30 ML SYRUP UD PO SCH (08:28)
[2022-03-05] MEDS: FUROSEMIDE 40MG/4ML VIAL (J1940) IV SCH (08:28)
[2022-03-05] MEDS: MIDODRINE 5 MG TAB PO SCH ×2 (08:29→12:45)
[2022-03-05] MEDS: MULTIVITAMINS/MINERALS THERAP 1 TAB PO SCH (08:29)
[2022-03-05] MEDS: ENOXAPARIN 40MG/0.4ML SYRINGE (J1650 PER 10MG) SC SCH (08:29)
[2022-03-05] MEDS: PANTOPRAZOLE 40MG TAB (PROTONIX) PO SCH (08:29)
[2022-03-05] MEDS: MAGNESIUM OXIDE 400MG TAB (MAG-OX) PO SCH (08:29)
[2022-03-05] MEDS: SPIRONOLACTONE 25 MG TAB PO SCH (08:29)
[2022-03-05] MEDS: THIAMINE 100 MG TAB PO SCH (08:30)
[2022-03-05] MEDS ORDERED: POTASSIUM CHLORIDE 10MEQ SR TABLET PO ONE ×2 (09:00→11:00)
== END 2022-03-05 14:26 | disposition home or self-care (01) | DRG 280 ==
LOC: M ED 19:24 → M ED INP 23:56 → ENRESERV 03-01 15:17 → M PCU 03-01 17:08
PROVIDERS: ADMIT Family Medicine; ATTEND Family Medicine
PROC: 0W9G3ZZ Drainage of Peritoneal Cavity, Percutaneous Approach (ICD-10-PCS; 2022-03-01)
PROC: 30233N1 Transfusion of Nonautologous Red Blood Cells into Peripheral Vein, Percutaneous Approach (ICD-10-PCS; principal; 2022-03-01 12:42)
DX: K70.31 Alcoholic cirrhosis of liver with ascites (principal); I95.9 Hypotension, unspecified; I11.0 Hypertensive heart disease with heart failure; E72.20 Disorder of urea cycle metabolism, unspecified; I50.32 Chronic diastolic (congestive) heart failure; I85.00 Esophageal varices without bleeding; J44.1 Chronic obstructive pulmonary disease with (acute) exacerbation; D64.9 Anemia, unspecified; K70.11 Alcoholic hepatitis with ascites; R74.01 Elevation of levels of liver transaminase levels; F10.91 Alcohol use, unspecified, in remission; K21.9 Gastro-esophageal reflux disease without esophagitis; F17.210 Nicotine dependence, cigarettes, uncomplicated; K80.20 Calculus of gallbladder without cholecystitis without obstruction; D72.829 Elevated white blood cell count, unspecified; R91.8 Other nonspecific abnormal finding of lung field; E87.6 Hypokalemia; K76.6 Portal hypertension; E87.20 Acidosis, unspecified; Z20.822 Contact with and (suspected) exposure to COVID-19; Z79.899 Other long term (current) drug therapy

== ENCOUNTER → 2022-03-23 | Outpatient (CLI) | payer OTHER ==
[~2022-03-23] MED LIST changes: +BACT800T5 PO; +BACTDSTA; +MAGN400T33; +NALT50TA4 PO; +NICO14DI6 TD; -POTA10CA32 PO; +POTA10CA33 PO; +PRED20TA; +SIME80TA16; +[UNRECOGNIZED DRUG - OTHER] PO
[2022-03-23 17:13] LABS: HEMOGLOBIN 9.4 g/dl (13.5-17.5); MEAN CORPUSCULAR HEMOGLOBIN 29.9 pg (27.0-33.0); MEAN CORPUSCULAR HGB CONC 32.4 g/dl (32.0-36.5); MEAN CORPUSCULAR VOLUME 92.4 fl (80.0-96.0); PLATELET COUNT, AUTOMATED 284 10^3/uL (150-450); RED BLOOD COUNT 3.14 10^6/uL (4.30-6.10)
[2022-03-23 17:19] LABS: THYROID STIMULATING HORMONE 3.721 uIU/ML (0.55-4.78)
[2022-03-23 17:24] LABS: ALKALINE PHOSPHATASE 154 U/L (46-116); ALT/SGPT 16 U/L (7.0-40); AST/SGOT 95 U/L (<34); BILIRUBIN,TOTAL 4.1 MG/DL (0.3-1.2); BLOOD UREA NITROGEN 13 MG/DL (9-23); CALCIUM LEVEL 9.2 MG/DL (8.5-10.1); CARBON DIOXIDE LEVEL 27 MMOL/L (20-31); CHLORIDE LEVEL 95 MMOL/L (98-107); CHOLESTEROL LEVEL 201 MG/DL (<200); CHOLESTEROL RISK RATIO 8.93 (<5); GLOMERULAR FILTRATION RATE > 60.0 (>60); GLUCOSE, FASTING 99 MG/DL (60-100); HDL CHOLESTEROL 22.5 MG/DL (>40); LDL CHOLESTEROL 137.9 MG/DL (<100); NON-HDL-C 179 MG/DL; POTASSIUM SERUM 4.4 MMOL/L (3.5-5.1); SODIUM LEVEL 132 MMOL/L (136-145); TOTAL PROTEIN 7.2 G/DL (5.7-8.2); TRIGLYCERIDES LEVEL 203 MG/DL (<150)
== END ==
LOC: M WUC 11:08
PROVIDERS: ATTEND Physician Assistant
DX: K70.11 Alcoholic hepatitis with ascites (principal); R10.84 Generalized abdominal pain; E87.6 Hypokalemia

== ENCOUNTER → 2022-06-22 | Outpatient (CLI) | payer OTHER ==
[~2022-06-22] MED LIST changes: +SIME80TA PO; -[UNRECOGNIZED DRUG - OTHER] PO
[2022-06-22 16:14] LABS: ALBUMIN 3.5 G/DL (3.2-5.2); ALKALINE PHOSPHATASE 111 U/L (46-116); ALT/SGPT < 9 U/L (7.0-40); AST/SGOT 27 U/L (<34); BILIRUBIN,TOTAL 3.4 MG/DL (0.3-1.2); BLOOD UREA NITROGEN 9 MG/DL (9-23); CALCIUM LEVEL 9.4 MG/DL (8.5-10.1); CARBON DIOXIDE LEVEL 26 MMOL/L (20-31); CHLORIDE LEVEL 105 MMOL/L (98-107); CREATININE FOR GFR 0.77 MG/DL (0.70-1.30); GLOMERULAR FILTRATION RATE > 60.0 (>60); GLUCOSE, FASTING 90 MG/DL (60-100); SODIUM LEVEL 140 MMOL/L (136-145); TOTAL PROTEIN 7.2 G/DL (5.7-8.2)
== END ==
LOC: M PLALAB 13:21
PROVIDERS: ATTEND Physician Assistant
DX: K70.11 Alcoholic hepatitis with ascites (principal)

== ENCOUNTER 2023-11-02 12:35 | Emergency (ER) | payer OTHER ==
[~2023-11-02] VITALS: Ht 172.7 cm; Wt 88.0 kg
[~2023-11-02 12:35] MED LIST changes: -POTA10CA33 PO; +POTA10CA70 PO
[2023-11-02 12:36] VITALS: BP 143/86; TEMP 98.8; O2SAT 98
[2023-11-02 16:56] LABS: BASO % 0.5 % (0.0-1.0); EOS # 0.1 10^3/uL (0.0-0.5); EOS % 0.7 % (0.0-3.0); HEMATOCRIT 42.3 % (42.0-52.0); HEMOGLOBIN 14.4 g/dl (13.5-17.5); LYMPH # 2.5 10^3/uL (1.5-5.0); MEAN CORPUSCULAR HEMOGLOBIN 31.5 pg (27.0-33.0); MEAN CORPUSCULAR VOLUME 92.6 fl (80.0-96.0); MONO # 0.7 10^3/uL (0.0-0.8); MONO % 8.4 % (2.0-8.0); NEUTROPHILS # 5.4 10^3/uL (1.5-8.5); NEUTROPHILS % 62.2 % (36.0-66.0); RED BLOOD COUNT 4.57 10^6/uL (4.30-6.10); WHITE BLOOD COUNT 8.7 10^3/uL (4.0-10.0)
[2023-11-02 17:11] LABS: PLATELET COUNT, AUTOMATED 87 10^3/uL (150-450)
[2023-11-02 17:21] LABS: LIPASE 33 U/L (12-53)
[2023-11-02 17:23] LABS: ALBUMIN 4.3 G/DL (3.2-5.2); ALKALINE PHOSPHATASE 156 U/L (46-116); ALT/SGPT 17 U/L (7.0-40); AST/SGOT 41 U/L (<34); BILIRUBIN,DIRECT 1.9 MG/DL (<0.4); BILIRUBIN,TOTAL 4.1 MG/DL (0.3-1.2); BLOOD UREA NITROGEN 12 MG/DL (9-23); CARBON DIOXIDE LEVEL 27 MMOL/L (20-31); CHLORIDE LEVEL 106 MMOL/L (98-107); CREATININE FOR GFR 0.93 MG/DL (0.70-1.30); GLOMERULAR FILTRATION RATE > 60.0 (>60); GLUCOSE, FASTING 93 MG/DL (60-100); POTASSIUM SERUM 3.7 MMOL/L (3.5-5.1); SODIUM LEVEL 142 MMOL/L (136-145); TOTAL PROTEIN 7.9 G/DL (5.7-8.2)
== END 2023-11-03 00:40 | disposition left against medical advice (07) ==
LOC: M ED 12:35
DX: Z53.21 Procedure and treatment not carried out due to patient leaving prior to being seen by health care provider (principal)

== ENCOUNTER 2024-02-14 18:45 | Inpatient (IN) | payer OTHER ==
[~2024-02-14] VITALS: Ht 170.2 cm; Wt 90.9 kg
[~2024-02-14 18:45] MED LIST changes: +GABA-1172; -GABA-282; -LACT10SO3 PO; +LACT10SO94 PO
[2024-02-14 19:29] LABS: BASO # 0.1 10^3/uL (0.0-0.2); BASO % 0.8 % (0.0-1.0); EOS # 0.1 10^3/uL (0.0-0.5); EOS % 0.6 % (0.0-3.0); HEMATOCRIT 45.6 % (42.0-52.0); HEMOGLOBIN 15.7 g/dl (13.5-17.5); LYMPH # 2.7 10^3/uL (1.5-5.0); LYMPH % 30.4 % (24.0-44.0); MEAN CORPUSCULAR HEMOGLOBIN 31.5 pg (27.0-33.0); MEAN CORPUSCULAR HGB CONC 34.4 g/dl (32.0-36.5); MEAN CORPUSCULAR VOLUME 91.4 fl (80.0-96.0); MONO # 0.8 10^3/uL (0.0-0.8); MONO % 8.5 % (2.0-8.0); NEUTROPHILS # 5.2 10^3/uL (1.5-8.5); NEUTROPHILS % 59.5 % (36.0-66.0); PLATELET COUNT, AUTOMATED 112 10^3/uL (150-450); RED BLOOD COUNT 4.99 10^6/uL (4.30-6.10); WHITE BLOOD COUNT 8.8 10^3/uL (4.0-10.0)
[2024-02-14] MEDS: ONDANSETRON 4MG 2ML VIAL IV ONE (19:35)
[2024-02-14] MEDS: FAMOTIDINE 20MG/2ML VIAL IVP ONE (20:01)
[2024-02-14] MEDS: PANTOPRAZOLE 40MG VIAL IV ONE ×2 (20:01→20:02)
[2024-02-14] MEDS: THIAMINE 200MG 2ML VIAL IV ONE (20:01)
[2024-02-14] MEDS: NS 1,000 ML IV ONE (20:01)
[2024-02-14 20:12] LABS: LIPASE 74 U/L (12-53)
[2024-02-14 20:14] LABS: ALKALINE PHOSPHATASE 166 U/L (40-129); ALT/SGPT 24 U/L (7.0-40); AST/SGOT 52 U/L (<34); BILIRUBIN,DIRECT 0.9 MG/DL (<0.4); BILIRUBIN,TOTAL 1.6 MG/DL (0.3-1.2); BLOOD UREA NITROGEN 7 MG/DL (9-23); CARBON DIOXIDE LEVEL 24 MMOL/L (20-31); CHLORIDE LEVEL 112 MMOL/L (98-107); CREATININE FOR GFR 0.99 MG/DL (0.70-1.30); GLOMERULAR FILTRATION RATE > 60.0 (>60); GLUCOSE, FASTING 87 MG/DL (60-100); POTASSIUM SERUM 3.1 MMOL/L (3.5-5.1); SODIUM LEVEL 149 MMOL/L (136-145); TOTAL PROTEIN 7.9 G/DL (5.7-8.2)
[2024-02-14] MEDS ORDERED: ISOVUE-370 76% 100ML VIAL As Ordered ONE (20:17)
[2024-02-14] MEDS ORDERED: KCL 20MEQ IN 100ML SWI (KRUN) 20 MEQ in IV 1 EA IV ONE (20:25)
[2024-02-14 21:14] LABS: INR 1.27; PARTIAL THROMBOPLASTIN TIME 36.2 SECONDS (24.8-34.2); PROTHROMBIN TIME 16.2 SECONDS (12.5-14.5)
[2024-02-14] MEDS: MORPHINE 4 MG/ML 1ML VIAL IV ONE (21:26)
[2024-02-14] MEDS: KCL 10MEQ/100ML SWI (KRUN) IV SCH (21:26)
[2024-02-14] MEDS: PANTOPRAZOLE SODIUM 40 MG in DEXTROSE 5% (D5W) ADV/MINI-BAG 50 ML IV SCH (21:26)
[2024-02-14 21:39] LABS: AMPHETAMINES LEVEL URINE NEGATIVE (NEGATIVE); BARBITURATES URINE NEGATIVE (NEGATIVE); BENZODIAZEPINES URINE NEGATIVE (NEGATIVE)
[2024-02-14 21:40] LABS: COCAINE METABOLITE URINE NEGATIVE (NEGATIVE); METHADONE URINE NEGATIVE (NEGATIVE); OPIATES URINE NEGATIVE (NEGATIVE); PHENCYCLIDINE URINE NEGATIVE (NEGATIVE)
[2024-02-14 21:51] LABS: CANNABINOIDS URINE POSITIVE (NEGATIVE)
[2024-02-14] MEDS: IPRATROPIUM 0.5MG/ALBUTEROL 2.5MG INH SOL UD 3ML (DUONEB) NEB ONE (21:59)
[2024-02-14 22:25] LABS: CK-MB VALUE MASS 2.3 NG/ML (<3.6); LDH LACTATE DEHYDROGENASE 237 U/L (120-246); MAGNESIUM LEVEL 1.4 MG/DL (1.8-2.4)
[2024-02-14 22:26] LABS: AMYLASE 74 U/L (30-118); SALICYLATE LEVEL < 3.0 MG/DL (<30)
[2024-02-14 22:29] LABS: THYROID STIMULATING HORMONE 2.349 uIU/ML (0.55-4.78)
[2024-02-14 22:43] LABS: CA19-9 TUMOR MARKER,CARBOHYDRA < 1.2 U/ML (<35.0)
[2024-02-14 22:51] LABS: CPK CREATINE PHOSPHOKINASE 193 U/L (46-171); ETHYL ALCOHOL (ETHANOL) 0.342 % (0.000-0.010); MB/CK RELATIVE INDEX 1.19 (< OR =4)
[2024-02-15] VITALS (7 sets, daily range): BP systolic 118–139; BP diastolic 71–87; TEMP 98.8–99.1; O2SAT 95–96
[2024-02-15] MEDS: MAG SULF 1GM/100ML (MAG RUN) 1 GM in IV 1 EA IV SCH (01:04)
[2024-02-15] MEDS ORDERED: MOM 30ML SUSPENSION UDC PO PRN (04:40)
[2024-02-15] MEDS ORDERED: ACETAMINOPHEN 325 MG TAB PO PRN (04:40)
[2024-02-15] MEDS: LORazepam 2 MG TAB PO PRN (05:36)
[2024-02-15] MEDS ORDERED: ALBUTEROL SULFATE 2.5MG/0.5ML INH NEB SOLN NEB PRN (05:45)
[2024-02-15] MEDS: NICOTINE 14 MG/24 HR TRANSDERMAL TD SCH (06:11)
[2024-02-15] MEDS: THIAMINE 100 MG TAB PO SCH (06:11)
[2024-02-15] MEDS: NS 1,000 ML IV ONE (06:11)
[2024-02-15] MEDS: methylPREDNISolone 125MG 2ML VIAL IV STA (06:11)
[2024-02-15 06:20] LABS: HEMATOCRIT 41.3 % (42.0-52.0); MEAN CORPUSCULAR HEMOGLOBIN 31.5 pg (27.0-33.0); MEAN CORPUSCULAR HGB CONC 33.9 g/dl (32.0-36.5); RED BLOOD COUNT 4.44 10^6/uL (4.30-6.10); WHITE BLOOD COUNT 6.5 10^3/uL (4.0-10.0)
[2024-02-15 06:50] LABS: PLATELET COUNT, AUTOMATED 92 10^3/uL (150-450)
[2024-02-15 06:55] LABS: ALBUMIN 3.3 G/DL (3.2-5.2); ALKALINE PHOSPHATASE 148 U/L (40-129); ALT/SGPT 19 U/L (7.0-40); AST/SGOT 42 U/L (<34); BILIRUBIN,TOTAL 1.6 MG/DL (0.3-1.2); BLOOD UREA NITROGEN 8 MG/DL (9-23); CARBON DIOXIDE LEVEL 23 MMOL/L (20-31); CHLORIDE LEVEL 113 MMOL/L (98-107); CREATININE FOR GFR 0.94 MG/DL (0.70-1.30); GLOMERULAR FILTRATION RATE > 60.0 (>60); GLUCOSE, FASTING 91 MG/DL (60-100); MAGNESIUM LEVEL 1.7 MG/DL (1.8-2.4); POTASSIUM SERUM 3.4 MMOL/L (3.5-5.1); SODIUM LEVEL 146 MMOL/L (136-145)
[2024-02-15] MEDS: IPRATROPIUM 0.5MG/ALBUTEROL 2.5MG INH SOL UD 3ML (DUONEB) NEB SCH (08:00)
[2024-02-15] MEDS: predniSONE 20 MG TAB PO SCH (08:23)
[2024-02-15] MEDS: MULTIVITAMINS/MINERALS THERAP 1 TAB PO SCH (08:23)
[2024-02-15] MEDS: PANTOPRAZOLE 40MG VIAL IV SCH (08:23)
[2024-02-15] MEDS: FOLIC ACID 1MG TAB PO SCH (08:23)
[2024-02-15] MEDS ORDERED: FOLI1TAB11 PO (08:56)
[2024-02-15] MEDS ORDERED: ACAM0.05 PO (09:00)
[2024-02-15] MEDS ORDERED: HOME MED LIST COMPLETE! XX SCH (09:00)
[2024-02-15] MEDS ORDERED: PROPRANOLOL 10 MG TAB PO SCH (09:00)
[2024-02-15] MEDS ORDERED: ALBUTEROL 90 MCG/ACT 8GM HFA INHALER INH PRN (09:20)
[2024-02-15] MEDS ORDERED: SIMETHICONE 80MG CHEW TAB PO PRN (09:20)
[2024-02-15] MEDS ORDERED: LACTULOSE 20GM/30ML SYRUP UDC PO PRN (09:20)
[2024-02-15] MEDS ORDERED: NALTREXONE 50 MG TAB PO PRN (10:00)
[2024-02-15] MEDS: MAGNESIUM OXIDE 400MG TAB (MAG-OX) PO SCH (10:27)
[2024-02-15] MEDS: POTASSIUM CHLORIDE 10MEQ SR TABLET PO SCH (10:27)
[2024-02-15] MEDS: ENOXAPARIN 40MG/0.4ML SYRINGE (J1650 PER 10MG) SC SCH (10:28)
[2024-02-15] MEDS: ACAMPROSATE CALCIUM 333MG TABLET (CAMPRAL) PO SCH (11:26)
[2024-02-15] MEDS: PROPRANOLOL 10 MG TAB PO SCH (11:37)
[2024-02-16 03:59] VITALS: BP 116/66; TEMP 97.5; O2SAT 96
[2024-02-16 06:52] VITALS: BP 116/66
[2024-02-16 09:40] VITALS: BP 115/64
[2024-02-16] MEDS ORDERED: DOXY-440 PO (10:23)
[2024-02-16] MEDS ORDERED: IPRA0.00 INH (10:23)
[2024-02-16] MEDS ORDERED: PRED10TA2 PO (10:23)
[2024-02-16] MEDS ORDERED: PRED20TA PO (10:23)
[2024-02-16] MEDS: NS 0.45% 1,000 ML IV ONE (10:43)
[2024-02-16] MEDS: OXAZEPAM 15MG CAP PO ONE (10:43)
[2024-02-16 10:50] LABS: INR 1.29; PARTIAL THROMBOPLASTIN TIME 34.4 SECONDS (24.8-34.2); PROTHROMBIN TIME 16.4 SECONDS (12.5-14.5)
[2024-02-16 11:10] LABS: ALBUMIN 3.1 G/DL (3.2-5.2); ALKALINE PHOSPHATASE 138 U/L (40-129); ALT/SGPT 18 U/L (7.0-40); AST/SGOT 41 U/L (<34); BILIRUBIN,TOTAL 2.1 MG/DL (0.3-1.2); BLOOD UREA NITROGEN 15 MG/DL (9-23); CALCIUM LEVEL 8.8 MG/DL (8.5-10.1); CARBON DIOXIDE LEVEL 23 MMOL/L (20-31); CHLORIDE LEVEL 108 MMOL/L (98-107); CREATININE FOR GFR 0.89 MG/DL (0.70-1.30); GLOMERULAR FILTRATION RATE > 60.0 (>60); GLUCOSE, FASTING 123 MG/DL (60-100); POTASSIUM SERUM 4.1 MMOL/L (3.5-5.1); SODIUM LEVEL 140 MMOL/L (136-145); TOTAL PROTEIN 6.5 G/DL (5.7-8.2)
[2024-02-16 12:00] VITALS: BP 133/88; TEMP 98.6; O2SAT 98
[2024-02-16] MEDS: MAGNESIUM OXIDE 400MG TAB (MAG-OX) PO ONE (12:30)
[2024-02-16] MEDS ORDERED: ACAM0.05 PO (13:30)
[2024-02-16] MEDS ORDERED: FOLI1TAB11 PO (13:30)
[2024-02-16] MEDS ORDERED: LASI40TA9 PO (13:30)
[2024-02-16] MEDS ORDERED: NALT50TA4 PO (13:32)
[2024-02-16] MEDS ORDERED: PROT1TAB2 PO (13:32)
[2024-02-16] MEDS ORDERED: THIA100T7 PO (13:42)
[2024-02-16] MEDS ORDERED: PROP10TA56 PO (13:42)
[2024-02-16] MEDS ORDERED: SIME80CH5 PO (13:42)
[2024-02-16] MEDS ORDERED: SPIR-10 PO (13:42)
[2024-02-16] MEDS ORDERED: MIDO10TA3 PO (13:48)
[2024-02-16] MEDS ORDERED: NICO14DI24 TOP (13:48)
[2024-02-16 14:00] VITALS: BP 135/70
[2024-02-16] MEDS ORDERED: MIDODRINE 5 MG TAB PO SCH (16:00)
== END 2024-02-16 15:34 | disposition home or self-care (01) | DRG 140 ==
LOC: EDBD 18:45 → M ED 18:45 → M ED INP 02-15 04:36 → M MSPAV 02-15 05:40
PROVIDERS: ADMIT Internal Medicine; ATTEND General Practice
DX: J44.1 Chronic obstructive pulmonary disease with (acute) exacerbation (principal); E87.0 Hyperosmolality and hypernatremia; I11.0 Hypertensive heart disease with heart failure; K70.30 Alcoholic cirrhosis of liver without ascites; D64.9 Anemia, unspecified; E11.9 Type 2 diabetes mellitus without complications; I50.32 Chronic diastolic (congestive) heart failure; K76.0 Fatty (change of) liver, not elsewhere classified; K21.9 Gastro-esophageal reflux disease without esophagitis; F17.210 Nicotine dependence, cigarettes, uncomplicated; R74.01 Elevation of levels of liver transaminase levels; E87.6 Hypokalemia; F10.188 Alcohol abuse with other alcohol-induced disorder; Z11.52 Encounter for screening for COVID-19; Z79.899 Other long term (current) drug therapy; Z91.148 Patient's other noncompliance with medication regimen for other reason

== ENCOUNTER 2024-03-20 00:03 | Emergency (ER) | payer MEDICAID, OTHER ==
[~2024-03-20] VITALS: Ht 167.6 cm; Wt 82.0 kg
[~2024-03-20 00:03] MED LIST changes: +ACAM0.05 PO; +DOXY-440 PO; +FOLI1TAB11 PO; +IPRA0.00 INH; +LASI40TA9 PO; +MIDO10TA3 PO; +NICO14DI24 TOP; +PROT1TAB2 PO; +SIME80CH5 PO; +THIA100T7 PO
[2024-03-20] MEDS ORDERED: LORazepam 2 MG TAB PO PRN (00:45)
[2024-03-20 01:18] LABS: HEMATOCRIT 42.9 % (42.0-52.0); HEMOGLOBIN 15.1 g/dl (13.5-17.5); MEAN CORPUSCULAR HEMOGLOBIN 31.9 pg (27.0-33.0); MEAN CORPUSCULAR HGB CONC 35.2 g/dl (32.0-36.5); MEAN CORPUSCULAR VOLUME 90.7 fl (80.0-96.0); PLATELET COUNT, AUTOMATED 113 10^3/uL (150-450); RED BLOOD COUNT 4.73 10^6/uL (4.30-6.10); WHITE BLOOD COUNT 10.3 10^3/uL (4.0-10.0)
[2024-03-20 01:41] LABS: SALICYLATE LEVEL < 3.0 MG/DL (<30)
[2024-03-20 03:03] LABS: AMPHETAMINES LEVEL URINE NEGATIVE (NEGATIVE); BARBITURATES URINE NEGATIVE (NEGATIVE); BENZODIAZEPINES URINE NEGATIVE (NEGATIVE); COCAINE METABOLITE URINE NEGATIVE (NEGATIVE); METHADONE URINE NEGATIVE (NEGATIVE)
[2024-03-20 03:04] LABS: OPIATES URINE NEGATIVE (NEGATIVE); PHENCYCLIDINE URINE NEGATIVE (NEGATIVE)
[2024-03-20 03:14] LABS: CANNABINOIDS URINE POSITIVE (NEGATIVE)
[2024-03-20 03:17] LABS: ALBUMIN 3.8 G/DL (3.2-5.2); ALKALINE PHOSPHATASE 177 U/L (40-129); ALT/SGPT 26 U/L (7.0-40); AST/SGOT 68 U/L (<34); BILIRUBIN,DIRECT 0.9 MG/DL (<0.4); BILIRUBIN,TOTAL 1.5 MG/DL (0.3-1.2); BLOOD UREA NITROGEN 8 MG/DL (9-23); CALCIUM LEVEL 8.6 MG/DL (8.5-10.1); CARBON DIOXIDE LEVEL 26 MMOL/L (20-31); CHLORIDE LEVEL 108 MMOL/L (98-107); CREATININE FOR GFR 0.98 MG/DL (0.70-1.30); GLOMERULAR FILTRATION RATE > 60.0 (>60); GLUCOSE, FASTING 109 MG/DL (60-100); POTASSIUM SERUM 2.9 MMOL/L (3.5-5.1); SODIUM LEVEL 148 MMOL/L (136-145); THYROID STIMULATING HORMONE 3.865 uIU/ML (0.55-4.78)
[2024-03-20 03:34] LABS: HIV 1&2 SCREEN NEGATIVE (NEGATIVE)
[2024-03-20 04:19] LABS: GC DNA AMPLIFICATION NEGATIVE (NEGATIVE)
[2024-03-20] MEDS: POTASSIUM CHLORIDE 10% LIQ 20MEQ/15ML UDC PO ONE ×2 (04:53)
[2024-03-20 05:26] LABS: Trichomonas vaginalis (AMP) NOT DETECTED (NEGATIVE)
[2024-03-20 08:17] VITALS: BP 148/92; TEMP 97.7; O2SAT 96
[2024-03-20] MEDS: FOLIC ACID 1MG TAB PO SCH (09:13)
[2024-03-20] MEDS: MULTIVITAMINS/MINERALS THERAP 1 TAB PO SCH (09:13)
[2024-03-20] MEDS: THIAMINE 100 MG TAB PO SCH (09:13)
== END 2024-03-20 11:03 | disposition home or self-care (01) ==
LOC: EDBD 00:03 → M ED 00:03
DX: F10.129 Alcohol abuse with intoxication, unspecified (principal); J44.9 Chronic obstructive pulmonary disease, unspecified; K21.9 Gastro-esophageal reflux disease without esophagitis; Z79.52 Long term (current) use of systemic steroids; Z79.899 Other long term (current) drug therapy

== ENCOUNTER 2024-08-14 09:47 | Observation (INO) | payer OTHER ==
[~2024-08-14] VITALS: Ht 170.2 cm; Wt 93.5 kg
[2024-08-14] MEDS ORDERED: ISOVUE-370 76% 100ML VIAL As Ordered ONE (10:19)
[2024-08-14 10:40] LABS: VENOUS BASE EXCESS -0.1 (-2.0-2.0); VENOUS HCO3 24.7 MMOL/L (23.0-27.0); VENOUS PARTIAL PRESSURE CO2 40.9 mmHg (38.0-50.0); VENOUS PARTIAL PRESSURE O2 71.9 mmHg (30.0-50.0); VENOUS PH 7.399 UNITS (7.330-7.430); VENOUS STANDARD HCO3 24.3 MMOL/L
[2024-08-14 10:59] LABS: BASO # 0.1 10^3/uL (0.0-0.2); BASO % 0.8 % (0.0-1.0); EOS # 0.1 10^3/uL (0.0-0.5); EOS % 1.2 % (0.0-3.0); HEMATOCRIT 39.9 % (42.0-52.0); HEMOGLOBIN 13.6 g/dl (13.5-17.5); LYMPH # 1.6 10^3/uL (1.5-5.0); LYMPH % 20.9 % (24.0-44.0); MEAN CORPUSCULAR HEMOGLOBIN 30.8 pg (27.0-33.0); MEAN CORPUSCULAR HGB CONC 34.1 g/dl (32.0-36.5); MEAN CORPUSCULAR VOLUME 90.3 fl (80.0-96.0); MONO # 0.7 10^3/uL (0.0-0.8); MONO % 9.4 % (2.0-8.0); NEUTROPHILS % 67.3 % (36.0-66.0); RED BLOOD COUNT 4.42 10^6/uL (4.30-6.10); WHITE BLOOD COUNT 7.5 10^3/uL (4.0-10.0)
[2024-08-14 11:03] LABS: INR 1.11; PROTHROMBIN TIME 14.6 SECONDS (12.5-14.5)
[2024-08-14 11:12] LABS: OSMOLALITY SERUM 374 MOSM/KG (275-295)
[2024-08-14 11:14] LABS: SALICYLATE LEVEL < 3.0 MG/DL (<30)
[2024-08-14 11:15] LABS: ALBUMIN 3.6 G/DL (3.2-5.2); ALKALINE PHOSPHATASE 168 U/L (40-129); ALT/SGPT 22 U/L (7.0-40); AST/SGOT 69 U/L (<34); BILIRUBIN,DIRECT 0.7 MG/DL (<0.4); BILIRUBIN,TOTAL 1.4 MG/DL (0.3-1.2); BLOOD UREA NITROGEN 7 MG/DL (9-23); CALCIUM LEVEL 8.7 MG/DL (8.5-10.1); CARBON DIOXIDE LEVEL 25 MMOL/L (20-31); CHLORIDE LEVEL 108 MMOL/L (98-107); CREATININE FOR GFR 1.09 MG/DL (0.70-1.30); GLOMERULAR FILTRATION RATE 87.4 (>60); GLUCOSE, FASTING 101 MG/DL (60-100); SODIUM LEVEL 146 MMOL/L (136-145)
[2024-08-14 11:17] LABS: THYROID STIMULATING HORMONE 2.565 uIU/ML (0.55-4.78)
[2024-08-14 11:30] LABS: ETHYL ALCOHOL (ETHANOL) 0.311 % (0.000-0.010)
[2024-08-14] MEDS: POTASSIUM CHLORIDE 10MEQ SR TABLET PO ONE ×2 (11:42→15:15)
[2024-08-14 11:44] LABS: PLATELET COUNT, AUTOMATED 98 10^3/uL (150-450)
[2024-08-14] MEDS ORDERED: HOME MED LIST COMPLETE! XX SCH (11:55)
[2024-08-14] MEDS: BOOSTRIX VACCINE (TETANUS/DIPHTH/ACEL. PERTUSSIS) 0.5ML SYR IM.IMMUN ONE (12:27)
[2024-08-14] MEDS: NS 0.45% 1,000 ML IV ONE (13:00)
[2024-08-14] MEDS: LACTULOSE 20GM/30ML SYRUP UDC PO ONE (13:24)
[2024-08-14] MEDS ORDERED: NS (Normal Saline) 0.9% 1,000 ML IV ONE (14:00)
[2024-08-14 15:00] VITALS: BP 160/87; TEMP 98.2; O2SAT 97
[2024-08-14] MEDS: LORazepam 2 MG TAB PO PRN (15:14)
[2024-08-14] MEDS: FOLIC ACID 1MG TAB PO SCH (15:15)
[2024-08-14] MEDS: PANTOPRAZOLE 40MG VIAL IV ONE (15:16)
[2024-08-14] MEDS: THIAMINE 100 MG TAB PO SCH (15:20)
[2024-08-14] MEDS: MULTIVITAMINS/MINERALS THERAP 1 TAB PO SCH (15:20)
[2024-08-14] MEDS: NS 0.45% 1,000 ML IV SCH (15:22)
[2024-08-14 15:34] LABS: BARBITURATES URINE NEGATIVE (NEGATIVE); COCAINE METABOLITE URINE NEGATIVE (NEGATIVE); METHADONE URINE NEGATIVE (NEGATIVE)
[2024-08-14 15:35] LABS: AMPHETAMINES LEVEL URINE NEGATIVE (NEGATIVE); BENZODIAZEPINES URINE NEGATIVE (NEGATIVE); OPIATES URINE NEGATIVE (NEGATIVE); PHENCYCLIDINE URINE NEGATIVE (NEGATIVE)
[2024-08-14 15:40] LABS: CANNABINOIDS URINE POSITIVE (NEGATIVE)
[2024-08-14] MEDS: SUCRALFATE 1 GM TAB PO SCH (17:30)
[2024-08-14] MEDS: NICOTINE 21MG/24HR 1 EA TRANSDERMAL TD ONE (18:07)
[2024-08-14] MEDS: SCOPOLAMINE 1MG TRANSDERMAL PATCH TOP SCH (18:08)
[2024-08-14 18:26] LABS: HEMOGLOBIN 13.9 g/dl (13.5-17.5)
[2024-08-14] MEDS: PANTOPRAZOLE SODIUM 40 MG in D5W 50 ML IV SCH (19:00)
[2024-08-14 19:12] LABS: BLOOD UREA NITROGEN 8 MG/DL (9-23); CALCIUM LEVEL 8.3 MG/DL (8.5-10.1); CARBON DIOXIDE LEVEL 25 MMOL/L (20-31); CHLORIDE LEVEL 109 MMOL/L (98-107); CREATININE FOR GFR 1.02 MG/DL (0.70-1.30); GLOMERULAR FILTRATION RATE > 90.0 (>60); GLUCOSE, FASTING 94 MG/DL (60-100); POTASSIUM SERUM 3.7 MMOL/L (3.5-5.1); SODIUM LEVEL 146 MMOL/L (136-145)
[2024-08-14 20:31] VITALS: BP 152/91; TEMP 98.6; O2SAT 99
[2024-08-14 21:38] VITALS: BP 118/66
[2024-08-14] MEDS: LORazepam 2 MG/ML 1ML VIAL IV PRN (21:40)
[2024-08-15 00:27] LABS: BLOOD UREA NITROGEN 7 MG/DL (9-23); CALCIUM LEVEL 8.1 MG/DL (8.5-10.1); CARBON DIOXIDE LEVEL 24 MMOL/L (20-31); CHLORIDE LEVEL 107 MMOL/L (98-107); CREATININE FOR GFR 1.04 MG/DL (0.70-1.30); GLOMERULAR FILTRATION RATE > 90.0 (>60); GLUCOSE, FASTING 85 MG/DL (60-100); POTASSIUM SERUM 3.3 MMOL/L (3.5-5.1); SODIUM LEVEL 143 MMOL/L (136-145)
[2024-08-15 00:35] LABS: HEMOGLOBIN 12.7 g/dl (13.5-17.5)
[2024-08-15 04:58] VITALS: BP 131/79; TEMP 98.6; O2SAT 95
[2024-08-15 06:21] LABS: HEMATOCRIT 36.7 % (42.0-52.0); HEMOGLOBIN 12.4 g/dl (13.5-17.5); MEAN CORPUSCULAR HEMOGLOBIN 30.7 pg (27.0-33.0); MEAN CORPUSCULAR HGB CONC 33.8 g/dl (32.0-36.5); MEAN CORPUSCULAR VOLUME 90.8 fl (80.0-96.0); RED BLOOD COUNT 4.04 10^6/uL (4.30-6.10); WHITE BLOOD COUNT 5.7 10^3/uL (4.0-10.0)
[2024-08-15 06:28] LABS: PLATELET COUNT, AUTOMATED 64 10^3/uL (150-450)
[2024-08-15 06:54] LABS: ALBUMIN 3.3 G/DL (3.2-5.2); ALKALINE PHOSPHATASE 163 U/L (40-129); ALT/SGPT 19 U/L (7.0-40); AST/SGOT 57 U/L (<34); BILIRUBIN,TOTAL 2.8 MG/DL (0.3-1.2); BLOOD UREA NITROGEN 8 MG/DL (9-23); CALCIUM LEVEL 8.1 MG/DL (8.5-10.1); CARBON DIOXIDE LEVEL 23 MMOL/L (20-31); CHLORIDE LEVEL 104 MMOL/L (98-107); CREATININE FOR GFR 1.05 MG/DL (0.70-1.30); GLOMERULAR FILTRATION RATE > 90.0 (>60); GLUCOSE, FASTING 84 MG/DL (60-100); POTASSIUM SERUM 3.3 MMOL/L (3.5-5.1); SODIUM LEVEL 139 MMOL/L (136-145); TOTAL PROTEIN 6.4 G/DL (5.7-8.2)
[2024-08-15] MEDS ORDERED: SUCR1TA PO (07:31)
[2024-08-15] MEDS ORDERED: THERTAB19 PO (07:31)
[2024-08-15] MEDS ORDERED: NICO21PAT TD (07:31)
[2024-08-15] MEDS ORDERED: THIA100TA PO (07:31)
[2024-08-15] MEDS ORDERED: TALK1KIT MC (07:36)
[2024-08-15 08:00] VITALS: BP 131/79
[2024-08-15] MEDS: LACTULOSE 20GM/30ML SYRUP UDC PO SCH (08:00)
[2024-08-15] MEDS: POTASSIUM CHLORIDE 10MEQ SR TABLET PO ONE (08:10)
[2024-08-15] MEDS: NICOTINE 21MG/24HR 1 EA TRANSDERMAL TD SCH (08:12)
[2024-08-15 08:16] VITALS: BP 131/79
[2024-08-15] MEDS: PROPRANOLOL 10 MG TAB PO ONE (08:16)
[2024-08-15 12:22] LABS: HEMATOCRIT 39.9 % (42.0-52.0); HEMOGLOBIN 13.6 g/dl (13.5-17.5)
== END 2024-08-15 12:15 | disposition home or self-care (01) ==
LOC: EDBD 09:47 → M ED 09:47 → M ED INP 12:24 → INTOOBSV 12:24 → M MS5PR 14:50
PROVIDERS: ADMIT General Practice; ATTEND General Practice
DX: R41.82 Altered mental status, unspecified (principal); Z91.148 Patient's other noncompliance with medication regimen for other reason; Z91.199 Patient's noncompliance with other medical treatment and regimen due to unspecified reason; F10.229 Alcohol dependence with intoxication, unspecified; S01.81XA Laceration without foreign body of other part of head, initial encounter; R20.2 Paresthesia of skin; K76.2 Central hemorrhagic necrosis of liver; E72.20 Disorder of urea cycle metabolism, unspecified; K70.30 Alcoholic cirrhosis of liver without ascites; I85.11 Secondary esophageal varices with bleeding; K76.6 Portal hypertension; F17.210 Nicotine dependence, cigarettes, uncomplicated; D69.59 Other secondary thrombocytopenia; E87.6 Hypokalemia; R74.01 Elevation of levels of liver transaminase levels; I10 Essential (primary) hypertension; K21.9 Gastro-esophageal reflux disease without esophagitis; J44.9 Chronic obstructive pulmonary disease, unspecified; Z87.19 Personal history of other diseases of the digestive system; Z79.899 Other long term (current) drug therapy
CPT/HCPCS: 36415; 70450; 70496; 70498; 70551; 72125; 80047; 80048; 80053; 80076; 80143; 80307; 82077; 82140; 82803; 83735; 83930; 84443; 85014; 85018; 85025; 85027; 85049; 85055; 85610; 90471; 90715; 93005; 93041; 94760; 96361; 96374; 96375; 96376; 97161; 97165; 97530; 97535; 99285; J2060; J2470; Q9967

== ENCOUNTER 2024-12-28 03:28 | Emergency (ER) | payer OTHER ==
[~2024-12-28] VITALS: Ht 172.7 cm; Wt 91.6 kg
[~2024-12-28 03:28] MED LIST changes: +NICO21PAT TD; +SUCR1TA PO; +TALK1KIT MC; +THERTAB19 PO
[2024-12-28 05:40] LABS: BASO # 0.1 10^3/uL (0.0-0.2); BASO % 1.0 % (0.0-1.0); EOS # 0.1 10^3/uL (0.0-0.5); EOS % 0.7 % (0.0-3.0); LYMPH # 2.5 10^3/uL (1.5-5.0); LYMPH % 31.2 % (24.0-44.0); MONO # 0.7 10^3/uL (0.0-0.8); MONO % 9.2 % (2.0-8.0); NEUTROPHILS # 4.7 10^3/uL (1.5-8.5); NEUTROPHILS % 57.8 % (36.0-66.0); PLATELET COUNT, AUTOMATED 121 10^3/uL (150-450)
[2024-12-28 06:06] LABS: ALT/SGPT 30.0 U/L (7.0-40); AST/SGOT 113.0 U/L (<34)
[2024-12-28 06:19] LABS: ETHYL ALCOHOL (ETHANOL) 0.404 % (0.000-0.010)
[2024-12-28] MEDS ORDERED: MORPHINE 4 MG/ML 1 ML VIAL IV PRN (08:25)
[2024-12-28] MEDS: NS (Normal Saline) 0.9% 1,000 ML IV SCH (08:40)
[2024-12-28] MEDS: ONDANSETRON 4MG 2ML VIAL IV ONE (08:40)
[2024-12-28] MEDS ORDERED: ISOVUE-370 76% 100 ML VIAL As Ordered ONE (08:58)
[2024-12-28 09:04] LABS: BASO # 0.1 10^3/uL (0.0-0.2); BASO % 1.0 % (0.0-1.0); EOS # 0.1 10^3/uL (0.0-0.5); EOS % 1.1 % (0.0-3.0); LYMPH # 2.2 10^3/uL (1.5-5.0); LYMPH % 30.0 % (24.0-44.0); MONO # 0.7 10^3/uL (0.0-0.8); MONO % 9.5 % (2.0-8.0); NEUTROPHILS # 4.3 10^3/uL (1.5-8.5); NEUTROPHILS % 58.3 % (36.0-66.0); PLATELET COUNT, AUTOMATED 126 10^3/uL (150-450)
[2024-12-28 09:36] LABS: ALT/SGPT 29.0 U/L (7.0-40); AST/SGOT 112.0 U/L (<34); CALCIUM LEVEL 8.6 MG/DL (8.5-10.1); CARBON DIOXIDE LEVEL 28.0 MMOL/L (20-31); CHLORIDE LEVEL 108.0 MMOL/L (98-107); CREATININE FOR GFR 1.24 MG/DL (0.70-1.30); GLOMERULAR FILTRATION RATE 74.9 (>60); MAGNESIUM LEVEL 1.5 MG/DL (1.8-2.4); POTASSIUM SERUM 3.8 MMOL/L (3.5-5.1); SODIUM LEVEL 149.0 MMOL/L (136-145)
[2024-12-28] MEDS: KETOROLAC 30 MG/ML 1 ML VIAL IV ONE (12:12)
[2024-12-28 12:35] LABS: KETONE, URINE AUTO RFX NEGATIVE (NEGATIVE); LEUKOCYTE ESTERASE UR AUTO RFX NEGATIVE (NEGATIVE); MUCUS, URINE RFX SMALL (NEGATIVE); NITRITE, URINE AUTO RFX NEGATIVE (NEGATIVE); RBC, URINE AUTO RFX 0 /HPF (0-3); SQUAM EPITHELIAL CELL UR AURFX 0 /HPF (0-6); WBC, URINE AUTO RFX 1 /HPF (0-3)
[2024-12-28 13:32] LABS: AMPHETAMINES LEVEL URINE NEGATIVE (NEGATIVE); BARBITURATES URINE NEGATIVE (NEGATIVE); BENZODIAZEPINES URINE NEGATIVE (NEGATIVE); COCAINE METABOLITE URINE NEGATIVE (NEGATIVE); PHENCYCLIDINE URINE NEGATIVE (NEGATIVE)
[2024-12-28 13:33] LABS: METHADONE URINE NEGATIVE (NEGATIVE); OPIATES URINE NEGATIVE (NEGATIVE)
[2024-12-28 13:35] LABS: CANNABINOIDS URINE POSITIVE (NEGATIVE)
[2024-12-28] MEDS: HALOPERIDOL LACTATE 5 MG/ML VIAL IV ONE (14:22)
[2024-12-28 14:45] VITALS: BP 136/84
[2024-12-28] MEDS ORDERED: ONDA-282 PO (15:02)
[2024-12-28] MEDS ORDERED: PROM25SU3 PR (15:10)
[2024-12-28 15:15] VITALS: TEMP 98; O2SAT 100
== END 2024-12-28 15:30 | disposition left against medical advice (07) ==
LOC: M ED 03:28
DX: R11.2 Nausea with vomiting, unspecified (principal); F10.129 Alcohol abuse with intoxication, unspecified; I10 Essential (primary) hypertension; J44.9 Chronic obstructive pulmonary disease, unspecified; F17.200 Nicotine dependence, unspecified, uncomplicated; K74.60 Unspecified cirrhosis of liver; Z86.79 Personal history of other diseases of the circulatory system; Z79.83 Long term (current) use of bisphosphonates; Z79.899 Other long term (current) drug therapy; Z53.9 Procedure and treatment not carried out, unspecified reason
CPT/HCPCS: 74177; 80047; 80048; 80076; 80307; 81001; 82077; 83690; 83735; 85025; 87486; 87581; 87633; 87798; 93041; 96361; 96374; 96375; 99285; J1630; J1885; J2405; J2765; Q9967